=== PATIENT | male | born 1955 | race African-American/Black ===

== ENCOUNTER 2019-09-06 15:19 | Inpatient (IN) | payer OTHER ==
[2019-09-06] VITALS (9 sets, daily range): BP systolic 102–137; BP diastolic 62–91
[~2019-09-06] VITALS: Ht 172.7 cm; Wt 49.0 kg
--- OUTSIDE RECORDS SUMMARY | 2019-09-06 15:21 | XMS REPORT | Clinical Summary ---
Author Author [facility] Address Unknown Phone Unavailable Care Team Providers Care Access Director Name Role Phone PCP Unavailable Allergies Not on File Medications Not on file Active Problems Not on file Encounters Care Team Description Date Type Specialty 08/25/2019 Hospital Encounter after 09/05/2018 Social History Date Tobacco Use Types Packs/Day Years Used Never Assessed Sex Assigned at Date Recorded Not on file Industry Job Start Date Occupation Not on file Not on file Not on file Travel End Travel History Travel Start No recent travel history available. Last Filed Vital Signs Not on file Plan of Treatment Not on file Results Not on fileafter 09/05/2018 Insurance Payer Benefit Subscriber ID Type Phone Address Plan / Group [place]
[2019-09-06] MEDS ORDERED: SODIUM CHLORIDE 0.9% 1000ML 1,000 ML IV STA (15:22)
--- OUTSIDE RECORDS SUMMARY | 2019-09-06 15:23 | XMS REPORT ---
Author Author [facility] t Organization [facility] Address [address] [place] [address] Phone Unavailable Care Team Providers Care Clay Transporter Name Role Phone Unavailable Unavailable Payers Payer Name Policy Type Policy Number Effective Date Expiration Date S ource Problems This patient has no known problems. Allergies, Adverse Reactions, Alerts Allergy Name Allergy Type Status Severity Reaction(s) Onset Date Inacti ve Date Treating Clinician Comments Source No Known Allergies DA Active U 2018-06-14 00:00:00 [facility] Medications This patient has no known medications. Procedures This patient has no known procedures. Results Test Description Test Time Test Comments Results Result Comments Source CBC W/AUTO DIFF 2019-08-31 06:19:00 Test Item WHITE BLOOD CELL (test code = WBC) 5.2 K/mm3 3.5-11.0 N RED BLOOD CELL (test code = RBC) 3.13 M/mm3 4.70-6.10 L HEMOGLOBIN (test code = HGB) 8.1 G/DL 12.3-15.9 L HEMATOCRIT (test code = HCT) 28.4 % 35.8-46.7 L MEAN CELL VOLUME (test code = MCV) 90.7 Fl 86.3-98.9 N MEAN CELL HGB (test code = MCH) 25.9 pg 28.9-34.4 L MEAN CELL HGB CONCETRATION (test code = MCHC) 28.5 G/DL 32.1-34. 5 L RED CELL DISTRIBUTION WIDTH (test code = RDW) 17.4 SD 11.5-14. 5 H PLATELET COUNT (test code = PLT) 282.0 K/mm3 150-450 N MEAN PLATELET VOLUME (test code = MPV) 9.90 fL 7.0-9.6 H NEUTROPHIL % (test code = NT%) 53.2 % 40-76 LYMPHOCYTE % (test code = LY%) 34.3 % 20.5-51.1 N MONOCYTE % (test code = MO%) 6.9 % 1.7-9.3 N EOSINOPHIL % (test code = EO%) 5.2 % 0.0-6.0 N BASOPHIL % (test code = BA%) 0.4 % 0.0-2.0 N NEUTROPHIL # (test code = NT#) 2.76 K/mm3 1.8-7.6 N LYMPHOCYTE # (test code = LY#) 1.8 K/mm3 0.6-3.0 N MONOCYTE # (test code = MO#) 0.4 K/mm3 0.2-1.5 N EOSINOPHIL # (test code = EO#) 0.3 K/mm3 0.0-0.4 N BASOPHIL # (test code = BA#) 0.0 K/mm3 0.0-0.2 N MANUAL DIFF REQUIRED (test code = MDIFF) NO DIFF/SCN CRITERIA SLIDE REVIEW CONSISTANT WITH AUTO DIFFERENTIAL. CBC W/AUTO [id number] 06:19:00* Test Item Value Reference Range Interpretation Comments WHITE BLOOD CELL (test code = WBC) 5.2 K/mm3 3.5-11.0 N RED BLOOD CELL (test code = RBC) 3.13 M/mm3 4.70-6.10 L HEMOGLOBIN (test code = HGB) 8.1 G/DL 12.3-15.9 L HEMATOCRIT (test code = HCT) 28.4 % 35.8-46.7 L MEAN CELL VOLUME (test code = MCV) 90.7 Fl 86.3-98.9 N MEAN CELL HGB (test code = MCH) 25.9 pg 28.9-34.4 L MEAN CELL HGB CONCETRATION (test code = MCHC) 28.5 G/DL 32.1-34. 5 L RED CELL DISTRIBUTION WIDTH (test code = RDW) 17.4 SD 11.5-14. 5 H PLATELET COUNT (test code = PLT) 282.0 K/mm3 150-450 N MEAN PLATELET VOLUME (test code = MPV) 9.90 fL 7.0-9.6 H NEUTROPHIL % (test code = NT%) 53.2 % 40-76 LYMPHOCYTE % (test code = LY%) 34.3 % 20.5-51.1 N MONOCYTE % (test code = MO%) 6.9 % 1.7-9.3 N EOSINOPHIL % (test code = EO%) 5.2 % 0.0-6.0 N BASOPHIL % (test code = BA%) 0.4 % 0.0-2.0 N NEUTROPHIL # (test code = NT#) 2.76 K/mm3 1.8-7.6 N LYMPHOCYTE # (test code = LY#) 1.8 K/mm3 0.6-3.0 N MONOCYTE # (test code = MO#) 0.4 K/mm3 0.2-1.5 N EOSINOPHIL # (test code = EO#) 0.3 K/mm3 0.0-0.4 N BASOPHIL # (test code = BA#) 0.0 K/mm3 0.0-0.2 N MANUAL DIFF REQUIRED (test code = MDIFF) NO DIFF/SCN CRITERIA SLIDE REVIEW CONSISTANT WITH AUTO DIFFERENTIAL. RBC [id number] 06:19:00* Test Item Value Reference Range Interpretation Comments HYPOCHROMIA (test code = HYPO) 2+ ON SCAN NONE A PLATELET ESTIMATE (test code = PLTEST) ADEQUATE THOUSAND ADEQUATE PLATELET MORPHOLOGY (test code = PLTMORPH) NORMAL CBC W/AUTO [id number] 06:19:00* Test Item Value Reference Range Interpretation Comments WHITE BLOOD CELL (test code = WBC) 5.2 K/mm3 3.5-11.0 N RED BLOOD CELL (test code = RBC) 3.13 M/mm3 4.70-6.10 L HEMOGLOBIN (test code = HGB) 8.1 G/DL 12.3-15.9 L HEMATOCRIT (test code = HCT) 28.4 % 35.8-46.7 L MEAN CELL VOLUME (test code = MCV) 90.7 Fl 86.3-98.9 N MEAN CELL HGB (test code = MCH) 25.9 pg 28.9-34.4 L MEAN CELL HGB CONCETRATION (test code = MCHC) 28.5 G/DL 32.1-34. 5 L RED CELL DISTRIBUTION WIDTH (test code = RDW) 17.4 SD 11.5-14. 5 H PLATELET COUNT (test code = PLT) 282.0 K/mm3 150-450 N MEAN PLATELET VOLUME (test code = MPV) 9.90 fL 7.0-9.6 H NEUTROPHIL % (test code = NT%) 53.2 % 40-76 LYMPHOCYTE % (test code = LY%) 34.3 % 20.5-51.1 N MONOCYTE % (test code = MO%) 6.9 % 1.7-9.3 N EOSINOPHIL % (test code = EO%) 5.2 % 0.0-6.0 N BASOPHIL % (test code = BA%) 0.4 % 0.0-2.0 N NEUTROPHIL # (test code = NT#) 2.76 K/mm3 1.8-7.6 N LYMPHOCYTE # (test code = LY#) 1.8 K/mm3 0.6-3.0 N MONOCYTE # (test code = MO#) 0.4 K/mm3 0.2-1.5 N EOSINOPHIL # (test code = EO#) 0.3 K/mm3 0.0-0.4 N BASOPHIL # (test code = BA#) 0.0 K/mm3 0.0-0.2 N MANUAL DIFF REQUIRED (test code = MDIFF) NO DIFF/SCN CRITERIA SLIDE REVIEW CONSISTANT WITH AUTO DIFFERENTIAL. [id number] 04:50:00* Test Item Value Reference Range Interpretation Comments MAGNESIUM (test code = MAG) 2.0 MG/DL 1.8-2.4 N CBC W/AUTO [id number] 04:48:00* Test Item Value Reference Range Interpretation Comments WHITE BLOOD CELL (test code = WBC) 5.2 K/mm3 3.5-11.0 N RED BLOOD CELL (test code = RBC) 3.13 M/mm3 4.70-6.10 L HEMOGLOBIN (test code = HGB) 8.1 G/DL 12.3-15.9 L HEMATOCRIT (test code = HCT) 28.4 % 35.8-46.7 L MEAN CELL VOLUME (test code = MCV) 90.7 Fl 86.3-98.9 N MEAN CELL HGB (test code = MCH) 25.9 pg 28.9-34.4 L MEAN CELL HGB CONCETRATION (test code = MCHC) 28.5 G/DL 32.1-34. 5 L RED CELL DISTRIBUTION WIDTH (test code = RDW) 17.4 SD 11.5-14. 5 H PLATELET COUNT (test code = PLT) 282.0 K/mm3 150-450 N MEAN PLATELET VOLUME (test code = MPV) 9.90 fL 7.0-9.6 H NEUTROPHIL % (test code = NT%) % 40-76 LYMPHOCYTE % (test code = LY%) % 20.5-51.1 N MONOCYTE % (test code = MO%) % 1.7-9.3 N EOSINOPHIL % (test code = EO%) % 0.0-6.0 N BASOPHIL % (test code = BA%) % 0.0-2.0 N NEUTROPHIL # (test code = NT#) K/mm3 1.8-7.6 N LYMPHOCYTE # (test code = LY#) K/mm3 0.6-3.0 N MONOCYTE # (test code = MO#) K/mm3 0.2-1.5 N EOSINOPHIL # (test code = EO#) K/mm3 0.0-0.4 N BASOPHIL # (test code = BA#) K/mm3 0.0-0.2 N MANUAL DIFF REQUIRED (test code = MDIFF) DIFF/SCN CRITERIA COMPREHENSIVE METABOLIC [id number] 04:48:00* Test Item Value Reference Range Interpretation Comments SODIUM (test code = NA) 143 mmol/L 134-147 N POTASSIUM (test code = K) 4.6 mmol/L 3.4-5.0 N CHLORIDE (test code = CL) 111 mmol/L 100-108 H CARBON DIOXIDE (test code = CO2) 30 mmol/L 21-32 N ANION GAP (test code = GAP) 2.0 GAP calc 4.0-15.0 L GLUCOSE (test code = GLU) 92 MG/DL 70-110 N BLOOD UREA NITROGEN (test code = BUN) 2 MG/DL 7-18 L GLOMERULAR FILTRATION RATE (test code = GFR) >=60 max estimate estG FR >60 CREATININE (test code = CREAT) 0.3 MG/DL 0.8-1.3 L TOTAL PROTEIN (test code = PROT) 5.7 G/DL 6.4-8.2 L ALBUMIN (test code = ALB) 1.7 G/DL 3.4-5.0 L GLOBULIN (test code = GLOB) 4.0 GM/dL ALBUMIN/GLOBULIN RATIO (test code = A/G) 0.4 RATIO 1.2-2.2 L CALCIUM (test code = CA) 8.4 MG/DL 8.5-10.1 L BILIRUBIN TOTAL (test code = BILT) 0.20 MG/DL 0.2-1.2 N SGOT/AST (test code = AST) 21 Unit/L 15-37 N SGPT/ALT (test code = ALT) 14 Unit/L 12-78 N ALKALINE PHOSPHATASE TOTAL (test code = ALKP) 90 Unit/L 50-136 N BASIC METABOLIC [id number] 14:46:00* Test Item Value Reference Range Interpretation Comments SODIUM (test code = NA) 144 mmol/L 134-147 N POTASSIUM (test code = K) 3.3 mmol/L 3.4-5.0 L CHLORIDE (test code = CL) 110 mmol/L 100-108 H CARBON DIOXIDE (test code = CO2) 30 mmol/L 21-32 N ANION GAP (test code = GAP) 4.0 GAP calc 4.0-15.0 N GLUCOSE (test code = GLU) 100 MG/DL 70-110 N BLOOD UREA NITROGEN (test code = BUN) 3 MG/DL 7-18 L GLOMERULAR FILTRATION RATE (test code = GFR) >=60 max estimate estG FR >60 CREATININE (test code = CREAT) 0.4 MG/DL 0.8-1.3 L CALCIUM (test code = CA) 8.2 MG/DL 8.5-10.1 L BASIC METABOLIC [id number] 14:44:00* Test Item Value Reference Range Interpretation Comments SODIUM (test code = NA) 144 mmol/L 134-147 N POTASSIUM (test code = K) 3.3 mmol/L 3.4-5.0 L CHLORIDE (test code = CL) 110 mmol/L 100-108 H CARBON DIOXIDE (test code = CO2) 30 mmol/L 21-32 N ANION GAP (test code = GAP) 4.0 GAP calc 4.0-15.0 N GLUCOSE (test code = GLU) 100 MG/DL 70-110 N BLOOD UREA NITROGEN (test code = BUN) 3 MG/DL 7-18 L GLOMERULAR FILTRATION RATE (test code = GFR) estGFR >60 CREATININE (test code = CREAT) MG/DL 0.8-1.3 CALCIUM (test code = CA) 8.2 MG/DL 8.5-10.1 L CBC W/AUTO [id number] 11:23:00* Test Item Value Reference Range Interpretation Comments WHITE BLOOD CELL (test code = WBC) 6.8 K/mm3 3.5-11.0 N RED BLOOD CELL (test code = RBC) 3.54 M/mm3 4.70-6.10 L HEMOGLOBIN (test code = HGB) 9.2 G/DL 12.3-15.9 L HEMATOCRIT (test code = HCT) 31.8 % 35.8-46.7 L MEAN CELL VOLUME (test code = MCV) 89.8 Fl 86.3-98.9 N MEAN CELL HGB (test code = MCH) 26.0 pg 28.9-34.4 L MEAN CELL HGB CONCETRATION (test code = MCHC) 28.9 G/DL 32.1-34. 5 L RED CELL DISTRIBUTION WIDTH (test code = RDW) 17.5 SD 11.5-14. 5 H PLATELET COUNT (test code = PLT) 393.0 K/mm3 150-450 N MEAN PLATELET VOLUME (test code = MPV) 9.10 fL 7.0-9.6 N NEUTROPHIL % (test code = NT%) 63.1 % 40-76 N LYMPHOCYTE % (test code = LY%) 27.0 % 20.5-51.1 N MONOCYTE % (test code = MO%) 7.6 % 1.7-9.3 N EOSINOPHIL % (test code = EO%) 2.2 % 0.0-6.0 N BASOPHIL % (test code = BA%) 0.1 % 0.0-2.0 N NEUTROPHIL # (test code = NT#) 4.31 K/mm3 1.8-7.6 N LYMPHOCYTE # (test code = LY#) 1.9 K/mm3 0.6-3.0 N MONOCYTE # (test code = MO#) 0.5 K/mm3 0.2-1.5 N EOSINOPHIL # (test code = EO#) 0.2 K/mm3 0.0-0.4 N BASOPHIL # (test code = BA#) 0.0 K/mm3 0.0-0.2 N MANUAL DIFF REQUIRED (test code = MDIFF) NO DIFF/SCN CRITERIA SLIDE REVIEW CONSISTANT WITH AUTO DIFFERENTIAL. RBC [id number] 11:23:00* Test Item Value Reference Range Interpretation Comments HYPOCHROMIA (test code = HYPO) 1+ ON SCAN NONE ANISOCYTOSIS (test code = ANISO) 1+ NONE OVALOCYTES (test code = OVAL) TRACE ON SCAN NONE CBC W/AUTO [id number] 11:22:00* Test Item Value Reference Range Interpretation Comments WHITE BLOOD CELL (test code = WBC) 6.8 K/mm3 3.5-11.0 N RED BLOOD CELL (test code = RBC) 3.54 M/mm3 4.70-6.10 L HEMOGLOBIN (test code = HGB) 9.2 G/DL 12.3-15.9 L HEMATOCRIT (test code = HCT) 31.8 % 35.8-46.7 L MEAN CELL VOLUME (test code = MCV) 89.8 Fl 86.3-98.9 N MEAN CELL HGB (test code = MCH) 26.0 pg 28.9-34.4 L MEAN CELL HGB CONCETRATION (test code = MCHC) 28.9 G/DL 32.1-34. 5 L RED CELL DISTRIBUTION WIDTH (test code = RDW) 17.5 SD 11.5-14. 5 H PLATELET COUNT (test code = PLT) 393.0 K/mm3 150-450 N MEAN PLATELET VOLUME (test code = MPV) 9.10 fL 7.0-9.6 N NEUTROPHIL % (test code = NT%) 63.1 % 40-76 N LYMPHOCYTE % (test code = LY%) 27.0 % 20.5-51.1 N MONOCYTE % (test code = MO%) 7.6 % 1.7-9.3 N EOSINOPHIL % (test code = EO%) 2.2 % 0.0-6.0 N BASOPHIL % (test code = BA%) 0.1 % 0.0-2.0 N NEUTROPHIL # (test code = NT#) 4.31 K/mm3 1.8-7.6 N LYMPHOCYTE # (test code = LY#) 1.9 K/mm3 0.6-3.0 N MONOCYTE # (test code = MO#) 0.5 K/mm3 0.2-1.5 N EOSINOPHIL # (test code = EO#) 0.2 K/mm3 0.0-0.4 N BASOPHIL # (test code = BA#) 0.0 K/mm3 0.0-0.2 N MANUAL DIFF REQUIRED (test code = MDIFF) NO DIFF/SCN CRITERIA SLIDE REVIEW CONSISTANT WITH AUTO DIFFERENTIAL. CBC W/AUTO [id number] 11:22:00* Test Item Value Reference Range Interpretation Comments WHITE BLOOD CELL (test code = WBC) 6.8 K/mm3 3.5-11.0 N RED BLOOD CELL (test code = RBC) 3.54 M/mm3 4.70-6.10 L HEMOGLOBIN (test code = HGB) 9.2 G/DL 12.3-15.9 L HEMATOCRIT (test code = HCT) 31.8 % 35.8-46.7 L MEAN CELL VOLUME (test code = MCV) 89.8 Fl 86.3-98.9 N MEAN CELL HGB (test code = MCH) 26.0 pg 28.9-34.4 L MEAN CELL HGB CONCETRATION (test code = MCHC) 28.9 G/DL 32.1-34. 5 L RED CELL DISTRIBUTION WIDTH (test code = RDW) 17.5 SD 11.5-14. 5 H PLATELET COUNT (test code = PLT) 393.0 K/mm3 150-450 N MEAN PLATELET VOLUME (test code = MPV) 9.10 fL 7.0-9.6 N NEUTROPHIL % (test code = NT%) 63.1 % 40-76 N LYMPHOCYTE % (test code = LY%) 27.0 % 20.5-51.1 N MONOCYTE % (test code = MO%) 7.6 % 1.7-9.3 N EOSINOPHIL % (test code = EO%) 2.2 % 0.0-6.0 N BASOPHIL % (test code = BA%) 0.1 % 0.0-2.0 N NEUTROPHIL # (test code = NT#) 4.31 K/mm3 1.8-7.6 N LYMPHOCYTE # (test code = LY#) 1.9 K/mm3 0.6-3.0 N MONOCYTE # (test code = MO#) 0.5 K/mm3 0.2-1.5 N EOSINOPHIL # (test code = EO#) 0.2 K/mm3 0.0-0.4 N BASOPHIL # (test code = BA#) 0.0 K/mm3 0.0-0.2 N MANUAL DIFF REQUIRED (test code = MDIFF) NO DIFF/SCN CRITERIA SLIDE REVIEW CONSISTANT WITH AUTO DIFFERENTIAL. COMPREHENSIVE METABOLIC [id number] 05:54:00* Test Item Value Reference Range Interpretation Comments SODIUM (test code = NA) 145 mmol/L 134-147 N POTASSIUM (test code = K) 2.9 mmol/L 3.4-5.0 LL CHLORIDE (test code = CL) 110 mmol/L 100-108 H CARBON DIOXIDE (test code = CO2) 30 mmol/L 21-32 N ANION GAP (test code = GAP) 5.0 GAP calc 4.0-15.0 N GLUCOSE (test code = GLU) 105 MG/DL 70-110 N BLOOD UREA NITROGEN (test code = BUN) 2 MG/DL 7-18 L GLOMERULAR FILTRATION RATE (test code = GFR) >=60 max estimate estG FR >60 CREATININE (test code = CREAT) 0.4 MG/DL 0.8-1.3 L TOTAL PROTEIN (test code = PROT) 5.6 G/DL 6.4-8.2 L ALBUMIN (test code = ALB) 1.8 G/DL 3.4-5.0 L GLOBULIN (test code = GLOB) 3.8 GM/dL ALBUMIN/GLOBULIN RATIO (test code = A/G) 0.5 RATIO 1.2-2.2 L CALCIUM (test code = CA) 8.2 MG/DL 8.5-10.1 L BILIRUBIN TOTAL (test code = BILT) 0.50 MG/DL 0.2-1.2 N SGOT/AST (test code = AST) 15 Unit/L 15-37 N SGPT/ALT (test code = ALT) 14 Unit/L 12-78 N ALKALINE PHOSPHATASE TOTAL (test code = ALKP) 92 Unit/L 50-136 N [id number] 05:18:00* Test Item Value Reference Range Interpretation Comments MAGNESIUM (test code = MAG) 2.0 MG/DL 1.8-2.4 N CBC W/AUTO [id number] 05:16:00* Test Item Value Reference Range Interpretation Comments WHITE BLOOD CELL (test code = WBC) 6.8 K/mm3 3.5-11.0 N RED BLOOD CELL (test code = RBC) 3.54 M/mm3 4.70-6.10 L HEMOGLOBIN (test code = HGB) 9.2 G/DL 12.3-15.9 L HEMATOCRIT (test code = HCT) 31.8 % 35.8-46.7 L MEAN CELL VOLUME (test code = MCV) 89.8 Fl 86.3-98.9 N MEAN CELL HGB (test code = MCH) 26.0 pg 28.9-34.4 L MEAN CELL HGB CONCETRATION (test code = MCHC) 28.9 G/DL 32.1-34. 5 L RED CELL DISTRIBUTION WIDTH (test code = RDW) 17.5 SD 11.5-14. 5 H PLATELET COUNT (test code = PLT) 393.0 K/mm3 150-450 N MEAN PLATELET VOLUME (test code = MPV) 9.10 fL 7.0-9.6 N NEUTROPHIL % (test code = NT%) % 40-76 N LYMPHOCYTE % (test code = LY%) % 20.5-51.1 N MONOCYTE % (test code = MO%) % 1.7-9.3 N EOSINOPHIL % (test code = EO%) % 0.0-6.0 N BASOPHIL % (test code = BA%) % 0.0-2.0 N NEUTROPHIL # (test code = NT#) K/mm3 1.8-7.6 N LYMPHOCYTE # (test code = LY#) K/mm3 0.6-3.0 N MONOCYTE # (test code = MO#) K/mm3 0.2-1.5 N EOSINOPHIL # (test code = EO#) K/mm3 0.0-0.4 N BASOPHIL # (test code = BA#) K/mm3 0.0-0.2 N MANUAL DIFF REQUIRED (test code = MDIFF) DIFF/SCN CRITERIA BASIC METABOLIC [id number] 18:20:00* Test Item Value Reference Range Interpretation Comments SODIUM (test code = NA) 144 mmol/L 134-147 N POTASSIUM (test code = K) 3.1 mmol/L 3.4-5.0 L CHLORIDE (test code = CL) 108 mmol/L 100-108 N CARBON DIOXIDE (test code = CO2) 31 mmol/L 21-32 N ANION GAP (test code = GAP) 5.0 GAP calc 4.0-15.0 N GLUCOSE (test code = GLU) 125 MG/DL 70-110 H BLOOD UREA NITROGEN (test code = BUN) 5 MG/DL 7-18 L GLOMERULAR FILTRATION RATE (test code = GFR) >=60 max estimate estG FR >60 CREATININE (test code = CREAT) 0.5 MG/DL 0.8-1.3 L CALCIUM (test code = CA) 7.9 MG/DL 8.5-10.1 L [id number] 18:20:00* Test Item Value Reference Range Interpretation Comments MAGNESIUM (test code = MAG) 2.1 MG/DL 1.8-2.4 CBC W/AUTO [id number] 10:07:00* Test Item Value Reference Range Interpretation Comments WHITE BLOOD CELL (test code = WBC) 6.8 K/mm3 3.5-11.0 N RED BLOOD CELL (test code = RBC) 3.90 M/mm3 4.70-6.10 L HEMOGLOBIN (test code = HGB) 10.3 G/DL 12.3-15.9 L HEMATOCRIT (test code = HCT) 35.0 % 35.8-46.7 L MEAN CELL VOLUME (test code = MCV) 89.7 Fl 86.3-98.9 N MEAN CELL HGB (test code = MCH) 26.4 pg 28.9-34.4 L MEAN CELL HGB CONCETRATION (test code = MCHC) 29.4 G/DL 32.1-34. 5 L RED CELL DISTRIBUTION WIDTH (test code = RDW) 16.9 SD 11.5-14. 5 H PLATELET COUNT (test code = PLT) 428.0 K/mm3 150-450 N MEAN PLATELET VOLUME (test code = MPV) 9.20 fL 7.0-9.6 N NEUTROPHIL % (test code = NT%) 65.0 % 40-76 N LYMPHOCYTE % (test code = LY%) 27.9 % 20.5-51.1 N MONOCYTE % (test code = MO%) 5.9 % 1.7-9.3 N EOSINOPHIL % (test code = EO%) 0.9 % 0.0-6.0 N BASOPHIL % (test code = BA%) 0.3 % 0.0-2.0 N NEUTROPHIL # (test code = NT#) 4.44 K/mm3 1.8-7.6 N LYMPHOCYTE # (test code = LY#) 1.9 K/mm3 0.6-3.0 N MONOCYTE # (test code = MO#) 0.4 K/mm3 0.2-1.5 N EOSINOPHIL # (test code = EO#) 0.1 K/mm3 0.0-0.4 N BASOPHIL # (test code = BA#) 0.0 K/mm3 0.0-0.2 N MANUAL DIFF REQUIRED (test code = MDIFF) NO DIFF/SCN CRITERIA SLIDE REVIEW CONSISTANT WITH AUTO DIFFERENTIAL. CBC W/AUTO [id number] 09:20:00* Test Item Value Reference Range Interpretation Comments WHITE BLOOD CELL (test code = WBC) 6.8 K/mm3 3.5-11.0 N RED BLOOD CELL (test code = RBC) 3.90 M/mm3 4.70-6.10 L HEMOGLOBIN (test code = HGB) 10.3 G/DL 12.3-15.9 L HEMATOCRIT (test code = HCT) 35.0 % 35.8-46.7 L MEAN CELL VOLUME (test code = MCV) 89.7 Fl 86.3-98.9 N MEAN CELL HGB (test code = MCH) 26.4 pg 28.9-34.4 L MEAN CELL HGB CONCETRATION (test code = MCHC) 29.4 G/DL 32.1-34. 5 L RED CELL DISTRIBUTION WIDTH (test code = RDW) 16.9 SD 11.5-14. 5 H PLATELET COUNT (test code = PLT) 428.0 K/mm3 150-450 N MEAN PLATELET VOLUME (test code = MPV) 9.20 fL 7.0-9.6 N NEUTROPHIL % (test code = NT%) % 40-76 N LYMPHOCYTE % (test code = LY%) % 20.5-51.1 N MONOCYTE % (test code = MO%) % 1.7-9.3 N EOSINOPHIL % (test code = EO%) % 0.0-6.0 N BASOPHIL % (test code = BA%) % 0.0-2.0 N NEUTROPHIL # (test code = NT#) K/mm3 1.8-7.6 N LYMPHOCYTE # (test code = LY#) K/mm3 0.6-3.0 N MONOCYTE # (test code = MO#) K/mm3 0.2-1.5 N EOSINOPHIL # (test code = EO#) K/mm3 0.0-0.4 N BASOPHIL # (test code = BA#) K/mm3 0.0-0.2 N MANUAL DIFF REQUIRED (test code = MDIFF) DIFF/SCN CRITERIA COMPREHENSIVE METABOLIC [id number] 09:17:00* Test Item Value Reference Range Interpretation Comments SODIUM (test code = NA) 146 mmol/L 134-147 N POTASSIUM (test code = K) 2.7 mmol/L 3.4-5.0 LL CHLORIDE (test code = CL) 111 mmol/L 100-108 H CARBON DIOXIDE (test code = CO2) 29 mmol/L 21-32 N ANION GAP (test code = GAP) 6.0 GAP calc 4.0-15.0 N GLUCOSE (test code = GLU) 127 MG/DL 70-110 H BLOOD UREA NITROGEN (test code = BUN) 2 MG/DL 7-18 L GLOMERULAR FILTRATION RATE (test code = GFR) >=60 max estimate estG FR >60 CREATININE (test code = CREAT) 0.4 MG/DL 0.8-1.3 L TOTAL PROTEIN (test code = PROT) 6.3 G/DL 6.4-8.2 L ALBUMIN (test code = ALB) 1.8 G/DL 3.4-5.0 L GLOBULIN (test code = GLOB) 4.5 GM/dL ALBUMIN/GLOBULIN RATIO (test code = A/G) 0.4 RATIO 1.2-2.2 L CALCIUM (test code = CA) 8.5 MG/DL 8.5-10.1 N BILIRUBIN TOTAL (test code = BILT) 0.40 MG/DL 0.2-1.2 N SGOT/AST (test code = AST) 21 Unit/L 15-37 N SGPT/ALT (test code = ALT) 15 Unit/L 12-78 N ALKALINE PHOSPHATASE TOTAL (test code = ALKP) 104 Unit/L 50-136 N [id number] 09:10:00* Test Item Value Reference Range Interpretation Comments PHOSPHOROUS (test code = PHOS) 2.2 MG/DL 2.5-4.9 L [id number] 09:10:00* Test Item Value Reference Range Interpretation Comments MAGNESIUM (test code = MAG) 1.5 MG/DL 1.8-2.4 L BASIC METABOLIC [id number] 06:30:00* Test Item Value Reference Range Interpretation Comments SODIUM (test code = NA) 147 mmol/L 134-147 N POTASSIUM (test code = K) 2.1 mmol/L 3.4-5.0 LL CHLORIDE (test code = CL) 117 mmol/L 100-108 H CARBON DIOXIDE (test code = CO2) 27 mmol/L 21-32 N ANION GAP (test code = GAP) 3.0 GAP calc 4.0-15.0 L GLUCOSE (test code = GLU) 77 MG/DL 70-110 N BLOOD UREA NITROGEN (test code = BUN) 2 MG/DL 7-18 L GLOMERULAR FILTRATION RATE (test code = GFR) >=60 max estimate estG FR >60 CREATININE (test code = CREAT) 0.2 MG/DL 0.8-1.3 L CALCIUM (test code = CA) 6.6 MG/DL 8.5-10.1 L VANCOMYCIN [id number] 21:22:00* Test Item Value Reference Range Interpretation Comments VANCOMYCIN TROUGH (test code = VANCT) 11.8 mcG/ML 10-20 N [id number] 08:10:00* Test Item Value Reference Range Interpretation Comments PREALBUMIN (test code = PREALB) 9.0 mg/dL 10-36 L Performed At: [facility] [address] [id number] Geovanni Saxena MD Ph:[phone] GLUCOSE BEDSIDE [id number] 19:50:00* Test Item Value Reference Range Interpretation Comments GLUCOSE BEDSIDE TESTING (test code = GLUBED) 86 mg/dL 70-110 N - CT ORBIT/SELLA/IAC [id number] 16:41:00 Name: MIRA WALKER [facility] : 1955 Age/S: 64 / M [address] [place] [address] [place] Unit #: [id number] Loc: [place] [address] Phys: Alan Guerrero MD Acct: [id number] Dis Date: Status: ADM IN PHONE #: [phone] Exam Date: 08/24/2019 7078 FAX #: Reason: MASTODITIS EXAMS: CPT: [id number] CT ORBIT/SELLA/[place] [id number] EXAM: CT temporal bones without contrast. HISTORY: Conductive hearing loss. COMPARISON: None available.Technique: Axial images of the temporal bones were obtained without contrast. Images were reformatted to create coronal and sagittal reconstructions. FINDINGS: Right temporal bone: External auditory canal is patent. Mastoid air cells and middle ear cavity are clear. There is normal appearance of the tympanic membrane as well as the scutum and tympanic annulus. Tegmen tympani is intact. Middle ear ossicles are preserved and within normal limits. Malleoincudal joint is grossly within normal limits. Oval window is grossly within normal limits.The tympanic course of the facial nerve is unremarkable. Visualized intraorbital structures including the cochlea and semicircular canals are within normal limits. There is no evidence for dehiscence. The vestibular aqueduct in caliber of the internal auditory canal are otherwis e within normal limits. Left temporal bone: External auditory canal is patent. There is complete opacification of the left middle ear cavity and left mastoid air cells. Bony destruction super iorly through the tegmen tympani is noted. Bony destruction through the m astoid portion of the temporal bone anteriorly and posteriorly abutting th e posterior cranial fossa and the middle cranial fossa are noted. Complet e obliteration of the ossicles is noted. 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 Dehiscence of the lateral aspe ct of the vestibule is noted. The facial nerve canal is not well delineat ed secondary to the degree of bony destruction in the middle ear cavity. Destruction of the tympanic membrane and scutum is noted. Extensive soft tissue swelling is noted extending from the external auditory canal. Low-attenuation infarcts are noted in the left cerebellum and left occipital lobe. A large right MCA territory infarct is noted. IMPRESSION: PAGE 1 Signed Report (CONTINUED) Name[facility] [place] [facility] 1955 Age/S: 64 / M [address] [place] [address] [place] Unit #: [id number] Loc: [place] [address] Phys: Alan Guerrero MD Acct: [id number] Dis Date: Status: ADM IN PHONE #: [phone] Exam Date: 08/24/2019 8481 FAX #: Reason: MASTODITIS EXAMS: CPT: [id number] ORBIT/SELLA/[place] [id number] < Continued> 1. 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 2. Extensive left temporal bone bony destructive changes are noted extending superiorly through the tegmen tympani and anteriorly and posteriorly through the mastoid portions of the temporal bone. Given the degree of bony destruction, intracranial extension is likely. Consider further evaluation with contrast-enhanced brain MRI with thin sections in the region of the left temporal bone. 3. Complete destruction of the middle ear structures. 4. Extension into the internal auditory canal is noted with dehiscence of the lateral/superior semicircular canals and vestibule. 5. The left facial nerve canal is not well evaluated given the degree of bony destruction. 6. Sclerosis and destruction of the left mastoid air cells is noted consistent with advanced mastoiditis. 7. Extensive left external auditory canal soft tissue swelling is noted. at 1641 Reported and signed by: Reji Fairchild M.D. CC: Alan Guerrero MD; Ruddy Sam MD Technologist:Yvon Dumont RT(R)(CT); Kri CTDI: DLP: Trnscb Date/Time: 08/24/2019 (1640) [email or web address] Orig Print D/T: S: 08/24/2019 (1095) PAGE 2 Signed Report - CT HEAD/BRAIN W/O [id number] 16:09:00 Name: MIRA WALKER [facility] : 1955 Age/S: 64 / M [address] [facility] Unit #: [id number] Loc: [place] [address] Phys: Alan Guerrero MD Acct: [id number] Dis Date: Status: ADM IN PHONE #: [phone] Exam Date: 08/24/2019 1530 FAX #: Reason: left ear drainage, h/o chronic mastoiditis EXAMS: CPT: [id number] CT HEAD/BRAIN W/O CONT [id number] INDICATION:left ear drainage, h/o chronic mastoiditis TECHNIQUE: Noncontrast CT of the head is obtained. Comparison: Comparison is made with prior study of 07/28/2019 Location: T18 CT DLP Dose: 805 mGy-cm. Iterative dose reduction technique utilized. FINDINGS: There is mild to moderate generalized cerebral atrophy with extensive periventricular and deep white matter low-density changes. Small regions of encephalomalacia encephalomalacia within the right frontal and right parietal as well as left parietal and occipital regions related to old infarcts. 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 There is no CT evidence of an acute cerebrovascular accident. There is no evidence of intracerebral hemorrhage. No mass effect is seen. No mass is seen. The brainstem structures are unremarkable. There is mild cerebellar atrophy. There is no evidence of an acute cerebrovascular accident involving the cerebellar hemispheres. The cisterns are patent. T he ventricular system is unremarkable. There is opacification of the left middle ear and mastoid air cells with mild sclerosis. The calvarium and sk ull base are otherwise normal. No calvarial or skull base fracture is seen . The extracranial soft tissues are unremarkable. Vascular calcifications are noted in the carotid siphons. IMPRESSION: 1. Mild generalized cerebral atrophy and extensive periventricular and deep white matter changes, consistent with advanced chronic microvascular disease. 2. 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 3. There is opacification of the left middle ear and ma stoid air cells. Findings are concerning for otomastoiditis. PAGE 1 Signed Report (CONTINUED) Name: MIRA CAPELLAN [facility] : 1955 Age/S: 64 / M [address] [facility] Unit #: [id number] L oc: [place] [address] Phys: Alan Guerrero MD Acct: [id number] Dis Date: Status: ADM IN PHONE #: [phone] Exam Date: 08/24/2019 1535 FAX #: Janice son: left ear drainage, h/o chronic mastoiditis EXAMS: CPT: [id number] CT HEAD/BRAIN W/O CONT 44593 <Continued> at 1609 Reported and signed by: Baron Carbajal M.D. CC: Alan Guerrero MD; Ruddy Sam MD Technologist:Yvon Dumont, RT(R)(CT); Kri CTDI: DLP: Trnscb Date/Time: 08/24/2019 (7413) [id number] Orig Print D/T: S: 08/24/2019 (0991) PAGE 2 Signed Report LACTIC [id number] 20:26:00* Test Item Value Reference Range Interpretation Comments LACTIC ACID (test code = LACT) 1.2 mmol/L 0.4-2.0 N CBC W/AUTO [id number] 15:25:00* Test Item Value Reference Range Interpretation Comments WHITE BLOOD CELL (test code = WBC) 4.7 K/mm3 3.5-11.0 N RED BLOOD CELL (test code = RBC) 3.92 M/mm3 4.70-6.10 L HEMOGLOBIN (test code = HGB) 10.5 G/DL 12.3-15.9 L HEMATOCRIT (test code = HCT) 36.2 % 35.8-46.7 N MEAN CELL VOLUME (test code = MCV) 92.3 Fl 86.3-98.9 N MEAN CELL HGB (test code = MCH) 26.8 pg 28.9-34.4 L MEAN CELL HGB CONCETRATION (test code = MCHC) 29.0 G/DL 32.1-34. 5 L RED CELL DISTRIBUTION WIDTH (test code = RDW) 16.1 SD 11.5-14. 5 H PLATELET COUNT (test code = PLT) 375.0 K/mm3 150-450 N MEAN PLATELET VOLUME (test code = MPV) 9.60 fL 7.0-9.6 N NEUTROPHIL % (test code = NT%) 91.2 % 40-76 H LYMPHOCYTE % (test code = LY%) 7.8 % 20.5-51.1 L MONOCYTE % (test code = MO%) 0.6 % 1.7-9.3 L EOSINOPHIL % (test code = EO%) 0.4 % 0.0-6.0 N BASOPHIL % (test code = BA%) 0.0 % 0.0-2.0 N NEUTROPHIL # (test code = NT#) 4.30 K/mm3 1.8-7.6 N LYMPHOCYTE # (test code = LY#) 0.4 K/mm3 0.6-3.0 L MONOCYTE # (test code = MO#) 0.0 K/mm3 0.2-1.5 L EOSINOPHIL # (test code = EO#) 0.0 K/mm3 0.0-0.4 N BASOPHIL # (test code = BA#) 0.0 K/mm3 0.0-0.2 N MANUAL DIFF REQUIRED (test code = MDIFF) NO DIFF/SCN CRITERIA SLIDE REVIEW CONSISTANT WITH AUTO DIFFERENTIAL. - XR CHEST 1 [id number] 15:19:00 Name: MIRA WALKER [facility] : 1955 Age/S: 64 / M [address] [address] [facility] Unit #: [id number] Loc: [place] [address] Phys: Alan Guerrero MD Acct: [id number] Dis Date: Status: ADM IN PHONE #: [phone] Exam Date: 08/23/2019 6259 FAX #: Reason: fever EXAMS: CPT: [id number] XR CHEST 1 V 99532 Fluoro Time: DAP (Gy m2): Air Kerma (mGy): Site ID: [id number] INDICATION: Fever, sacral wound COMPARISON: Chest x-ray of the prior day IMPRESSION: Right PICC line terminates appropriately at the SVC. Small left basilar effusion and mild hazy basilar atelectasis appear unchanged. at 1519 Reported and signed by: Angel Putnam M.D. CC: Alan Guerrero MD; Ruddy Sam MD PAGE 1 Signed Report Name: MIRA WALKER [facility] : 1955 Age/S: 64 / M [address] [address] [facility] Unit #: [id number] Loc: [place] [address] Phys: Alan Guerrero MD Acct: [id number] Dis Date: Status: ADM IN PHONE #: [phone] Exam Date: 08/23/2019 2660 FAX #: Reason: fever EXAMS: CPT: [id number] XR CHEST 1 V 66803 Fluoro Time: DAP (Gy m2): Air Kerma (mGy): <Continued> Technologist: Renee Jacobs, RT(R) Trnscb Date/Time: 08/23/2019 (9103) [id number] Orig Print D/T: S: 08/23/2019 (0436) PAGE 2 Signed Report LACTIC [id number] 15:00:00* Test Item Value Reference Range Interpretation Comments LACTIC ACID (test code = LACT) 2.2 mmol/L 0.4-2.0 H BASIC METABOLIC [id number] 14:39:00* Test Item Value Reference Range Interpretation Comments SODIUM (test code = NA) 144 mmol/L 134-147 N POTASSIUM (test code = K) 3.8 mmol/L 3.4-5.0 N CHLORIDE (test code = CL) 110 mmol/L 100-108 H CARBON DIOXIDE (test code = CO2) 27 mmol/L 21-32 N ANION GAP (test code = GAP) 7.0 GAP calc 4.0-15.0 N GLUCOSE (test code = GLU) 139 MG/DL 70-110 H BLOOD UREA NITROGEN (test code = BUN) 12 MG/DL 7-18 N GLOMERULAR FILTRATION RATE (test code = GFR) >=60 max estimate estG FR >60 CREATININE (test code = CREAT) 0.5 MG/DL 0.8-1.3 L CALCIUM (test code = CA) 8.7 MG/DL 8.5-10.1 N CBC W/AUTO [id number] 14:28:00* Test Item Value Reference Range Interpretation Comments WHITE BLOOD CELL (test code = WBC) 4.7 K/mm3 3.5-11.0 N RED BLOOD CELL (test code = RBC) 3.92 M/mm3 4.70-6.10 L HEMOGLOBIN (test code = HGB) 10.5 G/DL 12.3-15.9 L HEMATOCRIT (test code = HCT) 36.2 % 35.8-46.7 N MEAN CELL VOLUME (test code = MCV) 92.3 Fl 86.3-98.9 N MEAN CELL HGB (test code = MCH) 26.8 pg 28.9-34.4 L MEAN CELL HGB CONCETRATION (test code = MCHC) 29.0 G/DL 32.1-34. 5 L RED CELL DISTRIBUTION WIDTH (test code = RDW) 16.1 SD 11.5-14. 5 H PLATELET COUNT (test code = PLT) 375.0 K/mm3 150-450 N MEAN PLATELET VOLUME (test code = MPV) 9.60 fL 7.0-9.6 N NEUTROPHIL % (test code = NT%) % 40-76 H LYMPHOCYTE % (test code = LY%) % 20.5-51.1 L MONOCYTE % (test code = MO%) % 1.7-9.3 L EOSINOPHIL % (test code = EO%) % 0.0-6.0 N BASOPHIL % (test code = BA%) % 0.0-2.0 N NEUTROPHIL # (test code = NT#) K/mm3 1.8-7.6 N LYMPHOCYTE # (test code = LY#) K/mm3 0.6-3.0 L MONOCYTE # (test code = MO#) K/mm3 0.2-1.5 L EOSINOPHIL # (test code = EO#) K/mm3 0.0-0.4 N BASOPHIL # (test code = BA#) K/mm3 0.0-0.2 N MANUAL DIFF REQUIRED (test code = MDIFF) DIFF/SCN CRITERIA UA RFLX MICR CULT IF [id number] 17:42:00* Test Item Value Reference Range Interpretation Comments UA COLOR (test code = COLU) YELLOW discript YEL/STRAW UA APPEARANCE (test code = APPU) CLEAR discript CLEAR UA GLUCOSE DIPSTICK (test code = DGLUU) NEGATIVE mg/dL NEG UA BILIRUBIN DIPSTICK (test code = BILU) NEGATIVE mg/dL NEG UA KETONE DIPSTICK (test code = KETU) NEGATIVE mg/dL NEG UA SPECIFIC GRAVITY (test code = SGU) 1.025 SG 1.005-1.030 UA BLOOD DIPSTICK (test code = JOANNA) TRACE mg/DL NEG UA PH DIPSTICK (test code = BELKYS) 6.0 pH UNITS 5.0-7.0 UA PROTEIN DIPSTICK (test code = PROU) TRACE mg/dL NEG A UA UROBILINIOGEN DIPSTICK (test code = URO) 0.2 mg/dL <2.0 UA NITRITE DIPSTICK (test code = KVNG) NEGATIVE SCREEN NEG UA LEUKOCYTE ESTERASE DIPSTICK (test code = LEUU) NEGATIVE Leuk/mcL NEGATIVE UA WBC (test code = WBCU) 1-3 #WBC/HPF 0-3 UA RBC (test code = RBCU) 1-3 #RBC/HPF 0-3 UA BACTERIA (test code = BACU) TRACE /HPF NONE-TRACE UA SQUAMOUS CELLS (test code = SQU) TRACE /HPF NONE UA YEAST (test code = YEASTU) 1+ /HPF NONE SEEN A UA CULTURE NEEDED? (test code = UACULT) NO, WBC<10 Criteria Culture CHK SOURCE OF URINE: RENDON CATHETERIndication for culture: Temperature > 100.4 F LACTIC [id number] 17:36:00* Test Item Value Reference Range Interpretation Comments LACTIC ACID (test code = LACT) 0.8 mmol/L 0.4-2.0 N UA RFLX MICR CULT IF [id number] 17:29:00* Test Item Value Reference Range Interpretation Comments UA COLOR (test code = COLU) YELLOW discript YEL/STRAW UA APPEARANCE (test code = APPU) CLEAR discript CLEAR UA GLUCOSE DIPSTICK (test code = DGLUU) NEGATIVE mg/dL NEG UA BILIRUBIN DIPSTICK (test code = BILU) NEGATIVE mg/dL NEG UA KETONE DIPSTICK (test code = KETU) NEGATIVE mg/dL NEG UA SPECIFIC GRAVITY (test code = SGU) 1.025 SG 1.005-1.030 UA BLOOD DIPSTICK (test code = JOANNA) TRACE mg/DL NEG UA PH DIPSTICK (test code = BELKYS) 6.0 pH UNITS 5.0-7.0 UA PROTEIN DIPSTICK (test code = PROU) TRACE mg/dL NEG A UA UROBILINIOGEN DIPSTICK (test code = URO) 0.2 mg/dL <2.0 UA NITRITE DIPSTICK (test code = KVNG) NEGATIVE SCREEN NEG UA LEUKOCYTE ESTERASE DIPSTICK (test code = LEUU) NEGATIVE Leuk/mcL NEGATIVE UA CULTURE NEEDED? (test code = UACULT) Criteria Culture CHK SOURCE OF URINE: RENDON CATHETERIndication for culture: Temperature > 100.4 F - XR CHEST 1 [id number] 14:28:00 Name: MIRA WALKER [facility] : 1955 Age/S: 64 / M [address] [address] [facility] Unit #: [id number] Loc: [place] [address] Phys: Alan Guerrero MD Acct: [id number] Dis Date: Status: ADM IN PHONE #: [phone] Exam Date: 08/22/2019 1411 FAX #: Reason: HIGH TEMP EXAMS: CPT: [id number] XR CHEST 1 V 54198 Fluoro Time: DAP (Gy m2): Air Kerma (mGy): Site ID: [id number] HISTORY: Elevated temperature, sacral wound COMPARISON: August 14, 2019 FINDINGS: Trace bibasilar pleural effusions and retrocardiac atelectasis essentially unchanged. The heart and pulmonary vasculature is normal. Right PICC line remains appropriately positioned. Osseous structures are unremarkable. IMPRESSION: Trace bibasilar pleural effusions and retrocardiac atelectasis essentially unchanged at 1428 Reported and signed by: Angel Putnam M.D. CC: Alan Guerrero MD; Ruddy Sam MD PAGE 1 Signed Report Name: MIRA WALKER [facility] : 1955 Age/S: 64 / M [address] [address] [facility] Unit #: [id number] Loc: [place] [address] Phys: Alan Guerrero MD Acct: [id number] Dis Date: Status: ADM IN PHONE #: [phone] Exam Date: 08/22/2019 1411 FAX #: Reason: HIGH TEMP E XAMS: CPT: [id number] XR CHEST 1 V 36030 Fluoro Time: DAP (Gy m2): Air Kerma (mGy): <Continued> Technologist: RT Teodora(R) Trnscb Date/Time: 08/22/2019 (1428) [id number] Orig Print D/T: S: 08/22/2019 (5721) PAGE 2 Signed Report CBC W/AUTO [id number] 09:57:00* Test Item Value Reference Range Interpretation Comments WHITE BLOOD CELL (test code = WBC) 8.6 K/mm3 3.5-11.0 N RED BLOOD CELL (test code = RBC) 3.75 M/mm3 4.70-6.10 L HEMOGLOBIN (test code = HGB) 10.1 G/DL 12.3-15.9 L HEMATOCRIT (test code = HCT) 35.1 % 35.8-46.7 L MEAN CELL VOLUME (test code = MCV) 93.6 Fl 86.3-98.9 N MEAN CELL HGB (test code = MCH) 26.9 pg 28.9-34.4 L MEAN CELL HGB CONCETRATION (test code = MCHC) 28.8 G/DL 32.1-34. 5 L RED CELL DISTRIBUTION WIDTH (test code = RDW) 15.9 SD 11.5-14. 5 H PLATELET COUNT (test code = PLT) 404.0 K/mm3 150-450 N MEAN PLATELET VOLUME (test code = MPV) 9.70 fL 7.0-9.6 H NEUTROPHIL % (test code = NT%) 61.1 % 40-76 N LYMPHOCYTE % (test code = LY%) 27.2 % 20.5-51.1 N MONOCYTE % (test code = MO%) 10.8 % 1.7-9.3 H EOSINOPHIL % (test code = EO%) 0.7 % 0.0-6.0 N BASOPHIL % (test code = BA%) 0.2 % 0.0-2.0 N NEUTROPHIL # (test code = NT#) 5.25 K/mm3 1.8-7.6 N LYMPHOCYTE # (test code = LY#) 2.3 K/mm3 0.6-3.0 N MONOCYTE # (test code = MO#) 0.9 K/mm3 0.2-1.5 N EOSINOPHIL # (test code = EO#) 0.1 K/mm3 0.0-0.4 N BASOPHIL # (test code = BA#) 0.0 K/mm3 0.0-0.2 N MANUAL DIFF REQUIRED (test code = MDIFF) NO DIFF/SCN CRITERIA SLIDE REVIEW CONSISTANT WITH AUTO DIFFERENTIAL. RBC [id number] 09:57:00* Test Item Value Reference Range Interpretation Comments POLYCHROMASIA (test code = POLC) TRACE ON SCAN NONE HYPOCHROMIA (test code = HYPO) TRACE ON SCAN NONE ANISOCYTOSIS (test code = ANISO) NORMAL NONE TARGET CELLS (test code = TGT) TRACE ON SCAN NONE PLATELET ESTIMATE (test code = PLTEST) SLIGHTLY INCREASED THOUSAND ADEQUATE PLATELET MORPHOLOGY (test code = PLTMORPH) NORMAL CBC W/AUTO [id number] 09:56:00* Test Item Value Reference Range Interpretation Comments WHITE BLOOD CELL (test code = WBC) 8.6 K/mm3 3.5-11.0 N RED BLOOD CELL (test code = RBC) 3.75 M/mm3 4.70-6.10 L HEMOGLOBIN (test code = HGB) 10.1 G/DL 12.3-15.9 L HEMATOCRIT (test code = HCT) 35.1 % 35.8-46.7 L MEAN CELL VOLUME (test code = MCV) 93.6 Fl 86.3-98.9 N MEAN CELL HGB (test code = MCH) 26.9 pg 28.9-34.4 L MEAN CELL HGB CONCETRATION (test code = MCHC) 28.8 G/DL 32.1-34. 5 L RED CELL DISTRIBUTION WIDTH (test code = RDW) 15.9 SD 11.5-14. 5 H PLATELET COUNT (test code = PLT) 404.0 K/mm3 150-450 N MEAN PLATELET VOLUME (test code = MPV) 9.70 fL 7.0-9.6 H NEUTROPHIL % (test code = NT%) 61.1 % 40-76 N LYMPHOCYTE % (test code = LY%) 27.2 % 20.5-51.1 N MONOCYTE % (test code = MO%) 10.8 % 1.7-9.3 H EOSINOPHIL % (test code = EO%) 0.7 % 0.0-6.0 N BASOPHIL % (test code = BA%) 0.2 % 0.0-2.0 N NEUTROPHIL # (test code = NT#) 5.25 K/mm3 1.8-7.6 N LYMPHOCYTE # (test code = LY#) 2.3 K/mm3 0.6-3.0 N MONOCYTE # (test code = MO#) 0.9 K/mm3 0.2-1.5 N EOSINOPHIL # (test code = EO#) 0.1 K/mm3 0.0-0.4 N BASOPHIL # (test code = BA#) 0.0 K/mm3 0.0-0.2 N MANUAL DIFF REQUIRED (test code = MDIFF) NO DIFF/SCN CRITERIA SLIDE REVIEW CONSISTANT WITH AUTO DIFFERENTIAL. CBC W/AUTO [id number] 09:56:00* Test Item Value Reference Range Interpretation Comments WHITE BLOOD CELL (test code = WBC) 8.6 K/mm3 3.5-11.0 N RED BLOOD CELL (test code = RBC) 3.75 M/mm3 4.70-6.10 L HEMOGLOBIN (test code = HGB) 10.1 G/DL 12.3-15.9 L HEMATOCRIT (test code = HCT) 35.1 % 35.8-46.7 L MEAN CELL VOLUME (test code = MCV) 93.6 Fl 86.3-98.9 N MEAN CELL HGB (test code = MCH) 26.9 pg 28.9-34.4 L MEAN CELL HGB CONCETRATION (test code = MCHC) 28.8 G/DL 32.1-34. 5 L RED CELL DISTRIBUTION WIDTH (test code = RDW) 15.9 SD 11.5-14. 5 H PLATELET COUNT (test code = PLT) 404.0 K/mm3 150-450 N MEAN PLATELET VOLUME (test code = MPV) 9.70 fL 7.0-9.6 H NEUTROPHIL % (test code = NT%) 61.1 % 40-76 N LYMPHOCYTE % (test code = LY%) 27.2 % 20.5-51.1 N MONOCYTE % (test code = MO%) 10.8 % 1.7-9.3 H EOSINOPHIL % (test code = EO%) 0.7 % 0.0-6.0 N BASOPHIL % (test code = BA%) 0.2 % 0.0-2.0 N NEUTROPHIL # (test code = NT#) 5.25 K/mm3 1.8-7.6 N LYMPHOCYTE # (test code = LY#) 2.3 K/mm3 0.6-3.0 N MONOCYTE # (test code = MO#) 0.9 K/mm3 0.2-1.5 N EOSINOPHIL # (test code = EO#) 0.1 K/mm3 0.0-0.4 N BASOPHIL # (test code = BA#) 0.0 K/mm3 0.0-0.2 N MANUAL DIFF REQUIRED (test code = MDIFF) NO DIFF/SCN CRITERIA SLIDE REVIEW CONSISTANT WITH AUTO DIFFERENTIAL. BASIC METABOLIC [id number] 07:35:00* Test Item Value Reference Range Interpretation Comments SODIUM (test code = NA) 142 mmol/L 134-147 N POTASSIUM (test code = K) 3.8 mmol/L 3.4-5.0 N CHLORIDE (test code = CL) 110 mmol/L 100-108 H CARBON DIOXIDE (test code = CO2) 26 mmol/L 21-32 N ANION GAP (test code = GAP) 6.0 GAP calc 4.0-15.0 N GLUCOSE (test code = GLU) 90 MG/DL 70-110 N BLOOD UREA NITROGEN (test code = BUN) 8 MG/DL 7-18 N GLOMERULAR FILTRATION RATE (test code = GFR) >=60 max estimate estG FR >60 CREATININE (test code = CREAT) 0.4 MG/DL 0.8-1.3 L CALCIUM (test code = CA) 8.9 MG/DL 8.5-10.1 N CBC W/AUTO [id number] 07:24:00* Test Item Value Reference Range Interpretation Comments WHITE BLOOD CELL (test code = WBC) 8.6 K/mm3 3.5-11.0 N RED BLOOD CELL (test code = RBC) 3.75 M/mm3 4.70-6.10 L HEMOGLOBIN (test code = HGB) 10.1 G/DL 12.3-15.9 L HEMATOCRIT (test code = HCT) 35.1 % 35.8-46.7 L MEAN CELL VOLUME (test code = MCV) 93.6 Fl 86.3-98.9 N MEAN CELL HGB (test code = MCH) 26.9 pg 28.9-34.4 L MEAN CELL HGB CONCETRATION (test code = MCHC) 28.8 G/DL 32.1-34. 5 L RED CELL DISTRIBUTION WIDTH (test code = RDW) 15.9 SD 11.5-14. 5 H PLATELET COUNT (test code = PLT) 404.0 K/mm3 150-450 N MEAN PLATELET VOLUME (test code = MPV) 9.70 fL 7.0-9.6 H NEUTROPHIL % (test code = NT%) % 40-76 N LYMPHOCYTE % (test code = LY%) % 20.5-51.1 N MONOCYTE % (test code = MO%) % 1.7-9.3 H EOSINOPHIL % (test code = EO%) % 0.0-6.0 N BASOPHIL % (test code = BA%) % 0.0-2.0 N NEUTROPHIL # (test code = NT#) K/mm3 1.8-7.6 N LYMPHOCYTE # (test code = LY#) K/mm3 0.6-3.0 N MONOCYTE # (test code = MO#) K/mm3 0.2-1.5 N EOSINOPHIL # (test code = EO#) K/mm3 0.0-0.4 N BASOPHIL # (test code = BA#) K/mm3 0.0-0.2 N MANUAL DIFF REQUIRED (test code = MDIFF) DIFF/SCN CRITERIA GLUCOSE BEDSIDE [id number] 22:54:00* Test Item Value Reference Range Interpretation Comments GLUCOSE BEDSIDE TESTING (test code = GLUBED) 107 mg/dL 70-110 N GLUCOSE BEDSIDE [id number] 16:55:00* Test Item Value Reference Range Interpretation Comments GLUCOSE BEDSIDE TESTING (test code = GLUBED) 101 mg/dL 70-110 N GLUCOSE BEDSIDE [id number] 12:19:00* Test Item Value Reference Range Interpretation Comments GLUCOSE BEDSIDE TESTING (test code = GLUBED) 101 mg/dL 70-110 N GLUCOSE BEDSIDE [id number] 08:34:00* Test Item Value Reference Range Interpretation Comments GLUCOSE BEDSIDE TESTING (test code = GLUBED) 88 mg/dL 70-110 N PROTHROMBIN [id number] 13:06:00* Test Item Value Reference Range Interpretation Comments PT PATIENT (test code = PTP) 15.9 SECONDS 9.3-12.9 H INTERNATIONAL NORMAL RATIO (test code = INR) 1.40 INR Unit 0.8-1.2 H CBC W/AUTO [id number] 12:45:00* Test Item Value Reference Range Interpretation Comments WHITE BLOOD CELL (test code = WBC) 5.6 K/mm3 3.5-11.0 N RED BLOOD CELL (test code = RBC) 3.65 M/mm3 4.70-6.10 L HEMOGLOBIN (test code = HGB) 10.1 G/DL 12.3-15.9 L HEMATOCRIT (test code = HCT) 34.8 % 35.8-46.7 L MEAN CELL VOLUME (test code = MCV) 95.3 Fl 86.3-98.9 N MEAN CELL HGB (test code = MCH) 27.7 pg 28.9-34.4 L MEAN CELL HGB CONCETRATION (test code = MCHC) 29.0 G/DL 32.1-34. 5 L RED CELL DISTRIBUTION WIDTH (test code = RDW) 15.8 SD 11.5-14. 5 H PLATELET COUNT (test code = PLT) 382.0 K/mm3 150-450 N MEAN PLATELET VOLUME (test code = MPV) 9.80 fL 7.0-9.6 H NEUTROPHIL % (test code = NT%) 61.3 % 40-76 N LYMPHOCYTE % (test code = LY%) 26.4 % 20.5-51.1 N MONOCYTE % (test code = MO%) 8.3 % 1.7-9.3 N EOSINOPHIL % (test code = EO%) 3.6 % 0.0-6.0 N BASOPHIL % (test code = BA%) 0.4 % 0.0-2.0 N NEUTROPHIL # (test code = NT#) 3.41 K/mm3 1.8-7.6 N LYMPHOCYTE # (test code = LY#) 1.5 K/mm3 0.6-3.0 N MONOCYTE # (test code = MO#) 0.5 K/mm3 0.2-1.5 N EOSINOPHIL # (test code = EO#) 0.2 K/mm3 0.0-0.4 N BASOPHIL # (test code = BA#) 0.0 K/mm3 0.0-0.2 N MANUAL DIFF REQUIRED (test code = MDIFF) NO DIFF/SCN CRITERIA COMPREHENSIVE METABOLIC [id number] 12:45:00* Test Item Value Reference Range Interpretation Comments SODIUM (test code = NA) 145 mmol/L 134-147 N POTASSIUM (test code = K) 3.7 mmol/L 3.4-5.0 N CHLORIDE (test code = CL) 112 mmol/L 100-108 H CARBON DIOXIDE (test code = CO2) 29 mmol/L 21-32 N ANION GAP (test code = GAP) 4.0 GAP calc 4.0-15.0 N GLUCOSE (test code = GLU) 83 MG/DL 70-110 N BLOOD UREA NITROGEN (test code = BUN) 7 MG/DL 7-18 N GLOMERULAR FILTRATION RATE (test code = GFR) >=60 max estimate estG FR >60 CREATININE (test code = CREAT) 0.4 MG/DL 0.8-1.3 L TOTAL PROTEIN (test code = PROT) 6.2 G/DL 6.4-8.2 L ALBUMIN (test code = ALB) 1.9 G/DL 3.4-5.0 L GLOBULIN (test code = GLOB) 4.3 GM/dL ALBUMIN/GLOBULIN RATIO (test code = A/G) 0.4 RATIO 1.2-2.2 L CALCIUM (test code = CA) 8.7 MG/DL 8.5-10.1 N BILIRUBIN TOTAL (test code = BILT) 0.20 MG/DL 0.2-1.2 N SGOT/AST (test code = AST) 23 Unit/L 15-37 N SGPT/ALT (test code = ALT) 30 Unit/L 12-78 N ALKALINE PHOSPHATASE TOTAL (test code = ALKP) 133 Unit/L 50-136 N [id number] 12:45:00* Test Item Value Reference Range Interpretation Comments PHOSPHOROUS (test code = PHOS) 2.5 MG/DL 2.5-4.9 N [id number] 12:45:00* Test Item Value Reference Range Interpretation Comments MAGNESIUM (test code = MAG) 2.1 MG/DL 1.8-2.4 N - XR SWLW FUNC W/C [id number] 11:07:00 [facility] 1955 Age[facility]S: 64 / M [address] [place] Unit #: [id number] Loc: [place] [address] Phys: Ruddy Sam MD Acct: [id number] Dis Date: Status: ADM IN PHONE #: [phone] Exam Date: 08/17/2019 1000 FAX #: Reason: MBS EXAMS: CPT: [id number] XR SWLW FUNC W/C V [id number] Fluoro Time: 210 SEC DAP (Gy m2): Air Kerma (mGy): EXAMINATION: - XR SWLW FUNC W/C V. LOCATION: S17. HISTORY: MBS. Difficulty swallowing, dysphagia. COMPARISON: None. FINDINGS: Fluoroscopic assistance was provided to speech therapy. Images were obtained from oropharynx to thoracic inlet while patient ingested barium coated food and liquid. Please see separately dictated speech therapy note for report and recommendation. Fluoroscopic time: 210 seconds. 11.599 mGy. IMPRESSION: Please see separately dictated speech therapy note for report and recommendation. at 1107 Reported and signed by: Amparo Champion M.D. CC: Ruddy Sam MD PAGE 1 Signed Report Name: MIRA WALKER : 1955 Age/S: 64 / M [address] [place] Unit #: [id number] Loc: [place] [address] Phys: Ruddy Sam MD Acct: [id number] Dis Date: Status: ADM IN PHONE #: [phone] Exam Date: 08/17/2019 1000 FAX #: Reason: MBS EXAMS: CPT: [id number] XR SWLW FUNC W/C V [id number] Fluoro Time: 210 SEC DAP (Gy m2): Air Kerma (mGy): <Continued> Technologist: Koki Whitaker, RT(R) Trnscb Date/Time: 08/17/2019 (1107) [email or web address] Orig Print D/T: S: 08/17/2019 (1110) PAGE 2 Signed Report BASIC METABOLIC [id number] 06:32:00* Test Item Value Reference Range Interpretation Comments SODIUM (test code = NA) 145 mmol/L 134-147 N POTASSIUM (test code = K) 3.4 mmol/L 3.4-5.0 N CHLORIDE (test code = CL) 112 mmol/L 100-108 H CARBON DIOXIDE (test code = CO2) 29 mmol/L 21-32 N ANION GAP (test code = GAP) 4.0 GAP calc 4.0-15.0 N GLUCOSE (test code = GLU) 90 MG/DL 70-110 N BLOOD UREA NITROGEN (test code = BUN) 9 MG/DL 7-18 N GLOMERULAR FILTRATION RATE (test code = GFR) >=60 max estimate estG FR >60 CREATININE (test code = CREAT) 0.3 MG/DL 0.8-1.3 L CALCIUM (test code = CA) 8.2 MG/DL 8.5-10.1 L CBC W/AUTO [id number] 06:25:00* Test Item Value Reference Range Interpretation Comments WHITE BLOOD CELL (test code = WBC) 6.7 K/mm3 3.5-11.0 N RED BLOOD CELL (test code = RBC) 3.20 M/mm3 4.70-6.10 L HEMOGLOBIN (test code = HGB) 8.9 G/DL 12.3-15.9 L HEMATOCRIT (test code = HCT) 30.9 % 35.8-46.7 L MEAN CELL VOLUME (test code = MCV) 96.6 Fl 86.3-98.9 N MEAN CELL HGB (test code = MCH) 27.8 pg 28.9-34.4 L MEAN CELL HGB CONCETRATION (test code = MCHC) 28.8 G/DL 32.1-34. 5 L RED CELL DISTRIBUTION WIDTH (test code = RDW) 15.7 SD 11.5-14. 5 H PLATELET COUNT (test code = PLT) 322.0 K/mm3 150-450 N MEAN PLATELET VOLUME (test code = MPV) 9.90 fL 7.0-9.6 H NEUTROPHIL % (test code = NT%) 58.0 % 40-76 LYMPHOCYTE % (test code = LY%) 28.3 % 20.5-51.1 N MONOCYTE % (test code = MO%) 7.3 % 1.7-9.3 N EOSINOPHIL % (test code = EO%) 6.1 % 0.0-6.0 H BASOPHIL % (test code = BA%) 0.3 % 0.0-2.0 N NEUTROPHIL # (test code = NT#) 3.89 K/mm3 1.8-7.6 N LYMPHOCYTE # (test code = LY#) 1.9 K/mm3 0.6-3.0 N MONOCYTE # (test code = MO#) 0.5 K/mm3 0.2-1.5 N EOSINOPHIL # (test code = EO#) 0.4 K/mm3 0.0-0.4 N BASOPHIL # (test code = BA#) 0.0 K/mm3 0.0-0.2 N MANUAL DIFF REQUIRED (test code = MDIFF) NO DIFF/SCN CRITERIA - XR CHEST 1 [id number] 14:55:00 Name: MIRA WALKER [facility] : 1955 Age/S: 64 / M [address] [address] Unit #: [id number] Loc: [place] [address] Phys: Ruddy Sam MD Acct: [id number] Dis Date: Status: ADM IN PHONE #: [phone] Exam Date: 08/14/2019 1440 FAX #: Reason: SOB EXAMS: CPT: [id number] XR CHEST 1 V 49038 Fluoro Time: DAP (Gy m2): Air Kerma (mGy): EXAM: - XR CHEST 1 V Location code:B2 HISTORY: SOB COMPARISON: 08/12/2019 FINDINGS: Frontal view of the chest is submitted. No significant change in positioning of right upper extremity PICC and enteric tube, with distal sidehole present at the level of the EG junction. Stable cardiomediastinal silhouette There is stable pulmonary hyperinflation with suspected mild airspace disease present at the left lung base, although difficult to assess due to patient rotation. No appreciable pneumothorax. No acute osseous pathology. Stable moderate dextrocurvature of the lower thoracic spine. IMPRESSION Mild left basilar airspace disease, most likely atelectasis. Otherwise, no significant interval change. Enteric tube is unchanged in position with distal sidehole again noted at the EG junction. Consider advancement by appro ximately 5-10 cm for more optimal positioning. Electroni richard Signed by Veronica Sherwood on 2019 at 1455 Reported and signed by: Emi Sherwood M.D. CC: Ruddy Sam MD PAGE 1 Signed Report Name: MIRA WALKER [facility] : 1955 Age/S: 64 / M [address] [place] Unit #: [id number] Loc: [place] [address] Ph ys: Ruddy Sam MD Acct: [id number] Dis Date: Status: ADM IN PHONE #: [phone] Exam Date: 08/14/2019 1440 FAX #: Reason: SOB EXAMS: CPT: [id number] XR CHEST 1 V 26228 Fluoro Time: DAP (Gy m2): Air Kerma (mGy): <Continued> Technologist: RT Asha(R)(MR) Trnscb Date/Time: 08/14/2019 (1455) [id number] Orig Print D/T: S: 08/14/2019 (8571) PAGE 2 Signed Report CBC W/AUTO [id number] 07:16:00* Test Item Value Reference Range Interpretation Comments WHITE BLOOD CELL (test code = WBC) 6.8 K/mm3 3.5-11.0 N RED BLOOD CELL (test code = RBC) 3.42 M/mm3 4.70-6.10 L HEMOGLOBIN (test code = HGB) 9.6 G/DL 12.3-15.9 L HEMATOCRIT (test code = HCT) 32.8 % 35.8-46.7 L MEAN CELL VOLUME (test code = MCV) 95.9 Fl 86.3-98.9 N MEAN CELL HGB (test code = MCH) 28.1 pg 28.9-34.4 L MEAN CELL HGB CONCETRATION (test code = MCHC) 29.3 G/DL 32.1-34. 5 L RED CELL DISTRIBUTION WIDTH (test code = RDW) 15.6 SD 11.5-14. 5 H PLATELET COUNT (test code = PLT) 295.0 K/mm3 150-450 N MEAN PLATELET VOLUME (test code = MPV) 10.20 fL 7.0-9.6 H NEUTROPHIL % (test code = NT%) 66.0 % 40-76 LYMPHOCYTE % (test code = LY%) 22.7 % 20.5-51.1 N MONOCYTE % (test code = MO%) 9.5 % 1.7-9.3 H EOSINOPHIL % (test code = EO%) 1.5 % 0.0-6.0 N BASOPHIL % (test code = BA%) 0.3 % 0.0-2.0 N NEUTROPHIL # (test code = NT#) 4.51 K/mm3 1.8-7.6 N LYMPHOCYTE # (test code = LY#) 1.6 K/mm3 0.6-3.0 N MONOCYTE # (test code = MO#) 0.7 K/mm3 0.2-1.5 N EOSINOPHIL # (test code = EO#) 0.1 K/mm3 0.0-0.4 N BASOPHIL # (test code = BA#) 0.0 K/mm3 0.0-0.2 N MANUAL DIFF REQUIRED (test code = MDIFF) NO DIFF/SCN CRITERIA CBC W/AUTO [id number] 07:16:00* Test Item Value Reference Range Interpretation Comments WHITE BLOOD CELL (test code = WBC) 6.8 K/mm3 3.5-11.0 N RED BLOOD CELL (test code = RBC) 3.42 M/mm3 4.70-6.10 L HEMOGLOBIN (test code = HGB) 9.6 G/DL 12.3-15.9 L HEMATOCRIT (test code = HCT) 32.8 % 35.8-46.7 L MEAN CELL VOLUME (test code = MCV) 95.9 Fl 86.3-98.9 N MEAN CELL HGB (test code = MCH) 28.1 pg 28.9-34.4 L MEAN CELL HGB CONCETRATION (test code = MCHC) 29.3 G/DL 32.1-34. 5 L RED CELL DISTRIBUTION WIDTH (test code = RDW) 15.6 SD 11.5-14. 5 H PLATELET COUNT (test code = PLT) 295.0 K/mm3 150-450 N MEAN PLATELET VOLUME (test code = MPV) 10.20 fL 7.0-9.6 H NEUTROPHIL % (test code = NT%) 66.0 % 40-76 LYMPHOCYTE % (test code = LY%) 22.7 % 20.5-51.1 N MONOCYTE % (test code = MO%) 9.5 % 1.7-9.3 H EOSINOPHIL % (test code = EO%) 1.5 % 0.0-6.0 N BASOPHIL % (test code = BA%) 0.3 % 0.0-2.0 N NEUTROPHIL # (test code = NT#) 4.51 K/mm3 1.8-7.6 N LYMPHOCYTE # (test code = LY#) 1.6 K/mm3 0.6-3.0 N MONOCYTE # (test code = MO#) 0.7 K/mm3 0.2-1.5 N EOSINOPHIL # (test code = EO#) 0.1 K/mm3 0.0-0.4 N BASOPHIL # (test code = BA#) 0.0 K/mm3 0.0-0.2 N MANUAL DIFF REQUIRED (test code = MDIFF) NO DIFF/SCN CRITERIA RBC [id number] 07:16:00* Test Item Value Reference Range Interpretation Comments PLATELET ESTIMATE (test code = PLTEST) ADEQUATE THOUSAND ADEQUATE PLATELET MORPHOLOGY (test code = PLTMORPH) NORMAL CBC W/AUTO [id number] 07:16:00* Test Item Value Reference Range Interpretation Comments WHITE BLOOD CELL (test code = WBC) 6.8 K/mm3 3.5-11.0 N RED BLOOD CELL (test code = RBC) 3.42 M/mm3 4.70-6.10 L HEMOGLOBIN (test code = HGB) 9.6 G/DL 12.3-15.9 L HEMATOCRIT (test code = HCT) 32.8 % 35.8-46.7 L MEAN CELL VOLUME (test code = MCV) 95.9 Fl 86.3-98.9 N MEAN CELL HGB (test code = MCH) 28.1 pg 28.9-34.4 L MEAN CELL HGB CONCETRATION (test code = MCHC) 29.3 G/DL 32.1-34. 5 L RED CELL DISTRIBUTION WIDTH (test code = RDW) 15.6 SD 11.5-14. 5 H PLATELET COUNT (test code = PLT) 295.0 K/mm3 150-450 N MEAN PLATELET VOLUME (test code = MPV) 10.20 fL 7.0-9.6 H NEUTROPHIL % (test code = NT%) 66.0 % 40-76 LYMPHOCYTE % (test code = LY%) 22.7 % 20.5-51.1 N MONOCYTE % (test code = MO%) 9.5 % 1.7-9.3 H EOSINOPHIL % (test code = EO%) 1.5 % 0.0-6.0 N BASOPHIL % (test code = BA%) 0.3 % 0.0-2.0 N NEUTROPHIL # (test code = NT#) 4.51 K/mm3 1.8-7.6 N LYMPHOCYTE # (test code = LY#) 1.6 K/mm3 0.6-3.0 N MONOCYTE # (test code = MO#) 0.7 K/mm3 0.2-1.5 N EOSINOPHIL # (test code = EO#) 0.1 K/mm3 0.0-0.4 N BASOPHIL # (test code = BA#) 0.0 K/mm3 0.0-0.2 N MANUAL DIFF REQUIRED (test code = MDIFF) NO DIFF/SCN CRITERIA CBC W/AUTO [id number] 06:59:00* Test Item Value Reference Range Interpretation Comments WHITE BLOOD CELL (test code = WBC) 6.8 K/mm3 3.5-11.0 N RED BLOOD CELL (test code = RBC) 3.42 M/mm3 4.70-6.10 L HEMOGLOBIN (test code = HGB) 9.6 G/DL 12.3-15.9 L HEMATOCRIT (test code = HCT) 32.8 % 35.8-46.7 L MEAN CELL VOLUME (test code = MCV) 95.9 Fl 86.3-98.9 N MEAN CELL HGB (test code = MCH) 28.1 pg 28.9-34.4 L MEAN CELL HGB CONCETRATION (test code = MCHC) 29.3 G/DL 32.1-34. 5 L RED CELL DISTRIBUTION WIDTH (test code = RDW) 15.6 SD 11.5-14. 5 H PLATELET COUNT (test code = PLT) 295.0 K/mm3 150-450 N MEAN PLATELET VOLUME (test code = MPV) 10.20 fL 7.0-9.6 H NEUTROPHIL % (test code = NT%) % 40-76 LYMPHOCYTE % (test code = LY%) % 20.5-51.1 N MONOCYTE % (test code = MO%) % 1.7-9.3 H EOSINOPHIL % (test code = EO%) % 0.0-6.0 N BASOPHIL % (test code = BA%) % 0.0-2.0 N NEUTROPHIL # (test code = NT#) K/mm3 1.8-7.6 N LYMPHOCYTE # (test code = LY#) K/mm3 0.6-3.0 N MONOCYTE # (test code = MO#) K/mm3 0.2-1.5 N EOSINOPHIL # (test code = EO#) K/mm3 0.0-0.4 N BASOPHIL # (test code = BA#) K/mm3 0.0-0.2 N MANUAL DIFF REQUIRED (test code = MDIFF) DIFF/SCN CRITERIA BASIC METABOLIC [id number] 06:59:00* Test Item Value Reference Range Interpretation Comments SODIUM (test code = NA) 145 mmol/L 134-147 N POTASSIUM (test code = K) 3.5 mmol/L 3.4-5.0 N CHLORIDE (test code = CL) 113 mmol/L 100-108 H CARBON DIOXIDE (test code = CO2) 25 mmol/L 21-32 N ANION GAP (test code = GAP) 7.0 GAP calc 4.0-15.0 N GLUCOSE (test code = GLU) 91 MG/DL 70-110 N BLOOD UREA NITROGEN (test code = BUN) 12 MG/DL 7-18 N GLOMERULAR FILTRATION RATE (test code = GFR) >=60 max estimate estG FR >60 CREATININE (test code = CREAT) 0.3 MG/DL 0.8-1.3 L CALCIUM (test code = CA) 8.2 MG/DL 8.5-10.1 L GLUCOSE BEDSIDE [id number] 20:15:00* Test Item Value Reference Range Interpretation Comments GLUCOSE BEDSIDE TESTING (test code = GLUBED) 107 mg/dL 70-110 N CBC W/AUTO [id number] 07:58:00* Test Item Value Reference Range Interpretation Comments WHITE BLOOD CELL (test code = WBC) 6.4 K/mm3 3.5-11.0 N RED BLOOD CELL (test code = RBC) 3.60 M/mm3 4.70-6.10 L HEMOGLOBIN (test code = HGB) 10.1 G/DL 12.3-15.9 L HEMATOCRIT (test code = HCT) 34.9 % 35.8-46.7 L MEAN CELL VOLUME (test code = MCV) 96.9 Fl 86.3-98.9 N MEAN CELL HGB (test code = MCH) 28.1 pg 28.9-34.4 L MEAN CELL HGB CONCETRATION (test code = MCHC) 28.9 G/DL 32.1-34. 5 L RED CELL DISTRIBUTION WIDTH (test code = RDW) 15.5 SD 11.5-14. 5 H PLATELET COUNT (test code = PLT) 398.0 K/mm3 150-450 N MEAN PLATELET VOLUME (test code = MPV) 9.90 fL 7.0-9.6 H NEUTROPHIL % (test code = NT%) 57.8 % 40-76 N LYMPHOCYTE % (test code = LY%) 30.0 % 20.5-51.1 N MONOCYTE % (test code = MO%) 10.2 % 1.7-9.3 H EOSINOPHIL % (test code = EO%) 1.7 % 0.0-6.0 N BASOPHIL % (test code = BA%) 0.3 % 0.0-2.0 N NEUTROPHIL # (test code = NT#) 3.70 K/mm3 1.8-7.6 N LYMPHOCYTE # (test code = LY#) 1.9 K/mm3 0.6-3.0 N MONOCYTE # (test code = MO#) 0.7 K/mm3 0.2-1.5 N EOSINOPHIL # (test code = EO#) 0.1 K/mm3 0.0-0.4 N BASOPHIL # (test code = BA#) 0.0 K/mm3 0.0-0.2 N MANUAL DIFF REQUIRED (test code = MDIFF) NO DIFF/SCN CRITERIA SLIDE REVIEW CONSISTANT WITH AUTO DIFFERENTIAL. CBC W/AUTO [id number] 07:58:00* Test Item Value Reference Range Interpretation Comments WHITE BLOOD CELL (test code = WBC) 6.4 K/mm3 3.5-11.0 N RED BLOOD CELL (test code = RBC) 3.60 M/mm3 4.70-6.10 L HEMOGLOBIN (test code = HGB) 10.1 G/DL 12.3-15.9 L HEMATOCRIT (test code = HCT) 34.9 % 35.8-46.7 L MEAN CELL VOLUME (test code = MCV) 96.9 Fl 86.3-98.9 N MEAN CELL HGB (test code = MCH) 28.1 pg 28.9-34.4 L MEAN CELL HGB CONCETRATION (test code = MCHC) 28.9 G/DL 32.1-34. 5 L RED CELL DISTRIBUTION WIDTH (test code = RDW) 15.5 SD 11.5-14. 5 H PLATELET COUNT (test code = PLT) 398.0 K/mm3 150-450 N MEAN PLATELET VOLUME (test code = MPV) 9.90 fL 7.0-9.6 H NEUTROPHIL % (test code = NT%) 57.8 % 40-76 N LYMPHOCYTE % (test code = LY%) 30.0 % 20.5-51.1 N MONOCYTE % (test code = MO%) 10.2 % 1.7-9.3 H EOSINOPHIL % (test code = EO%) 1.7 % 0.0-6.0 N BASOPHIL % (test code = BA%) 0.3 % 0.0-2.0 N NEUTROPHIL # (test code = NT#) 3.70 K/mm3 1.8-7.6 N LYMPHOCYTE # (test code = LY#) 1.9 K/mm3 0.6-3.0 N MONOCYTE # (test code = MO#) 0.7 K/mm3 0.2-1.5 N EOSINOPHIL # (test code = EO#) 0.1 K/mm3 0.0-0.4 N BASOPHIL # (test code = BA#) 0.0 K/mm3 0.0-0.2 N MANUAL DIFF REQUIRED (test code = MDIFF) NO DIFF/SCN CRITERIA SLIDE REVIEW CONSISTANT WITH AUTO DIFFERENTIAL. RBC [id number] 07:58:00* Test Item Value Reference Range Interpretation Comments HYPOCHROMIA (test code = HYPO) TRACE ON SCAN NONE PLATELET ESTIMATE (test code = PLTEST) ADEQUATE THOUSAND ADEQUATE PLATELET MORPHOLOGY (test code = PLTMORPH) NORMAL CBC W/AUTO [id number] 07:58:00* Test Item Value Reference Range Interpretation Comments WHITE BLOOD CELL (test code = WBC) 6.4 K/mm3 3.5-11.0 N RED BLOOD CELL (test code = RBC) 3.60 M/mm3 4.70-6.10 L HEMOGLOBIN (test code = HGB) 10.1 G/DL 12.3-15.9 L HEMATOCRIT (test code = HCT) 34.9 % 35.8-46.7 L MEAN CELL VOLUME (test code = MCV) 96.9 Fl 86.3-98.9 N MEAN CELL HGB (test code = MCH) 28.1 pg 28.9-34.4 L MEAN CELL HGB CONCETRATION (test code = MCHC) 28.9 G/DL 32.1-34. 5 L RED CELL DISTRIBUTION WIDTH (test code = RDW) 15.5 SD 11.5-14. 5 H PLATELET COUNT (test code = PLT) 398.0 K/mm3 150-450 N MEAN PLATELET VOLUME (test code = MPV) 9.90 fL 7.0-9.6 H NEUTROPHIL % (test code = NT%) 57.8 % 40-76 N LYMPHOCYTE % (test code = LY%) 30.0 % 20.5-51.1 N MONOCYTE % (test code = MO%) 10.2 % 1.7-9.3 H EOSINOPHIL % (test code = EO%) 1.7 % 0.0-6.0 N BASOPHIL % (test code = BA%) 0.3 % 0.0-2.0 N NEUTROPHIL # (test code = NT#) 3.70 K/mm3 1.8-7.6 N LYMPHOCYTE # (test code = LY#) 1.9 K/mm3 0.6-3.0 N MONOCYTE # (test code = MO#) 0.7 K/mm3 0.2-1.5 N EOSINOPHIL # (test code = EO#) 0.1 K/mm3 0.0-0.4 N BASOPHIL # (test code = BA#) 0.0 K/mm3 0.0-0.2 N MANUAL DIFF REQUIRED (test code = MDIFF) NO DIFF/SCN CRITERIA SLIDE REVIEW CONSISTANT WITH AUTO DIFFERENTIAL. COMPREHENSIVE METABOLIC [id number] 07:15:00* Test Item Value Reference Range Interpretation Comments SODIUM (test code = NA) 142 mmol/L 134-147 N POTASSIUM (test code = K) 3.5 mmol/L 3.4-5.0 N CHLORIDE (test code = CL) 109 mmol/L 100-108 H CARBON DIOXIDE (test code = CO2) 24 mmol/L 21-32 N ANION GAP (test code = GAP) 9.0 GAP calc 4.0-15.0 N GLUCOSE (test code = GLU) 93 MG/DL 70-110 N BLOOD UREA NITROGEN (test code = BUN) 14 MG/DL 7-18 N GLOMERULAR FILTRATION RATE (test code = GFR) >=60 max estimate estG FR >60 CREATININE (test code = CREAT) 0.4 MG/DL 0.8-1.3 L TOTAL PROTEIN (test code = PROT) 6.1 G/DL 6.4-8.2 L ALBUMIN (test code = ALB) 1.8 G/DL 3.4-5.0 L GLOBULIN (test code = GLOB) 4.3 GM/dL ALBUMIN/GLOBULIN RATIO (test code = A/G) 0.4 RATIO 1.2-2.2 L CALCIUM (test code = CA) 8.5 MG/DL 8.5-10.1 N BILIRUBIN TOTAL (test code = BILT) 0.40 MG/DL 0.2-1.2 N SGOT/AST (test code = AST) 100 Unit/L 15-37 H SGPT/ALT (test code = ALT) 80 Unit/L 12-78 H ALKALINE PHOSPHATASE TOTAL (test code = ALKP) 173 Unit/L 50-136 H CBC W/AUTO [id number] 06:56:00* Test Item Value Reference Range Interpretation Comments WHITE BLOOD CELL (test code = WBC) 6.4 K/mm3 3.5-11.0 N RED BLOOD CELL (test code = RBC) 3.60 M/mm3 4.70-6.10 L HEMOGLOBIN (test code = HGB) 10.1 G/DL 12.3-15.9 L HEMATOCRIT (test code = HCT) 34.9 % 35.8-46.7 L MEAN CELL VOLUME (test code = MCV) 96.9 Fl 86.3-98.9 N MEAN CELL HGB (test code = MCH) 28.1 pg 28.9-34.4 L MEAN CELL HGB CONCETRATION (test code = MCHC) 28.9 G/DL 32.1-34. 5 L RED CELL DISTRIBUTION WIDTH (test code = RDW) 15.5 SD 11.5-14. 5 H PLATELET COUNT (test code = PLT) 398.0 K/mm3 150-450 N MEAN PLATELET VOLUME (test code = MPV) 9.90 fL 7.0-9.6 H NEUTROPHIL % (test code = NT%) % 40-76 N LYMPHOCYTE % (test code = LY%) % 20.5-51.1 N MONOCYTE % (test code = MO%) % 1.7-9.3 H EOSINOPHIL % (test code = EO%) % 0.0-6.0 N BASOPHIL % (test code = BA%) % 0.0-2.0 N NEUTROPHIL # (test code = NT#) K/mm3 1.8-7.6 N LYMPHOCYTE # (test code = LY#) K/mm3 0.6-3.0 N MONOCYTE # (test code = MO#) K/mm3 0.2-1.5 N EOSINOPHIL # (test code = EO#) K/mm3 0.0-0.4 N BASOPHIL # (test code = BA#) K/mm3 0.0-0.2 N MANUAL DIFF REQUIRED (test code = MDIFF) DIFF/SCN CRITERIA GLUCOSE BEDSIDE [id number] 00:35:00* Test Item Value Reference Range Interpretation Comments GLUCOSE BEDSIDE TESTING (test code = GLUBED) 123 mg/dL 70-110 H Novel Coronavirus 20:01:00* Test Item Value Reference Range Interpretation Comments Novel Coronavirus 2018 Inhouse (test code = [id number]) Negative Negative Positive results are indicative of the presence lbTBRZ-QsM-4 RNA, clinical correlation with patient historyand other diagnostic information is necessary to determinepatient infection status. Positive results do not rule outbacterial infection or co-infection with other viruses. Negative results do not preclude SARS-CoV-2 infection andshould not be used as the sole basis for patient managementdecisions. Negative results must be combined with otherclinical observations, patient history, and epidemiologicalinformation. Detection of SARS-CoV-2 RNA may be affected bysample collection methods, storage conditions, and/or stageof infection. Viral RNA mutations, vaccinations, antiviraltherapeutics, antibiotics, chemotherapeutic orimmunosuppressant drugs have not been evaluated for effectson detection. Results are for the identification of SARS-CoV-2 RNA usingthe [employer]code000 System under the FDA Emergency UseAuthorization. The testing is performed by personneltrained in the procedures for the [employer] M2000 moleculardiagnostic SARS-CoV-2 assay in vitro. Testing Criteria: FeverNovel Coronavirus 20:00:00* Test Item Value Reference Range Interpretation Comments Novel Coronavirus 2019 Inhouse (test code = [id number]) Negative Negative Positive results are indicative of the presence oiQIQA-UkT-0 RNA, clinical correlation with patient historyand other diagnostic information is necessary to determinepatient infection status. Positive results do not rule outbacterial infection or co-infection with other viruses. Negative results do not preclude SARS-CoV-2 infection andshould not be used as the sole basis for patient managementdecisions. Negative results must be combined with otherclinical observations, patient history, and epidemiologicalinformation. Detection of SARS-CoV-2 RNA may be affected bysample collection methods, storage conditions, and/or stageof infection. Viral RNA mutations, vaccinations, antiviraltherapeutics, antibiotics, chemotherapeutic orimmunosuppressant drugs have not been evaluated for effectson detection. Results are for the identification of SARS-CoV-2 RNA usingthe [employer] M2000 System under the FDA Emergency UseAuthorization. The testing is performed by personneltrained in the procedures for the [employer] M2000 moleculardiagnostic SARS-CoV-2 assay in vitro. Testing Criteria: FeverBASIC METABOLIC [id number] 11:29:00* Test Item Value Reference Range Interpretation Comments SODIUM (test code = NA) 141 mmol/L 134-147 N POTASSIUM (test code = K) 3.7 mmol/L 3.4-5.0 N CHLORIDE (test code = CL) 104 mmol/L 100-108 N CARBON DIOXIDE (test code = CO2) 27 mmol/L 21-32 N ANION GAP (test code = GAP) 10.0 GAP calc 4.0-15.0 N GLUCOSE (test code = GLU) 87 MG/DL 70-110 N BLOOD UREA NITROGEN (test code = BUN) 11 MG/DL 7-18 N GLOMERULAR FILTRATION RATE (test code = GFR) >=60 max estimate estG FR >60 CREATININE (test code = CREAT) 0.5 MG/DL 0.8-1.3 L CALCIUM (test code = CA) 8.5 MG/DL 8.5-10.1 N Completed by Nursing: NOHEPATIC FUNCTION [id number] 11:29:00* Test Item Value Reference Range Interpretation Comments TOTAL PROTEIN (test code = PROT) 6.6 G/DL 6.4-8.2 N ALBUMIN (test code = ALB) 2.0 G/DL 3.4-5.0 L BILIRUBIN TOTAL (test code = BILT) 0.30 MG/DL 0.2-1.2 N BILIRUBIN DIRECT (test code = BILD) 0.10 MG/DL 0.00-0.30 N BILIRUBIN INDIRECT (test code = BILIND) 0.20 MG/DL 0.2-1.2 N SGOT/AST (test code = AST) 77 Unit/L 15-37 H SGPT/ALT (test code = ALT) 51 Unit/L 12-78 N ALKALINE PHOSPHATASE TOTAL (test code = ALKP) 178 Unit/L 50-136 H Completed by Nursing: NOLACTIC DEHYDROGENASE(LDH)2019-08-12 11:29:00* Test Item Value Reference Range Interpretation Comments LACTIC DEHYDROGENASE(LDH) (test code = LDH) 232 Unit/L 87-241 N Completed by Nursing: [id number] 11:29:00* Test Item Value Reference Range Interpretation Comments LIPASE (test code = LIP) 48 Unit/L 114-286 L Completed by Nursing: [id number] 11:29:00* Test Item Value Reference Range Interpretation Comments TROPONIN-I (test code = TROPI) 0.016 NG/ML 0.000-0.045 N Negative: </= 0.045 Positive: >/= 0.046 Correlation with serial results, other cardiac markers, and clinical findings is necessary to determine the clinical significance of this result. Quantitative results using different methodologies should not be compared to one another as numerical results may varyby method. Completed by Nursing: NOPROCALCITONIN (PCT)2019-08-12 11:29:00* Test Item Value Reference Range Interpretation Comments PROCALCITONIN (PCT) (test code = PROCAL) < 0.05 ng/mL 0.00-0.05 PROCALCITONIN (PCT) NORMAL RANGE (ADULT): <0.05 NG/ML. * a concentration <0.5 ng/mL represents a low risk of severe sepsis and/or septic shock.* a concentration >2 ng/mL represents a high risk of severe sepsis and/or septic shock.Nevertheless, concentrations <0.5 ng/mL do not exclude aninfection, on account of localized infections (withoutsystemic signs) which can be associated with such lowconcentrations, or a systemic infection in its initialstages (< 6 hours). Furthermore, increased procalcitonincan occur without infection. PCT concentrations between 0.5and 2.0 ng/mL should be interpreted taking into account thepatient's history. It is recommended to retest PCT within6-24 hours if any concentrations <2 ng/mL are obtained. Completed by Nursing: NOPROCALCITONIN (PCT)2019-08-12 11:28:00* Test Item Value Reference Range Interpretation Comments PROCALCITONIN (PCT) (test code = PROCAL) < 0.05 ng/mL 0.00-0.05 N PROCALCITONIN (PCT) NORMAL RANGE (ADULT): <0.05 NG/ML. * a concentration <0.5 ng/mL represents a low risk of severe sepsis and/or septic shock.* a concentration >2 ng/mL represents a high risk of severe sepsis and/or septic shock.Nevertheless, concentrations <0.5 ng/mL do not exclude aninfection, on account of localized infections (withoutsystemic signs) which can be associated with such lowconcentrations, or a systemic infection in its initialstages (< 6 hours). Furthermore, increased procalcitonincan occur without infection. PCT concentrations between 0.5and 2.0 ng/mL should be interpreted taking into account thepatient's history. It is recommended to retest PCT within6-24 hours if any concentrations <2 ng/mL are obtained. Completed by Nursing: NOC REACTIVE [id number] 07:22:00* Test Item Value Reference Range Interpretation Comments C REACTIVE PROTEIN (test code = CRP) 13.400 MG/DL 0.000-0.3 H CBC W/AUTO [id number] 06:39:00* Test Item Value Reference Range Interpretation Comments WHITE BLOOD CELL (test code = WBC) 5.6 K/mm3 3.5-11.0 N RED BLOOD CELL (test code = RBC) 3.38 M/mm3 4.70-6.10 L HEMOGLOBIN (test code = HGB) 9.5 G/DL 12.3-15.9 L HEMATOCRIT (test code = HCT) 32.9 % 35.8-46.7 L MEAN CELL VOLUME (test code = MCV) 97.3 Fl 86.3-98.9 N MEAN CELL HGB (test code = MCH) 28.1 pg 28.9-34.4 L MEAN CELL HGB CONCETRATION (test code = MCHC) 28.9 G/DL 32.1-34. 5 L RED CELL DISTRIBUTION WIDTH (test code = RDW) 15.5 SD 11.5-14. 5 H PLATELET COUNT (test code = PLT) 281.0 K/mm3 150-450 N MEAN PLATELET VOLUME (test code = MPV) 10.00 fL 7.0-9.6 H NEUTROPHIL % (test code = NT%) 60.9 % 40-76 N LYMPHOCYTE % (test code = LY%) 25.2 % 20.5-51.1 N MONOCYTE % (test code = MO%) 12.2 % 1.7-9.3 H EOSINOPHIL % (test code = EO%) 1.3 % 0.0-6.0 N BASOPHIL % (test code = BA%) 0.4 % 0.0-2.0 N NEUTROPHIL # (test code = NT#) 3.41 K/mm3 1.8-7.6 N LYMPHOCYTE # (test code = LY#) 1.4 K/mm3 0.6-3.0 N MONOCYTE # (test code = MO#) 0.7 K/mm3 0.2-1.5 N EOSINOPHIL # (test code = EO#) 0.1 K/mm3 0.0-0.4 N BASOPHIL # (test code = BA#) 0.0 K/mm3 0.0-0.2 N MANUAL DIFF REQUIRED (test code = MDIFF) NO DIFF/SCN CRITERIA CBC W/AUTO [id number] 06:39:00* Test Item Value Reference Range Interpretation Comments WHITE BLOOD CELL (test code = WBC) 5.6 K/mm3 3.5-11.0 N RED BLOOD CELL (test code = RBC) 3.38 M/mm3 4.70-6.10 L HEMOGLOBIN (test code = HGB) 9.5 G/DL 12.3-15.9 L HEMATOCRIT (test code = HCT) 32.9 % 35.8-46.7 L MEAN CELL VOLUME (test code = MCV) 97.3 Fl 86.3-98.9 N MEAN CELL HGB (test code = MCH) 28.1 pg 28.9-34.4 L MEAN CELL HGB CONCETRATION (test code = MCHC) 28.9 G/DL 32.1-34. 5 L RED CELL DISTRIBUTION WIDTH (test code = RDW) 15.5 SD 11.5-14. 5 H PLATELET COUNT (test code = PLT) 281.0 K/mm3 150-450 N MEAN PLATELET VOLUME (test code = MPV) 10.00 fL 7.0-9.6 H NEUTROPHIL % (test code = NT%) 60.9 % 40-76 N LYMPHOCYTE % (test code = LY%) 25.2 % 20.5-51.1 N MONOCYTE % (test code = MO%) 12.2 % 1.7-9.3 H EOSINOPHIL % (test code = EO%) 1.3 % 0.0-6.0 N BASOPHIL % (test code = BA%) 0.4 % 0.0-2.0 N NEUTROPHIL # (test code = NT#) 3.41 K/mm3 1.8-7.6 N LYMPHOCYTE # (test code = LY#) 1.4 K/mm3 0.6-3.0 N MONOCYTE # (test code = MO#) 0.7 K/mm3 0.2-1.5 N EOSINOPHIL # (test code = EO#) 0.1 K/mm3 0.0-0.4 N BASOPHIL # (test code = BA#) 0.0 K/mm3 0.0-0.2 N MANUAL DIFF REQUIRED (test code = MDIFF) NO DIFF/SCN CRITERIA RBC [id number] 06:39:00* Test Item Value Reference Range Interpretation Comments HYPOCHROMIA (test code = HYPO) TRACE ON SCAN NONE PLATELET ESTIMATE (test code = PLTEST) ADEQUATE THOUSAND ADEQUATE PLATELET MORPHOLOGY (test code = PLTMORPH) NORMAL CBC W/AUTO [id number] 06:39:00* Test Item Value Reference Range Interpretation Comments WHITE BLOOD CELL (test code = WBC) 5.6 K/mm3 3.5-11.0 N RED BLOOD CELL (test code = RBC) 3.38 M/mm3 4.70-6.10 L HEMOGLOBIN (test code = HGB) 9.5 G/DL 12.3-15.9 L HEMATOCRIT (test code = HCT) 32.9 % 35.8-46.7 L MEAN CELL VOLUME (test code = MCV) 97.3 Fl 86.3-98.9 N MEAN CELL HGB (test code = MCH) 28.1 pg 28.9-34.4 L MEAN CELL HGB CONCETRATION (test code = MCHC) 28.9 G/DL 32.1-34. 5 L RED CELL DISTRIBUTION WIDTH (test code = RDW) 15.5 SD 11.5-14. 5 H PLATELET COUNT (test code = PLT) 281.0 K/mm3 150-450 N MEAN PLATELET VOLUME (test code = MPV) 10.00 fL 7.0-9.6 H NEUTROPHIL % (test code = NT%) 60.9 % 40-76 N LYMPHOCYTE % (test code = LY%) 25.2 % 20.5-51.1 N MONOCYTE % (test code = MO%) 12.2 % 1.7-9.3 H EOSINOPHIL % (test code = EO%) 1.3 % 0.0-6.0 N BASOPHIL % (test code = BA%) 0.4 % 0.0-2.0 N NEUTROPHIL # (test code = NT#) 3.41 K/mm3 1.8-7.6 N LYMPHOCYTE # (test code = LY#) 1.4 K/mm3 0.6-3.0 N MONOCYTE # (test code = MO#) 0.7 K/mm3 0.2-1.5 N EOSINOPHIL # (test code = EO#) 0.1 K/mm3 0.0-0.4 N BASOPHIL # (test code = BA#) 0.0 K/mm3 0.0-0.2 N MANUAL DIFF REQUIRED (test code = MDIFF) NO DIFF/SCN CRITERIA BASIC METABOLIC [id number] 06:10:00* Test Item Value Reference Range Interpretation Comments SODIUM (test code = NA) 141 mmol/L 134-147 N POTASSIUM (test code = K) 3.6 mmol/L 3.4-5.0 N CHLORIDE (test code = CL) 105 mmol/L 100-108 N CARBON DIOXIDE (test code = CO2) 29 mmol/L 21-32 N ANION GAP (test code = GAP) 7.0 GAP calc 4.0-15.0 N GLUCOSE (test code = GLU) 88 MG/DL 70-110 N BLOOD UREA NITROGEN (test code = BUN) 12 MG/DL 7-18 N GLOMERULAR FILTRATION RATE (test code = GFR) >=60 max estimate estG FR >60 CREATININE (test code = CREAT) 0.4 MG/DL 0.8-1.3 L CALCIUM (test code = CA) 8.7 MG/DL 8.5-10.1 N CBC W/AUTO [id number] 06:05:00* Test Item Value Reference Range Interpretation Comments WHITE BLOOD CELL (test code = WBC) 5.6 K/mm3 3.5-11.0 N RED BLOOD CELL (test code = RBC) 3.38 M/mm3 4.70-6.10 L HEMOGLOBIN (test code = HGB) 9.5 G/DL 12.3-15.9 L HEMATOCRIT (test code = HCT) 32.9 % 35.8-46.7 L MEAN CELL VOLUME (test code = MCV) 97.3 Fl 86.3-98.9 N MEAN CELL HGB (test code = MCH) 28.1 pg 28.9-34.4 L MEAN CELL HGB CONCETRATION (test code = MCHC) 28.9 G/DL 32.1-34. 5 L RED CELL DISTRIBUTION WIDTH (test code = RDW) 15.5 SD 11.5-14. 5 H PLATELET COUNT (test code = PLT) 281.0 K/mm3 150-450 N MEAN PLATELET VOLUME (test code = MPV) 10.00 fL 7.0-9.6 H NEUTROPHIL % (test code = NT%) % 40-76 N LYMPHOCYTE % (test code = LY%) % 20.5-51.1 N MONOCYTE % (test code = MO%) % 1.7-9.3 H EOSINOPHIL % (test code = EO%) % 0.0-6.0 N BASOPHIL % (test code = BA%) % 0.0-2.0 N NEUTROPHIL # (test code = NT#) K/mm3 1.8-7.6 N LYMPHOCYTE # (test code = LY#) K/mm3 0.6-3.0 N MONOCYTE # (test code = MO#) K/mm3 0.2-1.5 N EOSINOPHIL # (test code = EO#) K/mm3 0.0-0.4 N BASOPHIL # (test code = BA#) K/mm3 0.0-0.2 N MANUAL DIFF REQUIRED (test code = MDIFF) DIFF/SCN CRITERIA - XR CHEST 1 [id number] 02:14:00 Name: MIRA WALKER [facility] : 1955 Age/S: 64 / M [address] [place] Unit #: [id number] Loc: [place] [address] Phys: Sergio Alford MANAGER MANUFA[employer]URING Acct: [id number] Dis Date: Status: ADM IN PHONE #: [phone] Exam Date: 08/12/2019 0200 FAX #: Reason: NG TUBE PLACEMENT CONFIRMATION EXAMS: CPT: [id number] XR CHEST 1 V 43744 Fluoro Time: DAP (Gy m2): Air Kerma (mGy): HISTORY: Tube placement Location: C3 COMPARISON:08/11/2019 FINDINGS: Nasogastric tube as well as tip overlying the stomach with side-port in the region of the GE junction. Right approach PICC line is again identified. No other changes. IMPRESSION: 1. Interval placement of nasogastric tube with distal aspect overlying the proximal stomach and side-port near the region of the GE junction. at 0214 Reported and signed by: Cristian Carranza M.D. CC: Ruddy Sam MD; Sergio Alford MANAGER MANUFACTURING PAGE 1 Signed Report Name: MIRA WALKER : 1955 Age/S: 64 / M [address] [place] [address] [place] Unit #: [id number] Loc: [place] [address] Phys: Sergio Alford NP Acct: [id number] Dis Date: Status: ADM IN PHONE #: [phone] Exam Date: 08/12/2019 0200 FAX #: Reason: NG TUBE PLACEMENT CONFIRMATION EXAMS: CPT: [id number] XR CHEST 1 V 37254 Fluoro Time: DAP (Gy m2): Air Kerma (mGy): <Continued> Technologist: Lloyd Menchaca, RT(R)(CT) Trnscb Date/Time: 08/12/2019 (213) [email or web address] Orig Print D/T: S: 08/12/2019 (216) PAGE 2 Signed Report BASIC METABOLIC [id number] 19:46:00* Test Item Value Reference Range Interpretation Comments SODIUM (test code = NA) 141 mmol/L 134-147 N POTASSIUM (test code = K) 3.7 mmol/L 3.4-5.0 N CHLORIDE (test code = CL) 104 mmol/L 100-108 N CARBON DIOXIDE (test code = CO2) 27 mmol/L 21-32 N ANION GAP (test code = GAP) 10.0 GAP calc 4.0-15.0 N GLUCOSE (test code = GLU) 87 MG/DL 70-110 N BLOOD UREA NITROGEN (test code = BUN) 11 MG/DL 7-18 N GLOMERULAR FILTRATION RATE (test code = GFR) >=60 max estimate estG FR >60 CREATININE (test code = CREAT) 0.5 MG/DL 0.8-1.3 L CALCIUM (test code = CA) 8.5 MG/DL 8.5-10.1 N Completed by Nursing: NOHEPATIC FUNCTION [id number] 19:46:00* Test Item Value Reference Range Interpretation Comments TOTAL PROTEIN (test code = PROT) 6.6 G/DL 6.4-8.2 N ALBUMIN (test code = ALB) 2.0 G/DL 3.4-5.0 L BILIRUBIN TOTAL (test code = BILT) 0.30 MG/DL 0.2-1.2 N BILIRUBIN DIRECT (test code = BILD) 0.10 MG/DL 0.00-0.30 N BILIRUBIN INDIRECT (test code = BILIND) 0.20 MG/DL 0.2-1.2 N SGOT/AST (test code = AST) 77 Unit/L 15-37 H SGPT/ALT (test code = ALT) 51 Unit/L 12-78 N ALKALINE PHOSPHATASE TOTAL (test code = ALKP) 178 Unit/L 50-136 H Completed by Nursing: NOLACTIC DEHYDROGENASE(LDH)2019-08-11 19:46:00* Test Item Value Reference Range Interpretation Comments LACTIC DEHYDROGENASE(LDH) (test code = LDH) 232 Unit/L 87-241 N Completed by Nursing: [id number] 19:46:00* Test Item Value Reference Range Interpretation Comments LIPASE (test code = LIP) 48 Unit/L 114-286 L Completed by Nursing: [id number] 19:46:00* Test Item Value Reference Range Interpretation Comments TROPONIN-I (test code = TROPI) 0.016 NG/ML 0.000-0.045 N Negative: </= 0.045 Positive: >/= 0.046 Correlation with serial results, other cardiac markers, and clinical findings is necessary to determine the clinical significance of this result. Quantitative results using different methodologies should not be compared to one another as numerical results may varyby method. Completed by Nursing: NOPROCALCITONIN (PCT)2019-08-11 19:46:00* Test Item Value Reference Range Interpretation Comments PROCALCITONIN (PCT) (test code = PROCAL) ng/ml Completed by Nursing: NOUA RFLX MICR CULT IF [id number] 19:37:00* Test Item Value Reference Range Interpretation Comments UA COLOR (test code = COLU) YELLOW discript YEL/STRAW UA APPEARANCE (test code = APPU) SLIGHTLY CLOUDY discript CLEAR UA GLUCOSE DIPSTICK (test code = DGLUU) NEGATIVE mg/dL NEG UA BILIRUBIN DIPSTICK (test code = BILU) NEGATIVE mg/dL NEG UA KETONE DIPSTICK (test code = KETU) NEGATIVE mg/dL NEG UA SPECIFIC GRAVITY (test code = SGU) 1.020 SG 1.005-1.030 UA BLOOD DIPSTICK (test code = JOANNA) 1+ mg/DL NEG A UA PH DIPSTICK (test code = BELKYS) 6.5 pH UNITS 5.0-7.0 UA PROTEIN DIPSTICK (test code = PROU) 1+ mg/dL NEG A UA UROBILINIOGEN DIPSTICK (test code = URO) 1.0 mg/dL <2.0 UA NITRITE DIPSTICK (test code = KVNG) NEGATIVE SCREEN NEG UA LEUKOCYTE ESTERASE DIPSTICK (test code = LEUU) 1+ Leuk/mcL NEGA TIVE A UA WBC (test code = WBCU) 5-10 #WBC/HPF 0-3 A UA RBC (test code = RBCU) 0-1 #RBC/HPF 0-3 UA BACTERIA (test code = BACU) NONE SEEN /HPF NONE-TRACE UA SQUAMOUS CELLS (test code = SQU) TRACE /HPF NONE UA YEAST (test code = YEASTU) 2+ /HPF NONE SEEN A UA CULTURE NEEDED? (test code = UACULT) YES,WBC>10 & EPI<25 Criteria Culture CHK SOURCE OF URINE: STRAIGHT CATHETERIndication for culture: Dysuria/Frequency UA RFLX MICR CULT IF [id number] 19:29:00* Test Item Value Reference Range Interpretation Comments UA COLOR (test code = COLU) YELLOW discript YEL/STRAW UA APPEARANCE (test code = APPU) SLIGHTLY CLOUDY discript CLEAR UA GLUCOSE DIPSTICK (test code = DGLUU) NEGATIVE mg/dL NEG UA BILIRUBIN DIPSTICK (test code = BILU) NEGATIVE mg/dL NEG UA KETONE DIPSTICK (test code = KETU) NEGATIVE mg/dL NEG UA SPECIFIC GRAVITY (test code = SGU) 1.020 SG 1.005-1.030 UA BLOOD DIPSTICK (test code = JOANNA) 1+ mg/DL NEG A UA PH DIPSTICK (test code = BELKYS) 6.5 pH UNITS 5.0-7.0 UA PROTEIN DIPSTICK (test code = PROU) 1+ mg/dL NEG A UA UROBILINIOGEN DIPSTICK (test code = URO) 1.0 mg/dL <2.0 UA NITRITE DIPSTICK (test code = KVNG) NEGATIVE SCREEN NEG UA LEUKOCYTE ESTERASE DIPSTICK (test code = LEUU) 1+ Leuk/mcL NEGA TIVE A UA CULTURE NEEDED? (test code = UACULT) Criteria Culture CHK SOURCE OF URINE: STRAIGHT CATHETERIndication for culture: Dysuria/Frequency LACTIC [id number] 19:22:00* Test Item Value Reference Range Interpretation Comments LACTIC ACID (test code = LACT) 0.9 mmol/L 0.4-2.0 N CBC W/AUTO [id number] 19:15:00* Test Item Value Reference Range Interpretation Comments WHITE BLOOD CELL (test code = WBC) 6.1 K/mm3 3.5-11.0 N RED BLOOD CELL (test code = RBC) 3.49 M/mm3 4.70-6.10 L HEMOGLOBIN (test code = HGB) 10.1 G/DL 12.3-15.9 L HEMATOCRIT (test code = HCT) 33.9 % 35.8-46.7 L MEAN CELL VOLUME (test code = MCV) 97.1 Fl 86.3-98.9 N MEAN CELL HGB (test code = MCH) 28.9 pg 28.9-34.4 N MEAN CELL HGB CONCETRATION (test code = MCHC) 29.8 G/DL 32.1-34. 5 L RED CELL DISTRIBUTION WIDTH (test code = RDW) 15.5 SD 11.5-14. 5 H PLATELET COUNT (test code = PLT) 429.0 K/mm3 150-450 N MEAN PLATELET VOLUME (test code = MPV) 10.30 fL 7.0-9.6 H NEUTROPHIL % (test code = NT%) 65.1 % 40-76 N LYMPHOCYTE % (test code = LY%) 23.1 % 20.5-51.1 N MONOCYTE % (test code = MO%) 10.8 % 1.7-9.3 H EOSINOPHIL % (test code = EO%) 0.7 % 0.0-6.0 N BASOPHIL % (test code = BA%) 0.3 % 0.0-2.0 N NEUTROPHIL # (test code = NT#) 3.98 K/mm3 1.8-7.6 N LYMPHOCYTE # (test code = LY#) 1.4 K/mm3 0.6-3.0 N MONOCYTE # (test code = MO#) 0.7 K/mm3 0.2-1.5 N EOSINOPHIL # (test code = EO#) 0.0 K/mm3 0.0-0.4 N BASOPHIL # (test code = BA#) 0.0 K/mm3 0.0-0.2 N MANUAL DIFF REQUIRED (test code = MDIFF) NO DIFF/SCN CRITERIA - XR CHEST 1 [id number] 18:55:00 Name: MIRA WALKER [facility] : 1955 Age/S: 64 / M [address] [address] [place] Unit #: [id number] Loc: [place] [address] Phys: Joel Abbott MD Acct: [id number] Dis Date: Status: REG ER PHONE #: [phone] Exam Date: 08/11/2019 184 FAX #: Reason: COUGH EXAMS: CPT: [id number] XR CHEST 1 V 22649 Fluoro Time: DAP (Gy m2): Air Kerma (mGy): Clinical Information: Pulled PEG tube. Coughing. Dictation Location: COMPARISON: 08/08/2019. FINDINGS: Portable frontal view of the chest taken at 1831 hours shows the heart size and pulmonary vessels within normal limits. There is mild aortic tortuosity. The lungs are hyperexpanded with patchy perihilar and infrahilar opacities suggesting atelectasis or minimal infiltrate. There is no apparent effusion. Moderate lower thoracic dextroconvexity. NG tube on the earlier film has been removed. The PICC line remains. IMPRESSION: 1. No evidence of PEG tube. 2. NG tube removal since the prior study. 3. Otherwise essentially unchanged. at 1855 Reported and signed by: Jovanni Kowalski M.D. CC: Joel Abbott MD PAGE 1 Signed Report Name: [facility] [place] [facility] 1955 Age/S: 64 / M [address] [address] [place] Unit #: [id number] Loc: [place] [address] Phys: Joel Abbott MD Acct: [id number] Dis Date: Status: REG ER PHONE #: [phone] Exam Date: 08/11/20191844 FAX #: Reason: COUGH EXAMS: CPT: [id number] XR CHEST 1 V 19384 Fluoro Time: DAP (Gy m2): Air Kerma (mGy): <Continued> Technologist: Jacqueline Segal, RT(R)(CT) Trnscb Tristan e/Time: 08/11/2019 (1854) [email or web address] Orig Print D/T: S: (1857) PAGE 2 Signed Report VANCOMYCIN [id number] 13:16:00* Test Item Value Reference Range Interpretation Comments VANCOMYCIN TROUGH (test code = VANCT) 9.9 mcG/ML 10-20 L CBC W/AUTO [id number] 08:24:00* Test Item Value Reference Range Interpretation Comments WHITE BLOOD CELL (test code = WBC) 7.2 K/mm3 3.5-11.0 N RED BLOOD CELL (test code = RBC) 2.80 M/mm3 4.70-6.10 L HEMOGLOBIN (test code = HGB) 8.0 G/DL 12.3-15.9 L HEMATOCRIT (test code = HCT) 28.0 % 35.8-46.7 L MEAN CELL VOLUME (test code = MCV) 100.0 Fl 86.3-98.9 H MEAN CELL HGB (test code = MCH) 28.6 pg 28.9-34.4 L MEAN CELL HGB CONCETRATION (test code = MCHC) 28.6 G/DL 32.1-34. 5 L RED CELL DISTRIBUTION WIDTH (test code = RDW) 15.4 SD 11.5-14. 5 H PLATELET COUNT (test code = PLT) 361.0 K/mm3 150-450 N MEAN PLATELET VOLUME (test code = MPV) 9.90 fL 7.0-9.6 H NEUTROPHIL % (test code = NT%) 66.3 % 40-76 N LYMPHOCYTE % (test code = LY%) 21.5 % 20.5-51.1 N MONOCYTE % (test code = MO%) 11.3 % 1.7-9.3 H EOSINOPHIL % (test code = EO%) 0.6 % 0.0-6.0 N BASOPHIL % (test code = BA%) 0.3 % 0.0-2.0 N NEUTROPHIL # (test code = NT#) 4.75 K/mm3 1.8-7.6 N LYMPHOCYTE # (test code = LY#) 1.5 K/mm3 0.6-3.0 N MONOCYTE # (test code = MO#) 0.8 K/mm3 0.2-1.5 N EOSINOPHIL # (test code = EO#) 0.0 K/mm3 0.0-0.4 N BASOPHIL # (test code = BA#) 0.0 K/mm3 0.0-0.2 N MANUAL DIFF REQUIRED (test code = MDIFF) NO DIFF/SCN CRITERIA CBC W/AUTO [id number] 08:24:00* Test Item Value Reference Range Interpretation Comments WHITE BLOOD CELL (test code = WBC) 7.2 K/mm3 3.5-11.0 N RED BLOOD CELL (test code = RBC) 2.80 M/mm3 4.70-6.10 L HEMOGLOBIN (test code = HGB) 8.0 G/DL 12.3-15.9 L HEMATOCRIT (test code = HCT) 28.0 % 35.8-46.7 L MEAN CELL VOLUME (test code = MCV) 100.0 Fl 86.3-98.9 H MEAN CELL HGB (test code = MCH) 28.6 pg 28.9-34.4 L MEAN CELL HGB CONCETRATION (test code = MCHC) 28.6 G/DL 32.1-34. 5 L RED CELL DISTRIBUTION WIDTH (test code = RDW) 15.4 SD 11.5-14. 5 H PLATELET COUNT (test code = PLT) 361.0 K/mm3 150-450 N MEAN PLATELET VOLUME (test code = MPV) 9.90 fL 7.0-9.6 H NEUTROPHIL % (test code = NT%) 66.3 % 40-76 N LYMPHOCYTE % (test code = LY%) 21.5 % 20.5-51.1 N MONOCYTE % (test code = MO%) 11.3 % 1.7-9.3 H EOSINOPHIL % (test code = EO%) 0.6 % 0.0-6.0 N BASOPHIL % (test code = BA%) 0.3 % 0.0-2.0 N NEUTROPHIL # (test code = NT#) 4.75 K/mm3 1.8-7.6 N LYMPHOCYTE # (test code = LY#) 1.5 K/mm3 0.6-3.0 N MONOCYTE # (test code = MO#) 0.8 K/mm3 0.2-1.5 N EOSINOPHIL # (test code = EO#) 0.0 K/mm3 0.0-0.4 N BASOPHIL # (test code = BA#) 0.0 K/mm3 0.0-0.2 N MANUAL DIFF REQUIRED (test code = MDIFF) NO DIFF/SCN CRITERIA RBC [id number] 08:24:00* Test Item Value Reference Range Interpretation Comments HYPOCHROMIA (test code = HYPO) TRACE ON SCAN NONE PLATELET ESTIMATE (test code = PLTEST) ADEQUATE THOUSAND ADEQUATE PLATELET MORPHOLOGY (test code = PLTMORPH) NORMAL CBC W/AUTO [id number] 08:24:00* Test Item Value Reference Range Interpretation Comments WHITE BLOOD CELL (test code = WBC) 7.2 K/mm3 3.5-11.0 N RED BLOOD CELL (test code = RBC) 2.80 M/mm3 4.70-6.10 L HEMOGLOBIN (test code = HGB) 8.0 G/DL 12.3-15.9 L HEMATOCRIT (test code = HCT) 28.0 % 35.8-46.7 L MEAN CELL VOLUME (test code = MCV) 100.0 Fl 86.3-98.9 H MEAN CELL HGB (test code = MCH) 28.6 pg 28.9-34.4 L MEAN CELL HGB CONCETRATION (test code = MCHC) 28.6 G/DL 32.1-34. 5 L RED CELL DISTRIBUTION WIDTH (test code = RDW) 15.4 SD 11.5-14. 5 H PLATELET COUNT (test code = PLT) 361.0 K/mm3 150-450 N MEAN PLATELET VOLUME (test code = MPV) 9.90 fL 7.0-9.6 H NEUTROPHIL % (test code = NT%) 66.3 % 40-76 N LYMPHOCYTE % (test code = LY%) 21.5 % 20.5-51.1 N MONOCYTE % (test code = MO%) 11.3 % 1.7-9.3 H EOSINOPHIL % (test code = EO%) 0.6 % 0.0-6.0 N BASOPHIL % (test code = BA%) 0.3 % 0.0-2.0 N NEUTROPHIL # (test code = NT#) 4.75 K/mm3 1.8-7.6 N LYMPHOCYTE # (test code = LY#) 1.5 K/mm3 0.6-3.0 N MONOCYTE # (test code = MO#) 0.8 K/mm3 0.2-1.5 N EOSINOPHIL # (test code = EO#) 0.0 K/mm3 0.0-0.4 N BASOPHIL # (test code = BA#) 0.0 K/mm3 0.0-0.2 N MANUAL DIFF REQUIRED (test code = MDIFF) NO DIFF/SCN CRITERIA BASIC METABOLIC [id number] 07:19:00* Test Item Value Reference Range Interpretation Comments SODIUM (test code = NA) 145 mmol/L 134-147 N POTASSIUM (test code = K) 3.0 mmol/L 3.4-5.0 L CHLORIDE (test code = CL) 113 mmol/L 100-108 H CARBON DIOXIDE (test code = CO2) 23 mmol/L 21-32 N ANION GAP (test code = GAP) 9.0 GAP calc 4.0-15.0 N GLUCOSE (test code = GLU) 88 MG/DL 70-110 N BLOOD UREA NITROGEN (test code = BUN) 9 MG/DL 7-18 N GLOMERULAR FILTRATION RATE (test code = GFR) >=60 max estimate estG FR >60 CREATININE (test code = CREAT) 0.3 MG/DL 0.8-1.3 L CALCIUM (test code = CA) 7.0 MG/DL 8.5-10.1 L GLUCOSE BEDSIDE [id number] 07:11:00* Test Item Value Reference Range Interpretation Comments GLUCOSE BEDSIDE TESTING (test code = GLUBED) 88 mg/dL 70-110 N CBC W/AUTO [id number] 07:11:00* Test Item Value Reference Range Interpretation Comments WHITE BLOOD CELL (test code = WBC) 7.2 K/mm3 3.5-11.0 N RED BLOOD CELL (test code = RBC) 2.80 M/mm3 4.70-6.10 L HEMOGLOBIN (test code = HGB) 8.0 G/DL 12.3-15.9 L HEMATOCRIT (test code = HCT) 28.0 % 35.8-46.7 L MEAN CELL VOLUME (test code = MCV) 100.0 Fl 86.3-98.9 H MEAN CELL HGB (test code = MCH) 28.6 pg 28.9-34.4 L MEAN CELL HGB CONCETRATION (test code = MCHC) 28.6 G/DL 32.1-34. 5 L RED CELL DISTRIBUTION WIDTH (test code = RDW) 15.4 SD 11.5-14. 5 H PLATELET COUNT (test code = PLT) 361.0 K/mm3 150-450 N MEAN PLATELET VOLUME (test code = MPV) 9.90 fL 7.0-9.6 H NEUTROPHIL % (test code = NT%) % 40-76 N LYMPHOCYTE % (test code = LY%) % 20.5-51.1 N MONOCYTE % (test code = MO%) % 1.7-9.3 H EOSINOPHIL % (test code = EO%) % 0.0-6.0 N BASOPHIL % (test code = BA%) % 0.0-2.0 N NEUTROPHIL # (test code = NT#) K/mm3 1.8-7.6 N LYMPHOCYTE # (test code = LY#) K/mm3 0.6-3.0 N MONOCYTE # (test code = MO#) K/mm3 0.2-1.5 N EOSINOPHIL # (test code = EO#) K/mm3 0.0-0.4 N BASOPHIL # (test code = BA#) K/mm3 0.0-0.2 N MANUAL DIFF REQUIRED (test code = MDIFF) DIFF/SCN CRITERIA GLUCOSE BEDSIDE [id number] 19:48:00* Test Item Value Reference Range Interpretation Comments GLUCOSE BEDSIDE TESTING (test code = GLUBED) 104 mg/dL 70-110 N GLUCOSE BEDSIDE [id number] 18:10:00* Test Item Value Reference Range Interpretation Comments GLUCOSE BEDSIDE TESTING (test code = GLUBED) 110 mg/dL 70-110 N GLUCOSE BEDSIDE [id number] 11:37:00* Test Item Value Reference Range Interpretation Comments GLUCOSE BEDSIDE TESTING (test code = GLUBED) 124 mg/dL 70-110 H GLUCOSE BEDSIDE [id number] 07:13:00* Test Item Value Reference Range Interpretation Comments GLUCOSE BEDSIDE TESTING (test code = GLUBED) 118 mg/dL 70-110 H CBC W/AUTO [id number] 06:17:00* Test Item Value Reference Range Interpretation Comments WHITE BLOOD CELL (test code = WBC) 8.8 K/mm3 3.5-11.0 N RED BLOOD CELL (test code = RBC) 3.52 M/mm3 4.70-6.10 L HEMOGLOBIN (test code = HGB) 10.0 G/DL 12.3-15.9 L HEMATOCRIT (test code = HCT) 35.0 % 35.8-46.7 L MEAN CELL VOLUME (test code = MCV) 99.4 Fl 86.3-98.9 H MEAN CELL HGB (test code = MCH) 28.4 pg 28.9-34.4 L MEAN CELL HGB CONCETRATION (test code = MCHC) 28.6 G/DL 32.1-34. 5 L RED CELL DISTRIBUTION WIDTH (test code = RDW) 16.2 SD 11.5-14. 5 H PLATELET COUNT (test code = PLT) 418.0 K/mm3 150-450 N MEAN PLATELET VOLUME (test code = MPV) 9.90 fL 7.0-9.6 H NEUTROPHIL % (test code = NT%) 70.0 % 40-76 LYMPHOCYTE % (test code = LY%) 16.2 % 20.5-51.1 L MONOCYTE % (test code = MO%) 13.5 % 1.7-9.3 H EOSINOPHIL % (test code = EO%) 0.2 % 0.0-6.0 N BASOPHIL % (test code = BA%) 0.1 % 0.0-2.0 N NEUTROPHIL # (test code = NT#) 6.16 K/mm3 1.8-7.6 N LYMPHOCYTE # (test code = LY#) 1.4 K/mm3 0.6-3.0 N MONOCYTE # (test code = MO#) 1.2 K/mm3 0.2-1.5 N EOSINOPHIL # (test code = EO#) 0.0 K/mm3 0.0-0.4 N BASOPHIL # (test code = BA#) 0.0 K/mm3 0.0-0.2 N MANUAL DIFF REQUIRED (test code = MDIFF) NO DIFF/SCN CRITERIA BASIC METABOLIC [id number] 06:10:00* Test Item Value Reference Range Interpretation Comments SODIUM (test code = NA) 143 mmol/L 134-147 N POTASSIUM (test code = K) 4.1 mmol/L 3.4-5.0 N CHLORIDE (test code = CL) 108 mmol/L 100-108 N CARBON DIOXIDE (test code = CO2) 28 mmol/L 21-32 N ANION GAP (test code = GAP) 7.0 GAP calc 4.0-15.0 N GLUCOSE (test code = GLU) 125 MG/DL 70-110 H BLOOD UREA NITROGEN (test code = BUN) 15 MG/DL 7-18 N GLOMERULAR FILTRATION RATE (test code = GFR) >=60 max estimate estG FR >60 CREATININE (test code = CREAT) 0.5 MG/DL 0.8-1.3 L CALCIUM (test code = CA) 8.4 MG/DL 8.5-10.1 L GLUCOSE BEDSIDE [id number] 00:53:00* Test Item Value Reference Range Interpretation Comments GLUCOSE BEDSIDE TESTING (test code = GLUBED) 124 mg/dL 70-110 H GLUCOSE BEDSIDE [id number] 18:04:00* Test Item Value Reference Range Interpretation Comments GLUCOSE BEDSIDE TESTING (test code = GLUBED) 131 mg/dL 70-110 H - CT CHEST W/O [id number] 17:28:00 Name: MIRA WALKER [facility] : 1955 Age/S: 64 / M [id number] [address] [facility] [place] [facility] [place] Unit #: [id number] Loc: [place] [address] Phys: Gwen Victoria MD Acct: [id number] Dis Date: Status: ADM IN PHONE #: [phone] Exam Date: 08/08/2019 6087 FAX #: Reason: asp pna EXAMS: CPT: [id number] CT CHEST W/O CONTRAST [id number] Exam: CT of the chest without contrast Location: A1 HISTORY: , asp pna, COMPARISON: None available TECHNIQUE: Axial images of the thorax were obtained without contrast. Images were reformatted to create coronal and sagittal reconstructions . One or more of the following dose reduction techniques were used: Automated exposure control, adjustment of the mA and/or kV according to patient size, and/or utilization of iterative reconstruction technique. DLP: 297 mGy-cm. FINDINGS: There is collapse of the left lower lobe. Fluid is noted within the bronchi. Findings may represent changes of aspiration pneumonia. Further patchy airspace densities are present in the left right lower lobe suggesting further infectious/inflammatory pneumonitis. Mild paraseptal emphysematous changes are noted at the lung apices. Heart is no rmal in size. Calcification is seen within the coronary arteries. There is no pericardial effusion. The unopacified thoracic aorta and pulmonary trunk are within normal limits. Right subclavian PICC line tip is followed to the distal SVC. Endogastric tube traverses the diaphragm with tip at the proximal stomach. There is no hilar or mediastinal adenopathy. Visualized intra-abdominal contents are within normal limits. There is dextroconvex scoliosis of the lower thoracic spine and levoconvex curvature of the upper lumbar spine. There is chronic compre ssion deformity of the L1 vertebral body. No discrete osteolytic or osteo sclerotic lesions are otherwise seen. IMPRESSION: 1. Co llapse of the left lower lobe with fluid within the bronchi suggesting s equelae of aspiration pneumonitis. 2. Further patchy airspace densities in the left lower lobe which may represent infectious/inflammatory pneu monitis. 3. Emphysema PAGE 1 Darshana d Report (CONTINUED) Name: MIRA WALKER [facility] : 1955 Age/S: 64 / M [address] [facility] [place] Unit #: [id number] Loc: [place] [address] Phys: Gwen Victoria MD Acct: [id number] Dis Date: Status: ADM IN PHONE #: [phone] Exam Date: 08/08/2019 1718 FAX #: Reason: asp pna EXAMS: CPT: [id number] CT CHEST W/O CONTRAST 84060 <Continued> at 1728 Reported and signed by: Ed An M.D. CC: Sami Gomez MD; Gwen Victoria MD Technologist:Jacqueline Segal, RT(R)(CT); Ten CTDI: DLP: Trnscb Date/Time: 08/08/2019 (1728) [email or web address] Orig Print D/T: S: 08/08/2019 (3245) PAGE 2 Signed Report LACTIC [id number] 16:14:00* Test Item Value Reference Range Interpretation Comments LACTIC ACID (test code = LACT) 1.0 mmol/L 0.4-2.0 N LACTIC [id number] 16:14:00* Test Item Value Reference Range Interpretation Comments LACTIC ACID (test code = LACT) 1.0 mmol/L 0.4-2.0 N UA RFLX MICR CULT IF [id number] 16:05:00* Test Item Value Reference Range Interpretation Comments UA COLOR (test code = COLU) YELLOW discript YEL/STRAW UA APPEARANCE (test code = APPU) CLOUDY discript CLEAR A UA GLUCOSE DIPSTICK (test code = DGLUU) NEGATIVE mg/dL NEG UA BILIRUBIN DIPSTICK (test code = BILU) NEGATIVE mg/dL NEG UA KETONE DIPSTICK (test code = KETU) NEGATIVE mg/dL NEG UA SPECIFIC GRAVITY (test code = SGU) 1.015 SG 1.005-1.030 UA BLOOD DIPSTICK (test code = JOANNA) NEGATIVE mg/DL NEG UA PH DIPSTICK (test code = BELKYS) 7.5 pH UNITS 5.0-7.0 A UA PROTEIN DIPSTICK (test code = PROU) 1+ mg/dL NEG A UA UROBILINIOGEN DIPSTICK (test code = URO) 0.2 mg/dL <2.0 UA NITRITE DIPSTICK (test code = KVNG) NEGATIVE SCREEN NEG UA LEUKOCYTE ESTERASE DIPSTICK (test code = LEUU) TRACE Leuk/mcL NE GATIVE A UA WBC (test code = WBCU) 5-10 #WBC/HPF 0-3 A UA RBC (test code = RBCU) 1-3 #RBC/HPF 0-3 UA BACTERIA (test code = BACU) 4+ /HPF NONE-TRACE A UA SQUAMOUS CELLS (test code = SQU) TRACE /HPF NONE UA CULTURE NEEDED? (test code = UACULT) NO, WBC<10 Criteria Culture CHK SOURCE OF URINE: RENDON CATHETERIndication for culture: Temperature > 100.4 F UA RFLX MICR CULT IF [id number] 15:56:00* Test Item Value Reference Range Interpretation Comments UA COLOR (test code = COLU) YELLOW discript YEL/STRAW UA APPEARANCE (test code = APPU) CLOUDY discript CLEAR A UA GLUCOSE DIPSTICK (test code = DGLUU) NEGATIVE mg/dL NEG UA BILIRUBIN DIPSTICK (test code = BILU) NEGATIVE mg/dL NEG UA KETONE DIPSTICK (test code = KETU) NEGATIVE mg/dL NEG UA SPECIFIC GRAVITY (test code = SGU) 1.015 SG 1.005-1.030 UA BLOOD DIPSTICK (test code = JOANNA) NEGATIVE mg/DL NEG UA PH DIPSTICK (test code = BELKYS) 7.5 pH UNITS 5.0-7.0 A UA PROTEIN DIPSTICK (test code = PROU) 1+ mg/dL NEG A UA UROBILINIOGEN DIPSTICK (test code = URO) 0.2 mg/dL <2.0 UA NITRITE DIPSTICK (test code = KVNG) NEGATIVE SCREEN NEG UA LEUKOCYTE ESTERASE DIPSTICK (test code = LEUU) TRACE Leuk/mcL NE GATIVE A UA CULTURE NEEDED? (test code = UACULT) Criteria Culture CHK SOURCE OF URINE: RENDON CATHETERIndication for culture: Temperature > 100.4 F - XR CHEST 1 [id number] 12:28:00 Name: MIRA WALKER [facility] : 1955 Age/S: 64 / M [address] [address] [place] [facility] [place] Unit #: [id number] Loc: [place] [address] Phys: Ruddy Sam MD Acct: [id number] Dis Date: Status: ADM IN PHONE #: [phone] Exam Date: 08/08/2019 1225 FAX #: Reason: SOB EXAMS: CPT: [id number] XR CHEST 1 V 85524 Fluoro Time: DAP (Gy m2): Air Kerma (mGy): EXAM: Chest one view. Location: B2 HISTORY: SOB, , COMPARISON: 08/07/2019 FINDINGS: Nasogastric tube traverse the diaphragm. There is a right subclavian PICC line with tip in the distal SVC. Confluent airspace opacities are present at the left lung base, unchanged. There is a small left pleural effusion. There is near resolution of airspace opacities in the right lung base. There is hyperinflation the lungs. There is no pneumothorax. Skeletal structures are within normal limits. IMPRESSION: 1. Stable atelectasis/consolidation in the left lung base with small left pleural effusion. 2. Near resolution of right basilar atelectasis/consolidation. at 1228 Reported and signed by: Ed An M.D. CC: Sami Gomez MD; Ruddy Sam MD PAGE 1 Signed Report Name: MIRA WALKER [facility] [place] : 1955 Age/S: 64 / M [address] [address] [place] [address] [place] Unit #: [id number] Loc: [place] [address] Phys: Ruddy Sam MD Acct: [id number] Dis Date: Status: ADM IN PHONE #: [phone] Exam Date: 08/08/2019 1223 FAX #: Reason: SOB EXAMS: CPT: [id number] XR CHEST 1 V 80406 Fluoro Time: DAP (Gy m2): Air Kerma (mGy): <Continued> Technologist: Renee Jacobs RT(R) Trnscb Date/Time: 08/08/2019 (1228) [email or web address] Orig Print D/T: S: 08/08/2019 (3461) PAGE 2 Signed Report GLUCOSE BEDSIDE [id number] 11:40:00* Test Item Value Reference Range Interpretation Comments GLUCOSE BEDSIDE TESTING (test code = GLUBED) 106 mg/dL 70-110 N COMPREHENSIVE METABOLIC [id number] 06:12:00* Test Item Value Reference Range Interpretation Comments SODIUM (test code = NA) 141 mmol/L 134-147 N POTASSIUM (test code = K) 4.4 mmol/L 3.4-5.0 N CHLORIDE (test code = CL) 106 mmol/L 100-108 N CARBON DIOXIDE (test code = CO2) 31 mmol/L 21-32 N ANION GAP (test code = GAP) 4.0 GAP calc 4.0-15.0 N GLUCOSE (test code = GLU) 116 MG/DL 70-110 H BLOOD UREA NITROGEN (test code = BUN) 16 MG/DL 7-18 N GLOMERULAR FILTRATION RATE (test code = GFR) >=60 max estimate estG FR >60 CREATININE (test code = CREAT) 0.5 MG/DL 0.8-1.3 L TOTAL PROTEIN (test code = PROT) 6.6 G/DL 6.4-8.2 N ALBUMIN (test code = ALB) 2.1 G/DL 3.4-5.0 L GLOBULIN (test code = GLOB) 4.5 GM/dL ALBUMIN/GLOBULIN RATIO (test code = A/G) 0.5 RATIO 1.2-2.2 L CALCIUM (test code = CA) 8.8 MG/DL 8.5-10.1 N BILIRUBIN TOTAL (test code = BILT) 0.20 MG/DL 0.2-1.2 N SGOT/AST (test code = AST) 33 Unit/L 15-37 N SGPT/ALT (test code = ALT) 23 Unit/L 12-78 N ALKALINE PHOSPHATASE TOTAL (test code = ALKP) 200 Unit/L 50-136 H CBC W/AUTO [id number] 06:03:00* Test Item Value Reference Range Interpretation Comments WHITE BLOOD CELL (test code = WBC) 8.0 K/mm3 3.5-11.0 N RED BLOOD CELL (test code = RBC) 3.77 M/mm3 4.70-6.10 L HEMOGLOBIN (test code = HGB) 10.8 G/DL 12.3-15.9 L HEMATOCRIT (test code = HCT) 37.2 % 35.8-46.7 N MEAN CELL VOLUME (test code = MCV) 98.7 Fl 86.3-98.9 N MEAN CELL HGB (test code = MCH) 28.6 pg 28.9-34.4 L MEAN CELL HGB CONCETRATION (test code = MCHC) 29.0 G/DL 32.1-34. 5 L RED CELL DISTRIBUTION WIDTH (test code = RDW) 16.3 SD 11.5-14. 5 H PLATELET COUNT (test code = PLT) 425.0 K/mm3 150-450 N MEAN PLATELET VOLUME (test code = MPV) 9.60 fL 7.0-9.6 N NEUTROPHIL % (test code = NT%) 62.2 % 40-76 N LYMPHOCYTE % (test code = LY%) 23.8 % 20.5-51.1 N MONOCYTE % (test code = MO%) 13.3 % 1.7-9.3 H EOSINOPHIL % (test code = EO%) 0.4 % 0.0-6.0 N BASOPHIL % (test code = BA%) 0.3 % 0.0-2.0 N NEUTROPHIL # (test code = NT#) 4.99 K/mm3 1.8-7.6 N LYMPHOCYTE # (test code = LY#) 1.9 K/mm3 0.6-3.0 N MONOCYTE # (test code = MO#) 1.1 K/mm3 0.2-1.5 N EOSINOPHIL # (test code = EO#) 0.0 K/mm3 0.0-0.4 N BASOPHIL # (test code = BA#) 0.0 K/mm3 0.0-0.2 N MANUAL DIFF REQUIRED (test code = MDIFF) NO DIFF/SCN CRITERIA GLUCOSE BEDSIDE [id number] 12:05:00* Test Item Value Reference Range Interpretation Comments GLUCOSE BEDSIDE TESTING (test code = GLUBED) 85 mg/dL 70-110 N - XR CHEST 1 [id number] 08:54:00 Name: MIRA WALKER [facility] : 1955 Age/S: 64 / M [address] [address] [place] Unit #: [id number] Loc: [place] [address] Phys: Salbador Gardiner MD Acct: [id number] Dis Date: Status: ADM IN PHONE #: [phone] Exam Date: 08/07/2019 0685 FAX #: Reason: pneumonia follow up EXAMS: CPT: [id number] XR CHEST 1 V 66559 Fluoro Time: DAP (Gy m2): Air Kerma (mGy): EXAMINATION: - XR CHEST 1 V. LOCATION: S17. HISTORY: Pneumonia follow up. COMPARISON: CXR 07/31/19. FINDINGS: Examination is limited due to portable supine technique. Cardiac silhouette/Mediastinal contour: Persistent enlargement of cardiac silhouette. Atherosclerotic calcification of aortic arch. Lungs: Improving right lower lobe airspace opacity. Small left pleural effusion with retrocardiac airspace opacity. Small right effusion. Biapical thickening/scarring. Osseous Structures: Degenerative changes of thoracic spine. Curvature of thoracic spine convex to right. Additional Findings: Right-sided PICC terminates over cavoatrial junction. Enteric tube tip is projected below the diaphragm. IMPRESSION: Improving right lower lobe airspace opacity. Small right effusion. Small left pleural effusion with retrocardiac airspace opacity. at 0854 Reported and signed by: Amparo Champion M.D. CC: Sami Gomez MD; Salbador Gardiner MD PAGE 1 Signed Report Name: MIRA WALKER [facility] : 1955 Age/S: 64 / M [address] [address] [place] [facility] [place] Unit #: [id number] Loc: [place] [address] Phys: Salbador Gardiner MD Acct: [id number] Dis Date: Status: ADM IN PHONE #: [phone] Exam Date: 08/07/2019 0654 FAX #: Reason: pneumonia follow up EXA MS: CPT: [id number] XR CH EST 1 V 55623 Fluoro Time: DAP (Gy m2): Air Kerma (mGy): <Continued> Technologist: Lloyd Menchaca, RT(R)(CT) Trnscb Date/Time: 08/07/2019 (0854) [email or web address] Orig Print D/T: S: 08/07/2019 (0857) PAGE 2 Signed Report COMPREHENSIVE METABOLIC [id number] 06:46:00* Test Item Value Reference Range Interpretation Comments SODIUM (test code = NA) 143 mmol/L 134-147 N POTASSIUM (test code = K) 4.1 mmol/L 3.4-5.0 N CHLORIDE (test code = CL) 108 mmol/L 100-108 N CARBON DIOXIDE (test code = CO2) 29 mmol/L 21-32 N ANION GAP (test code = GAP) 6.0 GAP calc 4.0-15.0 N GLUCOSE (test code = GLU) 109 MG/DL 70-110 N BLOOD UREA NITROGEN (test code = BUN) 10 MG/DL 7-18 N GLOMERULAR FILTRATION RATE (test code = GFR) >=60 max estimate estG FR >60 CREATININE (test code = CREAT) 0.5 MG/DL 0.8-1.3 L TOTAL PROTEIN (test code = PROT) 6.3 G/DL 6.4-8.2 L ALBUMIN (test code = ALB) 2.0 G/DL 3.4-5.0 L GLOBULIN (test code = GLOB) 4.3 GM/dL ALBUMIN/GLOBULIN RATIO (test code = A/G) 0.5 RATIO 1.2-2.2 L CALCIUM (test code = CA) 9.0 MG/DL 8.5-10.1 N BILIRUBIN TOTAL (test code = BILT) 0.20 MG/DL 0.2-1.2 N SGOT/AST (test code = AST) 27 Unit/L 15-37 N SGPT/ALT (test code = ALT) 13 Unit/L 12-78 N ALKALINE PHOSPHATASE TOTAL (test code = ALKP) 190 Unit/L 50-136 H CBC W/AUTO [id number] 06:26:00* Test Item Value Reference Range Interpretation Comments WHITE BLOOD CELL (test code = WBC) 6.2 K/mm3 3.5-11.0 N RED BLOOD CELL (test code = RBC) 3.51 M/mm3 4.70-6.10 L HEMOGLOBIN (test code = HGB) 10.2 G/DL 12.3-15.9 L HEMATOCRIT (test code = HCT) 34.7 % 35.8-46.7 L MEAN CELL VOLUME (test code = MCV) 98.9 Fl 86.3-98.9 N MEAN CELL HGB (test code = MCH) 29.1 pg 28.9-34.4 N MEAN CELL HGB CONCETRATION (test code = MCHC) 29.4 G/DL 32.1-34. 5 L RED CELL DISTRIBUTION WIDTH (test code = RDW) 16.0 SD 11.5-14. 5 H PLATELET COUNT (test code = PLT) 495.0 K/mm3 150-450 H MEAN PLATELET VOLUME (test code = MPV) 9.20 fL 7.0-9.6 N NEUTROPHIL % (test code = NT%) 59.7 % 40-76 N LYMPHOCYTE % (test code = LY%) 25.2 % 20.5-51.1 N MONOCYTE % (test code = MO%) 13.6 % 1.7-9.3 H EOSINOPHIL % (test code = EO%) 1.3 % 0.0-6.0 N BASOPHIL % (test code = BA%) 0.2 % 0.0-2.0 N NEUTROPHIL # (test code = NT#) 3.70 K/mm3 1.8-7.6 N LYMPHOCYTE # (test code = LY#) 1.6 K/mm3 0.6-3.0 N MONOCYTE # (test code = MO#) 0.8 K/mm3 0.2-1.5 N EOSINOPHIL # (test code = EO#) 0.1 K/mm3 0.0-0.4 N BASOPHIL # (test code = BA#) 0.0 K/mm3 0.0-0.2 N MANUAL DIFF REQUIRED (test code = MDIFF) NO DIFF/SCN CRITERIA BASIC METABOLIC [id number] 05:47:00* Test Item Value Reference Range Interpretation Comments SODIUM (test code = NA) 143 mmol/L 134-147 N POTASSIUM (test code = K) 4.2 mmol/L 3.4-5.0 N CHLORIDE (test code = CL) 108 mmol/L 100-108 N CARBON DIOXIDE (test code = CO2) 30 mmol/L 21-32 N ANION GAP (test code = GAP) 5.0 GAP calc 4.0-15.0 N GLUCOSE (test code = GLU) 113 MG/DL 70-110 H BLOOD UREA NITROGEN (test code = BUN) 11 MG/DL 7-18 N GLOMERULAR FILTRATION RATE (test code = GFR) >=60 max estimate estG FR >60 CREATININE (test code = CREAT) 0.5 MG/DL 0.8-1.3 L CALCIUM (test code = CA) 8.8 MG/DL 8.5-10.1 N CBC W/AUTO [id number] 05:39:00* Test Item Value Reference Range Interpretation Comments WHITE BLOOD CELL (test code = WBC) 6.2 K/mm3 3.5-11.0 N RED BLOOD CELL (test code = RBC) 3.41 M/mm3 4.70-6.10 L HEMOGLOBIN (test code = HGB) 9.8 G/DL 12.3-15.9 L HEMATOCRIT (test code = HCT) 33.6 % 35.8-46.7 L MEAN CELL VOLUME (test code = MCV) 98.5 Fl 86.3-98.9 N MEAN CELL HGB (test code = MCH) 28.7 pg 28.9-34.4 L MEAN CELL HGB CONCETRATION (test code = MCHC) 29.2 G/DL 32.1-34. 5 L RED CELL DISTRIBUTION WIDTH (test code = RDW) 16.0 SD 11.5-14. 5 H PLATELET COUNT (test code = PLT) 377.0 K/mm3 150-450 N MEAN PLATELET VOLUME (test code = MPV) 9.30 fL 7.0-9.6 N NEUTROPHIL % (test code = NT%) 55.6 % 40-76 N LYMPHOCYTE % (test code = LY%) 30.0 % 20.5-51.1 N MONOCYTE % (test code = MO%) 13.1 % 1.7-9.3 H EOSINOPHIL % (test code = EO%) 1.0 % 0.0-6.0 N BASOPHIL % (test code = BA%) 0.3 % 0.0-2.0 N NEUTROPHIL # (test code = NT#) 3.42 K/mm3 1.8-7.6 N LYMPHOCYTE # (test code = LY#) 1.9 K/mm3 0.6-3.0 N MONOCYTE # (test code = MO#) 0.8 K/mm3 0.2-1.5 N EOSINOPHIL # (test code = EO#) 0.1 K/mm3 0.0-0.4 N BASOPHIL # (test code = BA#) 0.0 K/mm3 0.0-0.2 N MANUAL DIFF REQUIRED (test code = MDIFF) NO DIFF/SCN CRITERIA BASIC METABOLIC [id number] 06:46:00* Test Item Value Reference Range Interpretation Comments SODIUM (test code = NA) 141 mmol/L 134-147 N POTASSIUM (test code = K) 4.2 mmol/L 3.4-5.0 N CHLORIDE (test code = CL) 109 mmol/L 100-108 H CARBON DIOXIDE (test code = CO2) 28 mmol/L 21-32 N ANION GAP (test code = GAP) 4.0 GAP calc 4.0-15.0 N GLUCOSE (test code = GLU) 116 MG/DL 70-110 H BLOOD UREA NITROGEN (test code = BUN) 13 MG/DL 7-18 N GLOMERULAR FILTRATION RATE (test code = GFR) >=60 max estimate estG FR >60 CREATININE (test code = CREAT) 0.5 MG/DL 0.8-1.3 L CALCIUM (test code = CA) 8.8 MG/DL 8.5-10.1 N CBC W/AUTO [id number] 06:44:00* Test Item Value Reference Range Interpretation Comments WHITE BLOOD CELL (test code = WBC) 6.0 K/mm3 3.5-11.0 N RED BLOOD CELL (test code = RBC) 3.61 M/mm3 4.70-6.10 L HEMOGLOBIN (test code = HGB) 10.2 G/DL 12.3-15.9 L HEMATOCRIT (test code = HCT) 35.3 % 35.8-46.7 L MEAN CELL VOLUME (test code = MCV) 97.8 Fl 86.3-98.9 N MEAN CELL HGB (test code = MCH) 28.3 pg 28.9-34.4 L MEAN CELL HGB CONCETRATION (test code = MCHC) 28.9 G/DL 32.1-34. 5 L RED CELL DISTRIBUTION WIDTH (test code = RDW) 15.7 SD 11.5-14. 5 H PLATELET COUNT (test code = PLT) 273.0 K/mm3 150-450 N MEAN PLATELET VOLUME (test code = MPV) 9.60 fL 7.0-9.6 N NEUTROPHIL % (test code = NT%) 53.0 % 40-76 LYMPHOCYTE % (test code = LY%) 35.0 % 20.5-51.1 N MONOCYTE % (test code = MO%) 10.6 % 1.7-9.3 H EOSINOPHIL % (test code = EO%) 1.2 % 0.0-6.0 N BASOPHIL % (test code = BA%) 0.2 % 0.0-2.0 N NEUTROPHIL # (test code = NT#) 3.16 K/mm3 1.8-7.6 N LYMPHOCYTE # (test code = LY#) 2.1 K/mm3 0.6-3.0 N MONOCYTE # (test code = MO#) 0.6 K/mm3 0.2-1.5 N EOSINOPHIL # (test code = EO#) 0.1 K/mm3 0.0-0.4 N BASOPHIL # (test code = BA#) 0.0 K/mm3 0.0-0.2 N MANUAL DIFF REQUIRED (test code = MDIFF) NO DIFF/SCN CRITERIA SLIDE REVIEW CONSISTANT WITH AUTO DIFFERENTIAL. CBC W/AUTO [id number] 06:29:00* Test Item Value Reference Range Interpretation Comments WHITE BLOOD CELL (test code = WBC) 6.0 K/mm3 3.5-11.0 N RED BLOOD CELL (test code = RBC) 3.61 M/mm3 4.70-6.10 L HEMOGLOBIN (test code = HGB) 10.2 G/DL 12.3-15.9 L HEMATOCRIT (test code = HCT) 35.3 % 35.8-46.7 L MEAN CELL VOLUME (test code = MCV) 97.8 Fl 86.3-98.9 N MEAN CELL HGB (test code = MCH) 28.3 pg 28.9-34.4 L MEAN CELL HGB CONCETRATION (test code = MCHC) 28.9 G/DL 32.1-34. 5 L RED CELL DISTRIBUTION WIDTH (test code = RDW) 15.7 SD 11.5-14. 5 H PLATELET COUNT (test code = PLT) 273.0 K/mm3 150-450 N MEAN PLATELET VOLUME (test code = MPV) 9.60 fL 7.0-9.6 N NEUTROPHIL % (test code = NT%) % 40-76 LYMPHOCYTE % (test code = LY%) % 20.5-51.1 N MONOCYTE % (test code = MO%) % 1.7-9.3 H EOSINOPHIL % (test code = EO%) % 0.0-6.0 N BASOPHIL % (test code = BA%) % 0.0-2.0 N NEUTROPHIL # (test code = NT#) K/mm3 1.8-7.6 N LYMPHOCYTE # (test code = LY#) K/mm3 0.6-3.0 N MONOCYTE # (test code = MO#) K/mm3 0.2-1.5 N EOSINOPHIL # (test code = EO#) K/mm3 0.0-0.4 N BASOPHIL # (test code = BA#) K/mm3 0.0-0.2 N MANUAL DIFF REQUIRED (test code = MDIFF) DIFF/SCN CRITERIA GLUCOSE BEDSIDE [id number] 01:14:00* Test Item Value Reference Range Interpretation Comments GLUCOSE BEDSIDE TESTING (test code = GLUBED) 87 mg/dL 70-110 N BASIC METABOLIC [id number] 05:33:00* Test Item Value Reference Range Interpretation Comments SODIUM (test code = NA) 138 mmol/L 134-147 N POTASSIUM (test code = K) 4.5 mmol/L 3.4-5.0 N CHLORIDE (test code = CL) 105 mmol/L 100-108 N CARBON DIOXIDE (test code = CO2) 28 mmol/L 21-32 N ANION GAP (test code = GAP) 5.0 GAP calc 4.0-15.0 N GLUCOSE (test code = GLU) 117 MG/DL 70-110 H BLOOD UREA NITROGEN (test code = BUN) 14 MG/DL 7-18 N GLOMERULAR FILTRATION RATE (test code = GFR) >=60 max estimate estG FR >60 CREATININE (test code = CREAT) 0.6 MG/DL 0.8-1.3 L CALCIUM (test code = CA) 8.7 MG/DL 8.5-10.1 N CBC W/AUTO [id number] 05:26:00* Test Item Value Reference Range Interpretation Comments WHITE BLOOD CELL (test code = WBC) 6.7 K/mm3 3.5-11.0 N RED BLOOD CELL (test code = RBC) 3.57 M/mm3 4.70-6.10 L HEMOGLOBIN (test code = HGB) 10.3 G/DL 12.3-15.9 L HEMATOCRIT (test code = HCT) 34.5 % 35.8-46.7 L MEAN CELL VOLUME (test code = MCV) 96.6 Fl 86.3-98.9 N MEAN CELL HGB (test code = MCH) 28.9 pg 28.9-34.4 N MEAN CELL HGB CONCETRATION (test code = MCHC) 29.9 G/DL 32.1-34. 5 L RED CELL DISTRIBUTION WIDTH (test code = RDW) 15.5 SD 11.5-14. 5 H PLATELET COUNT (test code = PLT) 502.0 K/mm3 150-450 H MEAN PLATELET VOLUME (test code = MPV) 9.30 fL 7.0-9.6 N NEUTROPHIL % (test code = NT%) 62.4 % 40-76 LYMPHOCYTE % (test code = LY%) 26.2 % 20.5-51.1 N MONOCYTE % (test code = MO%) 10.4 % 1.7-9.3 H EOSINOPHIL % (test code = EO%) 0.9 % 0.0-6.0 N BASOPHIL % (test code = BA%) 0.1 % 0.0-2.0 N NEUTROPHIL # (test code = NT#) 4.19 K/mm3 1.8-7.6 N LYMPHOCYTE # (test code = LY#) 1.8 K/mm3 0.6-3.0 N MONOCYTE # (test code = MO#) 0.7 K/mm3 0.2-1.5 N EOSINOPHIL # (test code = EO#) 0.1 K/mm3 0.0-0.4 N BASOPHIL # (test code = BA#) 0.0 K/mm3 0.0-0.2 N MANUAL DIFF REQUIRED (test code = MDIFF) NO DIFF/SCN CRITERIA - XR ABDOMEN 1 [id number] 14:56:00 Name: MIRA WALKER [place] : 1955 Age/S: 64 / M [id number] [address] [place] [facility] [place] [facility] [place] Unit #: [id number] Loc: [place] [address] Phys: Ruddy Sam MD Acct: [id number] Dis Date: Status: ADM IN PHONE #: [phone] Exam Date: 08/02/2019 1450 FAX #: Reason: NG Tube placement EXAMS: CPT: [id number] XR ABDOMEN 1 V 30146 Fluoro Time: DAP (Gy m2): Air Kerma (mGy): R16 - XR ABDOMEN 1 V HISTORY: NG Tube placement COMPARISON: None FINDINGS: Nasogastric tube projects below the diaphragm. No air-filled dilated loops of bowel are present. There is no organomegaly. No abnormal abdominal masses or calcifications. No acute osseous abnormalities. IMPRESSION: Nasogastric tube in place. No acute abdominal abnormalities. at 1456 Reported and signed by: Waqar Ballard M.D. CC: Sami Gomez MD; Ruddy Sam MD PAGE 1 Signed Report Name: MIRA WALKER [place] : 1955 Age/S: 64 / M [address] [address] [facility] [place] [facility] [place] Unit #: [id number] Loc: [place] [address] Phys: Ruddy Sam MD Acct: [id number] Dis Date: Status: ADM IN PHONE #: [phone] Exam Date: 08/02/2019 1450 FAX #: Reason: NG Tube placement EXAMS: CPT: [id number] XR ABDOMEN 1 V 20563 Fluoro Time: DAP (Gy m2): Air Kerma (mGy): <Continued> Technologist: Renee Jacobs RT(R) Trnscb Date/Time: 08/02/2019 (2685) [id number] Orig Print D/T: S: 08/02/2019 (3204) PAGE 2 Signed Report COMPREHENSIVE METABOLIC [id number] 06:07:00* Test Item Value Reference Range Interpretation Comments SODIUM (test code = NA) 141 mmol/L 134-147 N POTASSIUM (test code = K) 3.9 mmol/L 3.4-5.0 N CHLORIDE (test code = CL) 108 mmol/L 100-108 N CARBON DIOXIDE (test code = CO2) 25 mmol/L 21-32 N ANION GAP (test code = GAP) 8.0 GAP calc 4.0-15.0 N GLUCOSE (test code = GLU) 91 MG/DL 70-110 N BLOOD UREA NITROGEN (test code = BUN) 16 MG/DL 7-18 N GLOMERULAR FILTRATION RATE (test code = GFR) >=60 max estimate estG FR >60 CREATININE (test code = CREAT) 0.5 MG/DL 0.8-1.3 L TOTAL PROTEIN (test code = PROT) 5.6 G/DL 6.4-8.2 L ALBUMIN (test code = ALB) 1.9 G/DL 3.4-5.0 L GLOBULIN (test code = GLOB) 3.7 GM/dL ALBUMIN/GLOBULIN RATIO (test code = A/G) 0.5 RATIO 1.2-2.2 L CALCIUM (test code = CA) 8.5 MG/DL 8.5-10.1 N BILIRUBIN TOTAL (test code = BILT) 0.40 MG/DL 0.2-1.2 N SGOT/AST (test code = AST) 22 Unit/L 15-37 N SGPT/ALT (test code = ALT) 13 Unit/L 12-78 N ALKALINE PHOSPHATASE TOTAL (test code = ALKP) 160 Unit/L 50-136 H COMPREHENSIVE METABOLIC [id number] 06:05:00* Test Item Value Reference Range Interpretation Comments SODIUM (test code = NA) 141 mmol/L 134-147 N POTASSIUM (test code = K) 3.9 mmol/L 3.4-5.0 N CHLORIDE (test code = CL) 108 mmol/L 100-108 N CARBON DIOXIDE (test code = CO2) 25 mmol/L 21-32 N ANION GAP (test code = GAP) 8.0 GAP calc 4.0-15.0 N GLUCOSE (test code = GLU) 91 MG/DL 70-110 N BLOOD UREA NITROGEN (test code = BUN) 16 MG/DL 7-18 N GLOMERULAR FILTRATION RATE (test code = GFR) estGFR >60 CREATININE (test code = CREAT) MG/DL 0.8-1.3 TOTAL PROTEIN (test code = PROT) G/DL 6.4-8.2 ALBUMIN (test code = ALB) G/DL 3.4-5.0 GLOBULIN (test code = GLOB) GM/dL ALBUMIN/GLOBULIN RATIO (test code = A/G) RATIO 1.2-2.2 CALCIUM (test code = CA) 8.5 MG/DL 8.5-10.1 N BILIRUBIN TOTAL (test code = BILT) MG/DL 0.2-1.2 SGOT/AST (test code = AST) Unit/L 15-37 SGPT/ALT (test code = ALT) Unit/L 12-78 ALKALINE PHOSPHATASE TOTAL (test code = ALKP) Unit/L 50-136 CBC W/AUTO [id number] 05:41:00* Test Item Value Reference Range Interpretation Comments WHITE BLOOD CELL (test code = WBC) 4.9 K/mm3 3.5-11.0 N RED BLOOD CELL (test code = RBC) 3.16 M/mm3 4.70-6.10 L HEMOGLOBIN (test code = HGB) 9.1 G/DL 12.3-15.9 L HEMATOCRIT (test code = HCT) 31.0 % 35.8-46.7 L MEAN CELL VOLUME (test code = MCV) 98.1 Fl 86.3-98.9 N MEAN CELL HGB (test code = MCH) 28.8 pg 28.9-34.4 L MEAN CELL HGB CONCETRATION (test code = MCHC) 29.4 G/DL 32.1-34. 5 L RED CELL DISTRIBUTION WIDTH (test code = RDW) 15.4 SD 11.5-14. 5 H PLATELET COUNT (test code = PLT) 428.0 K/mm3 150-450 N MEAN PLATELET VOLUME (test code = MPV) 9.50 fL 7.0-9.6 N NEUTROPHIL % (test code = NT%) 54.8 % 40-76 LYMPHOCYTE % (test code = LY%) 30.8 % 20.5-51.1 N MONOCYTE % (test code = MO%) 12.2 % 1.7-9.3 H EOSINOPHIL % (test code = EO%) 2.0 % 0.0-6.0 N BASOPHIL % (test code = BA%) 0.2 % 0.0-2.0 N NEUTROPHIL # (test code = NT#) 2.69 K/mm3 1.8-7.6 N LYMPHOCYTE # (test code = LY#) 1.5 K/mm3 0.6-3.0 N MONOCYTE # (test code = MO#) 0.6 K/mm3 0.2-1.5 N EOSINOPHIL # (test code = EO#) 0.1 K/mm3 0.0-0.4 N BASOPHIL # (test code = BA#) 0.0 K/mm3 0.0-0.2 N MANUAL DIFF REQUIRED (test code = MDIFF) NO DIFF/SCN CRITERIA VANCOMYCIN [id number] 18:14:00* Test Item Value Reference Range Interpretation Comments VANCOMYCIN TROUGH (test code = VANCT) 13.9 mcG/ML 10-20 N DILANTIN (PHENYTOIN)2019-08-01 13:08:00* Test Item Value Reference Range Interpretation Comments DILANTIN (PHENYTOIN) (test code = DIL) 8.6 mcG/ML 10.0-20.0 L VALPROIC ACID (DEPAKENE)2019-08-01 13:08:00* Test Item Value Reference Range Interpretation Comments VALPROIC ACID (DEPAKENE) (test code = VALP) 30.6 mcG/ML 50.0-100.0 L [id number] 13:08:00* Test Item Value Reference Range Interpretation Comments LEVETIRACETAM (test code = LEVTAM) 12.6 ug/mL 10.0-40.0 This test was developed and its performance characteristicsdetermined by [employer]. It has not been cleared orapproved by the Food and Drug Administration.Performed At: [address] [id number] Infante MD Ph:[phone] GLUCOSE BEDSIDE [id number] 12:30:00* Test Item Value Reference Range Interpretation Comments GLUCOSE BEDSIDE TESTING (test code = GLUBED) 104 mg/dL 70-110 N HSV 1 2 BY [id number] 10:08:00* Test Item Value Reference Range Interpretation Comments HSV 1 BY PCR (test code = [id number]) Negative Negative HSV 2 BY PCR (test code = [id number]) Negative Negative This test was developed and its performance characteristicsdetermined by [facility]. It has not been clearedor approved by the [place]. Food and Drug Administration. TheFDA has determined that such clearance or approval is notnecessary. This test is used for clinical purposes. Itshould not be regarded as investigational or research.Performed At: [address] [id number] Infante MD Ph:[phone] Comment: HSV in CSF CBC W/AUTO [id number] 06:00:00* Test Item Value Reference Range Interpretation Comments WHITE BLOOD CELL (test code = WBC) 5.7 K/mm3 3.5-11.0 N RED BLOOD CELL (test code = RBC) 3.19 M/mm3 4.70-6.10 L HEMOGLOBIN (test code = HGB) 9.0 G/DL 12.3-15.9 L HEMATOCRIT (test code = HCT) 31.2 % 35.8-46.7 L MEAN CELL VOLUME (test code = MCV) 97.8 Fl 86.3-98.9 N MEAN CELL HGB (test code = MCH) 28.2 pg 28.9-34.4 L MEAN CELL HGB CONCETRATION (test code = MCHC) 28.8 G/DL 32.1-34. 5 L RED CELL DISTRIBUTION WIDTH (test code = RDW) 15.4 SD 11.5-14. 5 H PLATELET COUNT (test code = PLT) 409.0 K/mm3 150-450 N MEAN PLATELET VOLUME (test code = MPV) 9.40 fL 7.0-9.6 N NEUTROPHIL % (test code = NT%) 62.8 % 40-76 N LYMPHOCYTE % (test code = LY%) 26.2 % 20.5-51.1 N MONOCYTE % (test code = MO%) 8.7 % 1.7-9.3 N EOSINOPHIL % (test code = EO%) 2.1 % 0.0-6.0 N BASOPHIL % (test code = BA%) 0.2 % 0.0-2.0 N NEUTROPHIL # (test code = NT#) 3.60 K/mm3 1.8-7.6 N LYMPHOCYTE # (test code = LY#) 1.5 K/mm3 0.6-3.0 N MONOCYTE # (test code = MO#) 0.5 K/mm3 0.2-1.5 N EOSINOPHIL # (test code = EO#) 0.1 K/mm3 0.0-0.4 N BASOPHIL # (test code = BA#) 0.0 K/mm3 0.0-0.2 N MANUAL DIFF REQUIRED (test code = MDIFF) NO DIFF/SCN CRITERIA SLIDE REVIEW CONSISTANT WITH AUTO DIFFERENTIAL. CBC W/AUTO [id number] 06:00:00* Test Item Value Reference Range Interpretation Comments WHITE BLOOD CELL (test code = WBC) 5.7 K/mm3 3.5-11.0 N RED BLOOD CELL (test code = RBC) 3.19 M/mm3 4.70-6.10 L HEMOGLOBIN (test code = HGB) 9.0 G/DL 12.3-15.9 L HEMATOCRIT (test code = HCT) 31.2 % 35.8-46.7 L MEAN CELL VOLUME (test code = MCV) 97.8 Fl 86.3-98.9 N MEAN CELL HGB (test code = MCH) 28.2 pg 28.9-34.4 L MEAN CELL HGB CONCETRATION (test code = MCHC) 28.8 G/DL 32.1-34. 5 L RED CELL DISTRIBUTION WIDTH (test code = RDW) 15.4 SD 11.5-14. 5 H PLATELET COUNT (test code = PLT) 409.0 K/mm3 150-450 N MEAN PLATELET VOLUME (test code = MPV) 9.40 fL 7.0-9.6 N NEUTROPHIL % (test code = NT%) 62.8 % 40-76 N LYMPHOCYTE % (test code = LY%) 26.2 % 20.5-51.1 N MONOCYTE % (test code = MO%) 8.7 % 1.7-9.3 N EOSINOPHIL % (test code = EO%) 2.1 % 0.0-6.0 N BASOPHIL % (test code = BA%) 0.2 % 0.0-2.0 N NEUTROPHIL # (test code = NT#) 3.60 K/mm3 1.8-7.6 N LYMPHOCYTE # (test code = LY#) 1.5 K/mm3 0.6-3.0 N MONOCYTE # (test code = MO#) 0.5 K/mm3 0.2-1.5 N EOSINOPHIL # (test code = EO#) 0.1 K/mm3 0.0-0.4 N BASOPHIL # (test code = BA#) 0.0 K/mm3 0.0-0.2 N MANUAL DIFF REQUIRED (test code = MDIFF) NO DIFF/SCN CRITERIA SLIDE REVIEW CONSISTANT WITH AUTO DIFFERENTIAL. RBC [id number] 06:00:00* Test Item Value Reference Range Interpretation Comments ANISOCYTOSIS (test code = ANISO) NORMAL NONE PLATELET ESTIMATE (test code = PLTEST) ADEQUATE THOUSAND ADEQUATE PLATELET MORPHOLOGY (test code = PLTMORPH) NORMAL CBC W/AUTO [id number] 06:00:00* Test Item Value Reference Range Interpretation Comments WHITE BLOOD CELL (test code = WBC) 5.7 K/mm3 3.5-11.0 N RED BLOOD CELL (test code = RBC) 3.19 M/mm3 4.70-6.10 L HEMOGLOBIN (test code = HGB) 9.0 G/DL 12.3-15.9 L HEMATOCRIT (test code = HCT) 31.2 % 35.8-46.7 L MEAN CELL VOLUME (test code = MCV) 97.8 Fl 86.3-98.9 N MEAN CELL HGB (test code = MCH) 28.2 pg 28.9-34.4 L MEAN CELL HGB CONCETRATION (test code = MCHC) 28.8 G/DL 32.1-34. 5 L RED CELL DISTRIBUTION WIDTH (test code = RDW) 15.4 SD 11.5-14. 5 H PLATELET COUNT (test code = PLT) 409.0 K/mm3 150-450 N MEAN PLATELET VOLUME (test code = MPV) 9.40 fL 7.0-9.6 N NEUTROPHIL % (test code = NT%) 62.8 % 40-76 N LYMPHOCYTE % (test code = LY%) 26.2 % 20.5-51.1 N MONOCYTE % (test code = MO%) 8.7 % 1.7-9.3 N EOSINOPHIL % (test code = EO%) 2.1 % 0.0-6.0 N BASOPHIL % (test code = BA%) 0.2 % 0.0-2.0 N NEUTROPHIL # (test code = NT#) 3.60 K/mm3 1.8-7.6 N LYMPHOCYTE # (test code = LY#) 1.5 K/mm3 0.6-3.0 N MONOCYTE # (test code = MO#) 0.5 K/mm3 0.2-1.5 N EOSINOPHIL # (test code = EO#) 0.1 K/mm3 0.0-0.4 N BASOPHIL # (test code = BA#) 0.0 K/mm3 0.0-0.2 N MANUAL DIFF REQUIRED (test code = MDIFF) NO DIFF/SCN CRITERIA SLIDE REVIEW CONSISTANT WITH AUTO DIFFERENTIAL. BASIC METABOLIC [id number] 05:33:00* Test Item Value Reference Range Interpretation Comments SODIUM (test code = NA) 143 mmol/L 134-147 N POTASSIUM (test code = K) 3.8 mmol/L 3.4-5.0 N CHLORIDE (test code = CL) 110 mmol/L 100-108 H CARBON DIOXIDE (test code = CO2) 27 mmol/L 21-32 N ANION GAP (test code = GAP) 6.0 GAP calc 4.0-15.0 N GLUCOSE (test code = GLU) 111 MG/DL 70-110 H BLOOD UREA NITROGEN (test code = BUN) 8 MG/DL 7-18 N GLOMERULAR FILTRATION RATE (test code = GFR) >=60 max estimate estG FR >60 CREATININE (test code = CREAT) 0.5 MG/DL 0.8-1.3 L CALCIUM (test code = CA) 8.3 MG/DL 8.5-10.1 L CBC W/AUTO [id number] 05:26:00* Test Item Value Reference Range Interpretation Comments WHITE BLOOD CELL (test code = WBC) 5.7 K/mm3 3.5-11.0 N RED BLOOD CELL (test code = RBC) 3.19 M/mm3 4.70-6.10 L HEMOGLOBIN (test code = HGB) 9.0 G/DL 12.3-15.9 L HEMATOCRIT (test code = HCT) 31.2 % 35.8-46.7 L MEAN CELL VOLUME (test code = MCV) 97.8 Fl 86.3-98.9 N MEAN CELL HGB (test code = MCH) 28.2 pg 28.9-34.4 L MEAN CELL HGB CONCETRATION (test code = MCHC) 28.8 G/DL 32.1-34. 5 L RED CELL DISTRIBUTION WIDTH (test code = RDW) 15.4 SD 11.5-14. 5 H PLATELET COUNT (test code = PLT) 409.0 K/mm3 150-450 N MEAN PLATELET VOLUME (test code = MPV) 9.40 fL 7.0-9.6 N NEUTROPHIL % (test code = NT%) % 40-76 N LYMPHOCYTE % (test code = LY%) % 20.5-51.1 N MONOCYTE % (test code = MO%) % 1.7-9.3 N EOSINOPHIL % (test code = EO%) % 0.0-6.0 N BASOPHIL % (test code = BA%) % 0.0-2.0 N NEUTROPHIL # (test code = NT#) K/mm3 1.8-7.6 N LYMPHOCYTE # (test code = LY#) K/mm3 0.6-3.0 N MONOCYTE # (test code = MO#) K/mm3 0.2-1.5 N EOSINOPHIL # (test code = EO#) K/mm3 0.0-0.4 N BASOPHIL # (test code = BA#) K/mm3 0.0-0.2 N MANUAL DIFF REQUIRED (test code = MDIFF) DIFF/SCN CRITERIA - CT CHEST W/O [id number] 18:49:00 Name: MIRA WALKER [facility] : 1955 Age/S: 64 / M [address] [address] [place] Unit #: [id number] Loc: [place] [address] Phys: Jess Merchant MD Acct: [id number] Dis Date: Status: ADM IN PHONE #: [phone] Exam Date: 07/31/20191654 FAX #: Reason: PNA Report Has Been Amended EXAMS: CPT: [id number] CT CHEST W/O CONTRAST 86235 Addendum - 07/31/2019 SIGNED 07/31/2019 ADDENDUM: [id number] CT/CTCHESTWO Sagittal and coronal MIPS were obtained. at 1849 Reported and signed by: Edward Carias M.D. Transcribed: 07/31/2019 (1848) [id number] Report Location code: H5 CT Chest Without Contrast Indication: PNA Comparison: Chest x-ray 07/31/2019. Technique: Axial images were obtained through the chest without contrast. Coronal and sagittal reconstruction.. This exam was performed according to our departmental dose-optimization program, which includes automated exposure control, adjustment of the mA and/or kV according to patient size and/or use of iterative reconstruction technique. Findings: Right brachial PICC line and nasogastric tube are in good position. Heart and mediastinum are unremarkable. No mediastinal or hilar ad enopathy. No pericardial effusion. The thoracic aorta is nondistended an d tapers in a normal fashion, with minimal atherosclerotic involvement. Small bilateral pleural effusions. Bilateral lower lobe consolidati ng infiltrates with peripheral predominance and air bronchogram form ation. Right middle lobe, lingula, and upper lobes are clear of infiltrat e. Mild biapical scarring. The lungs are mildly emphysematous, with righ t apical bullae and few bilateral apical PAGE 1 Darshana d Report (CONTINUED) Name: MIRA WALKER [facility] : 1955 Age/S: 64 / M [address] [address] [place] Unit #: [id number] Loc: [place] [address] Phys: Jess Merchant MD Acct: [id number] Dis Date: Status: ADM IN PHONE #: [phone] Exam Date: 07/31/20191654 FAX #: Reason: PNA Report Has Been Amended EXAMS: CPT: [id number] CT CHEST W/O CONTRAST 02106 <Continued> blebs. Double scoliosis of the thoracolumbar spine with lower convexity towards the right and upper convexity towards left. Mild disc space narrowing and spondylosis. Chest wall unremarkable. Visualized and abdominal organs unremarkable. IMPRESSION: 1. The lungs are mildly emphysematous. 2. Small bilateral pleural effusions. 3. Bilateral lower lobe infiltrates with air bronchogram formation may represent atelectasis, pneumonia, or both. at 1711 Reported and signed by: Edward Carias M.D. CC: Lis Merchant MD; Sami Gomez MD Technologist:Dayna Norman RT(R )(CT) CTDI: DLP: Trnscb Date/Time: 07/31/2019 (171) t.SDR. DRB1 Orig Print D/T: S: 07/31/2019 (171) PAGE 2 Signed Report - CT CHEST W/O [id number] 17:11:00 Name: MIRA WALKER [facility] : 1955 Age/S: 64 / M [address] [address] [place] Unit #: [id number] Loc: [place] [address] Phys: Jess Merchant MD Acct: [id number] Dis Date: Status: ADM IN PHONE #: [phone] Exam Date: 07/31/2019 1656 FAX #: Reason: PNA EXAMS: CPT: [id number] CT CHEST W/O CONTRAST 20418 Location code: CT Chest Without Contrast Indication: PNA Comparison: Chest x-ray 07/31/2019. Technique: Axial images were obtained through the chest without contrast. Coronal and sagittal reconstruction.. This exam was performed according to our departmental dose-optimization program, which includes automated exposure control, adjustment of the mA and/or kV according to patient size and/or use of iterative reconstruction technique. Findings: Right brachial PICC line and nasogastric tube are in good position. Heart and mediastinum are unremarkable. No mediastinal or hilar adenopathy. No pericardial effusion. The thoracic aorta is nondistended and tapers in a normal fashion, with minimal atherosclerotic involvement. Small bilateral pleural effusions. Bilateral lower lobe consolidating infiltrates with peripheral predominance and air bronchogram formation. Right middle lobe, lingula, and upper lobes are clear of infiltrate. Mild biapical scarring. The lungs are mildly emphysematous, with right apical bullae and few bilateral apical blebs. Double scoliosis of the thoracolumbar spine with lower convexity towards the right and upper convexity towards left. Mild disc space narrowing and spondylosis. Chest wall unremarkable. Visualized and abdominal organs unremarkable. IMPRESSION: 1. The lungs are mildly emphysematous. 2. Small bilateral pleural effusions. 3. Bilateral lower lobe infiltrates with air bronchogram formation may represent atelectasis, pneumonia, or both. PAGE 1 Signed Report (CONTINUED) [facility] [place] [facility] 1955 Age/S: 64 / M [address] [address] [place] Unit #: [id number] Loc: [place] [address] Phys: Jess Merchant MD Acct: [id number] Dis Date: Status: ADM IN PHONE #: [phone] Exam Date: 07/31/2019 1655 FAX #: Reason: PNA EXAMS: CPT: [id number] CT CHEST W/O CONTRAST 18970 <Continued> at 1711 Reported and signed by: Edward Carias M.D. CC: Jess Merchant MD; Sami Gomez MD Technologist:Dayna jain, RT(R)(CT) CTDI: DLP: Trnscb Date/Time: 07/31/2019 (17 11) [email or web address] Orig Print D/T: S: 07/31/2019 (1715) TEDDY ROSADO 2 Signed Report - XR CHEST 1 [id number] 13:50:00 Name: MIRA WALKER [facility] : 1955 Age/S: 64 / M [address] [address] [place] Unit #: [id number] Loc: [place] [address] Phys: Jess Merchant MD Acct: [id number] Dis Date: Status: ADM IN PHONE #: [phone] Exam Date: 07/31/2019 1322 FAX #: Reason: last CXR reported questionable pneumothorax EXAMS: CPT: [id number] XR CHEST 1 V 88959 Fluoro Time: DAP (Gy m2): Air Kerma (mGy): EXAM: - XR CHEST 1 V LOCATION: C3 HISTORY: last CXR reported questionable pneumothorax COMPARISON: 07/30/2019 FINDINGS: Single view of the chest. PICC line tip overlies the cavoatrial junction. The nasogastric tube courses in the appropriate direction, but the distal aspect is outside the field of view. Increased lucency in the left costophrenic sulcal region. Progressing bibasilar infiltrates. The mediastinal contours are unremarkable/unchanged. No acute osseous findings are present. IMPRESSION: Progressing [id number] bibasilar pulmonary infiltrates. Increased lucency in the left costophrenic sulcal region is nonspecific and can sometimes be seen with pneumothorax. Please correlate for any recent intervention or traumatic episode. at 1350 Reported and signed by: JUANCHO SONG M.D. CC: Jess Merchant MD; Sami Gomez MD PAGE 1 Signed Report Name: MIRA WALKER [facility] : 1955 Age/S: 64 / M [address] [address] [place] Unit #: [id number] Loc: [place] [address] Phys: Jess Merchant MD Acct: [id number] Dis Date: Status: ADM IN PHONE #: [phone] Exam Date: 07/31/2019 1322 FAX #: Reason: last CXR reported questionable pneumothorax EXAMS: CPT: [id number] XR CHEST 1 V 26951 Fluoro Time: DAP (Gy m2): Air Kerma (mGy): <Continued> Technologist: Koki Whitaker, RT(R) Trnscb Tristan e/Time: 07/31/2019 (1490) [email or web address] Orig Print D/T: S: (8510) PAGE 2 Signed Report CBC W/AUTO [id number] 05:22:00* Test Item Value Reference Range Interpretation Comments WHITE BLOOD CELL (test code = WBC) 5.0 K/mm3 3.5-11.0 N RED BLOOD CELL (test code = RBC) 3.09 M/mm3 4.70-6.10 L HEMOGLOBIN (test code = HGB) 8.7 G/DL 12.3-15.9 L HEMATOCRIT (test code = HCT) 30.1 % 35.8-46.7 L MEAN CELL VOLUME (test code = MCV) 97.4 Fl 86.3-98.9 N MEAN CELL HGB (test code = MCH) 28.2 pg 28.9-34.4 L MEAN CELL HGB CONCETRATION (test code = MCHC) 28.9 G/DL 32.1-34. 5 L RED CELL DISTRIBUTION WIDTH (test code = RDW) 15.2 SD 11.5-14. 5 H PLATELET COUNT (test code = PLT) 344.0 K/mm3 150-450 N MEAN PLATELET VOLUME (test code = MPV) 9.30 fL 7.0-9.6 N NEUTROPHIL % (test code = NT%) 62.1 % 40-76 N LYMPHOCYTE % (test code = LY%) 24.7 % 20.5-51.1 N MONOCYTE % (test code = MO%) 9.8 % 1.7-9.3 H EOSINOPHIL % (test code = EO%) 3.2 % 0.0-6.0 N BASOPHIL % (test code = BA%) 0.2 % 0.0-2.0 N NEUTROPHIL # (test code = NT#) 3.12 K/mm3 1.8-7.6 N LYMPHOCYTE # (test code = LY#) 1.2 K/mm3 0.6-3.0 N MONOCYTE # (test code = MO#) 0.5 K/mm3 0.2-1.5 N EOSINOPHIL # (test code = EO#) 0.2 K/mm3 0.0-0.4 N BASOPHIL # (test code = BA#) 0.0 K/mm3 0.0-0.2 N MANUAL DIFF REQUIRED (test code = MDIFF) NO DIFF/SCN CRITERIA SLIDE REVIEW CONSISTANT WITH AUTO DIFFERENTIAL. CBC W/AUTO [id number] 05:22:00* Test Item Value Reference Range Interpretation Comments WHITE BLOOD CELL (test code = WBC) 5.0 K/mm3 3.5-11.0 N RED BLOOD CELL (test code = RBC) 3.09 M/mm3 4.70-6.10 L HEMOGLOBIN (test code = HGB) 8.7 G/DL 12.3-15.9 L HEMATOCRIT (test code = HCT) 30.1 % 35.8-46.7 L MEAN CELL VOLUME (test code = MCV) 97.4 Fl 86.3-98.9 N MEAN CELL HGB (test code = MCH) 28.2 pg 28.9-34.4 L MEAN CELL HGB CONCETRATION (test code = MCHC) 28.9 G/DL 32.1-34. 5 L RED CELL DISTRIBUTION WIDTH (test code = RDW) 15.2 SD 11.5-14. 5 H PLATELET COUNT (test code = PLT) 344.0 K/mm3 150-450 N MEAN PLATELET VOLUME (test code = MPV) 9.30 fL 7.0-9.6 N NEUTROPHIL % (test code = NT%) 62.1 % 40-76 N LYMPHOCYTE % (test code = LY%) 24.7 % 20.5-51.1 N MONOCYTE % (test code = MO%) 9.8 % 1.7-9.3 H EOSINOPHIL % (test code = EO%) 3.2 % 0.0-6.0 N BASOPHIL % (test code = BA%) 0.2 % 0.0-2.0 N NEUTROPHIL # (test code = NT#) 3.12 K/mm3 1.8-7.6 N LYMPHOCYTE # (test code = LY#) 1.2 K/mm3 0.6-3.0 N MONOCYTE # (test code = MO#) 0.5 K/mm3 0.2-1.5 N EOSINOPHIL # (test code = EO#) 0.2 K/mm3 0.0-0.4 N BASOPHIL # (test code = BA#) 0.0 K/mm3 0.0-0.2 N MANUAL DIFF REQUIRED (test code = MDIFF) NO DIFF/SCN CRITERIA SLIDE REVIEW CONSISTANT WITH AUTO DIFFERENTIAL. RBC [id number] 05:22:00* Test Item Value Reference Range Interpretation Comments HYPOCHROMIA (test code = HYPO) 2+ ON SCAN NONE A PLATELET ESTIMATE (test code = PLTEST) ADEQUATE THOUSAND ADEQUATE PLATELET MORPHOLOGY (test code = PLTMORPH) NORMAL CBC W/AUTO [id number] 05:22:00* Test Item Value Reference Range Interpretation Comments WHITE BLOOD CELL (test code = WBC) 5.0 K/mm3 3.5-11.0 N RED BLOOD CELL (test code = RBC) 3.09 M/mm3 4.70-6.10 L HEMOGLOBIN (test code = HGB) 8.7 G/DL 12.3-15.9 L HEMATOCRIT (test code = HCT) 30.1 % 35.8-46.7 L MEAN CELL VOLUME (test code = MCV) 97.4 Fl 86.3-98.9 N MEAN CELL HGB (test code = MCH) 28.2 pg 28.9-34.4 L MEAN CELL HGB CONCETRATION (test code = MCHC) 28.9 G/DL 32.1-34. 5 L RED CELL DISTRIBUTION WIDTH (test code = RDW) 15.2 SD 11.5-14. 5 H PLATELET COUNT (test code = PLT) 344.0 K/mm3 150-450 N MEAN PLATELET VOLUME (test code = MPV) 9.30 fL 7.0-9.6 N NEUTROPHIL % (test code = NT%) 62.1 % 40-76 N LYMPHOCYTE % (test code = LY%) 24.7 % 20.5-51.1 N MONOCYTE % (test code = MO%) 9.8 % 1.7-9.3 H EOSINOPHIL % (test code = EO%) 3.2 % 0.0-6.0 N BASOPHIL % (test code = BA%) 0.2 % 0.0-2.0 N NEUTROPHIL # (test code = NT#) 3.12 K/mm3 1.8-7.6 N LYMPHOCYTE # (test code = LY#) 1.2 K/mm3 0.6-3.0 N MONOCYTE # (test code = MO#) 0.5 K/mm3 0.2-1.5 N EOSINOPHIL # (test code = EO#) 0.2 K/mm3 0.0-0.4 N BASOPHIL # (test code = BA#) 0.0 K/mm3 0.0-0.2 N MANUAL DIFF REQUIRED (test code = MDIFF) NO DIFF/SCN CRITERIA SLIDE REVIEW CONSISTANT WITH AUTO DIFFERENTIAL. BASIC METABOLIC [id number] 04:57:00* Test Item Value Reference Range Interpretation Comments SODIUM (test code = NA) 144 mmol/L 134-147 N POTASSIUM (test code = K) 3.8 mmol/L 3.4-5.0 N CHLORIDE (test code = CL) 110 mmol/L 100-108 H CARBON DIOXIDE (test code = CO2) 30 mmol/L 21-32 N ANION GAP (test code = GAP) 4.0 GAP calc 4.0-15.0 N GLUCOSE (test code = GLU) 114 MG/DL 70-110 H BLOOD UREA NITROGEN (test code = BUN) 7 MG/DL 7-18 N GLOMERULAR FILTRATION RATE (test code = GFR) >=60 max estimate estG FR >60 CREATININE (test code = CREAT) 0.5 MG/DL 0.8-1.3 L CALCIUM (test code = CA) 7.9 MG/DL 8.5-10.1 L CBC W/AUTO [id number] 04:44:00* Test Item Value Reference Range Interpretation Comments WHITE BLOOD CELL (test code = WBC) 5.0 K/mm3 3.5-11.0 N RED BLOOD CELL (test code = RBC) 3.09 M/mm3 4.70-6.10 L HEMOGLOBIN (test code = HGB) 8.7 G/DL 12.3-15.9 L HEMATOCRIT (test code = HCT) 30.1 % 35.8-46.7 L MEAN CELL VOLUME (test code = MCV) 97.4 Fl 86.3-98.9 N MEAN CELL HGB (test code = MCH) 28.2 pg 28.9-34.4 L MEAN CELL HGB CONCETRATION (test code = MCHC) 28.9 G/DL 32.1-34. 5 L RED CELL DISTRIBUTION WIDTH (test code = RDW) 15.2 SD 11.5-14. 5 H PLATELET COUNT (test code = PLT) 344.0 K/mm3 150-450 N MEAN PLATELET VOLUME (test code = MPV) 9.30 fL 7.0-9.6 N NEUTROPHIL % (test code = NT%) % 40-76 N LYMPHOCYTE % (test code = LY%) % 20.5-51.1 N MONOCYTE % (test code = MO%) % 1.7-9.3 H EOSINOPHIL % (test code = EO%) % 0.0-6.0 N BASOPHIL % (test code = BA%) % 0.0-2.0 N NEUTROPHIL # (test code = NT#) K/mm3 1.8-7.6 N LYMPHOCYTE # (test code = LY#) K/mm3 0.6-3.0 N MONOCYTE # (test code = MO#) K/mm3 0.2-1.5 N EOSINOPHIL # (test code = EO#) K/mm3 0.0-0.4 N BASOPHIL # (test code = BA#) K/mm3 0.0-0.2 N MANUAL DIFF REQUIRED (test code = MDIFF) DIFF/SCN CRITERIA GLUCOSE BEDSIDE [id number] 18:49:00* Test Item Value Reference Range Interpretation Comments GLUCOSE BEDSIDE TESTING (test code = GLUBED) 102 mg/dL 70-110 N CBC W/AUTO [id number] 18:37:00* Test Item Value Reference Range Interpretation Comments WHITE BLOOD CELL (test code = WBC) 6.0 K/mm3 3.5-11.0 N RED BLOOD CELL (test code = RBC) 3.33 M/mm3 4.70-6.10 L HEMOGLOBIN (test code = HGB) 9.5 G/DL 12.3-15.9 L HEMATOCRIT (test code = HCT) 32.3 % 35.8-46.7 L MEAN CELL VOLUME (test code = MCV) 97.0 Fl 86.3-98.9 N MEAN CELL HGB (test code = MCH) 28.5 pg 28.9-34.4 L MEAN CELL HGB CONCETRATION (test code = MCHC) 29.4 G/DL 32.1-34. 5 L RED CELL DISTRIBUTION WIDTH (test code = RDW) 15.1 SD 11.5-14. 5 H PLATELET COUNT (test code = PLT) 376.0 K/mm3 150-450 N MEAN PLATELET VOLUME (test code = MPV) 9.50 fL 7.0-9.6 N NEUTROPHIL % (test code = NT%) 59.5 % 40-76 LYMPHOCYTE % (test code = LY%) 28.3 % 20.5-51.1 N MONOCYTE % (test code = MO%) 9.8 % 1.7-9.3 H EOSINOPHIL % (test code = EO%) 2.2 % 0.0-6.0 N BASOPHIL % (test code = BA%) 0.2 % 0.0-2.0 N NEUTROPHIL # (test code = NT#) 3.58 K/mm3 1.8-7.6 N LYMPHOCYTE # (test code = LY#) 1.7 K/mm3 0.6-3.0 N MONOCYTE # (test code = MO#) 0.6 K/mm3 0.2-1.5 N EOSINOPHIL # (test code = EO#) 0.1 K/mm3 0.0-0.4 N BASOPHIL # (test code = BA#) 0.0 K/mm3 0.0-0.2 N MANUAL DIFF REQUIRED (test code = MDIFF) NO DIFF/SCN CRITERIA SLIDE REVIEW CONSISTANT WITH AUTO DIFFERENTIAL. VANCOMYCIN [id number] 17:03:00* Test Item Value Reference Range Interpretation Comments VANCOMYCIN TROUGH (test code = VANCT) 4.1 mcG/ML 10-20 L - FLUORO GUID CTRL ACC [id number] 17:00:00 Name: MIRA WALKER [facility] : 1955 Age/S: 64 / M [address] [address] [place] [address] [place] Unit #: [id number] Loc: [place] [address] Phys: Sami Gomez MD Acct: [id number] Dis Date: Status: ADM IN PHONE #: [phone] Exam Date: 07/30/2019 1550 FAX #: Reason: PICC LINE EXAMS: CPT: [id number] FLUORO GUID CTRL ACC DEV [id number] Fluoro Time: DAP (Gy m2): Air Kerma (mGy): EXAMINATION: NONTUNNELED CENTRAL VENOUS CATHETER PLACEMENT USING ULTRASOUND AND FLUOROSCOPIC GUIDANCE. LOCATION: S17. HISTORY: Need for long-term IV antibiotics, request is made for PICC, recent fall and hip fracture status post surgery, history of seizure, dementia. COMPARISON: None. SEDATION: The patient did not require conscious sedation for the procedure. RADIATION DOSE: 1.06 mGy. TECHNIQUE: The risks, benefits and alternatives were discussed and informed consent was obtained. Prior to beginning the procedure, [place] Protocol was used to confirm the patient's identity and planned procedure. Maximum sterile barriers in cluding cap, mask, hand hygiene, sterile gloves, sterile gown, large steri le drape and cutaneous antisepsis were used. SITE: The skin over the right basilic vein was sterilely prepped, draped and infiltrated with 1% lidocaine. Prior to the procedure, the target vessel was evaluated by ultrasound. An image of the patent vessel was recorded and saved in PACS. After sterile prep, this vessel was accessed using realtime ultrasound guidance. A guidewire and catheter were then pas sed centrally using fluoroscopic guidance. The intravascular length from t he access site to the right atrium was assessed. After dila ting the tract, a 44 cm dual lumen PICC was inserted over the guidewire. The catheter was flushed with saline and secured in place. A steri le dressing was applied. ESTIMATED BLOOD LOSS: less than 30 milliliters. DISCHARGED TO: Recovery and then to inpatient unit. CONDITION: Stable. PAGE 1 Signed Report (CONTINUED) Name: MIRA WALKER [place] : 1955 Age/S: 64 / M [address] Unit #: [id number] Loc: [place], [place] [address] Phys: Sami Gomez MD Acct: [id number] Dis Date: Status: ADM IN PHONE #: [phone] Exam Date: 07/30/2019 1550 FAX #: Reason: PICC LINE EXAMS: CPT: [id number] FLUORO GUID CTRL ACC DEV 00175 Fluoro Time: DAP (Gy m2): Air Kerma (mGy): <Continued> FINDINGS: The final fluoroscopic image demonstrates the catheter with its tip at the cavoatrial junction. No complications are seen. IMPRESSION: Successful nontunneled PICC placement via the right basilic vein. PLAN: The catheter is ready for imm ediate use. When treatment is completed, this catheter can be removed at the bedside according to standard hospital protocol. at 1700 Reported and signed by: Amparo Champion M.D. CC: Sami Gomez MD PAGE 2 Signed Report Name: MIRA WALKER [place] : 1955 Age/S: 64 / M [id number] Unit #: [id number] Loc: [place], [place] [address] Phys: Sami Gomez MD Acct: [id number] Dis Date: Status: ADM IN PHONE #: [phone] Exam Date: 07/30/2019 1550 FAX #: Reason: PICC LINE EXAMS: CPT: [id number] FLUORO GUID CTRL ACC DEV 76649 Fluoro Time: DAP (Gy m2): Air Kerma (mGy): < Continued> Technologist: Hayden Cantu, RT(R)(CT) Trnscb Date/Time: 07/30/2019 (170) [email or web address] Orig Print D/T: S: 07/30/2019 (6396) PAGE 3 Signed Report - US GUIDANCE VASC [id number] 17:00:00 Name: MIRA WALKER : 1955 Age/S: 64 / M [id number] [address] [facility] Unit #: [id number] Loc: [place] [address] Phys: Sami Gomez MD Acct: [id number] Dis Date: Status: ADM IN PHONE #: [phone] Exam Date: 07/30/2019 154 FAX #: Reason: IV ACCESS EXAMS: CPT: [id number] US GUIDANCE VASC ACCESS [id number] EXAMINATION: NONTUNNELED CENTRAL VENOUS CATHETER PLACEMENT USING ULTRASOUND AND FLUOROSCOPIC GUIDANCE. LOCATION: S17. HISTORY: Need for long-term IV antibiotics, request is made for PICC, recent fall and hip fracture status post surgery, history of seizure, dementia. COMPARISON: None. SEDATION: The patient did not require conscious sedation for the procedure. RADIATION DOSE: 1.06 mGy. TECHNIQUE: The risks, benefits and alternatives were discussed and informed consent was obtained. Prior to beginning the procedure, [place] Protocol was used to confirm the patient's identity and planned procedure. Maximum sterile barriers including cap, mask, hand hygiene, sterile gloves, sterile gown, large sterile drape and cutaneous antisepsis were used. SITE: The skin over the right basilic vein was sterilely prepped, draped and infiltrated with 1% lidocaine. Prior to the procedure, the target vessel was evaluated by ultrasound. An image of the patent vessel was recorded and saved in PACS. After sterile prep, this vessel was accessed u sing realtime ultrasound guidance. A guidewire and catheter were then passed centrally using fluoroscopic guidance. The intravascular length from the access site to the right atrium was assessed. After dilating the tract, a 44 cm dual lumen PICC was inserted over the guidewire. The catheter was flushed with saline and secured in p lace. A sterile dressing was applied. ESTIMATED BLOOD LOSS: less than 30 milliliters. DISCHARGED TO: Recovery and then to in patient unit. PAGE 1 Signed Report (CONTINUED) Name: MIRA WALKER : 1955 Age/S: 64 / M [address] [facility] Unit #: [id number] Loc: [place] [address] Phys: Sami Gomez MD Acct: [id number] Dis Date: Status: ADM IN PHONE #: [phone] Exam Date: 07/30/2019 1542 FAX #: Reason: IV ACCESS EXAMS: CPT: [id number] US GUIDANCE VASC ACCESS 47862 < Continued> CONDITION: Stable. FINDINGS: The final fluoroscopic image demonstrates the catheter with its tip at the cavoatrial junction. No complications are seen. IMPRESSION: Successful nontunneled PICC placement via the right basilic vein. PLAN: The catheter is ready for immediate use. When treatment is completed, this catheter can be removed at the bedside according to standard hospital protocol. at 1700 Reported and signed by: Amparo Champion M.D. CC: Sami Gomez MD Technologist: Isabel Larose Trnscb Date/Time: 07/30/2019 (1700) [email or web address] PAGE 2 Signed Report Name: MIRA WALKER : 1955 Age/S: 64 / M [address] [facility] Unit #: [id number] Loc: [place] [address] Phys: Sami Gomez MD Acct: [id number] Dis Date: Status: ADM IN PHONE #: [phone] Exam Date: 07/30/2019 4523 FAX #: Reason: IV ACCESS EXAMS: CPT: [id number] US GUIDANCE VASC ACCESS 12319 < Continued> Orig Print D/T: S: 07/30/2019 (1703) Probe: PAGE 3 Signed Report BASIC METABOLIC [id number] 16:39:00* Test Item Value Reference Range Interpretation Comments SODIUM (test code = NA) 142 mmol/L 134-147 N POTASSIUM (test code = K) 3.9 mmol/L 3.4-5.0 N CHLORIDE (test code = CL) 108 mmol/L 100-108 N CARBON DIOXIDE (test code = CO2) 28 mmol/L 21-32 N ANION GAP (test code = GAP) 6.0 GAP calc 4.0-15.0 N GLUCOSE (test code = GLU) 81 MG/DL 70-110 N BLOOD UREA NITROGEN (test code = BUN) 5 MG/DL 7-18 L GLOMERULAR FILTRATION RATE (test code = GFR) >=60 max estimate estG FR >60 CREATININE (test code = CREAT) 0.5 MG/DL 0.8-1.3 L CALCIUM (test code = CA) 8.4 MG/DL 8.5-10.1 L [id number] 16:39:00* Test Item Value Reference Range Interpretation Comments MAGNESIUM (test code = MAG) 1.9 MG/DL 1.8-2.4 N CBC W/AUTO [id number] 16:30:00* Test Item Value Reference Range Interpretation Comments WHITE BLOOD CELL (test code = WBC) 6.0 K/mm3 3.5-11.0 N RED BLOOD CELL (test code = RBC) 3.33 M/mm3 4.70-6.10 L HEMOGLOBIN (test code = HGB) 9.5 G/DL 12.3-15.9 L HEMATOCRIT (test code = HCT) 32.3 % 35.8-46.7 L MEAN CELL VOLUME (test code = MCV) 97.0 Fl 86.3-98.9 N MEAN CELL HGB (test code = MCH) 28.5 pg 28.9-34.4 L MEAN CELL HGB CONCETRATION (test code = MCHC) 29.4 G/DL 32.1-34. 5 L RED CELL DISTRIBUTION WIDTH (test code = RDW) 15.1 SD 11.5-14. 5 H PLATELET COUNT (test code = PLT) 376.0 K/mm3 150-450 N MEAN PLATELET VOLUME (test code = MPV) 9.50 fL 7.0-9.6 N NEUTROPHIL % (test code = NT%) % 40-76 LYMPHOCYTE % (test code = LY%) % 20.5-51.1 N MONOCYTE % (test code = MO%) % 1.7-9.3 H EOSINOPHIL % (test code = EO%) % 0.0-6.0 N BASOPHIL % (test code = BA%) % 0.0-2.0 N NEUTROPHIL # (test code = NT#) K/mm3 1.8-7.6 N LYMPHOCYTE # (test code = LY#) K/mm3 0.6-3.0 N MONOCYTE # (test code = MO#) K/mm3 0.2-1.5 N EOSINOPHIL # (test code = EO#) K/mm3 0.0-0.4 N BASOPHIL # (test code = BA#) K/mm3 0.0-0.2 N MANUAL DIFF REQUIRED (test code = MDIFF) DIFF/SCN CRITERIA - XR CHEST 1 [id number] 15:02:00 Name: MIRA WALKER [facility] : 1955 Age/S: 64 / M [address] [facility] Unit #: [id number] Loc: [place] [address] Phys: Ruddy Sam MD Acct: [id number] Dis Date: Status: ADM IN PHONE #: [phone] Exam Date: 07/30/2019 1425 FAX #: Reason: SOB EXAMS: CPT: [id number] XR CHEST 1 V 90188 Fluoro Time: DAP (Gy m2): Air Kerma (mGy): R16 EXAM: - XR CHEST 1 V HISTORY: SOB COMPARISON: 07/27/2019 FINDINGS: Nasogastric tube in unchanged position. Bibasilar groundglass opacities again noted. Evidence of left basilar pneumothorax. No pleural effusion. The cardiac silhouette is within normal limits. No acute osseous abnormalities. IMPRESSION: Possible left basilar pneumothorax. Bibasilar pulmonary edema and/or pneumonia. Findings reported to nurse Ramiro Mccrary on 07/30/2019 2:[address] Waqar Ballard. FOR INTERNAL CODING PURPOSES ONLY RESULT CODE: CVR at 1502 Reported and signed by: Waqar Ballard M.D. CC: Sami Gomez MD; Ruddy Sam MD PAGE 1 Signed Report Name: MIRA WALKER [facility] : 1955 Age/S: 64 / M [address] [address] [facility] Unit #: [id number] Loc: [place] [address] Phys: Ruddy Sam MD Acct: [id number] Dis Date: Status: ADM IN PHONE #: [phone] Exam Date: 07/30/2019 1425 FAX #: Reason: SOB EXAMS: CPT: [id number] XR CHEST 1 V 52648 Fluoro Time: DAP (Gy m2): Air Kerma (mGy): <Continued> Technologist: Abraham Cristobal RT(R)(CT)(MRI) Trnscb Date/Time: 07/30/2019 (0288) [email or web address] Orig Print D/T: S: 07/30/2019 (2976) PAGE 2 Signed Report GLUCOSE BEDSIDE [id number] 13:02:00* Test Item Value Reference Range Interpretation Comments GLUCOSE BEDSIDE TESTING (test code = GLUBED) 102 mg/dL 70-110 N PROCALCITONIN (PCT)2019-07-30 02:53:00* Test Item Value Reference Range Interpretation Comments PROCALCITONIN (PCT) (test code = PROCAL) 0.50 ng/mL 0.00-0.05 H PROCALCITONIN (PCT) NORMAL RANGE (ADULT): <0.05 NG/ML. * a concentration <0.5 ng/mL represents a low risk of severe sepsis and/or septic shock.* a concentration >2 ng/mL represents a high risk of severe sepsis and/or septic shock.Nevertheless, concentrations <0.5 ng/mL do not exclude aninfection, on account of localized infections (withoutsystemic signs) which can be associated with such lowconcentrations, or a systemic infection in its initialstages (< 6 hours). Furthermore, increased procalcitonincan occur without infection. PCT concentrations between 0.5and 2.0 ng/mL should be interpreted taking into account thepatient's history. It is recommended to retest PCT within6-24 hours if any concentrations <2 ng/mL are obtained. PROCALCITONIN (PCT)2019-07-30 02:53:00* Test Item Value Reference Range Interpretation Comments PROCALCITONIN (PCT) (test code = PROCAL) 0.50 ng/mL 0.00-0.05 A PROCALCITONIN (PCT) NORMAL RANGE (ADULT): <0.05 NG/ML. * a concentration <0.5 ng/mL represents a low risk of severe sepsis and/or septic shock.* a concentration >2 ng/mL represents a high risk of severe sepsis and/or septic shock.Nevertheless, concentrations <0.5 ng/mL do not exclude aninfection, on account of localized infections (withoutsystemic signs) which can be associated with such lowconcentrations, or a systemic infection in its initialstages (< 6 hours). Furthermore, increased procalcitonincan occur without infection. PCT concentrations between 0.5and 2.0 ng/mL should be interpreted taking into account thepatient's history. It is recommended to retest PCT within6-24 hours if any concentrations <2 ng/mL are obtained. GLUCOSE BEDSIDE [id number] 00:28:00* Test Item Value Reference Range Interpretation Comments GLUCOSE BEDSIDE TESTING (test code = GLUBED) 101 mg/dL 70-110 N DILANTIN (PHENYTOIN)2019-07-29 17:54:00* Test Item Value Reference Range Interpretation Comments DILANTIN (PHENYTOIN) (test code = DIL) 8.6 mcG/ML 10.0-20.0 L VALPROIC ACID (DEPAKENE)2019-07-29 17:54:00* Test Item Value Reference Range Interpretation Comments VALPROIC ACID (DEPAKENE) (test code = VALP) 30.6 mcG/ML 50.0-100.0 L [id number] 17:54:00* Test Item Value Reference Range Interpretation Comments LEVETIRACETAM (test code = LEVTAM) GLUCOSE BEDSIDE [id number] 17:13:00* Test Item Value Reference Range Interpretation Comments GLUCOSE BEDSIDE TESTING (test code = GLUBED) 117 mg/dL 70-[id number] 15:41:00* Test Item Value Reference Range Interpretation Comments CSF COLOR (test code = COLCSF) COLORLESS DESCRIP. COLORLESS CSF APPEARANCE (test code = APPCSF) CLEAR DESCRIP. CLEAR CSF TUBE # (test code = TUBECSF) #1 Tube# Tube Used CSF WBC (test code = WBCCSF) 9 #/mm3 0-5 H CSF RBC (test code = RBCCSF) 355 #/mm3 0-0 H CSF POLY (test code = POLYCSF) 46 % 0-3 H CSF LYMPHOCYTE (test code = LYMPHCSF) 49 % 40-80 N CSF MONOCYTE (test code = MONOCSF) 5 % 16-56 L CSF COMMENT (test code = COMCSF) 5-10% CREN. CSF [id number] 15:41:00* Test Item Value Reference Range Interpretation Comments CSF GLUCOSE (test code = GLUCSF) 59 MG/DL 40-75 N CSF TOTAL PROTEIN (test code = PROTCSF) 33.6 MG/DL 15.0-45.[id number] 14:52:00* Test Item Value Reference Range Interpretation Comments CSF COLOR (test code = COLCSF) DESCRIP. COLORLESS CSF APPEARANCE (test code = APPCSF) DESCRIP. CLEAR CSF TUBE # (test code = TUBECSF) Tube# Tube Used CSF WBC (test code = WBCCSF) #/mm3 0-5 CSF RBC (test code = RBCCSF) #/mm3 0-0 CSF [id number] 14:52:00* Test Item Value Reference Range Interpretation Comments CSF GLUCOSE (test code = GLUCSF) 59 MG/DL 40-75 N CSF TOTAL PROTEIN (test code = PROTCSF) 33.6 MG/DL 15.0-45.0 N - XR LUMBAR [id number] 14:10:00 Name: MIRA WALKER [facility] : 1955 Age/S: 64 / M [address] [address] [facility] Unit #: [id number] Loc: [place] [address] Phys: Sami Gomez MD Acct: [id number] Dis Date: Status: ADM IN PHONE #: [phone] Exam Date: 07/29/2019 0950 FAX #: Reason: R INTERTROCHANTERIC FX, S/P IMN EXAMS: CPT: [id number] XR LUMBAR PUNCTURE 04517 Fluoro Time: DAP (Gy m2): Air Kerma (mGy): PROCEDURE: IMAGE-GUIDED LUMBAR PUNCTURE. LOCATION: S17. HISTORY: AMS, recent right hip surgery, request is made for LP, encephalopathy. COMPARISON: CT head 07/26/2019. SEDATION: The patient did not require conscious sedation for the procedure. RADIATION DOSE: 23.421 mGy. TECHNIQUE: Risks, benefits, and alternatives were explained to the patient and informed consent was obtained. The patient was prepped in the usual sterile fashion. Sterile barriers including cap, mask, sterile gloves, and cutaneous antisepsis were utilized. Patient was placed in the prone position. Fluoroscopy was used to determine an appropriate access into the thecal sac. Using fluoroscopic guidance, a needle was advanced into the thecal sac at the level of L2-3. Approximately 3 mL of clear CSF was removed after several attempts at repositioning needle. Samples were sent for lab analysis. The patient tolerated the procedure well. ESTIMATED BLOOD LOSS: Less than 5 mL. COMPLICATIONS: None. DISCHARGED TO: Inpatient unit. FINDINGS: Fluoroscopy demonstrates appropriate needle placement into the thecal sac. IMPRESSION: Successful image-guided lumbar puncture, only approximately 3 cc of clear CSF was obtained after several attempts at needle repositioning. PAGE 1 Signed Report (CONTINUED) Name: MIRA DE LA PAZ [facility] : [birth year] Age/S: 64 / M [address] [facility] Unit #: [id number] Loc: [place] [address] Phys: Sami Gomez MD Acct: [id number] Dis Date: Status: ADM IN PHONE #: [phone] Exam Date: 07/29/2019 0950 FAX #: R nohemi: R INTERTROCHANTERIC FX, S/P IMN EXAMS: CPT: [id number] XR LUMBAR PUNCTURE 62872 Fluoro Time: DAP (Gy m2): Air Kerma (mGy): <Continued> at 1410 Reported and signed by: Amparo Champion M.D. CC: Sami Gomez MD PAGE 2 Signed Report Name: MIRA WALKER [facility] : 1955 Age/S: 64 / M [address] [facility] Unit #: [id number] Loc: [place] [address] Phys: Sami Gomez MD Acct: [id number] Dis Date: Status: ADM IN PHONE #: [phone] Exam Date: 07/29/2019 0950 FAX #: Reason: R INTERTROCHANTERIC FX, S/P IMN EXAMS: CPT: [id number] XR LUMBAR PUNCTURE 79409 Fluoro Time: DAP (Gy m2): Air Kerma (mGy): <Continued> Technologist: Elise Noble, RT(R) Trnscb Date/Time: 07/29/2019 (2390) [email or web address] Orig Print D/T: S: 07/29/2019 (5396) PAGE 3 Signed Report CBC W/AUTO [id number] 12:42:00* Test Item Value Reference Range Interpretation Comments WHITE BLOOD CELL (test code = WBC) 6.5 K/mm3 3.5-11.0 N RED BLOOD CELL (test code = RBC) 3.27 M/mm3 4.70-6.10 L HEMOGLOBIN (test code = HGB) 9.4 G/DL 12.3-15.9 L HEMATOCRIT (test code = HCT) 31.9 % 35.8-46.7 L MEAN CELL VOLUME (test code = MCV) 97.6 Fl 86.3-98.9 N MEAN CELL HGB (test code = MCH) 28.7 pg 28.9-34.4 L MEAN CELL HGB CONCETRATION (test code = MCHC) 29.5 G/DL 32.1-34. 5 L RED CELL DISTRIBUTION WIDTH (test code = RDW) 14.5 SD 11.5-14. 5 N PLATELET COUNT (test code = PLT) 369.0 K/mm3 150-450 N MEAN PLATELET VOLUME (test code = MPV) 9.00 fL 7.0-9.6 N NEUTROPHIL % (test code = NT%) 66.2 % 40-76 LYMPHOCYTE % (test code = LY%) 24.2 % 20.5-51.1 N MONOCYTE % (test code = MO%) 7.1 % 1.7-9.3 N EOSINOPHIL % (test code = EO%) 2.3 % 0.0-6.0 N BASOPHIL % (test code = BA%) 0.2 % 0.0-2.0 N NEUTROPHIL # (test code = NT#) 4.30 K/mm3 1.8-7.6 N LYMPHOCYTE # (test code = LY#) 1.6 K/mm3 0.6-3.0 N MONOCYTE # (test code = MO#) 0.5 K/mm3 0.2-1.5 N EOSINOPHIL # (test code = EO#) 0.2 K/mm3 0.0-0.4 N BASOPHIL # (test code = BA#) 0.0 K/mm3 0.0-0.2 N MANUAL DIFF REQUIRED (test code = MDIFF) NO DIFF/SCN CRITERIA SLIDE REVIEW CONSISTANT WITH AUTO DIFFERENTIAL. LACTIC [id number] 12:19:00* Test Item Value Reference Range Interpretation Comments LACTIC ACID (test code = LACT) 1.4 mmol/L 0.4-2.0 N COMPREHENSIVE METABOLIC [id number] 12:18:00* Test Item Value Reference Range Interpretation Comments SODIUM (test code = NA) 145 mmol/L 134-147 N POTASSIUM (test code = K) 3.2 mmol/L 3.4-5.0 L CHLORIDE (test code = CL) 111 mmol/L 100-108 H CARBON DIOXIDE (test code = CO2) 27 mmol/L 21-32 N ANION GAP (test code = GAP) 7.0 GAP calc 4.0-15.0 N GLUCOSE (test code = GLU) 109 MG/DL 70-110 N BLOOD UREA NITROGEN (test code = BUN) 5 MG/DL 7-18 L GLOMERULAR FILTRATION RATE (test code = GFR) >=60 max estimate estG FR >60 CREATININE (test code = CREAT) 0.5 MG/DL 0.8-1.3 L TOTAL PROTEIN (test code = PROT) 5.6 G/DL 6.4-8.2 L ALBUMIN (test code = ALB) 2.0 G/DL 3.4-5.0 L GLOBULIN (test code = GLOB) 3.6 GM/dL ALBUMIN/GLOBULIN RATIO (test code = A/G) 0.6 RATIO 1.2-2.2 L CALCIUM (test code = CA) 8.1 MG/DL 8.5-10.1 L BILIRUBIN TOTAL (test code = BILT) 0.30 MG/DL 0.2-1.2 N SGOT/AST (test code = AST) 16 Unit/L 15-37 N SGPT/ALT (test code = ALT) 15 Unit/L 12-78 N ALKALINE PHOSPHATASE TOTAL (test code = ALKP) 182 Unit/L 50-136 H - CT HD/BR W W/O [id number] 15:23:00 Name: MIRA WALKRE : 1955 Age/S: 64 / M [address] [address] [facility] Unit #: [id number] Loc: [place] [address] Phys: Lilli Hall MD Acct: [id number] Dis Date: Status: ADM IN PHONE #: [phone] Exam Date: 07/28/2019 143 FAX #: Reason: HSV encephalitis EXAMS: CPT: [id number] CT HD/BR W W/O CONT 19034 Location code: H5 CT Brain With and Without Contrast Indication: HSV encephalitis. Comparison: 07/26/2019 Technical factors: Axial images were obtained from the base of the skull to the vertex pre-and postcontrast. Sagittal and coronal reconstruction. This exam was performed according to our departmental dose-optimization program, which includes automated exposure control, adjustment of the mA and/or kV according to patient size and/or use of iterative reconstruction technique. Contrast: Study. Findings: Ventricles and sulci are prominent, unchanged. Extensive diffuse bilateral deep white matter demyelination changes. 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 . No hemorrhage, mass-effect, or abnormal extra-axial fluid collection. No evidence of acute infarct. No abnormal enhancing lesion is seen. The calvarium is unremarkable. No confluent otomastoid disease. The orbits are normal in appearance. Visualized paranasal sinuses are clear. Impression: 1. Stable cerebral atrophy. 2. 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 3. No evidence of acute infarct or lesion. at 1523 Reported and signed by: Edward Carias M.D. CC: Sami Gomez MD; Lilli Hall MD Technologist:Renee Jacobs RT(R) CTDI: DLP: Trnscb Date/Time: 07/28/2019 (1523) [email or web address] Orig Print D/T: S: 07/28/2019 (1526) PAGE 2 Signed Report COMPREHENSIVE METABOLIC PANEL 2019-07-28 05:42:00* Test Item Value Reference Range Interpretation Comments SODIUM (test code = NA) 140 mmol/L 134-147 N POTASSIUM (test code = K) 3.2 mmol/L 3.4-5.0 L CHLORIDE (test code = CL) 107 mmol/L 100-108 N CARBON DIOXIDE (test code = CO2) 26 mmol/L 21-32 N ANION GAP (test code = GAP) 7.0 GAP calc 4.0-15.0 N GLUCOSE (test code = GLU) 125 MG/DL 70-110 H BLOOD UREA NITROGEN (test code = BUN) 9 MG/DL 7-18 N GLOMERULAR FILTRATION RATE (test code = GFR) >=60 max estimate estG FR >60 CREATININE (test code = CREAT) 0.6 MG/DL 0.8-1.3 L TOTAL PROTEIN (test code = PROT) 5.9 G/DL 6.4-8.2 L ALBUMIN (test code = ALB) 2.2 G/DL 3.4-5.0 L GLOBULIN (test code = GLOB) 3.7 GM/dL ALBUMIN/GLOBULIN RATIO (test code = A/G) 0.6 RATIO 1.2-2.2 L CALCIUM (test code = CA) 7.9 MG/DL 8.5-10.1 L BILIRUBIN TOTAL (test code = BILT) 0.30 MG/DL 0.2-1.2 N SGOT/AST (test code = AST) 19 Unit/L 15-37 N SGPT/ALT (test code = ALT) 14 Unit/L 12-78 N ALKALINE PHOSPHATASE TOTAL (test code = ALKP) 200 Unit/L 50-136 H [id number] 05:42:00* Test Item Value Reference Range Interpretation Comments PHOSPHOROUS (test code = PHOS) 2.4 MG/DL 2.5-4.9 L [id number] 05:42:00* Test Item Value Reference Range Interpretation Comments MAGNESIUM (test code = MAG) 1.2 MG/DL 1.8-2.4 L PROTHROMBIN [id number] 05:28:00* Test Item Value Reference Range Interpretation Comments PT PATIENT (test code = PTP) 14.4 SECONDS 9.3-12.9 H INTERNATIONAL NORMAL RATIO (test code = INR) 1.27 INR Unit 0.8-1.2 H CBC W/AUTO [id number] 05:26:00* Test Item Value Reference Range Interpretation Comments WHITE BLOOD CELL (test code = WBC) 6.3 K/mm3 3.5-11.0 N RED BLOOD CELL (test code = RBC) 3.46 M/mm3 4.70-6.10 L HEMOGLOBIN (test code = HGB) 9.8 G/DL 12.3-15.9 L HEMATOCRIT (test code = HCT) 33.6 % 35.8-46.7 L MEAN CELL VOLUME (test code = MCV) 97.1 Fl 86.3-98.9 N MEAN CELL HGB (test code = MCH) 28.3 pg 28.9-34.4 L MEAN CELL HGB CONCETRATION (test code = MCHC) 29.2 G/DL 32.1-34. 5 L RED CELL DISTRIBUTION WIDTH (test code = RDW) 14.4 SD 11.5-14. 5 N PLATELET COUNT (test code = PLT) 336.0 K/mm3 150-450 N MEAN PLATELET VOLUME (test code = MPV) 9.40 fL 7.0-9.6 N NEUTROPHIL % (test code = NT%) 75.1 % 40-76 LYMPHOCYTE % (test code = LY%) 15.6 % 20.5-51.1 L MONOCYTE % (test code = MO%) 7.7 % 1.7-9.3 N EOSINOPHIL % (test code = EO%) 1.4 % 0.0-6.0 N BASOPHIL % (test code = BA%) 0.2 % 0.0-2.0 N NEUTROPHIL # (test code = NT#) 4.75 K/mm3 1.8-7.6 N LYMPHOCYTE # (test code = LY#) 1.0 K/mm3 0.6-3.0 N MONOCYTE # (test code = MO#) 0.5 K/mm3 0.2-1.5 N EOSINOPHIL # (test code = EO#) 0.1 K/mm3 0.0-0.4 N BASOPHIL # (test code = BA#) 0.0 K/mm3 0.0-0.2 N MANUAL DIFF REQUIRED (test code = MDIFF) NO DIFF/SCN CRITERIA - XR CHEST 1 [id number] 12:34:00 Name: [facility] [place] [facility] 1955 Age/S: 64 / M [address] [address] [facility] [place] Unit #: [id number] Loc: [place] [address] Phys: Josh Arriola MD Acct: [id number] Dis Date: Status: ADM IN PHONE #: [phone] Exam Date: 07/27/2019 1225 FAX #: Reason: Pneumonia EXAMS: CPT: [id number] XR CHEST 1 V 72181 Fluoro Time: DAP (Gy m2): Air Kerma (mGy): EXAM: Portable chest one view. Location code:J9 HISTORY: Dyspnea COMPARISON: 07/26/2019 COMMENT: An NG tube overlies the left upper quadrant.. Patchy bilateral airspace disease. Mild left pleural effusion.. The aorta, pulmonary vasculature and mediastinum are within normal limits. Cardiac silhouette is normal in size and contour. Visualized skeletal structures are unremarkable. IMPRESSION: Findings suggestive of CHF. at 1234 Reported and signed by: Reji Fairchild M.D. CC: Josh Arriola MD; Sami Gomez MD PAGE 1 Signed Report Name: [facility] [place] [facility] 1955 Age/S: 64 / M [address] [address] [facility] [place] Unit #: [id number] Loc: [place] [address] Phys: Josh Arriola MD Acct: [id number] Dis Date: Status: ADM IN PHONE #: [phone] Exam Date: 07/27/2019 1225 FAX #: Reason: Pneumonia EXAMS: CPT: [id number] XR CHEST 1 V 39509 Fluoro Time: DAP (Gy m2): Air Kerma (mGy): <Continued> Technologist: Renee Jacobs, RT(R) Trnscb Date/Time: 07/27/2019 (6922) [email or web address].[id number] Orig Print D/T: S: 07/27/2019 (2291) PAGE 2 Signed Report CBC W/AUTO [id number] 07:01:00* Test Item Value Reference Range Interpretation Comments WHITE BLOOD CELL (test code = WBC) 5.1 K/mm3 3.5-11.0 N RED BLOOD CELL (test code = RBC) 3.38 M/mm3 4.70-6.10 L HEMOGLOBIN (test code = HGB) 9.6 G/DL 12.3-15.9 L HEMATOCRIT (test code = HCT) 33.6 % 35.8-46.7 L MEAN CELL VOLUME (test code = MCV) 99.4 Fl 86.3-98.9 H MEAN CELL HGB (test code = MCH) 28.4 pg 28.9-34.4 L MEAN CELL HGB CONCETRATION (test code = MCHC) 28.6 G/DL 32.1-34. 5 L RED CELL DISTRIBUTION WIDTH (test code = RDW) 14.5 SD 11.5-14. 5 N PLATELET COUNT (test code = PLT) 285.0 K/mm3 150-450 N MEAN PLATELET VOLUME (test code = MPV) 9.40 fL 7.0-9.6 N NEUTROPHIL % (test code = NT%) 62.1 % 40-76 LYMPHOCYTE % (test code = LY%) 27.4 % 20.5-51.1 N MONOCYTE % (test code = MO%) 8.3 % 1.7-9.3 N EOSINOPHIL % (test code = EO%) 1.8 % 0.0-6.0 N BASOPHIL % (test code = BA%) 0.4 % 0.0-2.0 N NEUTROPHIL # (test code = NT#) 3.16 K/mm3 1.8-7.6 N LYMPHOCYTE # (test code = LY#) 1.4 K/mm3 0.6-3.0 N MONOCYTE # (test code = MO#) 0.4 K/mm3 0.2-1.5 N EOSINOPHIL # (test code = EO#) 0.1 K/mm3 0.0-0.4 N BASOPHIL # (test code = BA#) 0.0 K/mm3 0.0-0.2 N MANUAL DIFF REQUIRED (test code = MDIFF) NO DIFF/SCN CRITERIA SLIDE REVIEW CONSISTANT WITH AUTO DIFFERENTIAL. RBC [id number] 07:01:00* Test Item Value Reference Range Interpretation Comments POLYCHROMASIA (test code = POLC) TRACE ON SCAN NONE HYPOCHROMIA (test code = HYPO) 2+ ON SCAN NONE A PLATELET ESTIMATE (test code = PLTEST) ADEQUATE THOUSAND ADEQUATE PLATELET MORPHOLOGY (test code = PLTMORPH) NORMAL CBC W/AUTO [id number] 07:00:00* Test Item Value Reference Range Interpretation Comments WHITE BLOOD CELL (test code = WBC) 5.1 K/mm3 3.5-11.0 N RED BLOOD CELL (test code = RBC) 3.38 M/mm3 4.70-6.10 L HEMOGLOBIN (test code = HGB) 9.6 G/DL 12.3-15.9 L HEMATOCRIT (test code = HCT) 33.6 % 35.8-46.7 L MEAN CELL VOLUME (test code = MCV) 99.4 Fl 86.3-98.9 H MEAN CELL HGB (test code = MCH) 28.4 pg 28.9-34.4 L MEAN CELL HGB CONCETRATION (test code = MCHC) 28.6 G/DL 32.1-34. 5 L RED CELL DISTRIBUTION WIDTH (test code = RDW) 14.5 SD 11.5-14. 5 N PLATELET COUNT (test code = PLT) 285.0 K/mm3 150-450 N MEAN PLATELET VOLUME (test code = MPV) 9.40 fL 7.0-9.6 N NEUTROPHIL % (test code = NT%) 62.1 % 40-76 LYMPHOCYTE % (test code = LY%) 27.4 % 20.5-51.1 N MONOCYTE % (test code = MO%) 8.3 % 1.7-9.3 N EOSINOPHIL % (test code = EO%) 1.8 % 0.0-6.0 N BASOPHIL % (test code = BA%) 0.4 % 0.0-2.0 N NEUTROPHIL # (test code = NT#) 3.16 K/mm3 1.8-7.6 N LYMPHOCYTE # (test code = LY#) 1.4 K/mm3 0.6-3.0 N MONOCYTE # (test code = MO#) 0.4 K/mm3 0.2-1.5 N EOSINOPHIL # (test code = EO#) 0.1 K/mm3 0.0-0.4 N BASOPHIL # (test code = BA#) 0.0 K/mm3 0.0-0.2 N MANUAL DIFF REQUIRED (test code = MDIFF) NO DIFF/SCN CRITERIA SLIDE REVIEW CONSISTANT WITH AUTO DIFFERENTIAL. CBC W/AUTO [id number] 07:00:00* Test Item Value Reference Range Interpretation Comments WHITE BLOOD CELL (test code = WBC) 5.1 K/mm3 3.5-11.0 N RED BLOOD CELL (test code = RBC) 3.38 M/mm3 4.70-6.10 L HEMOGLOBIN (test code = HGB) 9.6 G/DL 12.3-15.9 L HEMATOCRIT (test code = HCT) 33.6 % 35.8-46.7 L MEAN CELL VOLUME (test code = MCV) 99.4 Fl 86.3-98.9 H MEAN CELL HGB (test code = MCH) 28.4 pg 28.9-34.4 L MEAN CELL HGB CONCETRATION (test code = MCHC) 28.6 G/DL 32.1-34. 5 L RED CELL DISTRIBUTION WIDTH (test code = RDW) 14.5 SD 11.5-14. 5 N PLATELET COUNT (test code = PLT) 285.0 K/mm3 150-450 N MEAN PLATELET VOLUME (test code = MPV) 9.40 fL 7.0-9.6 N NEUTROPHIL % (test code = NT%) 62.1 % 40-76 LYMPHOCYTE % (test code = LY%) 27.4 % 20.5-51.1 N MONOCYTE % (test code = MO%) 8.3 % 1.7-9.3 N EOSINOPHIL % (test code = EO%) 1.8 % 0.0-6.0 N BASOPHIL % (test code = BA%) 0.4 % 0.0-2.0 N NEUTROPHIL # (test code = NT#) 3.16 K/mm3 1.8-7.6 N LYMPHOCYTE # (test code = LY#) 1.4 K/mm3 0.6-3.0 N MONOCYTE # (test code = MO#) 0.4 K/mm3 0.2-1.5 N EOSINOPHIL # (test code = EO#) 0.1 K/mm3 0.0-0.4 N BASOPHIL # (test code = BA#) 0.0 K/mm3 0.0-0.2 N MANUAL DIFF REQUIRED (test code = MDIFF) NO DIFF/SCN CRITERIA SLIDE REVIEW CONSISTANT WITH AUTO DIFFERENTIAL. COMPREHENSIVE METABOLIC [id number] 06:28:00* Test Item Value Reference Range Interpretation Comments SODIUM (test code = NA) 140 mmol/L 134-147 N POTASSIUM (test code = K) 3.7 mmol/L 3.4-5.0 N CHLORIDE (test code = CL) 107 mmol/L 100-108 N CARBON DIOXIDE (test code = CO2) 27 mmol/L 21-32 N ANION GAP (test code = GAP) 6.0 GAP calc 4.0-15.0 N GLUCOSE (test code = GLU) 110 MG/DL 70-110 N BLOOD UREA NITROGEN (test code = BUN) 8 MG/DL 7-18 N GLOMERULAR FILTRATION RATE (test code = GFR) >=60 max estimate estG FR >60 CREATININE (test code = CREAT) 0.7 MG/DL 0.8-1.3 L TOTAL PROTEIN (test code = PROT) 5.7 G/DL 6.4-8.2 L ALBUMIN (test code = ALB) 2.3 G/DL 3.4-5.0 L GLOBULIN (test code = GLOB) 3.4 GM/dL ALBUMIN/GLOBULIN RATIO (test code = A/G) 0.7 RATIO 1.2-2.2 L CALCIUM (test code = CA) 8.5 MG/DL 8.5-10.1 N BILIRUBIN TOTAL (test code = BILT) 0.50 MG/DL 0.2-1.2 N SGOT/AST (test code = AST) 17 Unit/L 15-37 N SGPT/ALT (test code = ALT) 13 Unit/L 12-78 N ALKALINE PHOSPHATASE TOTAL (test code = ALKP) 180 Unit/L 50-136 H CBC W/AUTO [id number] 06:24:00* Test Item Value Reference Range Interpretation Comments WHITE BLOOD CELL (test code = WBC) 5.1 K/mm3 3.5-11.0 N RED BLOOD CELL (test code = RBC) 3.38 M/mm3 4.70-6.10 L HEMOGLOBIN (test code = HGB) 9.6 G/DL 12.3-15.9 L HEMATOCRIT (test code = HCT) 33.6 % 35.8-46.7 L MEAN CELL VOLUME (test code = MCV) 99.4 Fl 86.3-98.9 H MEAN CELL HGB (test code = MCH) 28.4 pg 28.9-34.4 L MEAN CELL HGB CONCETRATION (test code = MCHC) 28.6 G/DL 32.1-34. 5 L RED CELL DISTRIBUTION WIDTH (test code = RDW) 14.5 SD 11.5-14. 5 N PLATELET COUNT (test code = PLT) 285.0 K/mm3 150-450 N MEAN PLATELET VOLUME (test code = MPV) 9.40 fL 7.0-9.6 N NEUTROPHIL % (test code = NT%) % 40-76 LYMPHOCYTE % (test code = LY%) % 20.5-51.1 N MONOCYTE % (test code = MO%) % 1.7-9.3 N EOSINOPHIL % (test code = EO%) % 0.0-6.0 N BASOPHIL % (test code = BA%) % 0.0-2.0 N NEUTROPHIL # (test code = NT#) K/mm3 1.8-7.6 N LYMPHOCYTE # (test code = LY#) K/mm3 0.6-3.0 N MONOCYTE # (test code = MO#) K/mm3 0.2-1.5 N EOSINOPHIL # (test code = EO#) K/mm3 0.0-0.4 N BASOPHIL # (test code = BA#) K/mm3 0.0-0.2 N MANUAL DIFF REQUIRED (test code = MDIFF) DIFF/SCN CRITERIA GLUCOSE BEDSIDE [id number] 02:13:00* Test Item Value Reference Range Interpretation Comments GLUCOSE BEDSIDE TESTING (test code = GLUBED) 97 mg/dL 70-110 N GLUCOSE BEDSIDE [id number] 17:33:00* Test Item Value Reference Range Interpretation Comments GLUCOSE BEDSIDE TESTING (test code = GLUBED) 98 mg/dL 70-110 N - XR CHEST 1 [id number] 16:58:00 Name: MIRA WALKER [place] : 1955 Age/S: 64 / M [address] [address] [facility] [place] [facility] [place] Unit #: [id number] Loc: [place] [address] Phys: Ruddy Sam MD Acct: [id number] Dis Date: Status: ADM IN PHONE #: [phone] Exam Date: 07/26/2019 165 FAX #: Reason: RESPIRATORY DISTRESS EXAMS: CPT: [id number] XR CHEST 1 V 91033 Fluoro Time: DAP (Gy m2): Air Kerma (mGy): Location Code: H 31 CHEST AP HISTORY: Respiratory distress COMPARISON: Chest radiograph from 07/24/2019. CT chest from 07/17/2019 FINDINGS: There is residual subtle infiltrates at the lung bases. Blunting at the costophrenic angle suggests small bilateral pleural effusions. Cardiomediastinal silhouette is stable, heart size is normal. The bony thorax is stable as well, with mild scoliosis at the thoracolumbar junction. IMPRESSION: Residual bibasilar infiltrates with suspected small developing pleural effusions. at 1658 Reported and signed by: Crissy Almaraz MD CC: Sami Gomez MD; Ruddy Sam MD PAGE 1 Signed Report Name: MIRA WALKER [place] : 1955 Age/S: 64 / M [address] [address] [facility] [place] [facility] [place] Unit #: [id number] Loc: [place] [address] Phys: Ruddy Sam MD Acct: [id number] Dis Date: Status: ADM IN PHONE #: [phone] Exam Date: 07/26/2019 165 FAX #: Reason: RESPIRATORY DISTRESS EXAMS: CPT: [id number] XR CHEST 1 V 26866 Fluoro Time: DAP (Gy m2): Air Kerma (mGy): <Continued> Technologist: Arpita Castaneda RT(R)(CT)(MRI) Trnscb Date/Time: 07/26/2019 (7075) [email or web address] Orig Print D/T: S: 07/26/2019 (3988) PAGE 2 Signed Report ARTERIAL BLOOD [id number] 16:08:00* Test Item Value Reference Range Interpretation Comments ARTERIAL BLOOD GAS PH (test code = PHA) 7.43 pH units 7.35-7.45 N ARTERIAL BLOOD GAS PCO2 (test code = PCO2A) 47 mmHg 35-45 H ARTERIAL BLOOD GAS PO2 (test code = PO2A) 119 mmHg 80-100 H BICARBONATE TOTAL HCO3 (test code = HCO3) 30.8 mmol/L 22.0-26.0 H BASE EXCESS (test code = YOVANA) 5.6 mmol/L -3.0-3.0 H ABG O2 SATURATION (test code = SATA) 98 % 90-100 N FIO2 (test code = FIO2A) 36 % e 21-100 N ABG VENT MODE (test code = MODEA) Nasal Cannula Descript Vent Mode ABG SITE (test code = SITEA) Right Radial ARTKIT DESCRIPTION MODIFIED REJI'S (test code = MODALL) Yes Circ.CHK POSITIVE - CT HEAD/BRAIN W/O [id number] 14:49:00 Name: MIRA WALKER [facility] : 1955 Age/S: 64 / M [address] [address] [facility] [place] [facility] [place] Unit #: [id number] Loc: [place] [address] Phys: Lilli Hall MD Acct: [id number] Dis Date: Status: ADM IN PHONE #: [phone] Exam Date: 07/26/2019 1425 FAX #: Reason: encephalopathy EXAMS: CPT: [id number] CT HEAD/BRAIN W/O CONT 17441 Dictation location: H37. CT HEAD WITHOUT CONTRAST. HISTORY: encephalopathy COMPARISON: CT head 07/25/19. TECHNIQUE: Axial CT images of the head were obtained with coronal and/or sagittal reformatted views. Automated exposure control, iterative reconstruction technique, and/or adjustment of mA and/or kV according to patient's size was utilized for radiation dose reduction. IV CONTRAST: None. FINDINGS: Encephalomalacia related to chronic infarcts noted within the right frontal, both parietal, left occipital lobes, left cerebellum and within the left justin, not significantly changed. Moderate to severe amount of periventricular and deep white matter hypodensities are seen, these are most commonly associated with chronic, microvascular ischemic changes. Moderate generalized atrophy is noted. Atherosclerotic calcifications a ffect the carotid siphons. No other intracranial abnormalities suc h as hemorrhage, mass, mass effect, hydrocephalus, midline shift, extra-ax ial fluid collection or secondary signs of an acute infarct are noted. The calvarium and skull base are intact. The paranasal sinus and mastoid air cells are clear. IMPRESSION: No evidence of acute intracranial abnormality. Multiple chronic i nfarcts. Moderate to severe chronic microvascular ischemic changes and atrophy. at 1449 Reported and signed by: Mary Ennis M.D. PAGE 1 Signed Report (CONTINUED) Name: MIRA WALKER [facility] : 1955 Age/S: 64 / M [address] [address] [facility] [place] [facility] [place] Unit #: [id number] Loc: [place] [address] Phys: Lilli Hall MD Acct: [id number] Dis Date: Status: ADM IN PHONE #: [phone] Exam Date: 07/26/2019 1425 FAX #: Reason: encepha lopathy EXAMS: CPT: [id number] CT HEAD/BRAIN W/O CONT 70402 <Continued> CC: Sami Gomez MD; Lilli Hall MD Technologist:Pb Torres RT(R)(CT); Demarco CTDI: DLP: Trnscb Date/Time: 07/26/2019 (144) [email or web address] Orig Print D/T: S: 07/26/2019 (8358) PAGE 2 Signed Report GLUCOSE BEDSIDE [id number] 11:59:00* Test Item Value Reference Range Interpretation Comments GLUCOSE BEDSIDE TESTING (test code = GLUBED) 116 mg/dL 70-110 H CBC W/AUTO [id number] 07:15:00* Test Item Value Reference Range Interpretation Comments WHITE BLOOD CELL (test code = WBC) 5.3 K/mm3 3.5-11.0 N RED BLOOD CELL (test code = RBC) 3.08 M/mm3 4.70-6.10 L HEMOGLOBIN (test code = HGB) 8.8 G/DL 12.3-15.9 L HEMATOCRIT (test code = HCT) 31.8 % 35.8-46.7 L MEAN CELL VOLUME (test code = MCV) 103.2 Fl 86.3-98.9 H MEAN CELL HGB (test code = MCH) 28.6 pg 28.9-34.4 L MEAN CELL HGB CONCETRATION (test code = MCHC) 27.7 G/DL 32.1-34. 5 L RED CELL DISTRIBUTION WIDTH (test code = RDW) 14.9 SD 11.5-14. 5 H PLATELET COUNT (test code = PLT) 300.0 K/mm3 150-450 N MEAN PLATELET VOLUME (test code = MPV) 9.30 fL 7.0-9.6 N NEUTROPHIL % (test code = NT%) 51.9 % 40-76 N LYMPHOCYTE % (test code = LY%) 32.5 % 20.5-51.1 N MONOCYTE % (test code = MO%) 14.1 % 1.7-9.3 H EOSINOPHIL % (test code = EO%) 1.1 % 0.0-6.0 N BASOPHIL % (test code = BA%) 0.4 % 0.0-2.0 N NEUTROPHIL # (test code = NT#) 2.73 K/mm3 1.8-7.6 N LYMPHOCYTE # (test code = LY#) 1.7 K/mm3 0.6-3.0 N MONOCYTE # (test code = MO#) 0.7 K/mm3 0.2-1.5 N EOSINOPHIL # (test code = EO#) 0.1 K/mm3 0.0-0.4 N BASOPHIL # (test code = BA#) 0.0 K/mm3 0.0-0.2 N MANUAL DIFF REQUIRED (test code = MDIFF) NO DIFF/SCN CRITERIA COMPREHENSIVE METABOLIC [id number] 06:28:00* Test Item Value Reference Range Interpretation Comments SODIUM (test code = NA) 142 mmol/L 134-147 N POTASSIUM (test code = K) 3.9 mmol/L 3.4-5.0 N CHLORIDE (test code = CL) 108 mmol/L 100-108 N CARBON DIOXIDE (test code = CO2) 31 mmol/L 21-32 N ANION GAP (test code = GAP) 3.0 GAP calc 4.0-15.0 L GLUCOSE (test code = GLU) 139 MG/DL 70-110 H BLOOD UREA NITROGEN (test code = BUN) 11 MG/DL 7-18 GLOMERULAR FILTRATION RATE (test code = GFR) >=60 max estimate estG FR >60 CREATININE (test code = CREAT) 0.7 MG/DL 0.8-1.3 L TOTAL PROTEIN (test code = PROT) 5.4 G/DL 6.4-8.2 L ALBUMIN (test code = ALB) 2.2 G/DL 3.4-5.0 L GLOBULIN (test code = GLOB) 3.2 GM/dL ALBUMIN/GLOBULIN RATIO (test code = A/G) 0.7 RATIO 1.2-2.2 L CALCIUM (test code = CA) 8.4 MG/DL 8.5-10.1 L BILIRUBIN TOTAL (test code = BILT) 0.50 MG/DL 0.2-1.2 N SGOT/AST (test code = AST) 17 Unit/L 15-37 N SGPT/ALT (test code = ALT) 13 Unit/L 12-78 N ALKALINE PHOSPHATASE TOTAL (test code = ALKP) 173 Unit/L 50-136 H CBC W/AUTO [id number] 06:19:00* Test Item Value Reference Range Interpretation Comments WHITE BLOOD CELL (test code = WBC) 5.3 K/mm3 3.5-11.0 N RED BLOOD CELL (test code = RBC) 3.08 M/mm3 4.70-6.10 L HEMOGLOBIN (test code = HGB) 8.8 G/DL 12.3-15.9 L HEMATOCRIT (test code = HCT) 31.8 % 35.8-46.7 L MEAN CELL VOLUME (test code = MCV) 103.2 Fl 86.3-98.9 H MEAN CELL HGB (test code = MCH) 28.6 pg 28.9-34.4 L MEAN CELL HGB CONCETRATION (test code = MCHC) 27.7 G/DL 32.1-34. 5 L RED CELL DISTRIBUTION WIDTH (test code = RDW) 14.9 SD 11.5-14. 5 H PLATELET COUNT (test code = PLT) 300.0 K/mm3 150-450 N MEAN PLATELET VOLUME (test code = MPV) 9.30 fL 7.0-9.6 N NEUTROPHIL % (test code = NT%) % 40-76 N LYMPHOCYTE % (test code = LY%) % 20.5-51.1 N MONOCYTE % (test code = MO%) % 1.7-9.3 H EOSINOPHIL % (test code = EO%) % 0.0-6.0 N BASOPHIL % (test code = BA%) % 0.0-2.0 N NEUTROPHIL # (test code = NT#) K/mm3 1.8-7.6 N LYMPHOCYTE # (test code = LY#) K/mm3 0.6-3.0 N MONOCYTE # (test code = MO#) K/mm3 0.2-1.5 N EOSINOPHIL # (test code = EO#) K/mm3 0.0-0.4 N BASOPHIL # (test code = BA#) K/mm3 0.0-0.2 N MANUAL DIFF REQUIRED (test code = MDIFF) DIFF/SCN CRITERIA PROCALCITONIN (PCT)[id number] 17:37:00* Test Item Value Reference Range Interpretation Comments PROCALCITONIN (PCT) (test code = PROCAL) 4.14 ng/mL 0.00-0.05 H PROCALCITONIN (PCT) NORMAL RANGE (ADULT): <0.05 NG/ML. * a concentration <0.5 ng/mL represents a low risk of severe sepsis and/or septic shock.* a concentration >2 ng/mL represents a high risk of severe sepsis and/or septic shock.Nevertheless, concentrations <0.5 ng/mL do not exclude aninfection, on account of localized infections (withoutsystemic signs) which can be associated with such lowconcentrations, or a systemic infection in its initialstages (< 6 hours). Furthermore, increased procalcitonincan occur without infection. PCT concentrations between 0.5and 2.0 ng/mL should be interpreted taking into account thepatient's history. It is recommended to retest PCT within6-24 hours if any concentrations <2 ng/mL are obtained. PROCALCITONIN (PCT)[id number] 17:37:00* Test Item Value Reference Range Interpretation Comments PROCALCITONIN (PCT) (test code = PROCAL) 4.14 ng/mL 0.00-0.05 A PROCALCITONIN (PCT) NORMAL RANGE (ADULT): <0.05 NG/ML. * a concentration <0.5 ng/mL represents a low risk of severe sepsis and/or septic shock.* a concentration >2 ng/mL represents a high risk of severe sepsis and/or septic shock.Nevertheless, concentrations <0.5 ng/mL do not exclude aninfection, on account of localized infections (withoutsystemic signs) which can be associated with such lowconcentrations, or a systemic infection in its initialstages (< 6 hours). Furthermore, increased procalcitonincan occur without infection. PCT concentrations between 0.5and 2.0 ng/mL should be interpreted taking into account thepatient's history. It is recommended to retest PCT within6-24 hours if any concentrations <2 ng/mL are obtained. GLUCOSE BEDSIDE [id number] 16:42:00* Test Item Value Reference Range Interpretation Comments GLUCOSE BEDSIDE TESTING (test code = GLUBED) 92 mg/dL 70-110 N GLUCOSE BEDSIDE [id number] 11:37:00* Test Item Value Reference Range Interpretation Comments GLUCOSE BEDSIDE TESTING (test code = GLUBED) 96 mg/dL 70-110 N LACTIC [id number] 09:51:00* Test Item Value Reference Range Interpretation Comments LACTIC ACID (test code = LACT) 1.0 mmol/L 0.4-2.0 N CBC W/AUTO [id number] 07:28:00* Test Item Value Reference Range Interpretation Comments WHITE BLOOD CELL (test code = WBC) 6.2 K/mm3 3.5-11.0 N RED BLOOD CELL (test code = RBC) 3.27 M/mm3 4.70-6.10 L HEMOGLOBIN (test code = HGB) 9.3 G/DL 12.3-15.9 L HEMATOCRIT (test code = HCT) 33.7 % 35.8-46.7 L MEAN CELL VOLUME (test code = MCV) 103.1 Fl 86.3-98.9 H MEAN CELL HGB (test code = MCH) 28.4 pg 28.9-34.4 L MEAN CELL HGB CONCETRATION (test code = MCHC) 27.6 G/DL 32.1-34. 5 L RED CELL DISTRIBUTION WIDTH (test code = RDW) 15.4 SD 11.5-14. 5 H PLATELET COUNT (test code = PLT) 333.0 K/mm3 150-450 N MEAN PLATELET VOLUME (test code = MPV) 9.40 fL 7.0-9.6 N NEUTROPHIL % (test code = NT%) 57.6 % 40-76 N LYMPHOCYTE % (test code = LY%) 25.4 % 20.5-51.1 N MONOCYTE % (test code = MO%) 16.6 % 1.7-9.3 H EOSINOPHIL % (test code = EO%) 0.2 % 0.0-6.0 N BASOPHIL % (test code = BA%) 0.2 % 0.0-2.0 N NEUTROPHIL # (test code = NT#) 3.57 K/mm3 1.8-7.6 N LYMPHOCYTE # (test code = LY#) 1.6 K/mm3 0.6-3.0 N MONOCYTE # (test code = MO#) 1.0 K/mm3 0.2-1.5 N EOSINOPHIL # (test code = EO#) 0.0 K/mm3 0.0-0.4 N BASOPHIL # (test code = BA#) 0.0 K/mm3 0.0-0.2 N MANUAL DIFF REQUIRED (test code = MDIFF) NO DIFF/SCN CRITERIA BASIC METABOLIC [id number] 06:34:00* Test Item Value Reference Range Interpretation Comments SODIUM (test code = NA) 146 mmol/L 134-147 N POTASSIUM (test code = K) 4.3 mmol/L 3.4-5.0 N CHLORIDE (test code = CL) 112 mmol/L 100-108 H CARBON DIOXIDE (test code = CO2) 29 mmol/L 21-32 ANION GAP (test code = GAP) 5.0 GAP calc 4.0-15.0 N GLUCOSE (test code = GLU) 110 MG/DL 70-110 N BLOOD UREA NITROGEN (test code = BUN) 24 MG/DL 7-18 H GLOMERULAR FILTRATION RATE (test code = GFR) >=60 max estimate estG FR >60 CREATININE (test code = CREAT) 0.9 MG/DL 0.8-1.3 N CALCIUM (test code = CA) 8.1 MG/DL 8.5-10.1 L [id number] 06:34:00* Test Item Value Reference Range Interpretation Comments PHOSPHOROUS (test code = PHOS) 3.4 MG/DL 2.5-4.9 N [id number] 06:34:00* Test Item Value Reference Range Interpretation Comments MAGNESIUM (test code = MAG) 2.1 MG/DL 1.8-2.4 N CBC W/AUTO [id number] 06:25:00* Test Item Value Reference Range Interpretation Comments WHITE BLOOD CELL (test code = WBC) 6.2 K/mm3 3.5-11.0 N RED BLOOD CELL (test code = RBC) 3.27 M/mm3 4.70-6.10 L HEMOGLOBIN (test code = HGB) 9.3 G/DL 12.3-15.9 L HEMATOCRIT (test code = HCT) 33.7 % 35.8-46.7 L MEAN CELL VOLUME (test code = MCV) 103.1 Fl 86.3-98.9 H MEAN CELL HGB (test code = MCH) 28.4 pg 28.9-34.4 L MEAN CELL HGB CONCETRATION (test code = MCHC) 27.6 G/DL 32.1-34. 5 L RED CELL DISTRIBUTION WIDTH (test code = RDW) 15.4 SD 11.5-14. 5 H PLATELET COUNT (test code = PLT) 333.0 K/mm3 150-450 N MEAN PLATELET VOLUME (test code = MPV) 9.40 fL 7.0-9.6 N NEUTROPHIL % (test code = NT%) % 40-76 N LYMPHOCYTE % (test code = LY%) % 20.5-51.1 N MONOCYTE % (test code = MO%) % 1.7-9.3 H EOSINOPHIL % (test code = EO%) % 0.0-6.0 N BASOPHIL % (test code = BA%) % 0.0-2.0 N NEUTROPHIL # (test code = NT#) K/mm3 1.8-7.6 N LYMPHOCYTE # (test code = LY#) K/mm3 0.6-3.0 N MONOCYTE # (test code = MO#) K/mm3 0.2-1.5 N EOSINOPHIL # (test code = EO#) K/mm3 0.0-0.4 N BASOPHIL # (test code = BA#) K/mm3 0.0-0.2 N MANUAL DIFF REQUIRED (test code = MDIFF) DIFF/SCN CRITERIA - CT HEAD/BRAIN W/O [id number] 05:53:00 Name: MIRA WALKER : 1955 Age/S: 64 / M [address] [address] [place] Unit #: [id number] Loc: [place] [address] Phys: Lilli Hall MD Acct: [id number] Dis Date: Status: ADM IN PHONE #: [phone] Exam Date: 07/25/2019 0542 FAX #: Reason: SEISURE EXAMS: CPT: [id number] CT HEAD/BRAIN W/O CONT 78457 AFTER HOURS SERVICE ON: 07/25/2019 5:[address] Scan of the Brain Without Contrast Location Code M12 History: Seizure Technique: Scans were performed on a helical scanner pre IV contrast only. The study is limited secondary to lack of intravenous contrast, particularly for evaluation of masses. One or more of the following dose reduction techniques were used: Automated exposure control, adjustment of the mA and/or kV according to patient size, and/or utilization of iterative reconstruction technique. Findings: There is no hydrocephalus. Basal cisterns are patent. There is no intracranial hyperdense hemorrhage. There is no midline shift or mass effect. No effacement of the martinez-white matter junction to indicate acute infarction. Multifocal bilateral infarcts are seen in the left cerebellar hemisphere, left occipital and bilateral watershed regions. No significant change from 07/06/2019. There are chronic ischemic white matter changes. There is no skull fracture. Impression: No acute intracranial CT findings. Senescent changes and old bilateral multifocal infarcts. at 0553 Reported and signed by: Mary Yang M.D. CC: Sami Gomez MD; Lilli Hall MD Technologist:RT Rosaura(R) CTDI: DLP: Trnscb Date/Time: 07/25/2019 (8553) [id number] Orig Print D/T: S: 07/25/2019 (3058) PAGE 1 Signed Report UA RFLX MICR CULT IF [id number] 00:05:00* Test Item Value Reference Range Interpretation Comments UA COLOR (test code = COLU) YELLOW discript YEL/STRAW UA APPEARANCE (test code = APPU) CLEAR discript CLEAR UA GLUCOSE DIPSTICK (test code = DGLUU) TRACE mg/dL NEG UA BILIRUBIN DIPSTICK (test code = BILU) NEGATIVE mg/dL NEG UA KETONE DIPSTICK (test code = KETU) NEGATIVE mg/dL NEG UA SPECIFIC GRAVITY (test code = SGU) 1.010 SG 1.005-1.030 UA BLOOD DIPSTICK (test code = JOANNA) 3+ mg/DL NEG A UA PH DIPSTICK (test code = BELKYS) 6.0 pH UNITS 5.0-7.0 UA PROTEIN DIPSTICK (test code = PROU) TRACE mg/dL NEG A UA UROBILINIOGEN DIPSTICK (test code = URO) 0.2 mg/dL <2.0 UA NITRITE DIPSTICK (test code = KVNG) NEGATIVE SCREEN NEG UA LEUKOCYTE ESTERASE DIPSTICK (test code = LEUU) NEGATIVE Leuk/mcL NEGATIVE UA WBC (test code = WBCU) 1-3 #WBC/HPF 0-3 UA RBC (test code = RBCU) 10-20 #RBC/HPF 0-3 A UA BACTERIA (test code = BACU) NONE SEEN /HPF NONE-TRACE UA CULTURE NEEDED? (test code = UACULT) NO, WBC<10 Criteria Culture CHK SOURCE OF URINE: RENDON CATHETERIndication for culture: Temperature > 100.4 F UA RFLX MICR CULT IF [id number] 23:57:00* Test Item Value Reference Range Interpretation Comments UA COLOR (test code = COLU) YELLOW discript YEL/STRAW UA APPEARANCE (test code = APPU) CLEAR discript CLEAR UA GLUCOSE DIPSTICK (test code = DGLUU) TRACE mg/dL NEG UA BILIRUBIN DIPSTICK (test code = BILU) NEGATIVE mg/dL NEG UA KETONE DIPSTICK (test code = KETU) NEGATIVE mg/dL NEG UA SPECIFIC GRAVITY (test code = SGU) 1.010 SG 1.005-1.030 UA BLOOD DIPSTICK (test code = JOANNA) 3+ mg/DL NEG A UA PH DIPSTICK (test code = BELKYS) 6.0 pH UNITS 5.0-7.0 UA PROTEIN DIPSTICK (test code = PROU) TRACE mg/dL NEG A UA UROBILINIOGEN DIPSTICK (test code = URO) 0.2 mg/dL <2.0 UA NITRITE DIPSTICK (test code = KVNG) NEGATIVE SCREEN NEG UA LEUKOCYTE ESTERASE DIPSTICK (test code = LEUU) NEGATIVE Leuk/mcL NEGATIVE UA CULTURE NEEDED? (test code = UACULT) Criteria Culture CHK SOURCE OF URINE: RENDON CATHETERIndication for culture: Temperature > 100.4 F CBC W/AUTO [id number] 23:37:00* Test Item Value Reference Range Interpretation Comments WHITE BLOOD CELL (test code = WBC) 8.8 K/mm3 3.5-11.0 N RED BLOOD CELL (test code = RBC) 3.65 M/mm3 4.70-6.10 L HEMOGLOBIN (test code = HGB) 10.6 G/DL 12.3-15.9 L HEMATOCRIT (test code = HCT) 37.6 % 35.8-46.7 N MEAN CELL VOLUME (test code = MCV) 103.0 Fl 86.3-98.9 H MEAN CELL HGB (test code = MCH) 29.0 pg 28.9-34.4 N MEAN CELL HGB CONCETRATION (test code = MCHC) 28.2 G/DL 32.1-34. 5 L RED CELL DISTRIBUTION WIDTH (test code = RDW) 15.6 SD 11.5-14. 5 H PLATELET COUNT (test code = PLT) 465.0 K/mm3 150-450 H MEAN PLATELET VOLUME (test code = MPV) 9.60 fL 7.0-9.6 N MANUAL DIFF REQUIRED (test code = MDIFF) YES DIFF/SCN CRITERIA WBC [id number] 23:37:00* Test Item Value Reference Range Interpretation Comments SEGMENTED NEUTROPHILS (test code = SEG) 54 % 40-75 N LYMPHOCYTE (test code = LYMPH) 30 % 12.6-43.5 N MONOCYTE (test code = MON) 14 % 4.2-12.7 H EOSINOPHIL (test code = EOS) 2 % 0.0-5.2 N POIKILOCYTOSIS (test code = POIK) 1+ ON SCAN NONE TARGET CELLS (test code = TGT) 1+ ON SCAN NONE CRENATED CELLS (test code = CREN) TRACE ON SCAN NONE OVALOCYTES (test code = OVAL) 1+ ON SCAN NONE PLATELET ESTIMATE (test code = PLTEST) ADEQUATE THOUSAND ADEQUATE PLATELET MORPHOLOGY (test code = PLTMORPH) NORMAL CBC W/AUTO [id number] 23:36:00* Test Item Value Reference Range Interpretation Comments WHITE BLOOD CELL (test code = WBC) 8.8 K/mm3 3.5-11.0 N RED BLOOD CELL (test code = RBC) 3.65 M/mm3 4.70-6.10 L HEMOGLOBIN (test code = HGB) 10.6 G/DL 12.3-15.9 L HEMATOCRIT (test code = HCT) 37.6 % 35.8-46.7 N MEAN CELL VOLUME (test code = MCV) 103.0 Fl 86.3-98.9 H MEAN CELL HGB (test code = MCH) 29.0 pg 28.9-34.4 N MEAN CELL HGB CONCETRATION (test code = MCHC) 28.2 G/DL 32.1-34. 5 L RED CELL DISTRIBUTION WIDTH (test code = RDW) 15.6 SD 11.5-14. 5 H PLATELET COUNT (test code = PLT) 465.0 K/mm3 150-450 H MEAN PLATELET VOLUME (test code = MPV) 9.60 fL 7.0-9.6 N MANUAL DIFF REQUIRED (test code = MDIFF) YES DIFF/SCN CRITERIA WBC [id number] 23:36:00* Test Item Value Reference Range Interpretation Comments SEGMENTED NEUTROPHILS (test code = SEG) % 40-75 LYMPHOCYTE (test code = LYMPH) % 12.6-43.5 CBC W/AUTO [id number] 23:36:00* Test Item Value Reference Range Interpretation Comments WHITE BLOOD CELL (test code = WBC) 8.8 K/mm3 3.5-11.0 N RED BLOOD CELL (test code = RBC) 3.65 M/mm3 4.70-6.10 L HEMOGLOBIN (test code = HGB) 10.6 G/DL 12.3-15.9 L HEMATOCRIT (test code = HCT) 37.6 % 35.8-46.7 N MEAN CELL VOLUME (test code = MCV) 103.0 Fl 86.3-98.9 H MEAN CELL HGB (test code = MCH) 29.0 pg 28.9-34.4 N MEAN CELL HGB CONCETRATION (test code = MCHC) 28.2 G/DL 32.1-34. 5 L RED CELL DISTRIBUTION WIDTH (test code = RDW) 15.6 SD 11.5-14. 5 H PLATELET COUNT (test code = PLT) 465.0 K/mm3 150-450 H MEAN PLATELET VOLUME (test code = MPV) 9.60 fL 7.0-9.6 N MANUAL DIFF REQUIRED (test code = MDIFF) YES DIFF/SCN CRITERIA WBC [id number] 23:36:00* Test Item Value Reference Range Interpretation Comments SEGMENTED NEUTROPHILS (test code = SEG) % 40-75 LYMPHOCYTE (test code = LYMPH) % 12.6-43.5 CBC W/AUTO [id number] 23:24:00* Test Item Value Reference Range Interpretation Comments WHITE BLOOD CELL (test code = WBC) 8.8 K/mm3 3.5-11.0 N RED BLOOD CELL (test code = RBC) 3.65 M/mm3 4.70-6.10 L HEMOGLOBIN (test code = HGB) 10.6 G/DL 12.3-15.9 L HEMATOCRIT (test code = HCT) 37.6 % 35.8-46.7 N MEAN CELL VOLUME (test code = MCV) 103.0 Fl 86.3-98.9 H MEAN CELL HGB (test code = MCH) 29.0 pg 28.9-34.4 N MEAN CELL HGB CONCETRATION (test code = MCHC) 28.2 G/DL 32.1-34. 5 L RED CELL DISTRIBUTION WIDTH (test code = RDW) 15.6 SD 11.5-14. 5 H PLATELET COUNT (test code = PLT) 465.0 K/mm3 150-450 H MEAN PLATELET VOLUME (test code = MPV) 9.60 fL 7.0-9.6 N NEUTROPHIL % (test code = NT%) % 40-76 N LYMPHOCYTE % (test code = LY%) % 20.5-51.1 N MONOCYTE % (test code = MO%) % 1.7-9.3 H EOSINOPHIL % (test code = EO%) % 0.0-6.0 N BASOPHIL % (test code = BA%) % 0.0-2.0 N NEUTROPHIL # (test code = NT#) K/mm3 1.8-7.6 N LYMPHOCYTE # (test code = LY#) K/mm3 0.6-3.0 N MONOCYTE # (test code = MO#) K/mm3 0.2-1.5 N EOSINOPHIL # (test code = EO#) K/mm3 0.0-0.4 N BASOPHIL # (test code = BA#) K/mm3 0.0-0.2 N MANUAL DIFF REQUIRED (test code = MDIFF) DIFF/SCN CRITERIA CBC W/AUTO [id number] 23:24:00* Test Item Value Reference Range Interpretation Comments WHITE BLOOD CELL (test code = WBC) 8.8 K/mm3 3.5-11.0 N RED BLOOD CELL (test code = RBC) 3.65 M/mm3 4.70-6.10 L HEMOGLOBIN (test code = HGB) 10.6 G/DL 12.3-15.9 L HEMATOCRIT (test code = HCT) 37.6 % 35.8-46.7 N MEAN CELL VOLUME (test code = MCV) 103.0 Fl 86.3-98.9 H MEAN CELL HGB (test code = MCH) 29.0 pg 28.9-34.4 N MEAN CELL HGB CONCETRATION (test code = MCHC) 28.2 G/DL 32.1-34. 5 L RED CELL DISTRIBUTION WIDTH (test code = RDW) 15.6 SD 11.5-14. 5 H PLATELET COUNT (test code = PLT) 465.0 K/mm3 150-450 H MEAN PLATELET VOLUME (test code = MPV) 9.60 fL 7.0-9.6 N NEUTROPHIL % (test code = NT%) % 40-76 N LYMPHOCYTE % (test code = LY%) % 20.5-51.1 N MONOCYTE % (test code = MO%) % 1.7-9.3 H EOSINOPHIL % (test code = EO%) % 0.0-6.0 N BASOPHIL % (test code = BA%) % 0.0-2.0 N NEUTROPHIL # (test code = NT#) K/mm3 1.8-7.6 N LYMPHOCYTE # (test code = LY#) K/mm3 0.6-3.0 N MONOCYTE # (test code = MO#) K/mm3 0.2-1.5 N EOSINOPHIL # (test code = EO#) K/mm3 0.0-0.4 N BASOPHIL # (test code = BA#) K/mm3 0.0-0.2 N MANUAL DIFF REQUIRED (test code = MDIFF) DIFF/SCN CRITERIA BASIC METABOLIC [id number] 23:10:00* Test Item Value Reference Range Interpretation Comments SODIUM (test code = NA) 144 mmol/L 134-147 N POTASSIUM (test code = K) 3.9 mmol/L 3.4-5.0 N CHLORIDE (test code = CL) 110 mmol/L 100-108 H CARBON DIOXIDE (test code = CO2) 24 mmol/L 21-32 N ANION GAP (test code = GAP) 10.0 GAP calc 4.0-15.0 N GLUCOSE (test code = GLU) 152 MG/DL 70-110 H BLOOD UREA NITROGEN (test code = BUN) 32 MG/DL 7-18 H GLOMERULAR FILTRATION RATE (test code = GFR) 56 estGFR >60 L CREATININE (test code = CREAT) 1.6 MG/DL 0.8-1.3 H CALCIUM (test code = CA) 8.6 MG/DL 8.5-10.1 N [id number] 23:10:00* Test Item Value Reference Range Interpretation Comments PHOSPHOROUS (test code = PHOS) 4.4 MG/DL 2.5-4.9 N [id number] 23:10:00* Test Item Value Reference Range Interpretation Comments MAGNESIUM (test code = MAG) 2.3 MG/DL 1.8-2.4 N BASIC METABOLIC [id number] 23:07:00* Test Item Value Reference Range Interpretation Comments SODIUM (test code = NA) 144 mmol/L 134-147 N POTASSIUM (test code = K) 3.9 mmol/L 3.4-5.0 N CHLORIDE (test code = CL) 110 mmol/L 100-108 H CARBON DIOXIDE (test code = CO2) 24 mmol/L 21-32 N ANION GAP (test code = GAP) 10.0 GAP calc 4.0-15.0 N GLUCOSE (test code = GLU) 152 MG/DL 70-110 H BLOOD UREA NITROGEN (test code = BUN) 32 MG/DL 7-18 H GLOMERULAR FILTRATION RATE (test code = GFR) estGFR >60 CREATININE (test code = CREAT) MG/DL 0.8-1.3 CALCIUM (test code = CA) 8.6 MG/DL 8.5-10.1 N [id number] 23:07:00* Test Item Value Reference Range Interpretation Comments PHOSPHOROUS (test code = PHOS) MG/DL 2.5-4.9 [id number] 23:07:00* Test Item Value Reference Range Interpretation Comments MAGNESIUM (test code = MAG) 2.3 MG/DL 1.8-2.4 N - XR CHEST 1 [id number] 22:09:00 [facility] [place] [facility] 1955 Age/S: 64 / M [address] [address] [place] Unit #: [id number] Loc: [place] [address] Phys: Sergio Alford MANAGER MANUFACTURING Acct: [id number] Dis Date: Status: ADM IN PHONE #: [phone] Exam Date: 07/24/20192155 FAX #: Reason: POSS ASPIRATION EXAMS: CPT: [id number] XR CHEST 1 V 37966 Fluoro Time: DAP (Gy m2): Air Kerma (mGy): Examination: One view chest x-ray Location code: H60 Comparison: 07/12/2019 Discussion: Clinical history is remarkable for aspiration. Heart is normal in size. No consolidating infiltrates are identified. However ill-defined opacities/infiltrate is identified in the left lower lobe possibly an evolving pneumonia. No effusions are noted. Impression: 1. Findings suspicious for early/evolving left lower lobe infiltrate/pneumonia. at 2209 Reported and signed by: Marquis Owusu M.D. CC: Sami Gomez MD; Sergio Alford MANAGER MANUFACTURING PAGE 1 Signed Report Name: [facility] [place] [facility] 1955 Age/S: 64 / M [address] [address] [place] [address] [place] Unit #: [id number] Loc: [place] [address] Phys: Sergio Alford MANAGER MANUFACTURING Acct: [id number] Dis Date: Status: ADM IN PHONE #: [phone] Exam Date: 07/24/20192155 FAX #: Reason: POSS ASPIRATION EXAMS: CPT: [id number] XR CHEST 1 V 43056 Fluoro Time: DAP (Gy m2): Air Kerma (mGy): <Continued> Technologist: Dayna Norman RT(R)(CT) Trnscb Date/Time: 07/24/2019 (2208) [id number] Orig Print D/T: S: 07/24/2019 (2211) PAGE 2 Signed Report CBC W/AUTO [id number] 07:07:00* Test Item Value Reference Range Interpretation Comments WHITE BLOOD CELL (test code = WBC) 5.5 K/mm3 3.5-11.0 N RED BLOOD CELL (test code = RBC) 3.17 M/mm3 4.70-6.10 L HEMOGLOBIN (test code = HGB) 9.1 G/DL 12.3-15.9 L HEMATOCRIT (test code = HCT) 32.0 % 35.8-46.7 L MEAN CELL VOLUME (test code = MCV) 100.9 Fl 86.3-98.9 H MEAN CELL HGB (test code = MCH) 28.7 pg 28.9-34.4 L MEAN CELL HGB CONCETRATION (test code = MCHC) 28.4 G/DL 32.1-34. 5 L RED CELL DISTRIBUTION WIDTH (test code = RDW) 15.3 SD 11.5-14. 5 H PLATELET COUNT (test code = PLT) 315.0 K/mm3 150-450 N MEAN PLATELET VOLUME (test code = MPV) 8.80 fL 7.0-9.6 N NEUTROPHIL % (test code = NT%) 55.0 % 40-76 N LYMPHOCYTE % (test code = LY%) 28.6 % 20.5-51.1 N MONOCYTE % (test code = MO%) 13.1 % 1.7-9.3 H EOSINOPHIL % (test code = EO%) 3.1 % 0.0-6.0 N BASOPHIL % (test code = BA%) 0.2 % 0.0-2.0 N NEUTROPHIL # (test code = NT#) 3.01 K/mm3 1.8-7.6 N LYMPHOCYTE # (test code = LY#) 1.6 K/mm3 0.6-3.0 N MONOCYTE # (test code = MO#) 0.7 K/mm3 0.2-1.5 N EOSINOPHIL # (test code = EO#) 0.2 K/mm3 0.0-0.4 N BASOPHIL # (test code = BA#) 0.0 K/mm3 0.0-0.2 N MANUAL DIFF REQUIRED (test code = MDIFF) NO DIFF/SCN CRITERIA SLIDE REVIEW CONSISTANT WITH AUTO DIFFERENTIAL. RBC [id number] 07:07:00* Test Item Value Reference Range Interpretation Comments ANISOCYTOSIS (test code = ANISO) TRACE NONE PLATELET ESTIMATE (test code = PLTEST) ADEQUATE THOUSAND ADEQUATE PLATELET MORPHOLOGY (test code = PLTMORPH) NORMAL CBC W/AUTO [id number] 07:06:00* Test Item Value Reference Range Interpretation Comments WHITE BLOOD CELL (test code = WBC) 5.5 K/mm3 3.5-11.0 N RED BLOOD CELL (test code = RBC) 3.17 M/mm3 4.70-6.10 L HEMOGLOBIN (test code = HGB) 9.1 G/DL 12.3-15.9 L HEMATOCRIT (test code = HCT) 32.0 % 35.8-46.7 L MEAN CELL VOLUME (test code = MCV) 100.9 Fl 86.3-98.9 H MEAN CELL HGB (test code = MCH) 28.7 pg 28.9-34.4 L MEAN CELL HGB CONCETRATION (test code = MCHC) 28.4 G/DL 32.1-34. 5 L RED CELL DISTRIBUTION WIDTH (test code = RDW) 15.3 SD 11.5-14. 5 H PLATELET COUNT (test code = PLT) 315.0 K/mm3 150-450 N MEAN PLATELET VOLUME (test code = MPV) 8.80 fL 7.0-9.6 N NEUTROPHIL % (test code = NT%) 55.0 % 40-76 N LYMPHOCYTE % (test code = LY%) 28.6 % 20.5-51.1 N MONOCYTE % (test code = MO%) 13.1 % 1.7-9.3 H EOSINOPHIL % (test code = EO%) 3.1 % 0.0-6.0 N BASOPHIL % (test code = BA%) 0.2 % 0.0-2.0 N NEUTROPHIL # (test code = NT#) 3.01 K/mm3 1.8-7.6 N LYMPHOCYTE # (test code = LY#) 1.6 K/mm3 0.6-3.0 N MONOCYTE # (test code = MO#) 0.7 K/mm3 0.2-1.5 N EOSINOPHIL # (test code = EO#) 0.2 K/mm3 0.0-0.4 N BASOPHIL # (test code = BA#) 0.0 K/mm3 0.0-0.2 N MANUAL DIFF REQUIRED (test code = MDIFF) NO DIFF/SCN CRITERIA SLIDE REVIEW CONSISTANT WITH AUTO DIFFERENTIAL. CBC W/AUTO [id number] 07:06:00* Test Item Value Reference Range Interpretation Comments WHITE BLOOD CELL (test code = WBC) 5.5 K/mm3 3.5-11.0 N RED BLOOD CELL (test code = RBC) 3.17 M/mm3 4.70-6.10 L HEMOGLOBIN (test code = HGB) 9.1 G/DL 12.3-15.9 L HEMATOCRIT (test code = HCT) 32.0 % 35.8-46.7 L MEAN CELL VOLUME (test code = MCV) 100.9 Fl 86.3-98.9 H MEAN CELL HGB (test code = MCH) 28.7 pg 28.9-34.4 L MEAN CELL HGB CONCETRATION (test code = MCHC) 28.4 G/DL 32.1-34. 5 L RED CELL DISTRIBUTION WIDTH (test code = RDW) 15.3 SD 11.5-14. 5 H PLATELET COUNT (test code = PLT) 315.0 K/mm3 150-450 N MEAN PLATELET VOLUME (test code = MPV) 8.80 fL 7.0-9.6 N NEUTROPHIL % (test code = NT%) 55.0 % 40-76 N LYMPHOCYTE % (test code = LY%) 28.6 % 20.5-51.1 N MONOCYTE % (test code = MO%) 13.1 % 1.7-9.3 H EOSINOPHIL % (test code = EO%) 3.1 % 0.0-6.0 N BASOPHIL % (test code = BA%) 0.2 % 0.0-2.0 N NEUTROPHIL # (test code = NT#) 3.01 K/mm3 1.8-7.6 N LYMPHOCYTE # (test code = LY#) 1.6 K/mm3 0.6-3.0 N MONOCYTE # (test code = MO#) 0.7 K/mm3 0.2-1.5 N EOSINOPHIL # (test code = EO#) 0.2 K/mm3 0.0-0.4 N BASOPHIL # (test code = BA#) 0.0 K/mm3 0.0-0.2 N MANUAL DIFF REQUIRED (test code = MDIFF) NO DIFF/SCN CRITERIA SLIDE REVIEW CONSISTANT WITH AUTO DIFFERENTIAL. BASIC METABOLIC [id number] 06:49:00* Test Item Value Reference Range Interpretation Comments SODIUM (test code = NA) 142 mmol/L 134-147 N POTASSIUM (test code = K) 3.9 mmol/L 3.4-5.0 N CHLORIDE (test code = CL) 108 mmol/L 100-108 N CARBON DIOXIDE (test code = CO2) 27 mmol/L 21-32 N ANION GAP (test code = GAP) 7.0 GAP calc 4.0-15.0 N GLUCOSE (test code = GLU) 110 MG/DL 70-110 N BLOOD UREA NITROGEN (test code = BUN) 35 MG/DL 7-18 H GLOMERULAR FILTRATION RATE (test code = GFR) 44 estGFR >60 L CREATININE (test code = CREAT) 2.0 MG/DL 0.8-1.3 H CALCIUM (test code = CA) 8.5 MG/DL 8.5-10.1 N CBC W/AUTO [id number] 06:26:00* Test Item Value Reference Range Interpretation Comments WHITE BLOOD CELL (test code = WBC) 5.5 K/mm3 3.5-11.0 N RED BLOOD CELL (test code = RBC) 3.17 M/mm3 4.70-6.10 L HEMOGLOBIN (test code = HGB) 9.1 G/DL 12.3-15.9 L HEMATOCRIT (test code = HCT) 32.0 % 35.8-46.7 L MEAN CELL VOLUME (test code = MCV) 100.9 Fl 86.3-98.9 H MEAN CELL HGB (test code = MCH) 28.7 pg 28.9-34.4 L MEAN CELL HGB CONCETRATION (test code = MCHC) 28.4 G/DL 32.1-34. 5 L RED CELL DISTRIBUTION WIDTH (test code = RDW) 15.3 SD 11.5-14. 5 H PLATELET COUNT (test code = PLT) 315.0 K/mm3 150-450 N MEAN PLATELET VOLUME (test code = MPV) 8.80 fL 7.0-9.6 N NEUTROPHIL % (test code = NT%) % 40-76 N LYMPHOCYTE % (test code = LY%) % 20.5-51.1 N MONOCYTE % (test code = MO%) % 1.7-9.3 H EOSINOPHIL % (test code = EO%) % 0.0-6.0 N BASOPHIL % (test code = BA%) % 0.0-2.0 N NEUTROPHIL # (test code = NT#) K/mm3 1.8-7.6 N LYMPHOCYTE # (test code = LY#) K/mm3 0.6-3.0 N MONOCYTE # (test code = MO#) K/mm3 0.2-1.5 N EOSINOPHIL # (test code = EO#) K/mm3 0.0-0.4 N BASOPHIL # (test code = BA#) K/mm3 0.0-0.2 N MANUAL DIFF REQUIRED (test code = MDIFF) DIFF/SCN CRITERIA CBC W/AUTO [id number] 07:12:00* Test Item Value Reference Range Interpretation Comments WHITE BLOOD CELL (test code = WBC) 5.2 K/mm3 3.5-11.0 N RED BLOOD CELL (test code = RBC) 3.29 M/mm3 4.70-6.10 L HEMOGLOBIN (test code = HGB) 9.6 G/DL 12.3-15.9 L HEMATOCRIT (test code = HCT) 33.7 % 35.8-46.7 L MEAN CELL VOLUME (test code = MCV) 102.4 Fl 86.3-98.9 H MEAN CELL HGB (test code = MCH) 29.2 pg 28.9-34.4 N MEAN CELL HGB CONCETRATION (test code = MCHC) 28.5 G/DL 32.1-34. 5 L RED CELL DISTRIBUTION WIDTH (test code = RDW) 15.7 SD 11.5-14. 5 H PLATELET COUNT (test code = PLT) 351.0 K/mm3 150-450 N MEAN PLATELET VOLUME (test code = MPV) 8.70 fL 7.0-9.6 N NEUTROPHIL % (test code = NT%) 57.7 % 40-76 N LYMPHOCYTE % (test code = LY%) 28.2 % 20.5-51.1 N MONOCYTE % (test code = MO%) 11.6 % 1.7-9.3 H EOSINOPHIL % (test code = EO%) 2.3 % 0.0-6.0 N BASOPHIL % (test code = BA%) 0.2 % 0.0-2.0 N NEUTROPHIL # (test code = NT#) 3.02 K/mm3 1.8-7.6 N LYMPHOCYTE # (test code = LY#) 1.5 K/mm3 0.6-3.0 N MONOCYTE # (test code = MO#) 0.6 K/mm3 0.2-1.5 N EOSINOPHIL # (test code = EO#) 0.1 K/mm3 0.0-0.4 N BASOPHIL # (test code = BA#) 0.0 K/mm3 0.0-0.2 N MANUAL DIFF REQUIRED (test code = MDIFF) NO DIFF/SCN CRITERIA SLIDE REVIEW CONSISTANT WITH AUTO DIFFERENTIAL. RBC [id number] 07:12:00* Test Item Value Reference Range Interpretation Comments HYPOCHROMIA (test code = HYPO) 2+ ON SCAN NONE A MICROCYTOSIS (test code = MICR) 1+ ON SCAN NONE PLATELET ESTIMATE (test code = PLTEST) ADEQUATE THOUSAND ADEQUATE PLATELET MORPHOLOGY (test code = PLTMORPH) NORMAL CBC W/AUTO [id number] 07:11:00* Test Item Value Reference Range Interpretation Comments WHITE BLOOD CELL (test code = WBC) 5.2 K/mm3 3.5-11.0 N RED BLOOD CELL (test code = RBC) 3.29 M/mm3 4.70-6.10 L HEMOGLOBIN (test code = HGB) 9.6 G/DL 12.3-15.9 L HEMATOCRIT (test code = HCT) 33.7 % 35.8-46.7 L MEAN CELL VOLUME (test code = MCV) 102.4 Fl 86.3-98.9 H MEAN CELL HGB (test code = MCH) 29.2 pg 28.9-34.4 N MEAN CELL HGB CONCETRATION (test code = MCHC) 28.5 G/DL 32.1-34. 5 L RED CELL DISTRIBUTION WIDTH (test code = RDW) 15.7 SD 11.5-14. 5 H PLATELET COUNT (test code = PLT) 351.0 K/mm3 150-450 N MEAN PLATELET VOLUME (test code = MPV) 8.70 fL 7.0-9.6 N NEUTROPHIL % (test code = NT%) 57.7 % 40-76 N LYMPHOCYTE % (test code = LY%) 28.2 % 20.5-51.1 N MONOCYTE % (test code = MO%) 11.6 % 1.7-9.3 H EOSINOPHIL % (test code = EO%) 2.3 % 0.0-6.0 N BASOPHIL % (test code = BA%) 0.2 % 0.0-2.0 N NEUTROPHIL # (test code = NT#) 3.02 K/mm3 1.8-7.6 N LYMPHOCYTE # (test code = LY#) 1.5 K/mm3 0.6-3.0 N MONOCYTE # (test code = MO#) 0.6 K/mm3 0.2-1.5 N EOSINOPHIL # (test code = EO#) 0.1 K/mm3 0.0-0.4 N BASOPHIL # (test code = BA#) 0.0 K/mm3 0.0-0.2 N MANUAL DIFF REQUIRED (test code = MDIFF) NO DIFF/SCN CRITERIA SLIDE REVIEW CONSISTANT WITH AUTO DIFFERENTIAL. CBC W/AUTO [id number] 07:11:00* Test Item Value Reference Range Interpretation Comments WHITE BLOOD CELL (test code = WBC) 5.2 K/mm3 3.5-11.0 N RED BLOOD CELL (test code = RBC) 3.29 M/mm3 4.70-6.10 L HEMOGLOBIN (test code = HGB) 9.6 G/DL 12.3-15.9 L HEMATOCRIT (test code = HCT) 33.7 % 35.8-46.7 L MEAN CELL VOLUME (test code = MCV) 102.4 Fl 86.3-98.9 H MEAN CELL HGB (test code = MCH) 29.2 pg 28.9-34.4 N MEAN CELL HGB CONCETRATION (test code = MCHC) 28.5 G/DL 32.1-34. 5 L RED CELL DISTRIBUTION WIDTH (test code = RDW) 15.7 SD 11.5-14. 5 H PLATELET COUNT (test code = PLT) 351.0 K/mm3 150-450 N MEAN PLATELET VOLUME (test code = MPV) 8.70 fL 7.0-9.6 N NEUTROPHIL % (test code = NT%) 57.7 % 40-76 N LYMPHOCYTE % (test code = LY%) 28.2 % 20.5-51.1 N MONOCYTE % (test code = MO%) 11.6 % 1.7-9.3 H EOSINOPHIL % (test code = EO%) 2.3 % 0.0-6.0 N BASOPHIL % (test code = BA%) 0.2 % 0.0-2.0 N NEUTROPHIL # (test code = NT#) 3.02 K/mm3 1.8-7.6 N LYMPHOCYTE # (test code = LY#) 1.5 K/mm3 0.6-3.0 N MONOCYTE # (test code = MO#) 0.6 K/mm3 0.2-1.5 N EOSINOPHIL # (test code = EO#) 0.1 K/mm3 0.0-0.4 N BASOPHIL # (test code = BA#) 0.0 K/mm3 0.0-0.2 N MANUAL DIFF REQUIRED (test code = MDIFF) NO DIFF/SCN CRITERIA SLIDE REVIEW CONSISTANT WITH AUTO DIFFERENTIAL. BASIC METABOLIC [id number] 06:12:00* Test Item Value Reference Range Interpretation Comments SODIUM (test code = NA) 145 mmol/L 134-147 N POTASSIUM (test code = K) 3.6 mmol/L 3.4-5.0 N CHLORIDE (test code = CL) 113 mmol/L 100-108 H CARBON DIOXIDE (test code = CO2) 27 mmol/L 21-32 N ANION GAP (test code = GAP) 5.0 GAP calc 4.0-15.0 N GLUCOSE (test code = GLU) 124 MG/DL 70-110 H BLOOD UREA NITROGEN (test code = BUN) 33 MG/DL 7-18 H GLOMERULAR FILTRATION RATE (test code = GFR) 56 estGFR >60 L CREATININE (test code = CREAT) 1.6 MG/DL 0.8-1.3 H CALCIUM (test code = CA) 8.5 MG/DL 8.5-10.1 N CBC W/AUTO [id number] 05:59:00* Test Item Value Reference Range Interpretation Comments WHITE BLOOD CELL (test code = WBC) 5.2 K/mm3 3.5-11.0 N RED BLOOD CELL (test code = RBC) 3.29 M/mm3 4.70-6.10 L HEMOGLOBIN (test code = HGB) 9.6 G/DL 12.3-15.9 L HEMATOCRIT (test code = HCT) 33.7 % 35.8-46.7 L MEAN CELL VOLUME (test code = MCV) 102.4 Fl 86.3-98.9 H MEAN CELL HGB (test code = MCH) 29.2 pg 28.9-34.4 N MEAN CELL HGB CONCETRATION (test code = MCHC) 28.5 G/DL 32.1-34. 5 L RED CELL DISTRIBUTION WIDTH (test code = RDW) 15.7 SD 11.5-14. 5 H PLATELET COUNT (test code = PLT) 351.0 K/mm3 150-450 N MEAN PLATELET VOLUME (test code = MPV) 8.70 fL 7.0-9.6 N NEUTROPHIL % (test code = NT%) % 40-76 N LYMPHOCYTE % (test code = LY%) % 20.5-51.1 N MONOCYTE % (test code = MO%) % 1.7-9.3 H EOSINOPHIL % (test code = EO%) % 0.0-6.0 N BASOPHIL % (test code = BA%) % 0.0-2.0 N NEUTROPHIL # (test code = NT#) K/mm3 1.8-7.6 N LYMPHOCYTE # (test code = LY#) K/mm3 0.6-3.0 N MONOCYTE # (test code = MO#) K/mm3 0.2-1.5 N EOSINOPHIL # (test code = EO#) K/mm3 0.0-0.4 N BASOPHIL # (test code = BA#) K/mm3 0.0-0.2 N MANUAL DIFF REQUIRED (test code = MDIFF) DIFF/SCN CRITERIA - DUP VEIN [facility] [id number] 15:44:00 Name: MIRA WALKER [facility] [place] : 1955 Age/S: 64 / M [address] [address] [place] Unit #: [id number] Loc: [place] [address] Phys: Ruddy Sam MD Acct: [id number] Dis Date: Status: ADM IN PHONE #: [phone] Exam Date: 07/22/2019 152 FAX #: Reason: to r/o DVT EXAMS: CPT: [id number] [address] EXAMINATION: - DUP VEIN UNI RT. LOCATION: B2. HISTORY: to r/o DVT. COMPARISON: None. TECHNIQUE: Ultrasound imaging of the deep veins of the right lower extremity was performed, including color and spectral Doppler examination. FINDINGS: There is patent flow and normal compressibility of the right common femoral, femoral, popliteal, and posterior tibial veins. IMPRESSION: No sonographic evidence of acute right lower extremity DVT. at 1545 Reported and signed by: Jaquan Ivan M.D. CC: Sami Gomez MD; Ruddy Sam MD Technologist: Isabel Larose Trnscb Date/Time: 07/22/2019 (2410) [email or web address] PAGE 1 Signed Report Name: MIRA WALKER : 1955 Age/S: 64 / M [address] [place] [address] [place] Unit #: [id number] Loc: [place] [address] Phys: Ruddy Sam MD Acct: [id number] Dis Date: Status: ADM IN PHONE #: [phone] Exam Date: 07/22/20191520 FAX #: Reason: to r/o DVT EXAMS: CPT: [id number] [address] <Continued> Orig Print D/T: S: 07/22/2019 (8647) Probe: PAGE 2 Signed Report CBC W/AUTO DIFF 2019-07-22 06:08:00* Test Item Value Reference Range Interpretation Comments WHITE BLOOD CELL (test code = WBC) 5.0 K/mm3 3.5-11.0 N RED BLOOD CELL (test code = RBC) 3.15 M/mm3 4.70-6.10 L HEMOGLOBIN (test code = HGB) 9.1 G/DL 12.3-15.9 L HEMATOCRIT (test code = HCT) 33.0 % 35.8-46.7 L MEAN CELL VOLUME (test code = MCV) 104.8 Fl 86.3-98.9 H MEAN CELL HGB (test code = MCH) 28.9 pg 28.9-34.4 N MEAN CELL HGB CONCETRATION (test code = MCHC) 27.6 G/DL 32.1-34. 5 L RED CELL DISTRIBUTION WIDTH (test code = RDW) 16.1 SD 11.5-14. 5 H PLATELET COUNT (test code = PLT) 409.0 K/mm3 150-450 N MEAN PLATELET VOLUME (test code = MPV) 8.50 fL 7.0-9.6 N NEUTROPHIL % (test code = NT%) 60.9 % 40-76 N LYMPHOCYTE % (test code = LY%) 28.4 % 20.5-51.1 N MONOCYTE % (test code = MO%) 9.5 % 1.7-9.3 H EOSINOPHIL % (test code = EO%) 1.0 % 0.0-6.0 N BASOPHIL % (test code = BA%) 0.2 % 0.0-2.0 N NEUTROPHIL # (test code = NT#) 3.02 K/mm3 1.8-7.6 N LYMPHOCYTE # (test code = LY#) 1.4 K/mm3 0.6-3.0 N MONOCYTE # (test code = MO#) 0.5 K/mm3 0.2-1.5 N EOSINOPHIL # (test code = EO#) 0.1 K/mm3 0.0-0.4 N BASOPHIL # (test code = BA#) 0.0 K/mm3 0.0-0.2 N MANUAL DIFF REQUIRED (test code = MDIFF) NO DIFF/SCN CRITERIA SLIDE REVIEW CONSISTANT WITH AUTO DIFFERENTIAL. RBC [id number] 06:08:00* Test Item Value Reference Range Interpretation Comments HYPOCHROMIA (test code = HYPO) 3+ ON SCAN NONE A MACROCYTOSIS (test code = MACR) 1+ ON SCAN NONE TEAR DROP CELLS (test code = TEAR) TRACE ON SCAN NONE SCHISTOCYTES (test code = YESENIA) TRACE ON SCAN NONE PLATELET ESTIMATE (test code = PLTEST) SLIGHTLY INCREASED THOUSAND ADEQUATE PLATELET MORPHOLOGY (test code = PLTMORPH) NORMAL CBC W/AUTO [id number] 06:06:00* Test Item Value Reference Range Interpretation Comments WHITE BLOOD CELL (test code = WBC) 5.0 K/mm3 3.5-11.0 N RED BLOOD CELL (test code = RBC) 3.15 M/mm3 4.70-6.10 L HEMOGLOBIN (test code = HGB) 9.1 G/DL 12.3-15.9 L HEMATOCRIT (test code = HCT) 33.0 % 35.8-46.7 L MEAN CELL VOLUME (test code = MCV) 104.8 Fl 86.3-98.9 H MEAN CELL HGB (test code = MCH) 28.9 pg 28.9-34.4 N MEAN CELL HGB CONCETRATION (test code = MCHC) 27.6 G/DL 32.1-34. 5 L RED CELL DISTRIBUTION WIDTH (test code = RDW) 16.1 SD 11.5-14. 5 H PLATELET COUNT (test code = PLT) 409.0 K/mm3 150-450 N MEAN PLATELET VOLUME (test code = MPV) 8.50 fL 7.0-9.6 N NEUTROPHIL % (test code = NT%) 60.9 % 40-76 N LYMPHOCYTE % (test code = LY%) 28.4 % 20.5-51.1 N MONOCYTE % (test code = MO%) 9.5 % 1.7-9.3 H EOSINOPHIL % (test code = EO%) 1.0 % 0.0-6.0 N BASOPHIL % (test code = BA%) 0.2 % 0.0-2.0 N NEUTROPHIL # (test code = NT#) 3.02 K/mm3 1.8-7.6 N LYMPHOCYTE # (test code = LY#) 1.4 K/mm3 0.6-3.0 N MONOCYTE # (test code = MO#) 0.5 K/mm3 0.2-1.5 N EOSINOPHIL # (test code = EO#) 0.1 K/mm3 0.0-0.4 N BASOPHIL # (test code = BA#) 0.0 K/mm3 0.0-0.2 N MANUAL DIFF REQUIRED (test code = MDIFF) NO DIFF/SCN CRITERIA SLIDE REVIEW CONSISTANT WITH AUTO DIFFERENTIAL. CBC W/AUTO [id number] 06:06:00* Test Item Value Reference Range Interpretation Comments WHITE BLOOD CELL (test code = WBC) 5.0 K/mm3 3.5-11.0 N RED BLOOD CELL (test code = RBC) 3.15 M/mm3 4.70-6.10 L HEMOGLOBIN (test code = HGB) 9.1 G/DL 12.3-15.9 L HEMATOCRIT (test code = HCT) 33.0 % 35.8-46.7 L MEAN CELL VOLUME (test code = MCV) 104.8 Fl 86.3-98.9 H MEAN CELL HGB (test code = MCH) 28.9 pg 28.9-34.4 N MEAN CELL HGB CONCETRATION (test code = MCHC) 27.6 G/DL 32.1-34. 5 L RED CELL DISTRIBUTION WIDTH (test code = RDW) 16.1 SD 11.5-14. 5 H PLATELET COUNT (test code = PLT) 409.0 K/mm3 150-450 N MEAN PLATELET VOLUME (test code = MPV) 8.50 fL 7.0-9.6 N NEUTROPHIL % (test code = NT%) 60.9 % 40-76 N LYMPHOCYTE % (test code = LY%) 28.4 % 20.5-51.1 N MONOCYTE % (test code = MO%) 9.5 % 1.7-9.3 H EOSINOPHIL % (test code = EO%) 1.0 % 0.0-6.0 N BASOPHIL % (test code = BA%) 0.2 % 0.0-2.0 N NEUTROPHIL # (test code = NT#) 3.02 K/mm3 1.8-7.6 N LYMPHOCYTE # (test code = LY#) 1.4 K/mm3 0.6-3.0 N MONOCYTE # (test code = MO#) 0.5 K/mm3 0.2-1.5 N EOSINOPHIL # (test code = EO#) 0.1 K/mm3 0.0-0.4 N BASOPHIL # (test code = BA#) 0.0 K/mm3 0.0-0.2 N MANUAL DIFF REQUIRED (test code = MDIFF) NO DIFF/SCN CRITERIA SLIDE REVIEW CONSISTANT WITH AUTO DIFFERENTIAL. BASIC METABOLIC [id number] 04:06:00* Test Item Value Reference Range Interpretation Comments SODIUM (test code = NA) 149 mmol/L 134-147 H POTASSIUM (test code = K) 3.5 mmol/L 3.4-5.0 N CHLORIDE (test code = CL) 116 mmol/L 100-108 H CARBON DIOXIDE (test code = CO2) 25 mmol/L 21-32 N ANION GAP (test code = GAP) 8.0 GAP calc 4.0-15.0 N GLUCOSE (test code = GLU) 110 MG/DL 70-110 N BLOOD UREA NITROGEN (test code = BUN) 30 MG/DL 7-18 H GLOMERULAR FILTRATION RATE (test code = GFR) >=60 max estimate estG FR >60 CREATININE (test code = CREAT) 1.5 MG/DL 0.8-1.3 H CALCIUM (test code = CA) 8.2 MG/DL 8.5-10.1 L CBC W/AUTO [id number] 04:04:00* Test Item Value Reference Range Interpretation Comments WHITE BLOOD CELL (test code = WBC) 5.0 K/mm3 3.5-11.0 N RED BLOOD CELL (test code = RBC) 3.15 M/mm3 4.70-6.10 L HEMOGLOBIN (test code = HGB) 9.1 G/DL 12.3-15.9 L HEMATOCRIT (test code = HCT) 33.0 % 35.8-46.7 L MEAN CELL VOLUME (test code = MCV) 104.8 Fl 86.3-98.9 H MEAN CELL HGB (test code = MCH) 28.9 pg 28.9-34.4 N MEAN CELL HGB CONCETRATION (test code = MCHC) 27.6 G/DL 32.1-34. 5 L RED CELL DISTRIBUTION WIDTH (test code = RDW) 16.1 SD 11.5-14. 5 H PLATELET COUNT (test code = PLT) 409.0 K/mm3 150-450 N MEAN PLATELET VOLUME (test code = MPV) 8.50 fL 7.0-9.6 N NEUTROPHIL % (test code = NT%) % 40-76 N LYMPHOCYTE % (test code = LY%) % 20.5-51.1 N MONOCYTE % (test code = MO%) % 1.7-9.3 H EOSINOPHIL % (test code = EO%) % 0.0-6.0 N BASOPHIL % (test code = BA%) % 0.0-2.0 N NEUTROPHIL # (test code = NT#) K/mm3 1.8-7.6 N LYMPHOCYTE # (test code = LY#) K/mm3 0.6-3.0 N MONOCYTE # (test code = MO#) K/mm3 0.2-1.5 N EOSINOPHIL # (test code = EO#) K/mm3 0.0-0.4 N BASOPHIL # (test code = BA#) K/mm3 0.0-0.2 N MANUAL DIFF REQUIRED (test code = MDIFF) DIFF/SCN CRITERIA - XR ABDOMEN 1 [id number] 03:34:00 Name: MIRA WALKER [place] : 1955 Age/S: 64 / M [id number] [address] [facility] Unit #: [id number] Loc: [place] [address] Phys: Ruddy Sam MD Acct: [id number] Dis Date: Status: ADM IN PHONE #: [phone] Exam Date: 07/22/2019 0230 FAX #: Reason: ABDOMINAL DISTENSION EXAMS: CPT: [id number] XR ABDOMEN 1 V 80440 Fluoro Time: DAP (Gy m2): Air Kerma (mGy): AFTER HOURS SERVICE ON: 07/22/2019 3:32 AM Abdomen, 1 Supine View Location Code M12 History: ABDOMINAL DISTENSION Findings: There is a distended stomach containing mottled contents. Large amount of stool seen distally in the colon. There is paucity of gas in the small bowel limiting its evaluation. Impression: Distended stomach containing mottled gastric contents. Large amount of retained colonic stool. at 0334 Reported and signed by: Mary Yang M.D. CC: Sami Gomez MD; Ruddy Sam MD; Itzel ESPINAL PAGE 1 Signed Report Name: [facility] [place] [facility] 1955 Age/S: 64 / M [address] [address] [facility] [place] [facility] [place] Unit #: [id number] Loc: [place] [address] Phys: Ruddy Sam MD Acct: [id number] Dis Date: Status: ADM IN PHONE #: [phone] Exam Date: 07/22/2019 0230 FAX #: Reason: ABDOMINAL DISTENSION EXAMS: CPT: [id number] XR ABDOMEN 1 V 57032 Fluoro Time: DAP (Gy m2): Air Kerma (mGy): <Continued> Technologist: RT Rosaura(R) Trnscb Tristan e/Time: 07/22/2019 (0334) [id number] Orig Print D/T: S: (0336) PAGE 2 Signed Report CBC W/AUTO [id number] 07:18:00* Test Item Value Reference Range Interpretation Comments WHITE BLOOD CELL (test code = WBC) 5.1 K/mm3 3.5-11.0 N RED BLOOD CELL (test code = RBC) 3.28 M/mm3 4.70-6.10 L HEMOGLOBIN (test code = HGB) 9.6 G/DL 12.3-15.9 L HEMATOCRIT (test code = HCT) 33.5 % 35.8-46.7 L MEAN CELL VOLUME (test code = MCV) 102.1 Fl 86.3-98.9 H MEAN CELL HGB (test code = MCH) 29.3 pg 28.9-34.4 N MEAN CELL HGB CONCETRATION (test code = MCHC) 28.7 G/DL 32.1-34. 5 L RED CELL DISTRIBUTION WIDTH (test code = RDW) 16.5 SD 11.5-14. 5 H PLATELET COUNT (test code = PLT) 466.0 K/mm3 150-450 H MEAN PLATELET VOLUME (test code = MPV) 8.90 fL 7.0-9.6 N NEUTROPHIL % (test code = NT%) 63.3 % 40-76 LYMPHOCYTE % (test code = LY%) 27.6 % 20.5-51.1 N MONOCYTE % (test code = MO%) 8.3 % 1.7-9.3 N EOSINOPHIL % (test code = EO%) 0.6 % 0.0-6.0 N BASOPHIL % (test code = BA%) 0.2 % 0.0-2.0 N NEUTROPHIL # (test code = NT#) 3.22 K/mm3 1.8-7.6 N LYMPHOCYTE # (test code = LY#) 1.4 K/mm3 0.6-3.0 N MONOCYTE # (test code = MO#) 0.4 K/mm3 0.2-1.5 N EOSINOPHIL # (test code = EO#) 0.0 K/mm3 0.0-0.4 N BASOPHIL # (test code = BA#) 0.0 K/mm3 0.0-0.2 N MANUAL DIFF REQUIRED (test code = MDIFF) NO DIFF/SCN CRITERIA SLIDE REVIEW CONSISTANT WITH AUTO DIFFERENTIAL. RBC [id number] 07:18:00* Test Item Value Reference Range Interpretation Comments HYPOCHROMIA (test code = HYPO) 2+ ON SCAN NONE A MACROCYTOSIS (test code = MACR) 1+ ON SCAN NONE PLATELET ESTIMATE (test code = PLTEST) SLIGHTLY INCREASED THOUSAND ADEQUATE PLATELET MORPHOLOGY (test code = PLTMORPH) NORMAL CBC W/AUTO [id number] 07:17:00* Test Item Value Reference Range Interpretation Comments WHITE BLOOD CELL (test code = WBC) 5.1 K/mm3 3.5-11.0 N RED BLOOD CELL (test code = RBC) 3.28 M/mm3 4.70-6.10 L HEMOGLOBIN (test code = HGB) 9.6 G/DL 12.3-15.9 L HEMATOCRIT (test code = HCT) 33.5 % 35.8-46.7 L MEAN CELL VOLUME (test code = MCV) 102.1 Fl 86.3-98.9 H MEAN CELL HGB (test code = MCH) 29.3 pg 28.9-34.4 N MEAN CELL HGB CONCETRATION (test code = MCHC) 28.7 G/DL 32.1-34. 5 L RED CELL DISTRIBUTION WIDTH (test code = RDW) 16.5 SD 11.5-14. 5 H PLATELET COUNT (test code = PLT) 466.0 K/mm3 150-450 H MEAN PLATELET VOLUME (test code = MPV) 8.90 fL 7.0-9.6 N NEUTROPHIL % (test code = NT%) 63.3 % 40-76 LYMPHOCYTE % (test code = LY%) 27.6 % 20.5-51.1 N MONOCYTE % (test code = MO%) 8.3 % 1.7-9.3 N EOSINOPHIL % (test code = EO%) 0.6 % 0.0-6.0 N BASOPHIL % (test code = BA%) 0.2 % 0.0-2.0 N NEUTROPHIL # (test code = NT#) 3.22 K/mm3 1.8-7.6 N LYMPHOCYTE # (test code = LY#) 1.4 K/mm3 0.6-3.0 N MONOCYTE # (test code = MO#) 0.4 K/mm3 0.2-1.5 N EOSINOPHIL # (test code = EO#) 0.0 K/mm3 0.0-0.4 N BASOPHIL # (test code = BA#) 0.0 K/mm3 0.0-0.2 N MANUAL DIFF REQUIRED (test code = MDIFF) NO DIFF/SCN CRITERIA SLIDE REVIEW CONSISTANT WITH AUTO DIFFERENTIAL. CBC W/AUTO [id number] 07:17:00* Test Item Value Reference Range Interpretation Comments WHITE BLOOD CELL (test code = WBC) 5.1 K/mm3 3.5-11.0 N RED BLOOD CELL (test code = RBC) 3.28 M/mm3 4.70-6.10 L HEMOGLOBIN (test code = HGB) 9.6 G/DL 12.3-15.9 L HEMATOCRIT (test code = HCT) 33.5 % 35.8-46.7 L MEAN CELL VOLUME (test code = MCV) 102.1 Fl 86.3-98.9 H MEAN CELL HGB (test code = MCH) 29.3 pg 28.9-34.4 N MEAN CELL HGB CONCETRATION (test code = MCHC) 28.7 G/DL 32.1-34. 5 L RED CELL DISTRIBUTION WIDTH (test code = RDW) 16.5 SD 11.5-14. 5 H PLATELET COUNT (test code = PLT) 466.0 K/mm3 150-450 H MEAN PLATELET VOLUME (test code = MPV) 8.90 fL 7.0-9.6 N NEUTROPHIL % (test code = NT%) 63.3 % 40-76 LYMPHOCYTE % (test code = LY%) 27.6 % 20.5-51.1 N MONOCYTE % (test code = MO%) 8.3 % 1.7-9.3 N EOSINOPHIL % (test code = EO%) 0.6 % 0.0-6.0 N BASOPHIL % (test code = BA%) 0.2 % 0.0-2.0 N NEUTROPHIL # (test code = NT#) 3.22 K/mm3 1.8-7.6 N LYMPHOCYTE # (test code = LY#) 1.4 K/mm3 0.6-3.0 N MONOCYTE # (test code = MO#) 0.4 K/mm3 0.2-1.5 N EOSINOPHIL # (test code = EO#) 0.0 K/mm3 0.0-0.4 N BASOPHIL # (test code = BA#) 0.0 K/mm3 0.0-0.2 N MANUAL DIFF REQUIRED (test code = MDIFF) NO DIFF/SCN CRITERIA SLIDE REVIEW CONSISTANT WITH AUTO DIFFERENTIAL. BASIC METABOLIC [id number] 06:23:00* Test Item Value Reference Range Interpretation Comments SODIUM (test code = NA) 150 mmol/L 134-147 H POTASSIUM (test code = K) 3.4 mmol/L 3.4-5.0 N CHLORIDE (test code = CL) 118 mmol/L 100-108 H CARBON DIOXIDE (test code = CO2) 24 mmol/L 21-32 N ANION GAP (test code = GAP) 8.0 GAP calc 4.0-15.0 N GLUCOSE (test code = GLU) 111 MG/DL 70-110 H BLOOD UREA NITROGEN (test code = BUN) 26 MG/DL 7-18 H GLOMERULAR FILTRATION RATE (test code = GFR) >=60 max estimate estG FR >60 CREATININE (test code = CREAT) 0.9 MG/DL 0.8-1.3 N CALCIUM (test code = CA) 8.5 MG/DL 8.5-10.1 N CBC W/AUTO [id number] 06:04:00* Test Item Value Reference Range Interpretation Comments WHITE BLOOD CELL (test code = WBC) 5.1 K/mm3 3.5-11.0 N RED BLOOD CELL (test code = RBC) 3.28 M/mm3 4.70-6.10 L HEMOGLOBIN (test code = HGB) 9.6 G/DL 12.3-15.9 L HEMATOCRIT (test code = HCT) 33.5 % 35.8-46.7 L MEAN CELL VOLUME (test code = MCV) 102.1 Fl 86.3-98.9 H MEAN CELL HGB (test code = MCH) 29.3 pg 28.9-34.4 N MEAN CELL HGB CONCETRATION (test code = MCHC) 28.7 G/DL 32.1-34. 5 L RED CELL DISTRIBUTION WIDTH (test code = RDW) 16.5 SD 11.5-14. 5 H PLATELET COUNT (test code = PLT) 466.0 K/mm3 150-450 H MEAN PLATELET VOLUME (test code = MPV) 8.90 fL 7.0-9.6 N NEUTROPHIL % (test code = NT%) % 40-76 LYMPHOCYTE % (test code = LY%) % 20.5-51.1 N MONOCYTE % (test code = MO%) % 1.7-9.3 N EOSINOPHIL % (test code = EO%) % 0.0-6.0 N BASOPHIL % (test code = BA%) % 0.0-2.0 N NEUTROPHIL # (test code = NT#) K/mm3 1.8-7.6 N LYMPHOCYTE # (test code = LY#) K/mm3 0.6-3.0 N MONOCYTE # (test code = MO#) K/mm3 0.2-1.5 N EOSINOPHIL # (test code = EO#) K/mm3 0.0-0.4 N BASOPHIL # (test code = BA#) K/mm3 0.0-0.2 N MANUAL DIFF REQUIRED (test code = MDIFF) DIFF/SCN CRITERIA CBC W/AUTO [id number] 13:32:00* Test Item Value Reference Range Interpretation Comments WHITE BLOOD CELL (test code = WBC) 5.7 K/mm3 3.5-11.0 N RED BLOOD CELL (test code = RBC) 3.14 M/mm3 4.70-6.10 L HEMOGLOBIN (test code = HGB) 9.3 G/DL 12.3-15.9 L HEMATOCRIT (test code = HCT) 32.1 % 35.8-46.7 L MEAN CELL VOLUME (test code = MCV) 102.2 Fl 86.3-98.9 H MEAN CELL HGB (test code = MCH) 29.6 pg 28.9-34.4 N MEAN CELL HGB CONCETRATION (test code = MCHC) 29.0 G/DL 32.1-34. 5 L RED CELL DISTRIBUTION WIDTH (test code = RDW) 16.7 SD 11.5-14. 5 H PLATELET COUNT (test code = PLT) 480.0 K/mm3 150-450 H MEAN PLATELET VOLUME (test code = MPV) 9.30 fL 7.0-9.6 N NEUTROPHIL % (test code = NT%) 71.6 % 40-76 LYMPHOCYTE % (test code = LY%) 19.4 % 20.5-51.1 L MONOCYTE % (test code = MO%) 7.9 % 1.7-9.3 N EOSINOPHIL % (test code = EO%) 0.9 % 0.0-6.0 N BASOPHIL % (test code = BA%) 0.2 % 0.0-2.0 N NEUTROPHIL # (test code = NT#) 4.10 K/mm3 1.8-7.6 N LYMPHOCYTE # (test code = LY#) 1.1 K/mm3 0.6-3.0 N MONOCYTE # (test code = MO#) 0.5 K/mm3 0.2-1.5 N EOSINOPHIL # (test code = EO#) 0.1 K/mm3 0.0-0.4 N BASOPHIL # (test code = BA#) 0.0 K/mm3 0.0-0.2 N MANUAL DIFF REQUIRED (test code = MDIFF) NO DIFF/SCN CRITERIA BASIC METABOLIC [id number] 06:06:00* Test Item Value Reference Range Interpretation Comments SODIUM (test code = NA) 146 mmol/L 134-147 N POTASSIUM (test code = K) 3.7 mmol/L 3.4-5.0 N CHLORIDE (test code = CL) 114 mmol/L 100-108 H CARBON DIOXIDE (test code = CO2) 23 mmol/L 21-32 N ANION GAP (test code = GAP) 9.0 GAP calc 4.0-15.0 N GLUCOSE (test code = GLU) 105 MG/DL 70-110 N BLOOD UREA NITROGEN (test code = BUN) 15 MG/DL 7-18 N GLOMERULAR FILTRATION RATE (test code = GFR) >=60 max estimate estG FR >60 CREATININE (test code = CREAT) 1.0 MG/DL 0.8-1.3 N CALCIUM (test code = CA) 8.4 MG/DL 8.5-10.1 L CBC W/AUTO [id number] 05:44:00* Test Item Value Reference Range Interpretation Comments WHITE BLOOD CELL (test code = WBC) 5.7 K/mm3 3.5-11.0 N RED BLOOD CELL (test code = RBC) 3.14 M/mm3 4.70-6.10 L HEMOGLOBIN (test code = HGB) 9.3 G/DL 12.3-15.9 L HEMATOCRIT (test code = HCT) 32.1 % 35.8-46.7 L MEAN CELL VOLUME (test code = MCV) 102.2 Fl 86.3-98.9 H MEAN CELL HGB (test code = MCH) 29.6 pg 28.9-34.4 N MEAN CELL HGB CONCETRATION (test code = MCHC) 29.0 G/DL 32.1-34. 5 L RED CELL DISTRIBUTION WIDTH (test code = RDW) 16.7 SD 11.5-14. 5 H PLATELET COUNT (test code = PLT) 480.0 K/mm3 150-450 H MEAN PLATELET VOLUME (test code = MPV) 9.30 fL 7.0-9.6 N NEUTROPHIL % (test code = NT%) % 40-76 LYMPHOCYTE % (test code = LY%) % 20.5-51.1 L MONOCYTE % (test code = MO%) % 1.7-9.3 N EOSINOPHIL % (test code = EO%) % 0.0-6.0 N BASOPHIL % (test code = BA%) % 0.0-2.0 N NEUTROPHIL # (test code = NT#) K/mm3 1.8-7.6 N LYMPHOCYTE # (test code = LY#) K/mm3 0.6-3.0 N MONOCYTE # (test code = MO#) K/mm3 0.2-1.5 N EOSINOPHIL # (test code = EO#) K/mm3 0.0-0.4 N BASOPHIL # (test code = BA#) K/mm3 0.0-0.2 N MANUAL DIFF REQUIRED (test code = MDIFF) DIFF/SCN CRITERIA CBC W/AUTO [id number] 06:06:00* Test Item Value Reference Range Interpretation Comments WHITE BLOOD CELL (test code = WBC) 7.3 K/mm3 3.5-11.0 N RED BLOOD CELL (test code = RBC) 3.14 M/mm3 4.70-6.10 L HEMOGLOBIN (test code = HGB) 9.6 G/DL 12.3-15.9 L HEMATOCRIT (test code = HCT) 32.1 % 35.8-46.7 L MEAN CELL VOLUME (test code = MCV) 102.2 Fl 86.3-98.9 H MEAN CELL HGB (test code = MCH) 30.6 pg 28.9-34.4 N MEAN CELL HGB CONCETRATION (test code = MCHC) 29.9 G/DL 32.1-34. 5 L RED CELL DISTRIBUTION WIDTH (test code = RDW) 17.0 SD 11.5-14. 5 H PLATELET COUNT (test code = PLT) 503.0 K/mm3 150-450 H MEAN PLATELET VOLUME (test code = MPV) 9.50 fL 7.0-9.6 N NEUTROPHIL % (test code = NT%) 82.5 % 40-76 H LYMPHOCYTE % (test code = LY%) 11.9 % 20.5-51.1 L MONOCYTE % (test code = MO%) 5.4 % 1.7-9.3 N EOSINOPHIL % (test code = EO%) 0.1 % 0.0-6.0 N BASOPHIL % (test code = BA%) 0.1 % 0.0-2.0 N NEUTROPHIL # (test code = NT#) 6.05 K/mm3 1.8-7.6 N LYMPHOCYTE # (test code = LY#) 0.9 K/mm3 0.6-3.0 N MONOCYTE # (test code = MO#) 0.4 K/mm3 0.2-1.5 N EOSINOPHIL # (test code = EO#) 0.0 K/mm3 0.0-0.4 N BASOPHIL # (test code = BA#) 0.0 K/mm3 0.0-0.2 N MANUAL DIFF REQUIRED (test code = MDIFF) NO DIFF/SCN CRITERIA BASIC METABOLIC [id number] 05:57:00* Test Item Value Reference Range Interpretation Comments SODIUM (test code = NA) 141 mmol/L 134-147 N POTASSIUM (test code = K) 4.0 mmol/L 3.4-5.0 N CHLORIDE (test code = CL) 111 mmol/L 100-108 H CARBON DIOXIDE (test code = CO2) 19 mmol/L 21-32 L ANION GAP (test code = GAP) 11.0 GAP calc 4.0-15.0 N GLUCOSE (test code = GLU) 109 MG/DL 70-110 N BLOOD UREA NITROGEN (test code = BUN) 16 MG/DL 7-18 N GLOMERULAR FILTRATION RATE (test code = GFR) >=60 max estimate estG FR >60 CREATININE (test code = CREAT) 0.8 MG/DL 0.8-1.3 N CALCIUM (test code = CA) 8.6 MG/DL 8.5-10.1 N T4 (THYROXINE)[id number] 15:05:00* Test Item Value Reference Range Interpretation Comments T4 (THYROXINE) (test code = T4) 9.50 mcG/DL 4.50-10.90 N THYROID STIMULATING [id number] 15:05:00* Test Item Value Reference Range Interpretation Comments THYROID STIMULATING HORMONE (test code = TSH) 2.490 mcIU/ML 0.340-4 .820 N BASIC METABOLIC [id number] 07:02:00* Test Item Value Reference Range Interpretation Comments SODIUM (test code = NA) 142 mmol/L 134-147 N POTASSIUM (test code = K) 4.1 mmol/L 3.4-5.0 N CHLORIDE (test code = CL) 112 mmol/L 100-108 H CARBON DIOXIDE (test code = CO2) 23 mmol/L 21-32 N ANION GAP (test code = GAP) 7.0 GAP calc 4.0-15.0 N GLUCOSE (test code = GLU) 84 MG/DL 70-110 N BLOOD UREA NITROGEN (test code = BUN) 16 MG/DL 7-18 N GLOMERULAR FILTRATION RATE (test code = GFR) >=60 max estimate estG FR >60 CREATININE (test code = CREAT) 0.7 MG/DL 0.8-1.3 L CALCIUM (test code = CA) 8.5 MG/DL 8.5-10.1 N BASIC METABOLIC [id number] 06:59:00* Test Item Value Reference Range Interpretation Comments SODIUM (test code = NA) 142 mmol/L 134-147 N POTASSIUM (test code = K) 4.1 mmol/L 3.4-5.0 N CHLORIDE (test code = CL) 112 mmol/L 100-108 H CARBON DIOXIDE (test code = CO2) 23 mmol/L 21-32 N ANION GAP (test code = GAP) 7.0 GAP calc 4.0-15.0 N GLUCOSE (test code = GLU) 84 MG/DL 70-110 N BLOOD UREA NITROGEN (test code = BUN) 16 MG/DL 7-18 N GLOMERULAR FILTRATION RATE (test code = GFR) estGFR >60 CREATININE (test code = CREAT) MG/DL 0.8-1.3 CALCIUM (test code = CA) 8.5 MG/DL 8.5-10.1 N - CTA CHEST FOR [id number] 05:03:00 Name: MIRA WALKER : 1955 Age/S: 64 / M [address] [address] [facility] [place] [facility] [place] Unit #: [id number] Loc: [place] [address] Phys: Sami Gomez MD Acct: [id number] Dis Date: Status: ADM IN PHONE #: [phone] Exam Date: 07/17/2019 1123 FAX #: Reason: RULE OUT PE EXAMS: CPT: [id number] [place] [address] EXAMINATION: - CTA CHEST FOR PE LOCATION: H61 CLINICAL HISTORY/INDICATION: Right intratrochanteric fracture. Evaluate for PE. COMPARISON: Chest x-ray 07/12/2019 TECHNIQUE: Axial CT images were obtained from the thoracic inlet to the adrenal glands before and after intravenous contrast administration, per PE protocol. Coronal and sagittal reformatted images were obtained from the axial data set. Maximum intensity projection reconstruction images were also performed on a separate workstation and submitted for interpretation. This examination was performed according to our departmental dose optimization program, which includes automated exposure control, adjustment of the mA and/or kV according to patient size, and/or use of iterative reconstruction technique. FINDINGS: LIMITATIONS:None. PULMONARY ARTERIES: There are no filling defects demonstrated in the pulmonary arteries. The pulmonary artery trunk is normal in size. LINES/TUBES/DEVICE: None. LUNGS AND AIRWAYS: Consolidation in the bilateral posterior lower lobe. Findings are compatible with pneumonia. Superimposed tree-in-bud nodules are also present within the bilateral inferior lower lobes. Fluid/debris in the left lower lobe bronchi. This raises the suspicion fo r aspiration pneumonia. Calcified granuloma in the right lower lobe. Mild paraseptal emphysema in the bilateral lung apices with bullae in the right lung apex. PLEURA: No pneumothorax or pleural effusion. THYROID GLAND: Normal. HEART AND MEDIASTINUM: Heart is normal in size without pericardial effusion. Conventional branching pattern of the aorta without aneurysm or dissection. Origins of great vessels are p atent.. Trachea and esophagus appear normal. PAGE 1 Signed Report (CONTINUED) Name: MIRA WALKER : 1955 Age/S: 64 / M [address] [address] [facility] [place] [facility] [place] Unit #: [id number] Loc: [place] [address] Phys: Sami Gomez MD Acct: [id number] Dis Date: Status: ADM IN PHONE #: [phone] Exam Date: 0436 FAX #: Reason: RULE OUT PE EXAMS: CPT: [id number] [place] [address] <Continued> ADENOPATHY: None. EXTERNAL SOFT TISSUE: No abnormalities. UPPER ABDOMEN: Limited views of the upper abdomen show no abnormality within the visualized liver, spleen, pancreas, or kidneys. The adrenal glands are normal. BONES: S-shaped curvature of the thoracic spine. Anterior wedge compression fracture of the L1 vertebral body with approximately 30% anterior vertebral height loss appears stable when compared to 07/12/2019 CT. IMPRESSION: 1. No evidence of pulmonary embolism. 2. Bilateral lower lobe consolidations compatible with pneumonia. Fluid/debris in the left lower lobe bronchi which raises the possibility of aspiration pneumonia. at 0503 Reported and signed by: Jose Carlos Lo M.D. CC: Sami Gomez MD Technologist:Dony Segal RT(R); Lloyd Menchaca, CTDI: DLP: Trnscb Date/Time: 07/17/2019 (0503) [id number].[email or web address] Orig Print D/T: S: 07/17/2019 (2576) PAGE 2 Signed Report [id number] 03:50:00* Test Item Value Reference Range Interpretation Comments D-DIMER (test code = DDIMER) 6169 ng/mLFEU 215-500 HH CBC W/AUTO [id number] 03:48:00* Test Item Value Reference Range Interpretation Comments WHITE BLOOD CELL (test code = WBC) 7.2 K/mm3 3.5-11.0 N RED BLOOD CELL (test code = RBC) 3.24 M/mm3 4.70-6.10 L HEMOGLOBIN (test code = HGB) 9.6 G/DL 12.3-15.9 L HEMATOCRIT (test code = HCT) 33.5 % 35.8-46.7 L MEAN CELL VOLUME (test code = MCV) 103.4 Fl 86.3-98.9 H MEAN CELL HGB (test code = MCH) 29.6 pg 28.9-34.4 N MEAN CELL HGB CONCETRATION (test code = MCHC) 28.7 G/DL 32.1-34. 5 L RED CELL DISTRIBUTION WIDTH (test code = RDW) 17.6 SD 11.5-14. 5 H PLATELET COUNT (test code = PLT) 368.0 K/mm3 150-450 N MEAN PLATELET VOLUME (test code = MPV) 10.00 fL 7.0-9.6 H NEUTROPHIL % (test code = NT%) 82.8 % 40-76 H LYMPHOCYTE % (test code = LY%) 10.1 % 20.5-51.1 L MONOCYTE % (test code = MO%) 6.4 % 1.7-9.3 N EOSINOPHIL % (test code = EO%) 0.6 % 0.0-6.0 N BASOPHIL % (test code = BA%) 0.1 % 0.0-2.0 N NEUTROPHIL # (test code = NT#) 5.97 K/mm3 1.8-7.6 N LYMPHOCYTE # (test code = LY#) 0.7 K/mm3 0.6-3.0 N MONOCYTE # (test code = MO#) 0.5 K/mm3 0.2-1.5 N EOSINOPHIL # (test code = EO#) 0.0 K/mm3 0.0-0.4 N BASOPHIL # (test code = BA#) 0.0 K/mm3 0.0-0.2 N MANUAL DIFF REQUIRED (test code = MDIFF) NO DIFF/SCN CRITERIA PLATELET COUNT REVIEWED AND VERIFIED. [id number] 03:08:00* Test Item Value Reference Range Interpretation Comments PHOSPHOROUS (test code = PHOS) 2.5 MG/DL 2.5-4.9 N [id number] 03:08:00* Test Item Value Reference Range Interpretation Comments MAGNESIUM (test code = MAG) 2.3 MG/DL 1.8-2.4 N BASIC METABOLIC [id number] 03:04:00* Test Item Value Reference Range Interpretation Comments SODIUM (test code = NA) 143 mmol/L 134-147 N POTASSIUM (test code = K) 4.2 mmol/L 3.4-5.0 N CHLORIDE (test code = CL) 113 mmol/L 100-108 H CARBON DIOXIDE (test code = CO2) 21 mmol/L 21-32 ANION GAP (test code = GAP) 9.0 GAP calc 4.0-15.0 N GLUCOSE (test code = GLU) 126 MG/DL 70-110 H BLOOD UREA NITROGEN (test code = BUN) 18 MG/DL 7-18 N GLOMERULAR FILTRATION RATE (test code = GFR) >=60 max estimate estG FR >60 CREATININE (test code = CREAT) 0.7 MG/DL 0.8-1.3 L CALCIUM (test code = CA) 8.5 MG/DL 8.5-10.1 N BASIC METABOLIC [id number] 06:34:00* Test Item Value Reference Range Interpretation Comments SODIUM (test code = NA) 140 mmol/L 134-147 N POTASSIUM (test code = K) 4.2 mmol/L 3.4-5.0 N CHLORIDE (test code = CL) 110 mmol/L 100-108 H CARBON DIOXIDE (test code = CO2) 26 mmol/L 21-32 N ANION GAP (test code = GAP) 4.0 GAP calc 4.0-15.0 N GLUCOSE (test code = GLU) 80 MG/DL 70-110 N BLOOD UREA NITROGEN (test code = BUN) 14 MG/DL 7-18 N GLOMERULAR FILTRATION RATE (test code = GFR) >=60 max estimate estG FR >60 CREATININE (test code = CREAT) 0.6 MG/DL 0.8-1.3 L CALCIUM (test code = CA) 8.2 MG/DL 8.5-10.1 L CBC W/AUTO [id number] 06:27:00* Test Item Value Reference Range Interpretation Comments WHITE BLOOD CELL (test code = WBC) 5.2 K/mm3 3.5-11.0 N RED BLOOD CELL (test code = RBC) 2.88 M/mm3 4.70-6.10 L HEMOGLOBIN (test code = HGB) 8.6 G/DL 12.3-15.9 L HEMATOCRIT (test code = HCT) 29.7 % 35.8-46.7 L MEAN CELL VOLUME (test code = MCV) 103.1 Fl 86.3-98.9 H MEAN CELL HGB (test code = MCH) 29.9 pg 28.9-34.4 N MEAN CELL HGB CONCETRATION (test code = MCHC) 29.0 G/DL 32.1-34. 5 L RED CELL DISTRIBUTION WIDTH (test code = RDW) 17.6 SD 11.5-14. 5 H PLATELET COUNT (test code = PLT) 354.0 K/mm3 150-450 N MEAN PLATELET VOLUME (test code = MPV) 9.10 fL 7.0-9.6 N NEUTROPHIL % (test code = NT%) 55.6 % 40-76 N LYMPHOCYTE % (test code = LY%) 31.1 % 20.5-51.1 N MONOCYTE % (test code = MO%) 10.4 % 1.7-9.3 H EOSINOPHIL % (test code = EO%) 2.7 % 0.0-6.0 N BASOPHIL % (test code = BA%) 0.2 % 0.0-2.0 N NEUTROPHIL # (test code = NT#) 2.87 K/mm3 1.8-7.6 N LYMPHOCYTE # (test code = LY#) 1.6 K/mm3 0.6-3.0 N MONOCYTE # (test code = MO#) 0.5 K/mm3 0.2-1.5 N EOSINOPHIL # (test code = EO#) 0.1 K/mm3 0.0-0.4 N BASOPHIL # (test code = BA#) 0.0 K/mm3 0.0-0.2 N MANUAL DIFF REQUIRED (test code = MDIFF) NO DIFF/SCN CRITERIA BASIC METABOLIC [id number] 05:15:00* Test Item Value Reference Range Interpretation Comments SODIUM (test code = NA) 142 mmol/L 134-147 N POTASSIUM (test code = K) 4.1 mmol/L 3.4-5.0 N CHLORIDE (test code = CL) 111 mmol/L 100-108 H CARBON DIOXIDE (test code = CO2) 26 mmol/L 21-32 N ANION GAP (test code = GAP) 5.0 GAP calc 4.0-15.0 N GLUCOSE (test code = GLU) 89 MG/DL 70-110 N BLOOD UREA NITROGEN (test code = BUN) 12 MG/DL 7-18 N GLOMERULAR FILTRATION RATE (test code = GFR) >=60 max estimate estG FR >60 CREATININE (test code = CREAT) 0.6 MG/DL 0.8-1.3 L CALCIUM (test code = CA) 8.5 MG/DL 8.5-10.1 N CBC W/AUTO [id number] 04:44:00* Test Item Value Reference Range Interpretation Comments WHITE BLOOD CELL (test code = WBC) 8.3 K/mm3 3.5-11.0 N RED BLOOD CELL (test code = RBC) 2.87 M/mm3 4.70-6.10 L HEMOGLOBIN (test code = HGB) 8.6 G/DL 12.3-15.9 L HEMATOCRIT (test code = HCT) 29.5 % 35.8-46.7 L MEAN CELL VOLUME (test code = MCV) 102.8 Fl 86.3-98.9 H MEAN CELL HGB (test code = MCH) 30.0 pg 28.9-34.4 N MEAN CELL HGB CONCETRATION (test code = MCHC) 29.2 G/DL 32.1-34. 5 L RED CELL DISTRIBUTION WIDTH (test code = RDW) 18.2 SD 11.5-14. 5 H PLATELET COUNT (test code = PLT) 319.0 K/mm3 150-450 N MEAN PLATELET VOLUME (test code = MPV) 9.40 fL 7.0-9.6 N NEUTROPHIL % (test code = NT%) 55.7 % 40-76 LYMPHOCYTE % (test code = LY%) 32.4 % 20.5-51.1 N MONOCYTE % (test code = MO%) 9.7 % 1.7-9.3 H EOSINOPHIL % (test code = EO%) 2.1 % 0.0-6.0 N BASOPHIL % (test code = BA%) 0.1 % 0.0-2.0 N NEUTROPHIL # (test code = NT#) 4.62 K/mm3 1.8-7.6 N LYMPHOCYTE # (test code = LY#) 2.7 K/mm3 0.6-3.0 N MONOCYTE # (test code = MO#) 0.8 K/mm3 0.2-1.5 N EOSINOPHIL # (test code = EO#) 0.2 K/mm3 0.0-0.4 N BASOPHIL # (test code = BA#) 0.0 K/mm3 0.0-0.2 N MANUAL DIFF REQUIRED (test code = MDIFF) NO DIFF/SCN CRITERIA BASIC METABOLIC [id number] 12:51:00* Test Item Value Reference Range Interpretation Comments SODIUM (test code = NA) 143 mmol/L 134-147 N POTASSIUM (test code = K) 4.6 mmol/L 3.4-5.0 N CHLORIDE (test code = CL) 109 mmol/L 100-108 H CARBON DIOXIDE (test code = CO2) 28 mmol/L 21-32 N ANION GAP (test code = GAP) 6.0 GAP calc 4.0-15.0 N GLUCOSE (test code = GLU) 91 MG/DL 70-110 N BLOOD UREA NITROGEN (test code = BUN) 14 MG/DL 7-18 N GLOMERULAR FILTRATION RATE (test code = GFR) >=60 max estimate estG FR >60 CREATININE (test code = CREAT) 0.7 MG/DL 0.8-1.3 L CALCIUM (test code = CA) 8.4 MG/DL 8.5-10.1 L CBC W/AUTO [id number] 12:18:00* Test Item Value Reference Range Interpretation Comments WHITE BLOOD CELL (test code = WBC) 8.5 K/mm3 3.5-11.0 N RED BLOOD CELL (test code = RBC) 2.66 M/mm3 4.70-6.10 L HEMOGLOBIN (test code = HGB) 8.2 G/DL 12.3-15.9 L HEMATOCRIT (test code = HCT) 27.5 % 35.8-46.7 L MEAN CELL VOLUME (test code = MCV) 103.4 Fl 86.3-98.9 H MEAN CELL HGB (test code = MCH) 30.8 pg 28.9-34.4 N MEAN CELL HGB CONCETRATION (test code = MCHC) 29.8 G/DL 32.1-34. 5 L RED CELL DISTRIBUTION WIDTH (test code = RDW) 18.2 SD 11.5-14. 5 H PLATELET COUNT (test code = PLT) 357.0 K/mm3 150-450 N MEAN PLATELET VOLUME (test code = MPV) 9.20 fL 7.0-9.6 N NEUTROPHIL % (test code = NT%) 69.6 % 40-76 LYMPHOCYTE % (test code = LY%) 19.1 % 20.5-51.1 L MONOCYTE % (test code = MO%) 10.3 % 1.7-9.3 H EOSINOPHIL % (test code = EO%) 0.9 % 0.0-6.0 N BASOPHIL % (test code = BA%) 0.1 % 0.0-2.0 N NEUTROPHIL # (test code = NT#) 5.90 K/mm3 1.8-7.6 N LYMPHOCYTE # (test code = LY#) 1.6 K/mm3 0.6-3.0 N MONOCYTE # (test code = MO#) 0.9 K/mm3 0.2-1.5 N EOSINOPHIL # (test code = EO#) 0.1 K/mm3 0.0-0.4 N BASOPHIL # (test code = BA#) 0.0 K/mm3 0.0-0.2 N MANUAL DIFF REQUIRED (test code = MDIFF) NO DIFF/SCN CRITERIA BASIC METABOLIC [id number] 06:19:00* Test Item Value Reference Range Interpretation Comments SODIUM (test code = NA) 142 mmol/L 134-147 N POTASSIUM (test code = K) 3.9 mmol/L 3.4-5.0 N CHLORIDE (test code = CL) 110 mmol/L 100-108 H CARBON DIOXIDE (test code = CO2) 27 mmol/L 21-32 N ANION GAP (test code = GAP) 5.0 GAP calc 4.0-15.0 N GLUCOSE (test code = GLU) 90 MG/DL 70-110 N BLOOD UREA NITROGEN (test code = BUN) 14 MG/DL 7-18 N GLOMERULAR FILTRATION RATE (test code = GFR) >=60 max estimate estG FR >60 CREATININE (test code = CREAT) 0.6 MG/DL 0.8-1.3 L CALCIUM (test code = CA) 8.1 MG/DL 8.5-10.1 L CBC W/AUTO [id number] 06:08:00* Test Item Value Reference Range Interpretation Comments WHITE BLOOD CELL (test code = WBC) 6.4 K/mm3 3.5-11.0 N RED BLOOD CELL (test code = RBC) 2.43 M/mm3 4.70-6.10 L HEMOGLOBIN (test code = HGB) 7.5 G/DL 12.3-15.9 L HEMATOCRIT (test code = HCT) 24.4 % 35.8-46.7 L MEAN CELL VOLUME (test code = MCV) 100.4 Fl 86.3-98.9 H MEAN CELL HGB (test code = MCH) 30.9 pg 28.9-34.4 N MEAN CELL HGB CONCETRATION (test code = MCHC) 30.7 G/DL 32.1-34. 5 L RED CELL DISTRIBUTION WIDTH (test code = RDW) 17.1 SD 11.5-14. 5 H PLATELET COUNT (test code = PLT) 298.0 K/mm3 150-450 N MEAN PLATELET VOLUME (test code = MPV) 9.70 fL 7.0-9.6 H NEUTROPHIL % (test code = NT%) 49.6 % 40-76 LYMPHOCYTE % (test code = LY%) 35.4 % 20.5-51.1 N MONOCYTE % (test code = MO%) 12.9 % 1.7-9.3 H EOSINOPHIL % (test code = EO%) 1.9 % 0.0-6.0 N BASOPHIL % (test code = BA%) 0.2 % 0.0-2.0 N NEUTROPHIL # (test code = NT#) 3.19 K/mm3 1.8-7.6 N LYMPHOCYTE # (test code = LY#) 2.3 K/mm3 0.6-3.0 N MONOCYTE # (test code = MO#) 0.8 K/mm3 0.2-1.5 N EOSINOPHIL # (test code = EO#) 0.1 K/mm3 0.0-0.4 N BASOPHIL # (test code = BA#) 0.0 K/mm3 0.0-0.2 N MANUAL DIFF REQUIRED (test code = MDIFF) NO DIFF/SCN CRITERIA - XR CHEST 1 [id number] 20:57:00 Name: MIRA WALKER [facility] : 1955 Age/S: 64 / M [address] [address] [facility] [address] [facility] [place] Unit #: [id number] Loc: [place] [address] Phys: Sergio Alford MANAGER MANUFACTURING Acct: [id number] Dis Date: Status: ADM IN PHONE #: [phone] Exam Date: 07/12/20192026 FAX #: Reason: coughing EXAMS: CPT: [id number] XR CHEST 1 V 46586 Fluoro Time: DAP (Gy m2): Air Kerma (mGy): HISTORY: Cough Location: C3 COMPARISON:07/06/2019 FINDINGS: Lung volumes are increased. There is perihilar opacity demonstrated. Aortic calcifications are noted. No pneumothorax. Heart size and vascularity are within normal limits. Mild retrocardiac left basilar opacity is present. No other focal consolidation. IMPRESSION: 1. Retrocardiac left basilar opacity suggesting atelectasis and/or pneumonia. at 2056 Reported and signed by: Cristian Carranza M.D. CC: Sami Gomez MD; Sergio Alford MANAGER MANUFACTURING PAGE 1 Signed Report Name: [facility] [place] [facility] 1955 Age/S: 64 / M [address] [address] [facility] [address] [facility] [place] Unit #: [id number] Loc: [place] [address] Phys: Sergio Alford NP Acct: [id number] Dis Date: Status: ADM IN PHONE #: [phone] Exam Date: 07/12/20192026 FAX #: Reason: coughing EXAMS: CPT: [id number] XR CHEST 1 V 30869 Fluoro Time: DAP (Gy m2): Air Kerma (mGy): < Continued> Technologist: Renee Jacobs RT(R) Trnscb Date/Time: 07/12/2019 (2056) [email or web address].[email or web address] Orig Print D/T: S: 07/12/2019 (2099) PAGE 2 Signed Report - CT ABD PELVIS W/O [id number] 17:39:00 Name: MIRA WALKER [facility] : 1955 Age/S: 64 / M [address] [address] [facility] [address] [facility] [place] Unit #: [id number] Loc: [place] [address] Phys: Alireza Lanza MD Acct: [id number] Dis Date: Status: ADM IN PHONE #: [phone] Exam Date: 07/12/2019 1721 FAX #: Reason: evaluate for retroperitoneal/hip hemorrhage EXAMS: CPT: [id number] CT ABD PELVIS W/O CONT 35521 HISTORY: evaluate for retroperitoneal/hip hemorrhage TECHNIQUE: Axial images of the abdomen and pelvis are obtained on the Siemens Somatom multidetector CT. The study is performed without intravenous contrast. Oral contrast was administered. Sagittal and coronal reconstructions are submitted. CT DLP dose: 454mGy-cm. Iterative dose reduction technique utilized. LOCATION: H54 Comparison study:Hip films of 07/07/2019 reviewed FINDINGS: The study is significantly limited without oral or intravenous contrast as well as limited body fat. Bibasilar consolidations posteriorly and trace pleural effusions are present. The heart size is normal. No pericardial effusion. No pleural effusions. The liver is homogeneous, free of focal masses and dilated intrahepatic ducts. The gallbladder is is not confidently seen. There are no cholecystic clips.. The spleen is normal in size and contour. There are changes of prior gastric surgery. The duodenum is not distended. The pancreas is morphologically normal. No mass, pancreatic duct dilatation or peripancreatic edema is visible. The adrenal glands are normal in size and contour. The kidneys are normal in size and contour. No cystic or solid masses are noted. No renal calculi are depicted. No hydronephrosis, perinephric fluid or perinephric stranding. No pathologic ureteral dilatation. The urinary bl adder is unremarkable. No retroperitoneal lymphadenopathy is obser antoine. The abdominal aorta is normal in caliber. No evidence of abdominal ao rtic aneurysm. PAGE 1 Signed Report (CONTINUED) Name: MIRA WALKER [facility] : 1955 Age/S: 64 / M [address] [address] [facility] [address] [facility] [place] Unit #: [id number] Loc: [place] [address] Phys: Alireza Lanza MD Acct: [id number] Dis Date: Status: ADM IN PHONE #: [phone] Exam Date: 07/12/2019 8566 FAX #: Reason: evaluate for retroperitoneal/hip hemorrhage EXAMS: CPT: [id number] ABD PELVIS W/O CONT 61633 < Continued> The visualized small bowel is unremarkable. There is moderate fecal retention in the colon. No evidence of ascites. There is a large left inguinal hernia with a knuckle of sigmoid colon extending into the left hemiscrotum. There are postsurgical changes of right hip fracture surgery. An intramedullary ebony and dynamic screws are identified. There is soft tissue swelling around the right hip with small soft tissue air tracking along the gluteus muscles. IMPRESSION: 1. Changes of recent right hip fracture surgery are present. There is small soft tissue air and soft tissue swelling around the fracture site. 2. No retroperitoneal or significant right hip region hematoma seen. 3. There is a large left inguinal hernia with a knuckle of sigmoid colon within the hernia sac. 4. Dense bibasilar consolidation are present. Findings could be related to subsegmental atelectasis. Pneumonia not entirely excluded. 5. Constipation. at 1739 Reported and signed by: Baron Carbajal M.D. CC: Sami Gomez MD; Alireza Lanza MD Technologist:Pb Torres, RT(R)(CT); Tri CTDI: DLP: Trnscb Date/Time: 07/12/2019 (1739) [email or web address] Orig Print D/T: S: 07/12/2019 (7669) PAGE 2 Signed Report CBC W/AUTO [id number] 07:34:00* Test Item Value Reference Range Interpretation Comments WHITE BLOOD CELL (test code = WBC) 6.4 K/mm3 3.5-11.0 N RED BLOOD CELL (test code = RBC) 2.66 M/mm3 4.70-6.10 L HEMOGLOBIN (test code = HGB) 8.0 G/DL 12.3-15.9 L HEMATOCRIT (test code = HCT) 26.5 % 35.8-46.7 L MEAN CELL VOLUME (test code = MCV) 99.6 Fl 86.3-98.9 H MEAN CELL HGB (test code = MCH) 30.1 pg 28.9-34.4 N MEAN CELL HGB CONCETRATION (test code = MCHC) 30.2 G/DL 32.1-34. 5 L RED CELL DISTRIBUTION WIDTH (test code = RDW) 16.4 SD 11.5-14. 5 H PLATELET COUNT (test code = PLT) 266.0 K/mm3 150-450 N MEAN PLATELET VOLUME (test code = MPV) 9.50 fL 7.0-9.6 N NEUTROPHIL % (test code = NT%) 40.7 % 40-76 N LYMPHOCYTE % (test code = LY%) 42.8 % 20.5-51.1 N MONOCYTE % (test code = MO%) 14.9 % 1.7-9.3 H EOSINOPHIL % (test code = EO%) 1.4 % 0.0-6.0 N BASOPHIL % (test code = BA%) 0.2 % 0.0-2.0 N NEUTROPHIL # (test code = NT#) 2.60 K/mm3 1.8-7.6 N LYMPHOCYTE # (test code = LY#) 2.7 K/mm3 0.6-3.0 N MONOCYTE # (test code = MO#) 1.0 K/mm3 0.2-1.5 N EOSINOPHIL # (test code = EO#) 0.1 K/mm3 0.0-0.4 N BASOPHIL # (test code = BA#) 0.0 K/mm3 0.0-0.2 N MANUAL DIFF REQUIRED (test code = MDIFF) NO DIFF/SCN CRITERIA BASIC METABOLIC [id number] 07:33:00* Test Item Value Reference Range Interpretation Comments SODIUM (test code = NA) 145 mmol/L 134-147 N POTASSIUM (test code = K) 3.6 mmol/L 3.4-5.0 N CHLORIDE (test code = CL) 113 mmol/L 100-108 H CARBON DIOXIDE (test code = CO2) 28 mmol/L 21-32 N ANION GAP (test code = GAP) 4.0 GAP calc 4.0-15.0 N GLUCOSE (test code = GLU) 85 MG/DL 70-110 N BLOOD UREA NITROGEN (test code = BUN) 13 MG/DL 7-18 N GLOMERULAR FILTRATION RATE (test code = GFR) >=60 max estimate estG FR >60 CREATININE (test code = CREAT) 0.7 MG/DL 0.8-1.3 L CALCIUM (test code = CA) 8.1 MG/DL 8.5-10.1 L HGB [id number] 08:39:00* Test Item Value Reference Range Interpretation Comments HEMOGLOBIN (test code = HGB) 5.9 G/DL 12.3-15.9 LL HEMATOCRIT (test code = HCT) 19.6 % 35.8-46.7 L CBC W/AUTO [id number] 06:41:00* Test Item Value Reference Range Interpretation Comments WHITE BLOOD CELL (test code = WBC) 5.3 K/mm3 3.5-11.0 N RED BLOOD CELL (test code = RBC) 2.07 M/mm3 4.70-6.10 L HEMOGLOBIN (test code = HGB) 6.4 G/DL 12.3-15.9 LL HEMATOCRIT (test code = HCT) 21.0 % 35.8-46.7 L MEAN CELL VOLUME (test code = MCV) 101.4 Fl 86.3-98.9 H MEAN CELL HGB (test code = MCH) 30.9 pg 28.9-34.4 N MEAN CELL HGB CONCETRATION (test code = MCHC) 30.5 G/DL 32.1-34. 5 L RED CELL DISTRIBUTION WIDTH (test code = RDW) 16.0 SD 11.5-14. 5 H PLATELET COUNT (test code = PLT) 262.0 K/mm3 150-450 N MEAN PLATELET VOLUME (test code = MPV) 9.80 fL 7.0-9.6 H NEUTROPHIL % (test code = NT%) 37.1 % 40-76 L LYMPHOCYTE % (test code = LY%) 44.7 % 20.5-51.1 N MONOCYTE % (test code = MO%) 16.5 % 1.7-9.3 H EOSINOPHIL % (test code = EO%) 1.5 % 0.0-6.0 N BASOPHIL % (test code = BA%) 0.2 % 0.0-2.0 N NEUTROPHIL # (test code = NT#) 1.97 K/mm3 1.8-7.6 N LYMPHOCYTE # (test code = LY#) 2.4 K/mm3 0.6-3.0 N MONOCYTE # (test code = MO#) 0.9 K/mm3 0.2-1.5 N EOSINOPHIL # (test code = EO#) 0.1 K/mm3 0.0-0.4 N BASOPHIL # (test code = BA#) 0.0 K/mm3 0.0-0.2 N MANUAL DIFF REQUIRED (test code = MDIFF) NO DIFF/SCN CRITERIA BASIC METABOLIC [id number] 06:33:00* Test Item Value Reference Range Interpretation Comments SODIUM (test code = NA) 146 mmol/L 134-147 N POTASSIUM (test code = K) 3.7 mmol/L 3.4-5.0 N CHLORIDE (test code = CL) 113 mmol/L 100-108 H CARBON DIOXIDE (test code = CO2) 26 mmol/L 21-32 N ANION GAP (test code = GAP) 7.0 GAP calc 4.0-15.0 N GLUCOSE (test code = GLU) 76 MG/DL 70-110 N BLOOD UREA NITROGEN (test code = BUN) 14 MG/DL 7-18 N GLOMERULAR FILTRATION RATE (test code = GFR) >=60 max estimate estG FR >60 CREATININE (test code = CREAT) 0.7 MG/DL 0.8-1.3 L CALCIUM (test code = CA) 8.4 MG/DL 8.5-10.1 L UA RFLX MICR CULT IF [id number] 01:32:00* Test Item Value Reference Range Interpretation Comments UA COLOR (test code = COLU) YELLOW discript YEL/STRAW UA APPEARANCE (test code = APPU) CLEAR discript CLEAR UA GLUCOSE DIPSTICK (test code = DGLUU) NEGATIVE mg/dL NEG UA BILIRUBIN DIPSTICK (test code = BILU) NEGATIVE mg/dL NEG UA KETONE DIPSTICK (test code = KETU) NEGATIVE mg/dL NEG UA SPECIFIC GRAVITY (test code = SGU) 1.020 SG 1.005-1.030 UA BLOOD DIPSTICK (test code = JOANNA) NEGATIVE mg/DL NEG UA PH DIPSTICK (test code = BELKYS) 6.0 pH UNITS 5.0-7.0 UA PROTEIN DIPSTICK (test code = PROU) TRACE mg/dL NEG A UA UROBILINIOGEN DIPSTICK (test code = URO) 1.0 mg/dL <2.0 UA NITRITE DIPSTICK (test code = KVNG) NEGATIVE SCREEN NEG UA LEUKOCYTE ESTERASE DIPSTICK (test code = LEUU) NEGATIVE Leuk/mcL NEGATIVE UA WBC (test code = WBCU) 1-3 #WBC/HPF 0-3 UA SQUAMOUS CELLS (test code = SQU) TRACE /HPF NONE UA CULTURE NEEDED? (test code = UACULT) NO, WBC<10 Criteria Culture CHK SOURCE OF URINE: CLEAN CATCHIndication for culture: Delirium-if no other src UA RFLX MICR CULT IF [id number] 01:30:00* Test Item Value Reference Range Interpretation Comments UA COLOR (test code = COLU) YELLOW discript YEL/STRAW UA APPEARANCE (test code = APPU) CLEAR discript CLEAR UA GLUCOSE DIPSTICK (test code = DGLUU) NEGATIVE mg/dL NEG UA BILIRUBIN DIPSTICK (test code = BILU) NEGATIVE mg/dL NEG UA KETONE DIPSTICK (test code = KETU) NEGATIVE mg/dL NEG UA SPECIFIC GRAVITY (test code = SGU) 1.020 SG 1.005-1.030 UA BLOOD DIPSTICK (test code = JOANNA) NEGATIVE mg/DL NEG UA PH DIPSTICK (test code = BELKSY) 6.0 pH UNITS 5.0-7.0 UA PROTEIN DIPSTICK (test code = PROU) TRACE mg/dL NEG A UA UROBILINIOGEN DIPSTICK (test code = URO) 1.0 mg/dL <2.0 UA NITRITE DIPSTICK (test code = KVNG) NEGATIVE SCREEN NEG UA LEUKOCYTE ESTERASE DIPSTICK (test code = LEUU) NEGATIVE Leuk/mcL NEGATIVE UA CULTURE NEEDED? (test code = UACULT) Criteria Culture CHK SOURCE OF URINE: CLEAN CATCHIndication for culture: Delirium-if no other src - XR FLUOROSCOPY 0-60 [id number] 11:40:00 Name: MIRA WALKER [facility] : 1955 Age/S: 64 / M [address] [facility] Unit #: [id number] Loc: [place] [address] Phys: Sami Gomez MD Acct: [id number] Dis Date: Status: ADM IN PHONE #: [phone] Exam Date: 07/07/2019 1015 FAX #: Reason: RIGHT HIP NAILING EXAMS: CPT: [id number] XR FLUOROSCOPY 0-60 MIN 39698 Fluoro Time: 107 DAP (Gy m2): Air Kerma (mGy): 8.19 EXAM: - XR FLUOROSCOPY 0-60 MIN HISTORY: RIGHT HIP NAILING Location code:C3 COMPARISON: 07/06/2019 FINDINGS: Intraoperative fluoroscopy was provided for ORIF. Radiologist was not present for the procedure. 31 fluoroscopy images were obtained. Please see surgical report. IMPRESSION: 1. As above. Fluoroscopy time: 107.5 seconds Cumulative dose: 8.19 mGy at 1140 Reported and signed by: Niko Vasquez MD CC: Sami Gomez MD PAGE 1 Signed Report Name: MIRA WALKER [facility] : 1955 Age/S: 64 / M [address] [address] [facility] [place] [facility] [place] Unit #: [id number] Loc: [place] [address] Phys: Sami Gomez MD Acct: [id number] Dis Date: Status: ADM IN PHONE #: [phone] Exam Date: 07/07/2019 1015 FAX #: Reason: RIGHT HIP NAILING EXAMS: CPT: [id number] XR FLUOROSCOPY 0-60 MIN 06920 Fluoro Time: 107 DAP (Gy m2): Air Kerma (mGy): 8.19 <Continued> Technologist: Elise Noble, RT(R) Trnscb Date/Time: 07/07/2019 (1140) t.CB5 Orig Print D/T: S: 07/07/2019 (1143) PAGE 2 Signed Report - XR HIP W/PEL UNI 1V [id number] 11:38:00 Name: MIRA WALKER [facility] : 1955 Age/S: 64 / M [address] [address] [facility] [place] [facility] [place] Unit #: [id number] Loc: [place] [address] Phys: Ryland Moreno MD Acct: [id number] Dis Date: Status: ADM IN PHONE #: [phone] Exam Date: 07/07/2019 1054 FAX #: Reason: Post operative IM nailing EXAMS: CPT: [id number] XR HIP W/PEL UNI 1V RT [address]017 Fluoro Time: DAP (Gy m2): Air Kerma (mGy): EXAM: - XR HIP W/PEL UNI 1V RT HISTORY: Post operative IM nailing Location code:C3 COMPARISON: 07/06/2019 FINDINGS: 2 AP views of the right femur are provided. Intramedullary nail in the right femur with 2 proximal dynamic hip screws and distal interlocking screw transfix previously seen right intertrochanteric fracture in near anatomic alignment. An avulsion of the lesser trochanter is again seen. Skin desmond, soft tissue gas and joint effusion are expected postoperative findings. IMPRESSION: 1. Status post intramedullary nailing in the right femur as above. at 1138 Reported and signed by: Niko Vasquez MD CC: Ryland Moreno MD; Sami Gomez MD PAGE 1 Signed Report Name: MIRA WALKER : 1955 Age/S: 64 / M [address] [address] [facility] [address] [facility] [place] Unit #: [id number] Loc: [place] [address] Phys: Ryland Moreno MD Acct: [id number] Dis Date: Status: ADM IN PHONE #: [phone] Exam Date: 07/07/2019 1054 FAX #: Reason: Post operative IM nailing EXAMS: CPT: [id number] XR HIP W/PEL UNI 1V RT 39465 Fluoro Time: DAP (Gy m2): Air Kerma (mGy): <Continued> Technologist: Koki Whitaker, RT(R); Elise Noble, RT(R) Trnscb Tristan e/Time: 07/07/2019 (0701) [email or web address].[email or web address].[id number] Orig Print D/T: S: (5936) PAGE 2 Signed Report BASIC METABOLIC PANEL 2019-07-07 07:44:00* Test Item Value Reference Range Interpretation Comments SODIUM (test code = NA) 153 mmol/L 134-147 HH POTASSIUM (test code = K) 4.4 mmol/L 3.4-5.0 N CHLORIDE (test code = CL) 119 mmol/L 100-108 H CARBON DIOXIDE (test code = CO2) 31 mmol/L 21-32 ANION GAP (test code = GAP) 3.0 GAP calc 4.0-15.0 L GLUCOSE (test code = GLU) 98 MG/DL 70-110 N BLOOD UREA NITROGEN (test code = BUN) 39 MG/DL 7-18 H GLOMERULAR FILTRATION RATE (test code = GFR) >=60 max estimate estG FR >60 CREATININE (test code = CREAT) 1.2 MG/DL 0.8-1.3 N CALCIUM (test code = CA) 8.9 MG/DL 8.5-10.1 N CBC W/AUTO [id number] 07:23:00* Test Item Value Reference Range Interpretation Comments WHITE BLOOD CELL (test code = WBC) 7.1 K/mm3 3.5-11.0 N RED BLOOD CELL (test code = RBC) 2.66 M/mm3 4.70-6.10 L HEMOGLOBIN (test code = HGB) 7.8 G/DL 12.3-15.9 L HEMATOCRIT (test code = HCT) 26.3 % 35.8-46.7 L MEAN CELL VOLUME (test code = MCV) 98.9 Fl 86.3-98.9 N MEAN CELL HGB (test code = MCH) 29.3 pg 28.9-34.4 N MEAN CELL HGB CONCETRATION (test code = MCHC) 29.7 G/DL 32.1-34. 5 L RED CELL DISTRIBUTION WIDTH (test code = RDW) 15.1 SD 11.5-14. 5 H PLATELET COUNT (test code = PLT) 178.0 K/mm3 150-450 N MEAN PLATELET VOLUME (test code = MPV) 10.30 fL 7.0-9.6 H NEUTROPHIL % (test code = NT%) 64.0 % 40-76 N LYMPHOCYTE % (test code = LY%) 23.4 % 20.5-51.1 N MONOCYTE % (test code = MO%) 12.6 % 1.7-9.3 H EOSINOPHIL % (test code = EO%) 0.0 % 0.0-6.0 N BASOPHIL % (test code = BA%) 0.0 % 0.0-2.0 N NEUTROPHIL # (test code = NT#) 4.56 K/mm3 1.8-7.6 N LYMPHOCYTE # (test code = LY#) 1.7 K/mm3 0.6-3.0 N MONOCYTE # (test code = MO#) 0.9 K/mm3 0.2-1.5 N EOSINOPHIL # (test code = EO#) 0.0 K/mm3 0.0-0.4 N BASOPHIL # (test code = BA#) 0.0 K/mm3 0.0-0.2 N MANUAL DIFF REQUIRED (test code = MDIFF) NO DIFF/SCN CRITERIA PROTHROMBIN [id number] 05:42:00* Test Item Value Reference Range Interpretation Comments PT PATIENT (test code = PTP) 13.8 SECONDS 9.3-12.9 H INTERNATIONAL NORMAL RATIO (test code = INR) 1.22 INR Unit 0.8-1.2 H THROMBOPLASTIN TIME [id number] 05:42:00* Test Item Value Reference Range Interpretation Comments THROMBOPLASTIN TIME PARTIAL (test code = PTT) 19.6 SECONDS 26-35 L - CT HEAD/BRAIN W/O [id number] 15:19:00 Name: MIRA WALKER : 1955 Age/S: 64 / M [address] [address] [facility] [place] Unit #: [id number] Loc: [place] [address] Phys: Nelsy Dave MD Acct: [id number] Dis Date: Status: ADM IN PHONE #: [phone] Exam Date: 07/06/2019 3552 FAX #: Reason: s/p fall EXAMS: CPT: [id number] CT HEAD/BRAIN W/O CONT 29288 EXAM: - CT HEAD/BRAIN W/O CONT HISTORY: s/p fall Location code:C3 TECHNIQUE: Axial tomograms through the brain were obtained without intravenous contrast. Coronal and sagittal reformatted images are provided. One or more of the following dose reduction techniques were used: Automated exposure control, adjustment of the mA and/or kV according to patient size, and/or utilization of iterative reconstruction technique. COMPARISON: CT 04/09/2019 FINDINGS: There are stable, p rominent areas of encephalomalacia seen within the right frontal, right pa rietal, left occipital and left cerebellar regions secondary to prior infa rcts. There is no intracranial hemorrhage, mass, or mass effect. The ventr icular system and sulci are prominent, consistent with severe cerebral atr ophy. Marked confluent hypodensities seen in the deep subcortical and per iventricular white matter, most consistent with microangiopathic/chronic s mall vessel ischemic change. There is no evidence of acute infarction. No extra-axial fluid collection is seen. The osseous structures and orbits, show no significant abnormalities. The visualized sinuses are relatively clear. The soft tissues are unremarkable. IMPRESSION: No acute intracranial abnormality with no evidence of intracranial mass effect, hemorrhage or acute infarction. Stable severe cerebral atrophy and marked white matter disease, co nsistent with microangiopathic/chronic small vessel ischemic change; gre ater than expected for age. No significant change in multiple areas of e ncephalomalacia consistent with prior infarcts. PAGE 1 Signed Report (CONTINUED) Name: MIRA BALLESTEROS : Age/S: 64 / M [address] [facility] [place] Unit #: [id number] Loc: [place] [address] Phys: Nelsy Dave MD Acct: [id number] Dis Date: Status: ADM IN PHONE #: [phone] Exam Date: 07/06/2019 1502 FAX #: Re ason: s/p fall EXAMS: CPT: [id number] CT HEAD/BRAIN W/O CONT 54435 <Continued> at 1519 Reported and signed by: Radha Sherwood M.D. CC: Sami Gomez MD; Nelsy Dave MD Technologist:Elise Noble, RT(R) CTDI: DLP: Trnscb Date/Time: 07/06/2019 (151) [email or web address].[email or web address].[id number] Orig Print D/T: S: 07/06/2019 (213) PAGE 2 Signed Report CBC W/AUTO [id number] 13:39:00* Test Item Value Reference Range Interpretation Comments WHITE BLOOD CELL (test code = WBC) 8.1 K/mm3 3.5-11.0 N RED BLOOD CELL (test code = RBC) 2.86 M/mm3 4.70-6.10 L HEMOGLOBIN (test code = HGB) 8.5 G/DL 12.3-15.9 L HEMATOCRIT (test code = HCT) 27.6 % 35.8-46.7 L MEAN CELL VOLUME (test code = MCV) 96.5 Fl 86.3-98.9 N MEAN CELL HGB (test code = MCH) 29.7 pg 28.9-34.4 N MEAN CELL HGB CONCETRATION (test code = MCHC) 30.8 G/DL 32.1-34. 5 L RED CELL DISTRIBUTION WIDTH (test code = RDW) 15.0 SD 11.5-14. 5 H PLATELET COUNT (test code = PLT) 180.0 K/mm3 150-450 N MEAN PLATELET VOLUME (test code = MPV) 10.20 fL 7.0-9.6 H MANUAL DIFF REQUIRED (test code = MDIFF) YES DIFF/SCN CRITERIA WBC [id number] 13:39:00* Test Item Value Reference Range Interpretation Comments SEGMENTED NEUTROPHILS (test code = SEG) % 40-75 LYMPHOCYTE (test code = LYMPH) % 12.6-43.5 CBC W/AUTO [id number] 13:39:00* Test Item Value Reference Range Interpretation Comments WHITE BLOOD CELL (test code = WBC) 8.1 K/mm3 3.5-11.0 N RED BLOOD CELL (test code = RBC) 2.86 M/mm3 4.70-6.10 L HEMOGLOBIN (test code = HGB) 8.5 G/DL 12.3-15.9 L HEMATOCRIT (test code = HCT) 27.6 % 35.8-46.7 L MEAN CELL VOLUME (test code = MCV) 96.5 Fl 86.3-98.9 N MEAN CELL HGB (test code = MCH) 29.7 pg 28.9-34.4 N MEAN CELL HGB CONCETRATION (test code = MCHC) 30.8 G/DL 32.1-34. 5 L RED CELL DISTRIBUTION WIDTH (test code = RDW) 15.0 SD 11.5-14. 5 H PLATELET COUNT (test code = PLT) 180.0 K/mm3 150-450 N MEAN PLATELET VOLUME (test code = MPV) 10.20 fL 7.0-9.6 H MANUAL DIFF REQUIRED (test code = MDIFF) YES DIFF/SCN CRITERIA WBC [id number] 13:39:00* Test Item Value Reference Range Interpretation Comments SEGMENTED NEUTROPHILS (test code = SEG) 66 % 40-75 N BAND NEUTROPHIL (test code = BAND) 12 % 0-8 H LYMPHOCYTE (test code = LYMPH) 14 % 12.6-43.5 N MONOCYTE (test code = MON) 8 % 4.2-12.7 N ANISOCYTOSIS (test code = ANISO) TRACE NONE PLATELET ESTIMATE (test code = PLTEST) ADEQUATE THOUSAND ADEQUATE PLATELET MORPHOLOGY (test code = PLTMORPH) NORMAL CBC W/AUTO [id number] 13:39:00* Test Item Value Reference Range Interpretation Comments WHITE BLOOD CELL (test code = WBC) 8.1 K/mm3 3.5-11.0 N RED BLOOD CELL (test code = RBC) 2.86 M/mm3 4.70-6.10 L HEMOGLOBIN (test code = HGB) 8.5 G/DL 12.3-15.9 L HEMATOCRIT (test code = HCT) 27.6 % 35.8-46.7 L MEAN CELL VOLUME (test code = MCV) 96.5 Fl 86.3-98.9 N MEAN CELL HGB (test code = MCH) 29.7 pg 28.9-34.4 N MEAN CELL HGB CONCETRATION (test code = MCHC) 30.8 G/DL 32.1-34. 5 L RED CELL DISTRIBUTION WIDTH (test code = RDW) 15.0 SD 11.5-14. 5 H PLATELET COUNT (test code = PLT) 180.0 K/mm3 150-450 N MEAN PLATELET VOLUME (test code = MPV) 10.20 fL 7.0-9.6 H MANUAL DIFF REQUIRED (test code = MDIFF) YES DIFF/SCN CRITERIA WBC [id number] 13:39:00* Test Item Value Reference Range Interpretation Comments SEGMENTED NEUTROPHILS (test code = SEG) % 40-75 LYMPHOCYTE (test code = LYMPH) % 12.6-43.5 COMPREHENSIVE METABOLIC [id number] 12:47:00* Test Item Value Reference Range Interpretation Comments SODIUM (test code = NA) 152 mmol/L 134-147 HH POTASSIUM (test code = K) 4.1 mmol/L 3.4-5.0 N CHLORIDE (test code = CL) 119 mmol/L 100-108 H CARBON DIOXIDE (test code = CO2) 26 mmol/L 21-32 N ANION GAP (test code = GAP) 7.0 GAP calc 4.0-15.0 N GLUCOSE (test code = GLU) 132 MG/DL 70-110 H BLOOD UREA NITROGEN (test code = BUN) 49 MG/DL 7-18 H GLOMERULAR FILTRATION RATE (test code = GFR) >=60 max estimate estG FR >60 CREATININE (test code = CREAT) 1.5 MG/DL 0.8-1.3 H TOTAL PROTEIN (test code = PROT) 6.1 G/DL 6.4-8.2 L ALBUMIN (test code = ALB) 2.9 G/DL 3.4-5.0 L GLOBULIN (test code = GLOB) 3.2 GM/dL ALBUMIN/GLOBULIN RATIO (test code = A/G) 0.9 RATIO 1.2-2.2 L CALCIUM (test code = CA) 8.8 MG/DL 8.5-10.1 N BILIRUBIN TOTAL (test code = BILT) 0.90 MG/DL 0.2-1.2 N SGOT/AST (test code = AST) 87 Unit/L 15-37 H SGPT/ALT (test code = ALT) 35 Unit/L 12-78 N ALKALINE PHOSPHATASE TOTAL (test code = ALKP) 49 Unit/L 50-136 L LIPID PROFILE (CORONARY RISK)2019-07-06 12:47:00* Test Item Value Reference Range Interpretation Comments TRIGLYCERIDES (test code = TRIG) 80 MG/DL 0-150 N CHOLESTEROL (test code = CHOL) 103 MG/DL 133-200 L CHOLESTEROL/HDL RATIO (test code = CHOLHDL) 2.24 RATIO >0 HDL CHOLESTEROL (test code = HDL) 46 MG/DL 40-59 N NON-HDL CHOLESTEROL (test code = NHDL) 57 mg/dL <130 LIPOPROTEIN LDL (test code = LDL) 44 MG/DL 0-129 N LDL/HDL (test code = LDL/HDL) 0.95 Ratio 1.48-3.22 Avg L CBC W/AUTO [id number] 12:27:00* Test Item Value Reference Range Interpretation Comments WHITE BLOOD CELL (test code = WBC) 8.1 K/mm3 3.5-11.0 N RED BLOOD CELL (test code = RBC) 2.86 M/mm3 4.70-6.10 L HEMOGLOBIN (test code = HGB) 8.5 G/DL 12.3-15.9 L HEMATOCRIT (test code = HCT) 27.6 % 35.8-46.7 L MEAN CELL VOLUME (test code = MCV) 96.5 Fl 86.3-98.9 N MEAN CELL HGB (test code = MCH) 29.7 pg 28.9-34.4 N MEAN CELL HGB CONCETRATION (test code = MCHC) 30.8 G/DL 32.1-34. 5 L RED CELL DISTRIBUTION WIDTH (test code = RDW) 15.0 SD 11.5-14. 5 H PLATELET COUNT (test code = PLT) 180.0 K/mm3 150-450 N MEAN PLATELET VOLUME (test code = MPV) 10.20 fL 7.0-9.6 H NEUTROPHIL % (test code = NT%) % 40-76 N LYMPHOCYTE % (test code = LY%) % 20.5-51.1 L MONOCYTE % (test code = MO%) % 1.7-9.3 H EOSINOPHIL % (test code = EO%) % 0.0-6.0 N BASOPHIL % (test code = BA%) % 0.0-2.0 N NEUTROPHIL # (test code = NT#) K/mm3 1.8-7.6 N LYMPHOCYTE # (test code = LY#) K/mm3 0.6-3.0 N MONOCYTE # (test code = MO#) K/mm3 0.2-1.5 N EOSINOPHIL # (test code = EO#) K/mm3 0.0-0.4 N BASOPHIL # (test code = BA#) K/mm3 0.0-0.2 N MANUAL DIFF REQUIRED (test code = MDIFF) DIFF/SCN CRITERIA - XR CHEST 1 [id number] 11:59:00 Name: MIRA WALKER [facility] : 1955 Age/S: 64 / M [address] [address] [facility] [place] Unit #: [id number] Loc: [place] [address] Phys: Kaycee Braun MD Acct: [id number] Dis Date: Status: REG ER PHONE #: [phone] Exam Date: 07/06/2019 1152 FAX #: Reason: pre-op EXAMS: CPT: [id number] XR CHEST 1 V 18646 Fluoro Time: DAP (Gy m2): Air Kerma (mGy): EXAM: XR Chest 1 View INDICATION: pre-op LOCATION CODE: B2 COMPARISON: Chest radiograph dated 04/09/2019 TECHNIQUE: Frontal view of the chest was obtained. FINDINGS: The lungs are clear. There is no pleural effusion or pneumothorax. The cardiomediastinal silhouette is unchanged. No acute osseous abnormality is identified. IMPRESSION: No acute cardiopulmonary abnormality. at 1159 Reported and signed by: Kandy Mcallister MD CC: Kaycee Braun MD PAGE 1 Signed Report Name: [facility] [place] : 1955 Age/S: 64 / M [address] [address] [facility] [place] Unit #: [id number] Loc: [place] [address] Phys: Kaycee Braun MD Acct: [id number] Dis Date: Status: REG ER PHONE #: [phone] Exam Date: 07/06/2019 1152 FAX #: Reason: pre-op EXAMS: CPT: [id number] XR CHEST 1 V 42759 Fluoro Time: DAP (Gy m2): Air Kerma (mGy): <Continued> Technologist: Hayden Cantu, RT(R)(CT) Trnscb Date/Time: 07/06/2019 (1708) [email or web address] Orig Print D/T: S: 07/06/2019 (2785) PAGE 2 Signed Report - XR FEMUR MIN 2 VWS [id number] 11:46:00 Name: [place] : 1955 Age/S: 64 / M [address] [address] [facility] [place] Unit #: [id number] Loc: [place] [address] Phys: Kaycee Braun MD Acct: [id number] Dis Date: Status: REG ER PHONE #: [phone] Exam Date: 07/06/2019 1140 FAX #: Reason: R hip pain s/p fall EXAMS: CPT: [id number] XR FEMUR MIN [address] [place] [address] Fluoro Time: DAP (Gy m2): Air Kerma (mGy): EXAM: - XR HIP W/PEL UNI 2+V RT, - XR FEMUR MIN 2 VWS RT HISTORY: R hip pain s/p fall Location code:C3 COMPARISON: None available time of interpretation. FINDINGS: AP view of the pelvis with AP and frog-leg lateral view of the right hip 2 AP and 2 lateral views of the right femur is provided. Comminuted intertrochanteric fracture of the right femur is present with resulting varus configuration. The lesser trochanter is avulsed. The femoral head is located. IMPRESSION: 1. Comminuted intertrochanteric fracture of the right femur as above. at 1146 Reported and signed by: Niko Vasquez MD CC: Kaycee Braun MD PAGE 1 Signed Report Name: MIRA WALKER [place] : 1955 Age/S: 64 / M [address] [address] [facility] [place] Unit #: [id number] Loc: [place] [address] Phys: Kaycee Braun MD Acct: [id number] Dis Date: Status: REG ER PHONE #: [phone] Exam Date: 07/06/2019 1140 FAX #: Reason: R hip pain s/p fall EXAMS: CPT: [id number] XR FEMUR MIN [address] [place] [address] Fluoro Time: DAP (Gy m2): Air Kerma (mGy): <Continued> Technologist: Yvon Dumont, RT(R)(CT); Elise Noble RT(R) Trnscb Date/Time: 07/06/2019 (1146) [email or web address] Orig Print D/T: S: 07/06/2019 (0845) PAGE 2 Signed Report - XR HIP W/PEL UNI 2+V [id number] 11:46:00 Name: MIRA WALKER [facility] : 1955 Age/S: 64 / M [address] [address] [facility] [place] [facility] [place] Unit #: [id number] Loc: [place] [address] Phys: Kaycee Braun MD Acct: [id number] Dis Date: Status: REG ER PHONE #: [phone] Exam Date: 07/06/2019 1130 FAX #: Reason: R hip pain s/p fall EXAMS: CPT: [id number] XR HIP W/PEL UNI 2+[place] [address] Fluoro Time: DAP (Gy m2): Air Kerma (mGy): EXAM: - XR HIP W/PEL UNI 2+V RT, - XR FEMUR MIN 2 VWS RT HISTORY: R hip pain s/p fall Location code:C3 COMPARISON: None available time of interpretation. FINDINGS: AP view of the pelvis with AP and frog-leg lateral view of the right hip 2 AP and 2 lateral views of the right femur is provided. Comminuted intertrochanteric fracture of the right femur is present with resulting varus configuration. The lesser trochanter is avulsed. The femoral head is located. IMPRESSION: 1. Comminuted intertrochanteric fracture of the right femur as above. at 1146 Reported and signed by: Niko Vasquez MD CC: Kaycee Braun MD PAGE 1 Signed Report Name: MIRA WALKER : 1955 Age/S: 64 / M [address] [address] [facility] [place] Unit #: [id number] Loc: [place] [address] Phys: Kaycee Braun MD Acct: [id number] Dis Date: Status: REG ER PHONE #: [phone] Exam Date: 07/06/2019 1131 FAX #: Reason: R hip pain s/p fall EXAMS: CPT: [id number] XR HIP W/PEL UNI 2+[place] [address] Fluoro Time: DAP (Gy m2): Air Kerma (mGy): <Continued> Technologist: Yvon Dumont, RT(R)(CT); Elise Noble RT(R) Trnscb Date/Time: 07/06/2019 (1146) [email or web address] Orig Print D/T: S: 07/06/2019 (8237) PAGE 2 Signed Report [id number] 13:08:00* Test Item Value Reference Range Interpretation Comments LEVETIRACETAM (test code = LEVTAM) 43.5 ug/mL 10.0-40.0 A This test was developed and its performance characteristicsdetermined by [employer]. It has not been cleared orapproved by the Food and Drug Administration.Performed At: [address] [id number] Infante MD Ph:[phone] CBC W/O [id number] 14:57:00* Test Item Value Reference Range Interpretation Comments WHITE BLOOD CELL (test code = WBC) 5.6 K/mm3 3.5-11.0 N RED BLOOD CELL (test code = RBC) 4.89 M/mm3 4.70-6.10 N HEMOGLOBIN (test code = HGB) 13.3 G/DL 12.3-15.9 N HEMATOCRIT (test code = HCT) 41.9 % 35.8-46.7 N MEAN CELL VOLUME (test code = MCV) 85.7 Fl 86.3-98.9 L MEAN CELL HGB (test code = MCH) 27.2 pg 28.9-34.4 L MEAN CELL HGB CONCETRATION (test code = MCHC) 31.7 G/DL 32.1-34. 5 L RED CELL DISTRIBUTION WIDTH (test code = RDW) 17.5 SD 11.5-14. 5 H PLATELET COUNT (test code = PLT) 134.0 K/mm3 150-450 L MEAN PLATELET VOLUME (test code = MPV) 11.10 fL 7.0-9.6 H PROTHROMBIN [id number] 14:56:00* Test Item Value Reference Range Interpretation Comments PT PATIENT (test code = PTP) 13.4 SECONDS 9.3-12.9 H INTERNATIONAL NORMAL RATIO (test code = INR) 1.18 INR Unit 0.8-1.2 N THROMBOPLASTIN TIME [id number] 14:56:00* Test Item Value Reference Range Interpretation Comments THROMBOPLASTIN TIME PARTIAL (test code = PTT) 26.2 SECONDS 26-35 N TROPONIN I [id number] 14:22:00* Test Item Value Reference Range Interpretation Comments TROPONIN I RAPID (test code = TROPIRAP) 0.01 ng/mL 0.00-0.08 N - The use of serial sampling and testing protocol is a recommended practice- An elevated troponin level alone is often not sufficient for diagnosis of myocardial infarction. - XR CHEST 1 [id number] 13:47:00 Name: MIRA WALKER [facility] : 1955 Age/S: 63 / M [address] [facility] [place] Unit #: [id number] Loc: [place] [address] Phys: Kaycee Braun MD Acct: [id number] Dis Date: Status: REG ER PHONE #: [phone] Exam Date: 04/09/2019 1340 FAX #: Reason: Code Stroke EXAMS: CPT: [id number] XR CHEST 1 V 91840 Fluoro Time: DAP (Gy m2): Air Kerma (mGy): Chest Radiograph History: Code Stroke Comparison: June 17, 2018 Location: R16 A single frontal view of the chest is submitted. The heart appears unchanged in size. Pulmonary vasculature is unremarkable. The visualized lung del real appear to be free of disease. The bones appear unchanged. IMPRESSION: There is no radiographic evidence of acute cardiopulmonary disease. at 1347 Reported and signed by: Michael Luque M.D. CC: Kaycee Braun MD PAGE 1 Signed Report Name: [facility] [place] [facility] 1955 Age/S: 63 / M [address] [address] [facility] [place] [facility] [place] Unit #: [id number] Loc: [place] [address] Phys: Kaycee Braun MD Acct: [id number] Dis Date: Status: REG ER PHONE #: [phone] Exam Date: 04/09/2019 1340 FAX #: Reason: Code Stroke EXAMS: CPT: [id number] XR CHEST 1 V 65643 Fluoro Time: DAP (Gy m2): Air Kerma (mGy): <Continued> Technologist: Abraham Cristobal, RT(R)(CT)(MRI) Trnscb Date/Time: 04/09/2019 (7521) [email or web address] Orig Print D/T: S: 04/09/2019 (8930) PAGE 2 Signed Report - CT HEAD/BRAIN W/O [id number] 13:44:00 Name: [facility] [place] [facility] 1955 Age/S: 63 / M [address] [address] [facility] [place] [facility] [place] Unit #: [id number] Loc: [place] [address] Phys: Kaycee Braun MD Acct: [id number] Dis Date: Status: REG ER PHONE #: [phone] Exam Date: 04/09/2019 1338 FAX #: Reason: Code Stroke EXAMS: CPT: [id number] CT HEAD/BRAIN W/O CONT 30835 LOCATION: T18 EXAM: CT HEAD WITHOUT CONTRAST INDICATION: Code Stroke, COMPARISON: MRI of the brain April 16, 2019 TECHNIQUE: Multiple CT images of the head were obtained. No intravenous contrast was given. Up-to-date CT equipment and radiation dose reduction techniques were utilized. Automatic exposure control was utilized. FINDINGS: No intracranial hemorrhage or extra-axial collection is seen. No midline shift or mass effect is identified. Chronic areas of encephalomalacia involving the left cerebellum, left MANAGING CONSULTANT CLINICAL PROFESSOR territory, right posterior watershed, and right MCA territory. Confluent hypodensity throughout the white matter. Volume loss with proportional enlargement of ventricles and sulci. The calvarium is intact. Peripheral soft tissues are normal. Paranasal sinuses and mastoid air cells are clear. IMPRESSION: No intracranial hemorrhage. Multiple chronic areas of encephalomalacia and extensive chronic small vessel white matter ischemic change. Findings discussed with Dr. Braun in the emergency department at [facility] at 1:44 PM on 04/09/2019. FOR INTERNAL CODING PURPOSES ONLY RESULT CODE: CVRMD at 9214 Reported and signed by: Richar Romano M.D. CC: Kaycee Braun MD Technolo gist:RT Elizabeth(R)(CT); ... CTDI: DLP: Trnscb Date/Time: 04/09/2019 (6184) [email or web address] Orig Print D/T: S: 04/09/2019 (0555) PAGE 1 Signed Report GLUCOSE BEDSIDE [id number] 12:35:00* Test Item Value Reference Range Interpretation Comments GLUCOSE BEDSIDE TESTING (test code = GLUBED) 118 mg/dL 70-110 H CBC W/AUTO [id number] 08:46:00* Test Item Value Reference Range Interpretation Comments WHITE BLOOD CELL (test code = WBC) 11.3 K/mm3 3.5-11.0 H RED BLOOD CELL (test code = RBC) 5.21 M/mm3 4.70-6.10 N HEMOGLOBIN (test code = HGB) 14.8 G/DL 12.3-15.9 N HEMATOCRIT (test code = HCT) 44.6 % 35.8-46.7 N MEAN CELL VOLUME (test code = MCV) 85.6 Fl 86.3-98.9 L MEAN CELL HGB (test code = MCH) 28.4 pg 28.9-34.4 L MEAN CELL HGB CONCETRATION (test code = MCHC) 33.2 G/DL 32.1-34. 5 N RED CELL DISTRIBUTION WIDTH (test code = RDW) 14.2 SD 11.5-14. 5 N PLATELET COUNT (test code = PLT) 189.0 K/mm3 150-450 N MEAN PLATELET VOLUME (test code = MPV) 11.20 fL 7.0-9.6 H NEUTROPHIL % (test code = NT%) 80.0 % 40-76 H LYMPHOCYTE % (test code = LY%) 13.6 % 20.5-51.1 L MONOCYTE % (test code = MO%) 6.3 % 1.7-9.3 N EOSINOPHIL % (test code = EO%) 0.0 % 0.0-6.0 N BASOPHIL % (test code = BA%) 0.1 % 0.0-2.0 N NEUTROPHIL # (test code = NT#) 9.03 K/mm3 1.8-7.6 H LYMPHOCYTE # (test code = LY#) 1.5 K/mm3 0.6-3.0 N MONOCYTE # (test code = MO#) 0.7 K/mm3 0.2-1.5 N EOSINOPHIL # (test code = EO#) 0.0 K/mm3 0.0-0.4 N BASOPHIL # (test code = BA#) 0.0 K/mm3 0.0-0.2 N MANUAL DIFF REQUIRED (test code = MDIFF) NO DIFF/SCN CRITERIA SLIDE REVIEW CONSISTANT WITH AUTO DIFFERENTIAL. Comment: daily while in ICUCBC W/AUTO [id number] 06:55:00* Test Item Value Reference Range Interpretation Comments WHITE BLOOD CELL (test code = WBC) 11.3 K/mm3 3.5-11.0 H RED BLOOD CELL (test code = RBC) 5.21 M/mm3 4.70-6.10 N HEMOGLOBIN (test code = HGB) 14.8 G/DL 12.3-15.9 N HEMATOCRIT (test code = HCT) 44.6 % 35.8-46.7 N MEAN CELL VOLUME (test code = MCV) 85.6 Fl 86.3-98.9 L MEAN CELL HGB (test code = MCH) 28.4 pg 28.9-34.4 L MEAN CELL HGB CONCETRATION (test code = MCHC) 33.2 G/DL 32.1-34. 5 N RED CELL DISTRIBUTION WIDTH (test code = RDW) 14.2 SD 11.5-14. 5 N PLATELET COUNT (test code = PLT) 189.0 K/mm3 150-450 N MEAN PLATELET VOLUME (test code = MPV) 11.20 fL 7.0-9.6 H NEUTROPHIL % (test code = NT%) % 40-76 H LYMPHOCYTE % (test code = LY%) % 20.5-51.1 L MONOCYTE % (test code = MO%) % 1.7-9.3 N EOSINOPHIL % (test code = EO%) % 0.0-6.0 N BASOPHIL % (test code = BA%) % 0.0-2.0 N NEUTROPHIL # (test code = NT#) K/mm3 1.8-7.6 H LYMPHOCYTE # (test code = LY#) K/mm3 0.6-3.0 N MONOCYTE # (test code = MO#) K/mm3 0.2-1.5 N EOSINOPHIL # (test code = EO#) K/mm3 0.0-0.4 N BASOPHIL # (test code = BA#) K/mm3 0.0-0.2 N MANUAL DIFF REQUIRED (test code = MDIFF) DIFF/SCN CRITERIA Comment: daily while in ICUBASIC METABOLIC [id number] 05:26:00* Test Item Value Reference Range Interpretation Comments SODIUM (test code = NA) 143 mmol/L 134-147 N POTASSIUM (test code = K) 3.2 mmol/L 3.4-5.0 L CHLORIDE (test code = CL) 105 mmol/L 100-108 N CARBON DIOXIDE (test code = CO2) 31 mmol/L 21-32 ANION GAP (test code = GAP) 7.0 GAP calc 4.0-15.0 N GLUCOSE (test code = GLU) 115 MG/DL 70-110 H BLOOD UREA NITROGEN (test code = BUN) 13 MG/DL 7-18 N GLOMERULAR FILTRATION RATE (test code = GFR) >=60 max estimate estG FR >60 CREATININE (test code = CREAT) 0.8 MG/DL 0.8-1.3 N CALCIUM (test code = CA) 9.8 MG/DL 8.5-10.1 N Comment: daily while in ICUGLUCOSE BEDSIDE [id number] 03:11:00* Test Item Value Reference Range Interpretation Comments GLUCOSE BEDSIDE TESTING (test code = GLUBED) 148 mg/dL 70-110 H - MRI BRAIN W WO [id number] 18:58:00 FAX: Ruddy Sam MD [phone] Camps: PM St: ADM FAX: oCra Walker MD Name: MIRA WALKER [facility] : 1955 Age/S: 63/M [address] [address] [facility] [place] [facility] [place] Unit #: [id number] Loc: L.ICU0 [place] [address] Phys: Cora Walker MD Acct: [id number] Dis Date: Status: ADM IN PHONE #: [phone] Exam Date: 06/17/2018 1745 FAX #: Reason: temporal bone process- IAC W/WO Report Has Been Amended EXAMS: CPT: [id number] MRI BRAIN W WO CONT 15358 Addendum - 06/17/2018 SIGNED 06/17/2018 A DDENDUM: [id number] MRI/MRIBRAINWW ADDENDUM: Findings have b een reviewed with the charge nurse in the ICUMarce on 06/17/18 at 6:55 P M at 5188 Reported and signed by: Josefina Schmitt M.D. Tra nscribed: 06/17/2018 (1857) [email or web address] Report Location: T 18 MRI brain, 06/17/18 COMPARISON EXAM: CT examination of the temporal bones of 06/16/18 and MRV exam of 06/17/18. The exam is also paramjit ng correlated with head CT exam conducted on 06/14/18 TECHN IQUE: MRI examination of the brain with and without contrast performed on high field magnet with 10 ml of MultiHance was given for contrast. Multip lanar and multisequence technique acquired through brain in all 3 planes CLINICAL HISTORY: Temporal bone process. Seizure event. FINDINGS: There is presence of diffuse atrophy for stated age with multiple old areas of auction seen. 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 Similarly, there is an area of i nfarction in the right temporal occipital region without hemorrhagic produ cts. Old areas of infarction also seen inferiorly in the left cerebellum involving the left PICA territory. There is presence of a small old a janice of infarction in the left side of the justin. There is also an old PAGE 1 Signed Report (CONTINUED) FAX: Ruddy Sam MD [phone] Camps: PM St: ADM FAX: Isela Walker MD Name: MIRA WALKER [facility] Haily johnathan : 1955 Age/S: 63/M [address] [address] Unit #: [id number] Loc: L.ICU0 [place] [address] Phys: Cora Walker MD Acct: [id number] Dis Date: Status: ADM IN PHONE #: [phone] Exam Date: 06/17/2018 1745 FAX #: Reason: temporal bone process-IAC W/WO Report Has Been Amended EXAMS: CPT: [id number] MRI BRAIN W WO CONT 34770 <Continued> area of left MANAGING CONSULTANT CLINICAL PROFESSOR infarction of moderate size in the left parieto-occipital region. There is also fairly extensive chronic microvascular changes having a confluent appearance in the centrum semiovale. There is however an area of acute restriction seen in the right temporal lobe medially fairly small in size felt to be indicative a small acute vascular insult. This is difficult to discern on the head CT exam measuring less than a centimeter in size without appreciable enhancement or mass effect or hemorrhagic products. There is again normal enhancement of the deep venous system with normal flow void. No findings of high concern for deep venous sinus thrombus. Fairly extensive opacification of left mastoid air cells have coalescent appearance with associated restriction of fairly high concern for infected collection. Restriction associated with this finding consistent with cytotoxic edema would make an aggressive ne oplastic processes such as a squamous cell carcinoma, unlikely. Coalescent appearance as noted on the CT examination of the temporal bone with this measuring approximately 2.4 x 1.9 x 2.5 cm in size abutting the left tempo ral lobe without associated cerebral edema or dural invasion identified. N ormal flow void involving the basilar artery and carotid siphons is seen i n this patient. There is engorgement of the superior ophth almic veins identified. Cannot entirely exclude a carotid cavernous fistul a accounting for this. This is of concern, CT exam may be helpful. IMPRESSION: Small acute vascular insult seen medially in the right temporal lobe involving involving the region of the body of the right hippocampus adjacent to the right choroidal fissure fairly s mall in size without hemorrhagic products Atrophy for stated age with multiple old areas of nonhemorrhagic infarction and with significant chronic microvascular changes Significant opacifi cation of left mastoid air cells with associated PAGE 2 Signed Report (CONTINUED) FAX: Ruddy Sam MD [phone] Camps: PM St: ADM FAX: Cora Walker MD ------ Name: MIRA WALKER [facility] : 1955 Age/S: 63/M [address] [address] [facility] [place] [facility] [place] Unit #: [id number] Loc: L.ICU0 [place] [address] Phys: Cora Gilliam MD Acct: [id number] Dis Date: Status: ADM IN PHON E #: [phone] Exam Date: 06/17/2018 0161 FAX #: Reason: temporal bone process-IAC W/WO Report Has Been Amended EXAMS: CPT: [id number] MRI BRAIN W WO CONT 47881 <Continued> bony erosion noted on the CT exam having a coalescent appearance without dural venous involvement clearly seen. Associated restriction is seen making infection the likely cause of this opacification. Neoplastic processes such as a squamous cell carcinoma should not exhibit restriction Engorgement of both superior ophthalmic veins. Cannot entirely exclude a carotid cavernous fistula accounting for this. CTA exam of the head may be helpful for further assessment if indicated at 1854 Reported and signed by: Josefina Schmitt M.D. CC: Ruddy Sam MD; Cora Walker MD Technologist: RT Leda(R)(MR) Transcribed Date/Time/By: 06/17/2018 (1853) :[email or web address] Orig Print D/T: S: 06/17/2018 (1856) PAGE 3 Signed Report - MRI BRAIN W WO CONT 2018-06-17 18:54:00 FAX: Ruddy Sam MD [phone] Camps: PM St: ADM FAX: Cora Walker MD Name: MIRA WALKER [facility] : 1955 Age/S: 63/M [address] [facility] Unit #: [id number] Loc: L.ICU0 [place] [address] Phys: Cora Walker MD Acct: [id number] Dis Date: Status: ADM IN PHONE #: [phone] Exam Date: 06/17/2018 1749 FAX #: Reason: temporal bone process-IAC W/WO EXAMS: CPT: [id number] MRI BRAIN W WO CONT 53168 Location: T 18 MRI brain, 06/17/18 COMPARISON EXAM: CT examination of the temporal bones of 06/16/18 and MRV exam of 06/17/18. The exam is also being correlated with head CT exam conducted on 06/14/18 TECHNIQUE: MRI examination of the brain with and without contrast performed on high field magnet with 10 ml of MultiHance was given for contrast. Multiplanar and multisequence technique acquired through brain in all 3 planes CLINICAL HISTORY: Temporal bone process. Seizure event. FINDINGS: There is presence of diffuse atrophy for stated age with multiple old areas of auction seen. 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 Similarly, there is an area of infarction in the right temporal occipital region without hemorrhagic products. Old areas of infarction also seen inferiorly in the left cerebellum involving the left PICA territory. There is presence of a small old area of infarction in the left side of the justin. There is also an old area of left MANAGING CONSULTANT CLINICAL PROFESSOR infarction of moderate size in the left parieto-occipital region. There is also fairly extensive chronic microvascular changes having a confluent appearance in the centrum semiovale. There is however an area of acute restriction seen in the right temporal lobe medially fairly small in size felt to be indicati ve a small acute vascular insult. This is difficult to discern on the head CT exam measuring less than a centimeter in size without appreciable enhancement or mass effect or hemorrhagic products. There is again normal enhancement of the deep venous system with normal flow void. No findings of high concern for deep venous sinus thrombus. Fairly extensive opacification of left mastoid air cells have coalescent appearance with as sociated restriction of fairly high concern for infected collection. Restr iction associated with this finding consistent with cytotoxic edema would make an aggressive neoplastic processes such as a squamous cell carcinoma, unlikely. Coalescent appearance as noted on the CT examination of the tem poral PAGE 1 Signed Report (CONTIN UED) FAX: Ruddy Sam MD [phone] Camps: PM St: ADM FAX: Cora Walker MD Name: MIRA WALKER [facility] : 1955 Age/S: 63/M [address] [address] [facility] [place] Unit #: [id number] Loc: L.ICU0 [place] [place] [address] Phys: Cora Walker MD Acct: [id number] Dis Date: Status: ADM IN PHONE #: [phone] Exam Date: 2018 8142 FAX #: Reason: temporal bone p rocess-IAC W/WO EXAMS: CPT: [id number] MRI BRAIN W WO CONT 70 553 <Continued> bone with this measuring approximately 2.4 x 1.9 x 2.5 cm in size abutting the left temporal lobe without associated cerebral edema or dural invasion identified. Normal flow void involving the basilar artery and carotid siphons is seen in this patient. There is engorgement of the superior ophthalmic veins identified. Cannot entirely exclude a carotid cavernous fistula accounting for this. This is of concern, CT exam may be helpful. IMPRESSION: Small acute vascular insult seen medially in the right temporal lobe involving involving the region of the body of the right hippocampus adjacent to the right choroidal fissure fairly small in size without hemorrhagic products Atrophy for stated age with multiple old areas of nonhemorrhagic infarction and with significant chronic microvascular changes Significant opacification of left mastoid air cells with associated bony erosion noted on the CT exam having a coalescent appearance without dural venous involvement clearly seen. Associated restriction is seen making infection the likely cause of this opacification. Neoplastic processes such as a squamous cell carcinoma should not exhibit restriction Engorgement of both superior ophthalmic veins. Cannot entirely exclude a carotid cavernous fistula accounting for this. CTA exam of the head may be helpful for further assessment if indicated at 1854 Reported and signed by: Josefina Schmitt M.D. CC: Ruddy Sam MD; Cora Walker MD Technologist: Colette Pugh, RT(R)(MR) Transcribed Date/Time/By: 06/17/2018 (1853) :[email or web address] Orig Print D/T: S: 06/17/2018 (4528) PAGE 2 Signed Report - MRV HEAD WO [id number] 18:35:00 FAX: Ruddy Sam MD [phone] Camps: PM St: ADM FAX: Cora Walker MD Name: MIRA WALKER : 1955 Age/S: 63/M [address] [address] [facility] Unit #: [id number] Loc: L.ICU0 [place] [address] Phys: Cora Walker MD Acct: [id number] Dis Date: Status: ADM IN PHONE #: [phone] Exam Date: 06/17/2018 1705 FAX #: Reason: temporal bone process EXAMS: CPT: [id number] MRV HEAD WO CONT 13271 Location: T 18 MRV exam conducted on 06/17/18 Comparison Exams : CT examination of the temporal bones conducted on 06/16/18 and to the MRI imaging examination of the brain conducted on 06/17/18 TECHNIQUE: MRV examination of the intracranial vessels was performed on a 1.5 Melba magnet utilizing 3D psje-zt-kqxdvx technique without contrast. Scanning conducted from skull base through vertex in the axial plane using GRE technique, with acquisition of MIP images from point source images. 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 FINDINGS: The left sigmoid sinus appears unremarkable in this patient with aggressive appearing process involving the left temporal bone of concern from mastoiditis. No findings of concern for venous sinus thrombus in this area or elsewhere. IMPRESSION: No deep venous sinus thrombus. In particular, the left sigmoid sinus appears unremarkable at 1835 Reported and signed by: Josefina Schmitt M.D. PAGE 1 Signed Report (CONTINUED) FAX: Ruddy Sam MD [phone] Camps: PM St: ADM FAX: Cora Mendiola MD Name: MIRA WALKER [facility] : 1955 Age/S: 63/M [address] [address] [facility] [place] Unit #: [id number] Loc: L.ICU0 [place] [address] Phys: Cora Walker MD Acct: [id number] Dis Date: Status: ADM IN PHONE #: [phone] Exam Date: 06/17/2018 1705 FAX #: Reason: temporal bone process EXAMS: CPT: [id number] MRV HEAD WO CONT 35273 < Continued> CC: Ruddy Sam MD; Cora Walker MD Technologist: Colette Pugh, RT(R)(MR) Transcribed Date/Time/By: 06/17/2018 (1834) :[email or web address] Orig Print D/T: S: 06/17/2018 (1837) PAGE 2 Signed Report - XR ABDOMEN 1 [id number] 15:02:00 Name: [facility] [place] : 1955 Age/S: 63 / M [address] [address] [facility] [place] Unit #: [id number] Loc: [place] [address] Phys: Cora Walker MD Acct: [id number] Dis Date: Status: ADM IN PHONE #: [phone] Exam Date: 06/17/2018 1410 FAX #: Reason: TO EVALUATE FOR MRI CLEARANCE EXAMS: CPT: [id number] XR ABDOMEN 1 V 23862 Fluoro Time: DAP (Gy m2): Air Kerma (mGy): ABDOMEN ONE VIEW LOCATION: B2 CLINICAL HISTORY: To evaluate for MRI. COMPARISON: No previous exam available. FINDINGS: Normal bowel gas pattern is seen throughout the abdomen. No bowel dilatation or free air is found. An NG tube is in place. Degenerative disc disease is seen in the lumbar spine. No acute osseous abnormality is found. A bladder metallic wire/probe is noted. IMPRESSION: No acute findings in the abdomen or pelvis. NG tube and bladder metallic wire/probe in place. at 1502 Reported and signed by: Birgit Alvarenga M.D. CC: Ruddy Sam MD; Cora Walker MD PAGE 1 Signed Report Name: [place] : 1955 Age/S: 63 / M [address] [address] [facility] Unit #: [id number] Loc: [place] [address] Phys: Cora Walker MD Acct: [id number] Dis Date: Status: ADM IN PHONE #: [phone] Exam Date: 06/17/2018 1410 FAX #: Reason: TO EVALUATE FOR MRI CLEARANCE EXAMS: CPT: [id number] XR ABDOMEN 1 V 58512 Fluoro Time: DAP (Gy m2): Air Kerma (mGy): < Continued> Technologist: Yvon Dumont RT(R)(CT) Trnscb Date/Time: 06/17/2018 (6540) [email or web address] Orig Print D/T: S: 06/17/2018 (5359) PAGE 2 Signed Report GLUCOSE BEDSIDE [id number] 12:17:00* Test Item Value Reference Range Interpretation Comments GLUCOSE BEDSIDE TESTING (test code = GLUBED) 132 mg/dL 70-110 H CBC W/AUTO [id number] 09:59:00* Test Item Value Reference Range Interpretation Comments WHITE BLOOD CELL (test code = WBC) 8.2 K/mm3 3.5-11.0 N RED BLOOD CELL (test code = RBC) 4.41 M/mm3 4.70-6.10 L HEMOGLOBIN (test code = HGB) 12.6 G/DL 12.3-15.9 N HEMATOCRIT (test code = HCT) 39.1 % 35.8-46.7 N MEAN CELL VOLUME (test code = MCV) 88.7 Fl 86.3-98.9 N MEAN CELL HGB (test code = MCH) 28.6 pg 28.9-34.4 L MEAN CELL HGB CONCETRATION (test code = MCHC) 32.2 G/DL 32.1-34. 5 N RED CELL DISTRIBUTION WIDTH (test code = RDW) 14.5 SD 11.5-14. 5 N PLATELET COUNT (test code = PLT) 173.0 K/mm3 150-450 N MEAN PLATELET VOLUME (test code = MPV) 11.90 fL 7.0-9.6 H NEUTROPHIL % (test code = NT%) 80.0 % 40-76 H LYMPHOCYTE % (test code = LY%) 15.5 % 20.5-51.1 L MONOCYTE % (test code = MO%) 4.3 % 1.7-9.3 N EOSINOPHIL % (test code = EO%) 0.1 % 0.0-6.0 N BASOPHIL % (test code = BA%) 0.1 % 0.0-2.0 N NEUTROPHIL # (test code = NT#) 6.58 K/mm3 1.8-7.6 N LYMPHOCYTE # (test code = LY#) 1.3 K/mm3 0.6-3.0 N MONOCYTE # (test code = MO#) 0.4 K/mm3 0.2-1.5 N EOSINOPHIL # (test code = EO#) 0.0 K/mm3 0.0-0.4 N BASOPHIL # (test code = BA#) 0.0 K/mm3 0.0-0.2 N MANUAL DIFF REQUIRED (test code = MDIFF) NO DIFF/SCN CRITERIA SLIDE REVIEW CONSISTANT WITH AUTO DIFFERENTIAL. Comment: [facility] [id number] 08:22:00* Test Item Value Reference Range Interpretation Comments WHITE BLOOD CELL (test code = WBC) 8.2 K/mm3 3.5-11.0 N RED BLOOD CELL (test code = RBC) 4.41 M/mm3 4.70-6.10 L HEMOGLOBIN (test code = HGB) 12.6 G/DL 12.3-15.9 N HEMATOCRIT (test code = HCT) 39.1 % 35.8-46.7 N MEAN CELL VOLUME (test code = MCV) 88.7 Fl 86.3-98.9 N MEAN CELL HGB (test code = MCH) 28.6 pg 28.9-34.4 L MEAN CELL HGB CONCETRATION (test code = MCHC) 32.2 G/DL 32.1-34. 5 N RED CELL DISTRIBUTION WIDTH (test code = RDW) 14.5 SD 11.5-14. 5 N PLATELET COUNT (test code = PLT) 173.0 K/mm3 150-450 N MEAN PLATELET VOLUME (test code = MPV) 11.90 fL 7.0-9.6 H NEUTROPHIL % (test code = NT%) % 40-76 H LYMPHOCYTE % (test code = LY%) % 20.5-51.1 L MONOCYTE % (test code = MO%) % 1.7-9.3 N EOSINOPHIL % (test code = EO%) % 0.0-6.0 N BASOPHIL % (test code = BA%) % 0.0-2.0 N NEUTROPHIL # (test code = NT#) K/mm3 1.8-7.6 N LYMPHOCYTE # (test code = LY#) K/mm3 0.6-3.0 N MONOCYTE # (test code = MO#) K/mm3 0.2-1.5 N EOSINOPHIL # (test code = EO#) K/mm3 0.0-0.4 N BASOPHIL # (test code = BA#) K/mm3 0.0-0.2 N MANUAL DIFF REQUIRED (test code = MDIFF) DIFF/SCN CRITERIA Comment: daily while in ICU- XR CHEST 1 [id number] 07:59:00 Name: MIRA WALKER [place] : 1955 Age/S: 63 / M [address] [address] [facility] Unit #: [id number] Loc: [place] [address] Phys: Saad Gardiner MD Acct: [id number] Di s Date: Status: ADM IN PHONE #: Exam Date: 06/17/2018 0641 FAX #: Reason: Ventilatory Failure, tube position EXAMS: CPT: [id number] XR CHEST 1 V 39559 Fluoro Time: DAP (Gy m2): Air Kerma (mGy): EXAM: Portable chest x-ray Location: B2 COMPARISON: Chest x-ray on 06/16/2018 INDICATION: Ventilatory Failure, tube position DISCUSSION: The endotracheal tube and visualized portion of the upper enteric tube ove rlie the appropriate position. No consolidation, pleural effusion, or pne umothorax is seen. The cardiomediastinal silhouette is within normal limi ts. No acute bony abnormalities are identified. IMPRESSION: The endotracheal tube and visualized portion of the upper enteric tube over lie the appropriate position. No evidence of acute abnormality. at 0759 Reported and sig hilda by: Kieran Ramachandran M.D. CC: Ruddy Sam MD; Saad Gardiner MD PAGE 1 Signed Report Name: [facility] 1955 Age/S: 63 / M [address] Unit #: [id number] Loc: [place] [address] Phys: Salbador Gardiner MD Acct: [id number] Dis Date: Status: ADM IN PHONE #: [phone] Exam Date: 06/17/2018 0641 FAX #: Reason: Ventilatory Failure, tube position EXAMS: CPT: [id number] XR CHEST 1 V 41111 Fluoro Time: DAP (Gy m2): Air Kerma (mGy): <Continued> Technologist: Lloyd Menchaca, RT(R)(CT) Trnscb Tristan e/Time: 06/17/2018 (0759) [email or web address] Orig Print D/T: S: (0802) PAGE 2 Signed Report BASIC METABOLIC PANEL 2018-06-17 07:47:00* Test Item Value Reference Range Interpretation Comments SODIUM (test code = NA) 143 mmol/L 134-147 N POTASSIUM (test code = K) 3.8 mmol/L 3.4-5.0 N CHLORIDE (test code = CL) 106 mmol/L 100-108 N CARBON DIOXIDE (test code = CO2) 23 mmol/L 21-32 N ANION GAP (test code = GAP) 14.0 GAP calc 4.0-15.0 N GLUCOSE (test code = GLU) 108 MG/DL 70-110 N BLOOD UREA NITROGEN (test code = BUN) 5 MG/DL 7-18 L GLOMERULAR FILTRATION RATE (test code = GFR) >=60 max estimate estG FR >60 CREATININE (test code = CREAT) 0.7 MG/DL 0.8-1.3 L CALCIUM (test code = CA) 8.7 MG/DL 8.5-10.1 N Comment: daily while in [id number] 07:47:00* Test Item Value Reference Range Interpretation Comments MAGNESIUM (test code = MAG) 1.9 MG/DL 1.8-2.4 N Comment: daily while in ICUGLUCOSE BEDSIDE [id number] 06:32:00* Test Item Value Reference Range Interpretation Comments GLUCOSE BEDSIDE TESTING (test code = GLUBED) 98 mg/dL 70-110 N [id number] 05:29:00* Test Item Value Reference Range Interpretation Comments ARTERIAL BLOOD GAS PH (test code = PHA) 7.44 pH units 7.35-7.45 N ARTERIAL BLOOD GAS PCO2 (test code = PCO2A) 33 mmHg 35-45 L ARTERIAL BLOOD GAS PO2 (test code = PO2A) 116 mmHg 80-100 H BICARBONATE TOTAL HCO3 (test code = HCO3) 21.7 mmol/L 22.0-26.0 L BASE EXCESS (test code = YOVANA) -1.8 mmol/L -3.0-3.0 N ABG O2 SATURATION (test code = SATA) 98 % 90-100 N FIO2 (test code = FIO2A) 40 % e 21-100 N ABG VENT MODE (test code = MODEA) A/C Descript Vent Mode ABG TIDAL VOLUME (test code = TVA) 450 ML ABG PEEP (test code = PEEPA) 5.0 cm H20 0.0-99.9 ABG SITE (test code = SITEA) Right Radial ARTKIT DESCRIPTION MODIFIED REJI'S (test code = MODALL) Yes Circ.CHK POSITIVE TOTAL HGB (test code = THB) 13.7 GRAM/DL 12.0-18.0 N HGB O2 SAT (test code = HBOSAT) 96.8 % (melinda) 95.0-100.0 N CARBOXYHEMOGLOBIN (test code = HOHGBT) 0.8 % 0.5-1.5 N METHEMOGLOBIN (test code = METHGB) 0.7 % 0.0-0.0 H GLUCOSE BEDSIDE [id number] 00:19:00* Test Item Value Reference Range Interpretation Comments GLUCOSE BEDSIDE TESTING (test code = GLUBED) 108 mg/dL 70-110 N - CT ORBIT/SELLA/IAC [id number] 16:08:00 Name: [place] : 1955 Age/S: 63 / M [address] [address] [facility] [place] Unit #: [id number] Loc: [place] [address] Phys: Cora Walker MD Acct: [id number] Dis Date: Status: ADM IN PHONE #: [phone] Exam Date: 06/16/2018 3154 FAX #: Reason: evaluation of temporal bone w/ contrast EXAMS: CPT: [id number] CT ORBIT/SELLA/IAC W 82102 CT OF THE TEMPORAL BONES WITH CONTRAST HISTORY: Left ear discharge, seizure COMPARISON: None TECHNIQUE: Axial CT images through temporal bones was obtained with coronal reformatted views. Automated exposure control, iterative reconstruction technique, and/or adjustment of mA and/or kV according to patient's size was utilized for radiation dose reduction. IV CONTRAST: 100 mL Isovue-300. Location: U19. FINDINGS: Limited exam due to patient motion. Right temporal bone: The external auditory canal is clear. The tympanic membrane is faintly visualized. The tympanic cavity and mastoid air cells are clear. The ossicular chain and tegmen tympani are intact. The inner ear structures have a normal morphology. The bony coverings of the cochlea, vestibule, semicircular canals, and facial nerve canal are intact. The vestibular aqueduct is within normal limits in size. No abnormalities of the osseous internal auditory canal are demonstrated. Left te mporal bone: Beginning at the bony portion of the external auditory canal is completely opacified. There is a large erosion extending to the masto id air cells. The middle ear is opacified. The ossicles are likely erode d. There are erosions and likely defects along the tegmen, at least 2 chris suring up to 3 mm. There is some motion artifact but there may be some er osions extending to one of the semicircular canal, likely the lateral. The bony coverings of the cochlea, vestibule, and facial nerve canal are intact. The vestibular aqueduct is within normal limits in size. No abnormalities of the osseous internal auditory canal are demonstrated. No definite abnormal enhancement. IMPR ESSION: PAGE 1 Signed Report (CONT INUED) Name: MIRA WALKER : 1955 Age/S: 63 / M [address] [facility] [place] Unit #: [id number] Loc: [place] [address] Phys: Cora Gilliam MD Acct: [id number] Dis Date: Status: ADM IN MICHAEL NE #: [phone] Exam Date: 06/16/2018 6006 FAX #: Reason: evaluation of temporal bone w/ contrast EXAM S: CPT: [id number] CT ORB IT/SELLA/IAC W 54843 <Continued> Limited exam due to patient motion. Opacification of the bony portion of the external auditory canal, middle ear and mastoid air cells with a large erosions likely involving the ossicles, lateral semicircular canal and with erosions through the tegmen. No obvious collection is seen extending into the brain. Findings likely relate to a mastoiditis. at 1608 Reported and signed by: Mary Ennis M.D. CC: Ruddy Sam MD; Cora Walker MD Technologist:Hayden Cantu, RT(R)(CT); .. CTDI: DLP: Trnscb Date/Time: 06/16/2018 (1608) [email or web address] Orig Print D/T: S: 06/16/2018 (1612) CTDI: DLP: PAGE 2 Signed Report CBC W/AUTO [id number] 09:01:00* Test Item Value Reference Range Interpretation Comments WHITE BLOOD CELL (test code = WBC) 8.2 K/mm3 3.5-11.0 N RED BLOOD CELL (test code = RBC) 4.65 M/mm3 4.70-6.10 L HEMOGLOBIN (test code = HGB) 13.1 G/DL 12.3-15.9 N HEMATOCRIT (test code = HCT) 41.3 % 35.8-46.7 N MEAN CELL VOLUME (test code = MCV) 88.8 Fl 86.3-98.9 N MEAN CELL HGB (test code = MCH) 28.2 pg 28.9-34.4 L MEAN CELL HGB CONCETRATION (test code = MCHC) 31.7 G/DL 32.1-34. 5 L RED CELL DISTRIBUTION WIDTH (test code = RDW) 14.8 SD 11.5-14. 5 H PLATELET COUNT (test code = PLT) 153.0 K/mm3 150-450 N MEAN PLATELET VOLUME (test code = MPV) 11.40 fL 7.0-9.6 H NEUTROPHIL % (test code = NT%) 60.5 % 40-76 LYMPHOCYTE % (test code = LY%) 24.8 % 20.5-51.1 N MONOCYTE % (test code = MO%) 13.1 % 1.7-9.3 H EOSINOPHIL % (test code = EO%) 1.5 % 0.0-6.0 N BASOPHIL % (test code = BA%) 0.1 % 0.0-2.0 N NEUTROPHIL # (test code = NT#) 4.95 K/mm3 1.8-7.6 N LYMPHOCYTE # (test code = LY#) 2.0 K/mm3 0.6-3.0 N MONOCYTE # (test code = MO#) 1.1 K/mm3 0.2-1.5 N EOSINOPHIL # (test code = EO#) 0.1 K/mm3 0.0-0.4 N BASOPHIL # (test code = BA#) 0.0 K/mm3 0.0-0.2 N MANUAL DIFF REQUIRED (test code = MDIFF) NO DIFF/SCN CRITERIA SLIDE REVIEW CONSISTANT WITH AUTO DIFFERENTIAL. Comment: daily while in ICU- XR CHEST 1 [id number] 07:14:00 Name: MIRA WALKER [facility] : 1955 Age/S: 63 / M [address] [address] [facility] [place] Unit #: [id number] Loc: [place] [address] Phys: Saad Gardiner MD Acct: [id number] Di s Date: Status: ADM IN PHONE #: [phone] Exam Date: 06/16/2018 0635 FAX #: Reason: Daily while patient on ventilator EXAMS: CPT: [id number] XR CHEST 1 V 06289 Fluoro Time: DAP (Gy m2): Air Kerma (mGy): EXAM: - XR CHEST 1 V HI STORY: Ventilator follow-up Location code:C3 COMPARI SON: 06/15/2018 FINDINGS: Single AP view of the chest is provided. Endotracheal tube and enteric tube are unchanged. Hea rt size and vascularity are within normal limits. The lungs are clear of focal consolidation. No effusion, pneumothorax, or acute osseous abnormal ity. IMPRESSION: 1. No significant interval hellen nge. at 0714 Reported and signed by: Niko Vasquez MD CC: Sa nancy Sam MD; Salbador Gardiner MD PAGE 1 Signed Report Name: MIRA WALKER : 1955 Age/S: 63 / M [address] [address] [facility] [place] Unit #: [id number] Loc: [place] [address] Phys: Salbador Gardiner MD Acct: [id number] Dis Date: Status: ADM IN PHONE #: [phone] Exam Date: 0635 FAX #: Reason: Daily while pa tient on ventilator EXAMS: CPT: [id number] XR CHEST 1 V 71 045 Fluoro Time: DAP (Gy m2): Air Kerma (mGy): <Continued> Technologist: Patricia Farooq RT(R)(CT) Trnscb Date/Time: 06/16/2018 (07) [email or web address] Orig Print D/T: S: 06/16/2018 (0717) PAGE 2 Signed Report COMPREHENSIVE METABOLIC [id number] 06:39:00* Test Item Value Reference Range Interpretation Comments SODIUM (test code = NA) 144 mmol/L 134-147 N POTASSIUM (test code = K) 3.7 mmol/L 3.4-5.0 N CHLORIDE (test code = CL) 109 mmol/L 100-108 H CARBON DIOXIDE (test code = CO2) 26 mmol/L 21-32 N ANION GAP (test code = GAP) 9.0 GAP calc 4.0-15.0 N GLUCOSE (test code = GLU) 96 MG/DL 70-110 N BLOOD UREA NITROGEN (test code = BUN) 5 MG/DL 7-18 L GLOMERULAR FILTRATION RATE (test code = GFR) >=60 max estimate estG FR >60 CREATININE (test code = CREAT) 0.8 MG/DL 0.8-1.3 N TOTAL PROTEIN (test code = PROT) 6.1 G/DL 6.4-8.2 L ALBUMIN (test code = ALB) 3.2 G/DL 3.4-5.0 L GLOBULIN (test code = GLOB) 2.9 GM/dL ALBUMIN/GLOBULIN RATIO (test code = A/G) 1.1 RATIO 1.2-2.2 L CALCIUM (test code = CA) 8.5 MG/DL 8.5-10.1 N BILIRUBIN TOTAL (test code = BILT) 0.90 MG/DL 0.2-1.2 N SGOT/AST (test code = AST) 39 Unit/L 15-37 H SGPT/ALT (test code = ALT) 21 Unit/L 12-78 N ALKALINE PHOSPHATASE TOTAL (test code = ALKP) 87 Unit/L 50-136 N [id number] 06:36:00* Test Item Value Reference Range Interpretation Comments MAGNESIUM (test code = MAG) 1.9 MG/DL 1.8-2.4 N Comment: daily while in ICUCBC W/AUTO [id number] 06:21:00* Test Item Value Reference Range Interpretation Comments WHITE BLOOD CELL (test code = WBC) 8.2 K/mm3 3.5-11.0 N RED BLOOD CELL (test code = RBC) 4.65 M/mm3 4.70-6.10 L HEMOGLOBIN (test code = HGB) 13.1 G/DL 12.3-15.9 N HEMATOCRIT (test code = HCT) 41.3 % 35.8-46.7 N MEAN CELL VOLUME (test code = MCV) 88.8 Fl 86.3-98.9 N MEAN CELL HGB (test code = MCH) 28.2 pg 28.9-34.4 L MEAN CELL HGB CONCETRATION (test code = MCHC) 31.7 G/DL 32.1-34. 5 L RED CELL DISTRIBUTION WIDTH (test code = RDW) 14.8 SD 11.5-14. 5 H PLATELET COUNT (test code = PLT) 153.0 K/mm3 150-450 N MEAN PLATELET VOLUME (test code = MPV) 11.40 fL 7.0-9.6 H NEUTROPHIL % (test code = NT%) % 40-76 LYMPHOCYTE % (test code = LY%) % 20.5-51.1 N MONOCYTE % (test code = MO%) % 1.7-9.3 H EOSINOPHIL % (test code = EO%) % 0.0-6.0 N BASOPHIL % (test code = BA%) % 0.0-2.0 N NEUTROPHIL # (test code = NT#) K/mm3 1.8-7.6 N LYMPHOCYTE # (test code = LY#) K/mm3 0.6-3.0 N MONOCYTE # (test code = MO#) K/mm3 0.2-1.5 N EOSINOPHIL # (test code = EO#) K/mm3 0.0-0.4 N BASOPHIL # (test code = BA#) K/mm3 0.0-0.2 N MANUAL DIFF REQUIRED (test code = MDIFF) DIFF/SCN CRITERIA Comment: daily while in [id number] 06:11:00* Test Item Value Reference Range Interpretation Comments ARTERIAL BLOOD GAS PH (test code = PHA) 7.42 pH units 7.35-7.45 N ARTERIAL BLOOD GAS PCO2 (test code = PCO2A) 34 mmHg 35-45 L ARTERIAL BLOOD GAS PO2 (test code = PO2A) 202 mmHg 80-100 H BICARBONATE TOTAL HCO3 (test code = HCO3) 21.6 mmol/L 22.0-26.0 L BASE EXCESS (test code = YOVANA) -2.3 mmol/L -3.0-3.0 N ABG O2 SATURATION (test code = SATA) 99 % 90-100 N FIO2 (test code = FIO2A) 50 % e 21-100 N ABG VENT MODE (test code = MODEA) A/C Descript Vent Mode ABG TIDAL VOLUME (test code = TVA) 450 ML ABG PEEP (test code = PEEPA) 5.0 cm H20 0.0-99.9 ABG SITE (test code = SITEA) Right Radial ARTKIT DESCRIPTION MODIFIED REJI'S (test code = MODALL) Yes Circ.CHK POSITIVE TOTAL HGB (test code = THB) 13.4 GRAM/DL 12.0-18.0 N HGB O2 SAT (test code = HBOSAT) 97.7 % (melinda) 95.0-100.0 N CARBOXYHEMOGLOBIN (test code = HOHGBT) 0.6 % 0.5-1.5 N METHEMOGLOBIN (test code = METHGB) 0.8 % 0.0-0.0 H [id number] 16:46:00* Test Item Value Reference Range Interpretation Comments ARTERIAL BLOOD GAS PH (test code = PHA) 7.35 pH units 7.35-7.45 N ARTERIAL BLOOD GAS PCO2 (test code = PCO2A) 43 mmHg 35-45 N ARTERIAL BLOOD GAS PO2 (test code = PO2A) 99 mmHg 80-100 N BICARBONATE TOTAL HCO3 (test code = HCO3) 23.3 mmol/L 22.0-26.0 BASE EXCESS (test code = YOVANA) -2.4 mmol/L -3.0-3.0 N ABG O2 SATURATION (test code = SATA) 97 % 90-100 N FIO2 (test code = FIO2A) 30 % e 21-100 N ABG VENT MODE (test code = MODEA) PSV Descript Vent Mode ABG PEEP (test code = PEEPA) 5.0 cm H20 0.0-99.9 ABG PRESSURE SUPPORT (test code = PSABG) 5.0 cm H20 >0 ABG SITE (test code = SITEA) Right Radial ARTKIT DESCRIPTION MODIFIED REJI'S (test code = MODALL) Yes Circ.CHK POSITIVE TOTAL HGB (test code = THB) 14.3 GRAM/DL 12.0-18.0 N HGB O2 SAT (test code = HBOSAT) 95.2 % (melinda) 95.0-100.0 N CARBOXYHEMOGLOBIN (test code = HOHGBT) 0.9 % 0.5-1.5 N METHEMOGLOBIN (test code = METHGB) 0.7 % 0.0-0.0 H BASIC METABOLIC [id number] 09:10:00* Test Item Value Reference Range Interpretation Comments SODIUM (test code = NA) 146 mmol/L 134-147 N POTASSIUM (test code = K) 3.8 mmol/L 3.4-5.0 N CHLORIDE (test code = CL) 114 mmol/L 100-108 H CARBON DIOXIDE (test code = CO2) 23 mmol/L 21-32 N ANION GAP (test code = GAP) 9.0 GAP calc 4.0-15.0 N GLUCOSE (test code = GLU) 94 MG/DL 70-110 N BLOOD UREA NITROGEN (test code = BUN) 6 MG/DL 7-18 L GLOMERULAR FILTRATION RATE (test code = GFR) >=60 max estimate estG FR >60 CREATININE (test code = CREAT) 0.7 MG/DL 0.8-1.3 L CALCIUM (test code = CA) 7.8 MG/DL 8.5-10.1 L Comment: daily while in ICU IF MAGNESSIUM IS LESS THAN 2 GIVE IGM OF MAG NESSIUM SULPHATECOMPREHENSIVE METABOLIC [id number] 09:10:00* Test Item Value Reference Range Interpretation Comments TOTAL PROTEIN (test code = PROT) 5.6 G/DL 6.4-8.2 L ALBUMIN (test code = ALB) 2.9 G/DL 3.4-5.0 L GLOBULIN (test code = GLOB) 2.7 GM/dL ALBUMIN/GLOBULIN RATIO (test code = A/G) 1.1 RATIO 1.2-2.2 L BILIRUBIN TOTAL (test code = BILT) 0.60 MG/DL 0.2-1.2 N SGOT/AST (test code = AST) 37 Unit/L 15-37 N SGPT/ALT (test code = ALT) 21 Unit/L 12-78 N ALKALINE PHOSPHATASE TOTAL (test code = ALKP) 80 Unit/L 50-136 N Comment: daily while in ICU IF MAGNESSIUM IS LESS THAN 2 GIVE IGM OF MAG NESSIUM SULPHATELIPID PROFILE (CORONARY RISK)2018-06-15 09:10:00* Test Item Value Reference Range Interpretation Comments TRIGLYCERIDES (test code = TRIG) 75 MG/DL 0-150 N CHOLESTEROL (test code = CHOL) 102 MG/DL 133-200 L CHOLESTEROL/HDL RATIO (test code = CHOLHDL) 2.68 RATIO >0 HDL CHOLESTEROL (test code = HDL) 38 MG/DL 40-59 L NON-HDL CHOLESTEROL (test code = NHDL) 64 mg/dL <130 LIPOPROTEIN LDL (test code = LDL) 54 MG/DL 0-129 N LDL/HDL (test code = LDL/HDL) 1.42 Ratio 1.48-3.22 Avg L Comment: daily while in ICU IF MAGNESSIUM IS LESS THAN 2 GIVE IGM OF MAG NESSIUM [id number] 09:10:00* Test Item Value Reference Range Interpretation Comments MAGNESIUM (test code = MAG) 1.8 MG/DL 1.8-2.4 Comment: daily while in ICU IF MAGNESSIUM IS LESS THAN 2 GIVE IGM OF MAG NESSIUM SULPHATENT PRO-BRAIN NATRIURETIC [id number] 09:10:00* Test Item Value Reference Range Interpretation Comments NT PRO-BRAIN NATRIURETIC PEPTI (test code = PROBNP) 6652 PG/ML 0- 100 H Comment: daily while in ICU IF MAGNESSIUM IS LESS THAN 2 GIVE IGM OF MAG NESSIUM SULPHATECPK-MB [id number] 09:10:00* Test Item Value Reference Range Interpretation Comments CREATINE KINASE (CK) (test code = CK) 226 Unit/L 26-192 H CKMB (test code = CKMBT) 8.7 NG/ML 0.0-4.9 H RELATIVE % INDEX (test code = REL%) 3.8 % 0.0-2.5 HH Comment: daily while in ICU IF MAGNESSIUM IS LESS THAN 2 GIVE IGM OF MAG NESSIUM [id number] 09:10:00* Test Item Value Reference Range Interpretation Comments TROPONIN-I (test code = TROPI) 0.777 NG/ML 0.000-0.045 HH Negative: </= 0.045 Positive: >/= 0.046 Correlation with serial results, other cardiac markers, and clinical findings is necessary to determine the clinical significance of this result. Quantitative results using different methodologies should not be compared to one another as numerical results may varyby method. Comment: daily while in ICU IF MAGNESSIUM IS LESS THAN 2 GIVE IGM OF MAG NESSIUM SULPHATEBASIC METABOLIC [id number] 08:36:00* Test Item Value Reference Range Interpretation Comments SODIUM (test code = NA) 146 mmol/L 134-147 N POTASSIUM (test code = K) 3.8 mmol/L 3.4-5.0 N CHLORIDE (test code = CL) 114 mmol/L 100-108 H CARBON DIOXIDE (test code = CO2) 23 mmol/L 21-32 N ANION GAP (test code = GAP) 9.0 GAP calc 4.0-15.0 N GLUCOSE (test code = GLU) 94 MG/DL 70-110 N BLOOD UREA NITROGEN (test code = BUN) 6 MG/DL 7-18 L GLOMERULAR FILTRATION RATE (test code = GFR) estGFR >60 CREATININE (test code = CREAT) MG/DL 0.8-1.3 CALCIUM (test code = CA) 7.8 MG/DL 8.5-10.1 L Comment: daily while in ICU IF MAGNESSIUM IS LESS THAN 2 GIVE IGM OF MAG NESSIUM SULPHATECOMPREHENSIVE METABOLIC [id number] 08:36:00* Test Item Value Reference Range Interpretation Comments TOTAL PROTEIN (test code = PROT) G/DL 6.4-8.2 ALBUMIN (test code = ALB) G/DL 3.4-5.0 GLOBULIN (test code = GLOB) GM/dL ALBUMIN/GLOBULIN RATIO (test code = A/G) RATIO 1.2-2.2 BILIRUBIN TOTAL (test code = BILT) MG/DL 0.2-1.2 SGOT/AST (test code = AST) Unit/L 15-37 SGPT/ALT (test code = ALT) Unit/L 12-78 ALKALINE PHOSPHATASE TOTAL (test code = ALKP) Unit/L 50-136 Comment: daily while in ICU IF MAGNESSIUM IS LESS THAN 2 GIVE IGM OF MAG NESSIUM SULPHATELIPID PROFILE (CORONARY RISK)2018-06-15 08:36:00* Test Item Value Reference Range Interpretation Comments TRIGLYCERIDES (test code = TRIG) MG/DL 0-150 CHOLESTEROL (test code = CHOL) MG/DL 133-200 CHOLESTEROL/HDL RATIO (test code = CHOLHDL) RATIO >0 HDL CHOLESTEROL (test code = HDL) MG/DL 40-59 NON-HDL CHOLESTEROL (test code = NHDL) mg/dL <130 LIPOPROTEIN LDL (test code = LDL) MG/DL 0-129 LDL/HDL (test code = LDL/HDL) Ratio 1.48-3.22 Avg Comment: daily while in ICU IF MAGNESSIUM IS LESS THAN 2 GIVE IGM OF MAG NESSIUM [id number] 08:36:00* Test Item Value Reference Range Interpretation Comments MAGNESIUM (test code = MAG) MG/DL 1.8-2.4 Comment: daily while in ICU IF MAGNESSIUM IS LESS THAN 2 GIVE IGM OF MAG NESSIUM SULPHATENT PRO-BRAIN NATRIURETIC [id number] 08:36:00* Test Item Value Reference Range Interpretation Comments NT PRO-BRAIN NATRIURETIC PEPTI (test code = PROBNP) PG/ML 0- 100 Comment: daily while in ICU IF MAGNESSIUM IS LESS THAN 2 GIVE IGM OF MAG NESSIUM SULPHATECPK-MB [id number] 08:36:00* Test Item Value Reference Range Interpretation Comments CREATINE KINASE (CK) (test code = CK) Unit/L 26-192 CKMB (test code = CKMBT) NG/ML 0.0-4.9 RELATIVE % INDEX (test code = REL%) % 0.0-2.5 Comment: daily while in ICU IF MAGNESSIUM IS LESS THAN 2 GIVE IGM OF MAG NESSIUM [id number] 08:36:00* Test Item Value Reference Range Interpretation Comments TROPONIN-I (test code = TROPI) NG/ML 0.000-0.045 Comment: daily while in ICU IF MAGNESSIUM IS LESS THAN 2 GIVE IGM OF MAG NESSIUM SULPHATE- XR CHEST 1 [id number] 06:45:00 Name: MIRA WALKER [facility] : 1955 Age/S: 63 / M [id number] [address] [place] [address] [place] Unit #: [id number] Loc: [place] [address] Phys: Salbador Gardiner MD Acct: [id number] Dis Date: Status: ADM IN PHONE #: [phone] Exam Date: 06/15/2018 0544 FAX #: Reason: Daily while patient on ventilator EXAMS: CPT: [id number] XR CHEST 1 V [id number] Fluoro Time: DAP (Gy m2): Air Kerma (mGy): HISTORY: Follow-up Location: C3 COMPARISON:06/14/2018 FINDINGS: Endotracheal tube is again noted unchanged. Nasogastric tube has been placed with distal aspect overlying the stomach. Lung volumes are increased. No pneumothorax. No other changes compared to prior exam. IMPR ESSION: 1. Interval placement of nasogastric tube with tip ove rlying the stomach. No other changes. Electronica lly Signed by Veronica Carranza on 06/15/2018 at 0645 Reported and signed by: Cristian Carranza M.D. CC: Ruddy Sam MD; Salbador Gardiner MD PAGE 1 Signed Report Name: MIRA WALKER [facility] : 1955 Age/S: 63 / M [id number] [address] [place] [address] [place] Unit #: [id number] Loc: [place] [address] Phys: Salbador Alcala MD Acct: [id number] Dis Date: Status: ADM IN MICHAEL NE #: [phone] Exam Date: 06/15/2018 0544 FAX #: Reason: Daily while patient on ventilator EXAMS: CPT: [id number] XR CHEST 1 V 52314 Fluoro Time: DAP (Gy m2): Air Kerma (mGy): <Continued> Technologist: Patricia Farooq, RT(R)(CT); ... Trnscb Date/Time: 06/15/2018 (45) [email or web address] Orig Print D/T: S: 06/15/2018 (647) PAGE 2 Signed Report [id number] 05:36:00* Test Item Value Reference Range Interpretation Comments ARTERIAL BLOOD GAS PH (test code = PHA) 7.38 pH units 7.35-7.45 N ARTERIAL BLOOD GAS PCO2 (test code = PCO2A) 37 mmHg 35-45 N ARTERIAL BLOOD GAS PO2 (test code = PO2A) 102 mmHg 80-100 H BICARBONATE TOTAL HCO3 (test code = HCO3) 21.5 mmol/L 22.0-26.0 L BASE EXCESS (test code = YOVANA) -3.0 mmol/L -3.0-3.0 N ABG O2 SATURATION (test code = SATA) 98 % 90-100 N FIO2 (test code = FIO2A) 30 % e 21-100 N ABG VENT MODE (test code = MODEA) A/C Descript Vent Mode ABG TIDAL VOLUME (test code = TVA) 450 ML ABG PEEP (test code = PEEPA) 5.0 cm H20 0.0-99.9 ABG SITE (test code = SITEA) Right Radial ARTKIT DESCRIPTION MODIFIED REJI'S (test code = MODALL) Yes Circ.CHK POSITIVE TOTAL HGB (test code = THB) 14.2 GRAM/DL 12.0-18.0 N HGB O2 SAT (test code = HBOSAT) 95.8 % (melinda) 95.0-100.0 N CARBOXYHEMOGLOBIN (test code = HOHGBT) 1.0 % 0.5-1.5 N METHEMOGLOBIN (test code = METHGB) 0.7 % 0.0-0.0 H PROTHROMBIN [id number] 03:22:00* Test Item Value Reference Range Interpretation Comments PT PATIENT (test code = PTP) 21.2 SECONDS 9.3-12.9 H INTERNATIONAL NORMAL RATIO (test code = INR) 1.82 INR Unit 0.8-1.2 H THROMBOPLASTIN TIME [id number] 03:22:00* Test Item Value Reference Range Interpretation Comments THROMBOPLASTIN TIME PARTIAL (test code = PTT) >400 SECONDS 26-35 HH [id number] 03:15:00* Test Item Value Reference Range Interpretation Comments MAGNESIUM (test code = MAG) 1.0 MG/DL 1.8-2.4 L Completed by Nursing: NOComment: If CKMB is greater than 5, then do total CK and CK Index on same blood specimen.CPK-MB [id number] 03:15:00* Test Item Value Reference Range Interpretation Comments CREATINE KINASE (CK) (test code = CK) 120 Unit/L 26-192 N CKMB (test code = CKMBT) 6.0 NG/ML 0.0-4.9 H RELATIVE % INDEX (test code = REL%) 5.0 % 0.0-2.5 HH Completed by Nursing: NOComment: If CKMB is greater than 5, then do total CK and CK Index on same blood specimen.[id number] 03:15:00* Test Item Value Reference Range Interpretation Comments TROPONIN-I (test code = TROPI) 0.743 NG/ML 0.000-0.045 HH Negative: </= 0.045 Positive: >/= 0.046 Correlation with serial results, other cardiac markers, and clinical findings is necessary to determine the clinical significance of this result. Quantitative results using different methodologies should not be compared to one another as numerical results may varyby method. Completed by Nursing: NOComment: If CKMB is greater than 5, then do total CK and CK Index on same blood specimen.BASIC METABOLIC [id number] 03:04:00* Test Item Value Reference Range Interpretation Comments SODIUM (test code = NA) 148 mmol/L 134-147 H POTASSIUM (test code = K) 2.9 mmol/L 3.4-5.0 LL CHLORIDE (test code = CL) 113 mmol/L 100-108 H CARBON DIOXIDE (test code = CO2) 25 mmol/L 21-32 ANION GAP (test code = GAP) 10.0 GAP calc 4.0-15.0 GLUCOSE (test code = GLU) 93 MG/DL 70-110 N BLOOD UREA NITROGEN (test code = BUN) 11 MG/DL 7-18 N GLOMERULAR FILTRATION RATE (test code = GFR) >=60 max estimate estG FR >60 CREATININE (test code = CREAT) 1.0 MG/DL 0.8-1.3 N CALCIUM (test code = CA) 8.0 MG/DL 8.5-10.1 L Completed by Nursing: NOComment: If CKMB is greater than 5, then do total CK and CK Index on same blood specimen.LACTIC DEHYDROGENASE(LDH)2018-06-15 03:04:00* Test Item Value Reference Range Interpretation Comments LACTIC DEHYDROGENASE(LDH) (test code = LDH) 257 Unit/L 87-241 H Completed by Nursing: NOComment: If CKMB is greater than 5, then do total CK and CK Index on same blood specimen.OSMOLALITY [id number] 03:04:00 * Test Item Value Reference Range Interpretation Comments OSMOLALITY SERUM (test code = OSMO) 298 MOS/KG 285-295 H Completed by Nursing: NOComment: If CKMB is greater than 5, then do total CK and CK Index on same blood specimen.CPK-MB [id number] 03:04:00* Test Item Value Reference Range Interpretation Comments CREATINE KINASE (CK) (test code = CK) 218 Unit/L 26-192 H CKMB (test code = CKMBT) 12.6 NG/ML 0.0-4.9 H RELATIVE % INDEX (test code = REL%) 5.7 % 0.0-2.5 HH Completed by Nursing: NOComment: If CKMB is greater than 5, then do total CK and CK Index on same blood specimen.[id number] 03:04:00* Test Item Value Reference Range Interpretation Comments TROPONIN-I (test code = TROPI) 2.000 NG/ML 0.000-0.045 HH Negative: </= 0.045 Positive: >/= 0.046 Correlation with serial results, other cardiac markers, and clinical findings is necessary to determine the clinical significance of this result. Quantitative results using different methodologies should not be compared to one another as numerical results may varyby method. Completed by Nursing: NOComment: If CKMB is greater than 5, then do total CK and CK Index on same blood specimen.OSMOLALITY [id number] 03:03:00 * Test Item Value Reference Range Interpretation Comments OSMOLALITY SERUM (test code = OSMO) 298 MOS/KG 285-295 H Completed by Nursing: NOComment: If CKMB is greater than 5, then do total CK and CK Index on same blood specimen.URINALYSIS [id number] 23:51:00* Test Item Value Reference Range Interpretation Comments UA COLOR (test code = COLU) YELLOW discript YEL/STRAW UA APPEARANCE (test code = APPU) TURBID discript CLEAR A UA GLUCOSE DIPSTICK (test code = DGLUU) NEGATIVE mg/dL NEG UA BILIRUBIN DIPSTICK (test code = BILU) NEGATIVE mg/dL NEG UA KETONE DIPSTICK (test code = KETU) 2+ mg/dL NEG A UA SPECIFIC GRAVITY (test code = SGU) >=1.030 SG 1.005-1.030 A UA BLOOD DIPSTICK (test code = JOANNA) 3+ mg/DL NEG A UA PH DIPSTICK (test code = BELKYS) 6.0 pH UNITS 5.0-7.0 UA PROTEIN DIPSTICK (test code = PROU) 1+ mg/dL NEG A UA UROBILINIOGEN DIPSTICK (test code = URO) 0.2 mg/dL <2.0 UA NITRITE DIPSTICK (test code = KVNG) NEGATIVE SCREEN NEG UA LEUKOCYTE ESTERASE DIPSTICK (test code = LEUU) NEGATIVE Leuk/mcL NEGATIVE UA WBC (test code = WBCU) 1-3 #WBC/HPF 0-3 UA RBC (test code = RBCU) 20-30 #RBC/HPF 0-3 A UA BACTERIA (test code = BACU) 4+ /HPF NONE-TRACE A UA SQUAMOUS CELLS (test code = SQU) TRACE /HPF NONE URINALYSIS [id number] 23:36:00* Test Item Value Reference Range Interpretation Comments UA COLOR (test code = COLU) YELLOW discript YEL/STRAW UA APPEARANCE (test code = APPU) TURBID discript CLEAR A UA GLUCOSE DIPSTICK (test code = DGLUU) NEGATIVE mg/dL NEG UA BILIRUBIN DIPSTICK (test code = BILU) NEGATIVE mg/dL NEG UA KETONE DIPSTICK (test code = KETU) 2+ mg/dL NEG A UA SPECIFIC GRAVITY (test code = SGU) >=1.030 SG 1.005-1.030 A UA BLOOD DIPSTICK (test code = JOANNA) 3+ mg/DL NEG A UA PH DIPSTICK (test code = BELKYS) 6.0 pH UNITS 5.0-7.0 UA PROTEIN DIPSTICK (test code = PROU) 1+ mg/dL NEG A UA UROBILINIOGEN DIPSTICK (test code = URO) 0.2 mg/dL <2.0 UA NITRITE DIPSTICK (test code = KVNG) NEGATIVE SCREEN NEG UA LEUKOCYTE ESTERASE DIPSTICK (test code = LEUU) NEGATIVE Leuk/mcL NEGATIVE [id number] 21:51:00* Test Item Value Reference Range Interpretation Comments MAGNESIUM (test code = MAG) 1.9 MG/DL 1.8-2.4 N CREATINE KINASE (CK)2018-06-14 21:29:00* Test Item Value Reference Range Interpretation Comments CREATINE KINASE (CK) (test code = CK) 220 Unit/L 26-192 H RELATIVE % [id number] 21:29:00* Test Item Value Reference Range Interpretation Comments RELATIVE % INDEX (test code = REL%) % 0.0-2.5 DILANTIN (PHENYTOIN)2018-06-14 21:29:00* Test Item Value Reference Range Interpretation Comments DILANTIN (PHENYTOIN) (test code = DIL) < 0.4 mcG/ML 10.0-20.0 L BASIC METABOLIC [id number] 20:54:00* Test Item Value Reference Range Interpretation Comments SODIUM (test code = NA) 148 mmol/L 134-147 H POTASSIUM (test code = K) 2.9 mmol/L 3.4-5.0 LL CHLORIDE (test code = CL) 113 mmol/L 100-108 H CARBON DIOXIDE (test code = CO2) 25 mmol/L 21-32 ANION GAP (test code = GAP) 10.0 GAP calc 4.0-15.0 GLUCOSE (test code = GLU) 93 MG/DL 70-110 N BLOOD UREA NITROGEN (test code = BUN) 11 MG/DL 7-18 N GLOMERULAR FILTRATION RATE (test code = GFR) >=60 max estimate estG FR >60 CREATININE (test code = CREAT) 1.0 MG/DL 0.8-1.3 N CALCIUM (test code = CA) 8.0 MG/DL 8.5-10.1 L Completed by Nursing: NOComment: If CKMB is greater than 5, then do total CK and CK Index on same blood specimen.LACTIC DEHYDROGENASE(LDH)2018-06-14 20:54:00* Test Item Value Reference Range Interpretation Comments LACTIC DEHYDROGENASE(LDH) (test code = LDH) 257 Unit/L 87-241 H Completed by Nursing: NOComment: If CKMB is greater than 5, then do total CK and CK Index on same blood specimen.OSMOLALITY [id number] 20:54:00 * Test Item Value Reference Range Interpretation Comments OSMOLALITY SERUM (test code = OSMO) MOSM/KG 280-295 Completed by Nursing: NOComment: If CKMB is greater than 5, then do total CK and CK Index on same blood specimen.CPK-MB [id number] 20:54:00* Test Item Value Reference Range Interpretation Comments CREATINE KINASE (CK) (test code = CK) 218 Unit/L 26-192 H CKMB (test code = CKMBT) 12.6 NG/ML 0.0-4.9 H RELATIVE % INDEX (test code = REL%) 5.7 % 0.0-2.5 HH Completed by Nursing: NOComment: If CKMB is greater than 5, then do total CK and CK Index on same blood specimen.[id number] 20:54:00* Test Item Value Reference Range Interpretation Comments TROPONIN-I (test code = TROPI) 2.000 NG/ML 0.000-0.045 HH Negative: </= 0.045 Positive: >/= 0.046 Correlation with serial results, other cardiac markers, and clinical findings is necessary to determine the clinical significance of this result. Quantitative results using different methodologies should not be compared to one another as numerical results may varyby method. Completed by Nursing: NOComment: If CKMB is greater than 5, then do total CK and CK Index on same blood specimen.LACTIC [id number] 20:46:00* Test Item Value Reference Range Interpretation Comments LACTIC ACID (test code = LACT) 1.7 mmol/L 0.4-2.0 N [id number] 18:54:00* Test Item Value Reference Range Interpretation Comments ARTERIAL BLOOD GAS PH (test code = PHA) 7.39 pH units 7.35-7.45 N ARTERIAL BLOOD GAS PCO2 (test code = PCO2A) 38 mmHg 35-45 N ARTERIAL BLOOD GAS PO2 (test code = PO2A) 173 mmHg 80-100 H BICARBONATE TOTAL HCO3 (test code = HCO3) 22.7 mmol/L 22.0-26.0 BASE EXCESS (test code = YOVANA) -1.8 mmol/L -3.0-3.0 N ABG O2 SATURATION (test code = SATA) 99 % 90-100 N FIO2 (test code = FIO2A) 40 % e 21-100 N ABG VENT MODE (test code = MODEA) A/C Descript Vent Mode ABG TIDAL VOLUME (test code = TVA) 450 ML ABG PEEP (test code = PEEPA) 5.0 cm H20 0.0-99.9 ABG SITE (test code = SITEA) Right Radial ARTKIT DESCRIPTION MODIFIED REJI'S (test code = MODALL) Yes Circ.CHK POSITIVE TOTAL HGB (test code = THB) 15.4 GRAM/DL 12.0-18.0 N HGB O2 SAT (test code = HBOSAT) 97.2 % (melinad) 95.0-100.0 N CARBOXYHEMOGLOBIN (test code = HOHGBT) 1.1 % 0.5-1.5 N METHEMOGLOBIN (test code = METHGB) 0.7 % 0.0-0.0 H CPK-MB [id number] 16:53:00* Test Item Value Reference Range Interpretation Comments CREATINE KINASE (CK) (test code = CK) 185 Unit/L 26-192 N CKMB (test code = CKMBT) 11.3 NG/ML 0.0-4.9 H RELATIVE % INDEX (test code = REL%) 6.1 % 0.0-2.5 HH Completed by Nursing: [id number] 16:53:00* Test Item Value Reference Range Interpretation Comments TROPONIN-I (test code = TROPI) 1.490 NG/ML 0.000-0.045 HH Negative: </= 0.045 Positive: >/= 0.046 Correlation with serial results, other cardiac markers, and clinical findings is necessary to determine the clinical significance of this result. Quantitative results using different methodologies should not be compared to one another as numerical results may varyby method. Completed by Nursing: NOTHYROID STIMULATING [id number] 16:48:00* Test Item Value Reference Range Interpretation Comments THYROID STIMULATING HORMONE (test code = TSH) 0.418 mcIU/ML 0.340-4 .820 N NT PRO-BRAIN NATRIURETIC [id number] 16:48:00* Test Item Value Reference Range Interpretation Comments NT PRO-BRAIN NATRIURETIC PEPTI (test code = PROBNP) 1627 PG/ML 0- 100 H [id number] 16:37:00* Test Item Value Reference Range Interpretation Comments GLYCOSYLATED HEMOGLOBIN (HA1C) (test code = GLYHGB) 5.1 % A1C 4. 2-6.3 N ESTIMATED AVERAGE GLUCOSE (test code = EAG) 100 MG/DLest PROTHROMBIN [id number] 16:31:00* Test Item Value Reference Range Interpretation Comments PT PATIENT (test code = PTP) 13.4 SECONDS 9.3-12.9 H INTERNATIONAL NORMAL RATIO (test code = INR) 1.16 INR Unit 0.8-1.2 N THROMBOPLASTIN TIME [id number] 16:31:00* Test Item Value Reference Range Interpretation Comments THROMBOPLASTIN TIME PARTIAL (test code = PTT) 29.0 SECONDS 26-35 N CBC W/AUTO [id number] 16:09:00* Test Item Value Reference Range Interpretation Comments WHITE BLOOD CELL (test code = WBC) 11.9 K/mm3 3.5-11.0 H RED BLOOD CELL (test code = RBC) 5.55 M/mm3 4.70-6.10 N HEMOGLOBIN (test code = HGB) 15.9 G/DL 12.3-15.9 N HEMATOCRIT (test code = HCT) 50.5 % 35.8-46.7 H MEAN CELL VOLUME (test code = MCV) 91.0 Fl 86.3-98.9 N MEAN CELL HGB (test code = MCH) 28.6 pg 28.9-34.4 L MEAN CELL HGB CONCETRATION (test code = MCHC) 31.5 G/DL 32.1-34. 5 L RED CELL DISTRIBUTION WIDTH (test code = RDW) 14.4 SD 11.5-14. 5 N PLATELET COUNT (test code = PLT) 80.0 K/mm3 150-450 L MEAN PLATELET VOLUME (test code = MPV) 12.10 fL 7.0-9.6 H NEUTROPHIL % (test code = NT%) 21.6 % 40-76 L LYMPHOCYTE % (test code = LY%) 68.1 % 20.5-51.1 H MONOCYTE % (test code = MO%) 7.6 % 1.7-9.3 N EOSINOPHIL % (test code = EO%) 2.6 % 0.0-6.0 N BASOPHIL % (test code = BA%) 0.1 % 0.0-2.0 N NEUTROPHIL # (test code = NT#) 2.58 K/mm3 1.8-7.6 N LYMPHOCYTE # (test code = LY#) 8.1 K/mm3 0.6-3.0 H MONOCYTE # (test code = MO#) 0.9 K/mm3 0.2-1.5 N EOSINOPHIL # (test code = EO#) 0.3 K/mm3 0.0-0.4 N BASOPHIL # (test code = BA#) 0.0 K/mm3 0.0-0.2 N MANUAL DIFF REQUIRED (test code = MDIFF) NO DIFF/SCN CRITERIA SLIDE REVIEW CONSISTANT WITH AUTO DIFFERENTIAL. ARTERIAL BLOOD [id number] 15:00:00* Test Item Value Reference Range Interpretation Comments ARTERIAL BLOOD GAS PH (test code = PHA) 7.18 pH units 7.35-7.45 LL ARTERIAL BLOOD GAS PCO2 (test code = PCO2A) 57 mmHg 35-45 H ARTERIAL BLOOD GAS PO2 (test code = PO2A) 106 mmHg 80-100 H BICARBONATE TOTAL HCO3 (test code = HCO3) 20.5 mmol/L 22.0-26.0 L BASE EXCESS (test code = YOVANA) -8.6 mmol/L -3.0-3.0 L ABG O2 SATURATION (test code = SATA) 96 % 90-100 N FIO2 (test code = FIO2A) 40 % e 21-100 N ABG VENT MODE (test code = MODEA) A/C Descript Vent Mode ABG TIDAL VOLUME (test code = TVA) 350 ML ABG PEEP (test code = PEEPA) 5.0 cm H20 0.0-99.9 ABG SITE (test code = SITEA) Right Radial ARTKIT DESCRIPTION MODIFIED REJI'S (test code = MODALL) Yes Circ.CHK POSITIVE CPK-MB [id number] 13:36:00* Test Item Value Reference Range Interpretation Comments CREATINE KINASE (CK) (test code = CK) 127 Unit/L 26-192 N CKMB (test code = CKMBT) 6.6 NG/ML 0.0-4.9 H RELATIVE % INDEX (test code = REL%) 5.1 % 0.0-2.5 HH Completed by Nursing: [id number] 13:36:00* Test Item Value Reference Range Interpretation Comments TROPONIN-I (test code = TROPI) 0.400 NG/ML 0.000-0.045 HH Negative: </= 0.045 Positive: >/= 0.046 Correlation with serial results, other cardiac markers, and clinical findings is necessary to determine the clinical significance of this result. Quantitative results using different methodologies should not be compared to one another as numerical results may varyby method. Completed by Nursing: NOARTERIAL BLOOD [id number] 11:21:00* Test Item Value Reference Range Interpretation Comments ARTERIAL BLOOD GAS PH (test code = PHA) 6.85 pH units 7.35-7.45 LL ARTERIAL BLOOD GAS PCO2 (test code = PCO2A) 75 mmHg 35-45 HH ARTERIAL BLOOD GAS PO2 (test code = PO2A) 573 mmHg 80-100 H BICARBONATE TOTAL HCO3 (test code = HCO3) 13.0 mmol/L 22.0-26.0 L BASE EXCESS (test code = YOVANA) -21.9 mmol/L -3.0-3.0 L ABG O2 SATURATION (test code = SATA) 100 % 90-100 N FIO2 (test code = FIO2A) 100 % e 21-100 N ABG VENT MODE (test code = MODEA) A/C Descript Vent Mode ABG TIDAL VOLUME (test code = TVA) 350 ML ABG PEEP (test code = PEEPA) 5.0 cm H20 0.0-99.9 ABG SITE (test code = SITEA) Right Radial ARTKIT DESCRIPTION MODIFIED REJI'S (test code = MODALL) Yes Circ.CHK POSITIVE BASIC METABOLIC [id number] 11:20:00* Test Item Value Reference Range Interpretation Comments SODIUM (test code = NA) 146 mmol/L 134-147 N POTASSIUM (test code = K) 3.0 mmol/L 3.4-5.0 L CHLORIDE (test code = CL) 109 mmol/L 100-108 H CARBON DIOXIDE (test code = CO2) 13 mmol/L 21-32 L ANION GAP (test code = GAP) 24.0 GAP calc 4.0-15.0 H GLUCOSE (test code = GLU) 213 MG/DL 70-110 H BLOOD UREA NITROGEN (test code = BUN) 11 MG/DL 7-18 N GLOMERULAR FILTRATION RATE (test code = GFR) 43 estGFR >60 L CREATININE (test code = CREAT) 1.7 MG/DL 0.8-1.3 H CALCIUM (test code = CA) 8.7 MG/DL 8.5-10.1 N Completed by Nursing: NOHEPATIC FUNCTION [id number] 11:20:00* Test Item Value Reference Range Interpretation Comments TOTAL PROTEIN (test code = PROT) 7.5 G/DL 6.4-8.2 N ALBUMIN (test code = ALB) 4.0 G/DL 3.4-5.0 N BILIRUBIN TOTAL (test code = BILT) 0.50 MG/DL 0.2-1.2 N BILIRUBIN DIRECT (test code = BILD) 0.10 MG/DL 0.00-0.30 N BILIRUBIN INDIRECT (test code = BILIND) 0.40 MG/DL 0.2-1.2 N SGOT/AST (test code = AST) 34 Unit/L 15-37 N SGPT/ALT (test code = ALT) 26 Unit/L 12-78 N ALKALINE PHOSPHATASE TOTAL (test code = ALKP) 125 Unit/L 50-136 N Completed by Nursing: [id number] 11:20:00* Test Item Value Reference Range Interpretation Comments LIPASE (test code = LIP) 296 Unit/L 114-286 H Completed by Nursing: [id number] 11:20:00* Test Item Value Reference Range Interpretation Comments TROPONIN-I (test code = TROPI) 0.057 NG/ML 0.000-0.045 HH Negative: </= 0.045 Positive: >/= 0.046 Correlation with serial results, other cardiac markers, and clinical findings is necessary to determine the clinical significance of this result. Quantitative results using different methodologies should not be compared to one another as numerical results may varyby method. Completed by Nursing: NOURINALYSIS [id number] 11:15:00* Test Item Value Reference Range Interpretation Comments UA COLOR (test code = COLU) YELLOW discript YEL/STRAW UA APPEARANCE (test code = APPU) SL CLOUDY discript CLEAR A UA GLUCOSE DIPSTICK (test code = DGLUU) NEGATIVE mg/dL NEG UA BILIRUBIN DIPSTICK (test code = BILU) 1+ mg/dL NEG A UA KETONE DIPSTICK (test code = KETU) 1+ mg/dL NEG UA SPECIFIC GRAVITY (test code = SGU) >=1.030 SG 1.005-1.030 A UA BLOOD DIPSTICK (test code = JOANNA) 1+ mg/DL NEG A UA PH DIPSTICK (test code = BELKYS) 6.0 pH UNITS 5.0-7.0 UA PROTEIN DIPSTICK (test code = PROU) 2+ mg/dL NEG A UA UROBILINIOGEN DIPSTICK (test code = URO) 1.0 mg/dL <2.0 UA NITRITE DIPSTICK (test code = KVNG) NEGATIVE SCREEN NEG UA LEUKOCYTE ESTERASE DIPSTICK (test code = LEUU) NEGATIVE Leuk/mcL NEGATIVE UA WBC (test code = WBCU) 1-3 #WBC/HPF 0-3 UA RBC (test code = RBCU) 3-5 #RBC/HPF 0-3 A UA BACTERIA (test code = BACU) 4+ /HPF NONE-TRACE A UA SQUAMOUS CELLS (test code = SQU) TRACE /HPF NONE DRUGS OF ABUSE SCREEN [id number] 11:15:00* Test Item Value Reference Range Interpretation Comments URN COCAINE (test code = COCAURN) NEGATIVE SCcutoff <300 NG/ML URN CANNABINOIDS (test code = CANNABURN) POSITIVE SCcutoff <50 NG/M L A URN AMPHETAMINE (test code = AMPHETURN) NEGATIVE SCcutoff <1000 NG/ ML URN BARBITURATE (test code = BARBITURN) NEGATIVE SCcutoff <200 NG/M L URN BENZODIAZEPINE (test code = BENZOURN) NEGATIVE SCcutoff <200 NG /ML URN OPIATES (test code = OPIATURN) NEGATIVE SCcutoff <2000 NG/ML URN PHENCYCLIDINE (PCP) (test code = PHENCURN) NEGATIVE SCcutoff <2 5 NG/ML URN METHADONE (test code = METHAURN) NEGATIVE SCcutoff <300 NG/ML URINALYSIS [id number] 11:04:00* Test Item Value Reference Range Interpretation Comments UA COLOR (test code = COLU) YELLOW discript YEL/STRAW UA APPEARANCE (test code = APPU) SL CLOUDY discript CLEAR A UA GLUCOSE DIPSTICK (test code = DGLUU) NEGATIVE mg/dL NEG UA BILIRUBIN DIPSTICK (test code = BILU) 1+ mg/dL NEG A UA KETONE DIPSTICK (test code = KETU) 1+ mg/dL NEG UA SPECIFIC GRAVITY (test code = SGU) >=1.030 SG 1.005-1.030 A UA BLOOD DIPSTICK (test code = JOANNA) 1+ mg/DL NEG A UA PH DIPSTICK (test code = BELKYS) 6.0 pH UNITS 5.0-7.0 UA PROTEIN DIPSTICK (test code = PROU) 2+ mg/dL NEG A UA UROBILINIOGEN DIPSTICK (test code = URO) 1.0 mg/dL <2.0 UA NITRITE DIPSTICK (test code = KVNG) NEGATIVE SCREEN NEG UA LEUKOCYTE ESTERASE DIPSTICK (test code = LEUU) NEGATIVE Leuk/mcL NEGATIVE UA WBC (test code = WBCU) 1-3 #WBC/HPF 0-3 UA RBC (test code = RBCU) 3-5 #RBC/HPF 0-3 A UA BACTERIA (test code = BACU) 4+ /HPF NONE-TRACE A UA SQUAMOUS CELLS (test code = SQU) TRACE /HPF NONE DRUGS OF ABUSE SCREEN [id number] 11:04:00* Test Item Value Reference Range Interpretation Comments URN COCAINE (test code = COCAURN) SCcutoff <300 NG/ML URN CANNABINOIDS (test code = CANNABURN) SCcutoff <50 NG/ML URN AMPHETAMINE (test code = AMPHETURN) SCcutoff <1000 NG/ML URN BARBITURATE (test code = BARBITURN) SCcutoff <200 NG/ML URN BENZODIAZEPINE (test code = BENZOURN) SCcutoff <200 NG/ML URN OPIATES (test code = OPIATURN) SCcutoff <2000 NG/ML URN PHENCYCLIDINE (PCP) (test code = PHENCURN) SCcutoff <25 NG/ ML URN METHADONE (test code = METHAURN) SCcutoff <300 NG/ML URINALYSIS [id number] 10:56:00* Test Item Value Reference Range Interpretation Comments UA COLOR (test code = COLU) YELLOW discript YEL/STRAW UA APPEARANCE (test code = APPU) SL CLOUDY discript CLEAR A UA GLUCOSE DIPSTICK (test code = DGLUU) NEGATIVE mg/dL NEG UA BILIRUBIN DIPSTICK (test code = BILU) 1+ mg/dL NEG A UA KETONE DIPSTICK (test code = KETU) 1+ mg/dL NEG UA SPECIFIC GRAVITY (test code = SGU) >=1.030 SG 1.005-1.030 A UA BLOOD DIPSTICK (test code = JOANNA) 1+ mg/DL NEG A UA PH DIPSTICK (test code = BELKYS) 6.0 pH UNITS 5.0-7.0 UA PROTEIN DIPSTICK (test code = PROU) 2+ mg/dL NEG A UA UROBILINIOGEN DIPSTICK (test code = URO) 1.0 mg/dL <2.0 UA NITRITE DIPSTICK (test code = KVNG) NEGATIVE SCREEN NEG UA LEUKOCYTE ESTERASE DIPSTICK (test code = LEUU) NEGATIVE Leuk/mcL NEGATIVE DRUGS OF ABUSE SCREEN [id number] 10:56:00* Test Item Value Reference Range Interpretation Comments URN COCAINE (test code = COCAURN) SCcutoff <300 NG/ML URN CANNABINOIDS (test code = CANNABURN) SCcutoff <50 NG/ML URN AMPHETAMINE (test code = AMPHETURN) SCcutoff <1000 NG/ML URN BARBITURATE (test code = BARBITURN) SCcutoff <200 NG/ML URN BENZODIAZEPINE (test code = BENZOURN) SCcutoff <200 NG/ML URN OPIATES (test code = OPIATURN) SCcutoff <2000 NG/ML URN PHENCYCLIDINE (PCP) (test code = PHENCURN) SCcutoff <25 NG/ ML URN METHADONE (test code = METHAURN) SCcutoff <300 NG/ML - CT HEAD/BRAIN W/O [id number] 10:53:00 Name: MIRA WALKER : 1955 Age/S: 63 / M [id number] [address] [place] Unit #: [id number] Loc: [place] [address] Phys: Ada Lynch MD Acct: [id number] Dis Date: Status: PRE ER PHONE #: [phone] Exam Date: 06/14/2018 1046 FAX #: Reason: Seizure EXAMS: CPT: [id number] CT HEAD/BRAIN W/O CONT [id number] EXAM: CT Head without contrast Location code:J9 HISTORY: Seizure COMPARISON: None available. TECHNIQUE: Multiple transaxial images of the brain were obtained without intravenous contrast using 5mm slices. FINDINGS: There is no acute intracranial hemorrhage. There is no mass, mass effect, midline shift or extra-axial fluid collection.The ventricles and sulci are enlarged. Low-attenuation is noted throughout the periventricular and deep white matter of the supratentorium. 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 Paranasal sinuses, mastoid air cells and visualized orbital contents are within normal limits. Osseous structures are within normal limits. IMPRESSION:No acute in tracranial abnormality. at 1053 Reported and signed by: Aleks Patel CC: Ada Munoz echnologist:AN MAJANO, RT(R)(CT)(MR) CTDI: DLP: Trnscb Date /Time: 06/14/2018 (1053) [email or web address] Orig Print D/T: S: (3456) CTDI: DLP: PAGE 1 S igned Report CBC W/AUTO [id number] 10:52:00* Test Item Value Reference Range Interpretation Comments WHITE BLOOD CELL (test code = WBC) 11.9 K/mm3 3.5-11.0 H RED BLOOD CELL (test code = RBC) 5.55 M/mm3 4.70-6.10 N HEMOGLOBIN (test code = HGB) 15.9 G/DL 12.3-15.9 N HEMATOCRIT (test code = HCT) 50.5 % 35.8-46.7 H MEAN CELL VOLUME (test code = MCV) 91.0 Fl 86.3-98.9 N MEAN CELL HGB (test code = MCH) 28.6 pg 28.9-34.4 L MEAN CELL HGB CONCETRATION (test code = MCHC) 31.5 G/DL 32.1-34. 5 L RED CELL DISTRIBUTION WIDTH (test code = RDW) 14.4 SD 11.5-14. 5 N PLATELET COUNT (test code = PLT) 80.0 K/mm3 150-450 L MEAN PLATELET VOLUME (test code = MPV) 12.10 fL 7.0-9.6 H NEUTROPHIL % (test code = NT%) % 40-76 L LYMPHOCYTE % (test code = LY%) % 20.5-51.1 H MONOCYTE % (test code = MO%) % 1.7-9.3 N EOSINOPHIL % (test code = EO%) % 0.0-6.0 N BASOPHIL % (test code = BA%) % 0.0-2.0 N NEUTROPHIL # (test code = NT#) K/mm3 1.8-7.6 N LYMPHOCYTE # (test code = LY#) K/mm3 0.6-3.0 H MONOCYTE # (test code = MO#) K/mm3 0.2-1.5 N EOSINOPHIL # (test code = EO#) K/mm3 0.0-0.4 N BASOPHIL # (test code = BA#) K/mm3 0.0-0.2 N MANUAL DIFF REQUIRED (test code = MDIFF) DIFF/SCN CRITERIA - XR CHEST 1 [id number] 10:42:00 Name: MIRA WALKER [facility] : 1955 Age/S: 63 / M [id number] [address] [place] Unit #: [id number] Loc: [place] [address] Phys: Ada Lynch MD Acct: [id number] Dis Date: Status: PRE ER PHONE #: [phone] Exam Date: 06/14/2018 1028 FAX #: Reason: Seizure EXAMS: CPT: [id number] XR CHEST 1 V 46925 Fluoro Time: DAP (Gy m2): Air Kerma (mGy): EXAM: Portable chest one view. Location code:J9 HISTORY: Dyspnea COMPARISON: None available. COMMENT: An ET tube is noted 1.6 cm above the charlene. . The lungs and pleural spaces are clear. Lungs are normally expanded. The aorta, pulmonary vasculature and mediastinum are within normal limits. Cardiac silhouette is normal in size and contour. Visualized skeletal structures are unremarkable. IMPRESSION: No active disease in the chest. ET tube in place at 1042 Reported and signed by: Reji Fairchild M.D. CC: Ada Lynch MD PAGE 1 Signed Report Name: MIRA WALKER [facility] [place] : 1955 Age/S: 63 / M [id number] [address] [place] Unit #: [id number] Loc: [place] [address] Phys: Ada Lynch MD Acct: [id number] Dis Date: Status: PRE ER PHONE #: [phone] Exam Date: 06/14/2018 1028 FAX #: Reason: Seizure EXAMS: CPT: [id number] XR CHEST 1 V 80219 Fluoro Time: DAP (Gy m2): Air Kerma (mGy): <Continued> Technologist: AN MAJANO, RT(R)(CT)(MR); ... Trnscb Date/Time: 06/14/2018 (7242) [email or web address] Orig Print D/T: S: 06/14/2018 (6822) PAGE 2 Signed Report
[2019-09-06] MEDS ORDERED: VANCOMYCIN 1GM/NS 250 ML 250 ML IV ONE (15:30)
[2019-09-06] MEDS ORDERED: PIPER-TAZ 3.375 GM 50 ML IV ONE (15:30)
[2019-09-06] MEDS ORDERED: PANTOPRAZOLE 40 MG 10ML VIAL IV NR (15:30)
[2019-09-06 16:12] LABS: BASOPHILS % 0.3 % (0.0-1.0); EOSINOPHILS % 0.2 % (0.0-6.0); HEMATOCRIT 35.2 % (38.2-49.6); HEMOGLOBIN 10.4 g/dL (14.0-18.0); LYMPHOCYTES # (AUTO) 0.9 (1.0-3.2); LYMPHOCYTES % 14.8 % (18.0-39.1); MEAN CORPUSCULAR HEMOGLOBIN 25.5 pg (28-32); MEAN CORPUSCULAR HGB CONC 29.5 g/dL (31-35); MEAN CORPUSCULAR VOLUME 86.3 fL (81-99); MONOCYTES # (AUTO) 0.4 (0.2-0.8); MONOCYTES % 6.3 % (4.4-11.3); NEUTROPHILS # (AUTO) 4.6 (2.1-6.9); NEUTROPHILS % 78.1 % (38.7-80.0); PLATELET COUNT 425 x10e3/uL (140-360); RED BLOOD COUNT 4.08 x10e6/uL (4.3-5.7); RED CELL DISTRIBUTION WIDTH 17.2 % (11.7-14.4)
[2019-09-06] MEDS ORDERED: ONDANSETRON HCL INJ 2MG/ML 2ML 2 MG/ML VIAL IV PRN (16:15)
[2019-09-06] MEDS ORDERED: ACETAMINOPHEN 650 MG SUPP PR ONE (16:15)
[2019-09-06] MEDS ORDERED: SODIUM CHLORIDE 0.9% 1000ML 1,000 ML IV SCH (16:15)
[2019-09-06] MEDS ORDERED: ALBUTEROL SULFATE HFA 8GM INHALATION AEROSOL INH PRN (16:15)
[2019-09-06 16:23] LABS: INR 1.1; PROTHROMBIN TIME 14.9 seconds (11.9-14.5)
[2019-09-06 16:24] LABS: PARTIAL THROMBOPLASTIN TIME 38.8 seconds (23.8-35.5)
[2019-09-06 16:26] LABS: STREPTOCOCCUS GRP A ANTIGEN NEGATIVE (NEGATIVE)
[2019-09-06 16:31] LABS: BILIRUBIN,URINE SMALL (NEGATIVE); CLARITY,URINE CLOUDY (CLEAR); COLOR,URINE YELLOW (YELLOW); KETONES,URINE TRACE (NEGATIVE); LEUKOCYTE ESTERASE ,URINE SMALL (NEGATIVE); NITRITE,URINE NEGATIVE (NEGATIVE); PROTEIN,URINE DIPSTICK 2+ (NEGATIVE); URINE UROBILINOGEN 1 mg/dL (0.2 - 1)
[2019-09-06 16:35] LABS: ALANINE AMINOTRANSFERASE 8 IU/L (0-55); ALBUMIN 2.1 g/dL (3.5-5.0); ALBUMIN/GLOBULIN RATIO 0.4 (0.8-2.0); ALKALINE PHOSPHATASE 93 IU/L (40-150); ANION GAP 17.4 mmol/L (8-16); BLOOD UREA NITROGEN 10 mg/dL (7-26); BUN/CREATININE RATIO 18 (6-25); CALCIUM 9.5 mg/dL (8.4-10.2); CARBON DIOXIDE 26 mmol/L (22-29); CHLORIDE 108 mmol/L (98-107); CREATINE KINASE 86 IU/L (30-200); CREATININE, SERUM 0.57 mg/dL (0.72-1.25); EST GLOMERULAR FILTRATION RATE > 60 ML/MIN (60-); GLUCOSE 109 mg/dL (74-118); MAGNESIUM 1.8 MG/DL (1.3-2.1); POTASSIUM 3.4 mmol/L (3.5-5.1); SODIUM 148 mmol/L (136-145)
[2019-09-06 16:41] LABS: INFLUENZAE A&B ANTIGEN (RAPID) NEGATIVE (NEGATIVE)
[2019-09-06 16:44] LABS: B-TYPE NATRIURETIC PEPTIDE2 142.2 pg/mL (0-100)
[2019-09-06 16:47] LABS: WBC,URINE (MAN) 21-50 /HPF (0-5)
[2019-09-06 16:48] LABS: BACTERIA,URINE MODERATE /HPF; EPITHELIAL CELLS,URINE FEW /LPF
--- NOTE | 2019-09-06 16:48 | Diagnostic Imaging Report ---
EXAMINATION: CHEST SINGLE (PORTABLE) INDICATION: Shortness of breath, respiratory distress. COMPARISON: None FINDINGS: TUBES and LINES: Right arm PICC terminates at the cavoatrial junction. LUNGS: Lungs are mildly hyperinflated. There are airspace opacities in the left mid and bilateral lower lung zones. Mild interstitial opacities. PLEURA: Small left pleural effusion. No pneumothorax. HEART AND MEDIASTINUM: The cardiomediastinal silhouette is unremarkable. BONES AND SOFT TISSUES: No acute osseous lesion. Soft tissues are unremarkable. UPPER ABDOMEN: No free air under the diaphragm. IMPRESSION: Multifocal opacities, compatible with multifocal pneumonia, possibly with superimposed pulmonary edema. Recommend follow-up chest radiograph to assess for resolution. Signed by: Dr. Zahne Owusu MD on 09/06/2019 4:45 PM
--- NOTE | 2019-09-06 16:55 | NUR ---
SPOKE WITH SHADI CANTORS AT [facility] REGARDING PT'S STATUS. WHEN ASKED IN REGARDS TO PT'S LT SIDED FACIAL DROOP, PER AOS, PT ARRIVED TO THEIR FACILITY ON 08/31/19 WITH FACIAL DROOP.
--- NOTE | 2019-09-06 17:30 | Emergency Department Note ---
History of Present Illnes History of Present Illness Chief Complaint: COVID PUI History of Present Illness This is a 64 year old male HERE FROM [facility] FOR RESPIRATORY DISTRESS, CLIENT BROUGHT IN WITH NRP AT 8 LPM. CLIENT ABLE TO TOLERATE NC AT 6 LPM AND SATURATING OXYGEN AT 100%. 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 Any updates have been documented here. Past Medical History Recent Fever: Yes Clinical Suspicion of Infectio: Yes New/Unexplained Change in Ment: No Past Medical History: Seizure Disorder Other Medical History: RIGHT FEMUR FRACTURE ASPIRATION PNEUMONIA HERPES VIRAL ENCEPHALITIS ANEMIA HYPERKALEMIA Past Surgical History: Orthopedic Implants Social History Unable to obtain PSH: altered mental status, critical patient Smoking Cessation: Unknown if ever smoked Counseling Performed: No Alcohol Use: None Any Illegal Drug Use: No Other Any Pre-Existing Lines (PICC,: Yes Review of Systems ROS Narrative Unable to obtain ROS: Unable to obtain due to, altered mental status, critical patient Review of Systems Review of other systems All other systems reviewed and negative. Physical Exam Related Data Allergies: Coded Allergies: No Known Allergies (Unverified , 09/06/19) Triage Vital Signs Vital Signs Date Time Temp Pulse Resp B/P (MAP) Pulse Ox O2 Delivery O2 Flow Rate FiO2 09/06/19 15:22 99.2 133 24 120/89 94 09/06/19 16:00 6.0 Physical Exam CONSTITUTIONAL Constitutional: distressed, other (RESP DISTRESS/TACHYPNIC) HENT HENT: normocephalic, atraumatic, nose normal HENT L/R: left ext ear normal, right ext ear normal EYES Eyes: PERRL, conjunctivae normal NECK Neck: ROM normal PULMONARY Pulmonary: respiratory distress (TACHYPNEIC WITH RESP RATE 26) CARDIOVASCULAR Cardiovascular: regular rhythm, heart sounds normal, capillary refill normal, tachycardia GASTROINTESTINAL Abdominal: soft, nontender, bowel sounds normal GENITOURINARY Genitourinary: exam deferred SKIN Skin: warm, other (DEEP STAGE 4 SACRAL DECUBITUS, BILATERAL UNSTAGEABLE ULCERS TO GREAT TOES) MUSCULOSKELETAL Musculoskeletal: ROM normal NEUROLOGICAL Neurological: alert, no gross motor or sensory deficits, cranial nerve deficit (LEFT FACIAL DROOP (CHRONIC PER MEDICAL RESORT RN) PSYCHOLOGICAL Results Laboratory Result Diagram: 09/06/19 1540 09/06/19 1540 Laboratory Laboratory Tests Test 09/06/19 15:40 White Blood Count 5.83 x10e3/uL (4.8-10.8) Red Blood Count 4.08 x10e6/uL (4.3-5.7) Hemoglobin 10.4 g/dL (14.0-18.0) Hematocrit 35.2 % (38.2-49.6) Mean Corpuscular Volume 86.3 fL (81-99) Mean Corpuscular Hemoglobin 25.5 pg (28-32) Mean Corpuscular Hemoglobin Concent 29.5 g/dL (31-35) Red Cell Distribution Width 17.2 % (11.7-14.4) Platelet Count 425 x10e3/uL (140-360) Neutrophils (%) (Auto) 78.1 % (38.7-80.0) Lymphocytes (%) (Auto) 14.8 % (18.0-39.1) Monocytes (%) (Auto) 6.3 % (4.4-11.3) Eosinophils (%) (Auto) 0.2 % (0.0-6.0) Basophils (%) (Auto) 0.3 % (0.0-1.0) Neutrophils # (Auto) 4.6 (2.1-6.9) Lymphocytes # (Auto) 0.9 (1.0-3.2) Monocytes # (Auto) 0.4 (0.2-0.8) Eosinophils # (Auto) 0.0 (0.0-0.4) Basophils # (Auto) 0.0 (0.0-0.1) Absolute Immature Granulocyte (auto 0.02 x10e3/uL (0-0.1) Prothrombin Time 14.9 seconds (11.9-14.5) Prothromb Time International Ratio 1.10 Activated Partial Thromboplast Time 38.8 seconds (23.8-35.5) Urine Color Yellow (YELLOW) Urine Clarity Cloudy (CLEAR) Urine pH 6 (5 - 7) Urine Specific Cameron 1.025 (1.010-1.025) Urine Protein 2+ (NEGATIVE) Urine Glucose (UA) Negative (NEGATIVE) Urine Ketones Trace (NEGATIVE) Urine Blood Moderate (NEGATIVE) Urine Nitrite Negative (NEGATIVE) Urine Bilirubin Small (NEGATIVE) Urine Urobilinogen 1 mg/dL (0.2 - 1) Urine Leukocyte Esterase Small (NEGATIVE) Urine RBC 11-20 /HPF (0-5) Urine WBC 21-50 /HPF (0-5) Urine Epithelial Cells Few /LPF (NONE) Urine Bacteria Moderate /HPF (NONE) Sodium Level 148 mmol/L (136-145) Potassium Level 3.4 mmol/L (3.5-5.1) Chloride Level 108 mmol/L (98-107) Carbon Dioxide Level 26 mmol/L (22-29) Anion Gap 17.4 mmol/L (8-16) Blood Urea Nitrogen 10 mg/dL (7-26) Creatinine 0.57 mg/dL (0.72-1.25) Estimat Glomerular Filtration Rate > 60 ML/MIN (60-) BUN/Creatinine Ratio 18 (6-25) Glucose Level 109 mg/dL (74-118) Lactic Acid Level 1.4 mmol/L (0.5-2.0) Calcium Level 9.5 mg/dL (8.4-10.2) Magnesium Level 1.8 MG/DL (1.3-2.1) Total Bilirubin 0.3 mg/dL (0.2-1.2) Aspartate Amino Transf (AST/SGOT) 25 IU/L (5-34) Alanine Aminotransferase (ALT/SGPT) 8 IU/L (0-55) Alkaline Phosphatase 93 IU/L (40-150) Creatine Kinase 86 IU/L (30-200) Creatine Kinase MB 1.40 ng/mL (0-5.0) Troponin I 0.076 ng/mL (0-0.300) B-Type Natriuretic Peptide 142.2 pg/mL (0-100) Total Protein 6.9 g/dL (6.5-8.1) Albumin 2.1 g/dL (3.5-5.0) Globulin 4.8 g/dL (2.3-3.5) Albumin/Globulin Ratio 0.4 (0.8-2.0) Influenza Virus Types A,B Antigen Negative (NEGATIVE) Group A Streptococcus Screen Negative (NEGATIVE) Lab results reviewed: Yes Imaging Imaging results reviewed: Yes Impressions EXAMINATION: CHEST SINGLE (PORTABLE) INDICATION: Shortness of breath, respiratory distress. COMPARISON: None FINDINGS: TUBES and LINES: Right arm PICC terminates at the cavoatrial junction. LUNGS: Lungs are mildly hyperinflated. There are airspace opacities in the left mid and bilateral lower lung zones. Mild interstitial opacities. PLEURA: Small left pleural effusion. No pneumothorax. HEART AND MEDIASTINUM: The cardiomediastinal silhouette is unremarkable. BONES AND SOFT TISSUES: No acute osseous lesion. Soft tissues are unremarkable. UPPER ABDOMEN: No free air under the diaphragm. IMPRESSION: Multifocal opacities, compatible with multifocal pneumonia, possibly with superimposed pulmonary edema. Recommend follow-up chest radiograph to assess for resolution. Signed by: Dr. Zhane Owusu MD on 09/06/2019 4:45 PM Imaging Comments EXAMINATION: CHEST SINGLE (PORTABLE) INDICATION: Shortness of breath, respiratory distress. COMPARISON: None FINDINGS: TUBES and LINES: Right arm PICC terminates at the cavoatrial junction. LUNGS: Lungs are mildly hyperinflated. There are airspace opacities in the left mid and bilateral lower lung zones. Mild interstitial opacities. PLEURA: Small left pleural effusion. No pneumothorax. HEART AND MEDIASTINUM: The cardiomediastinal silhouette is unremarkable. BONES AND SOFT TISSUES: No acute osseous lesion. Soft tissues are unremarkable. UPPER ABDOMEN: No free air under the diaphragm. IMPRESSION: Multifocal opacities, compatible with multifocal pneumonia, possibly with superimposed pulmonary edema. Recommend follow-up chest radiograph to assess for resolution. Signed by: Dr. Zhane Owusu MD on 09/06/2019 4:45 PM Procedures 12 Lead ECG Interpretation Erp Technical Lead: Interpreted by ED physician Date: September 06, 2019 Time: 15:34 Prior PROJECT INSPECTOR tracings: reviewed Rhythm: sinus tachycardia Rate: tachycardia (134) QRS axis: left Conduction: right bundle branch block ST segments depression: V1, V2, V3 T wave depression: V1, V2, V3, V4 Other findings: LVH, LVH with strain Clinical Impression: abnormal ECG Critical Care Time Total Critical Care Time (min): 35 Time ED Physician saw patient: 15:19 Critcal care necessary due to: sepsis Critcal care time spent by me: discussion w consultants, discussion w primary provider, evaluation patient response to tx, order/perform tx or interventions, order/review laboratory studies, order/review radiographic studies, pulse oximetry, re-evaluation of patient condition Subsequent provider I assumed direction of critical care for this patient from another provider of my specialty. Assessment & Plan Assessment & Plan Problems: (1) Sepsis (2) Respiratory distress (3) Pneumonia (4) Sacral decubitus ulcer, stage IV (5) UTI (urinary tract infection) Assessment & Plan RESP DISTRESS - LIKELY PNEUMONIA SOURSE OF SEPSIS, POSSIBLY COVID19 (IDENTIFIED ON ARRIVAL 1519), SIRS CRITERIA OF TEMP>100.9, HR>90, RESPIRATIONS>20 ORGAN DYSFUNCTION OF AMS, BLOOD CX'S DRAWN ON ARRIVAL AND ZOSYN/VANCO ORDERED. PT DOES NOT MEET CRITERIA FOR SEPTIC SHOCK I SPOKE WITH ADMITTING MD DR FOWLER (COVERING FOR DR RODRIGUEZ), AND DR ELKINS, DR GARRETT Reassessment Reassessment time: 16:20 Reassessment HR IMPROVED WITH IVF'S, O2 SAT REMAINS 100% ON 5L NC Depart Disposition: ADMITTED Last Vital Signs Date Time Temp Pulse Resp B/P (MAP) Pulse Ox O2 Delivery O2 Flow Rate FiO2 09/06/19 16:00 122 22 100 6.0 09/06/19 15:59 103.0 127/88 Medications in the ED Pantoprazole Sodium 40 mg ONCE IV Last administered on 09/06/19at 16:20; Admin Dose 40 MG; Start 09/06/19 at 15:30; Stop 09/06/19 at 16:59 Sodium Chloride 1,000 ml @ 0 mls/hr Q0M STAT IV Last administered on 09/06/19at 16:20; Admin Dose 999 MLS/HR; Start 09/06/19 at 15:22; Stop 09/06/19 at 15:23 Piperacillin Sod/ Tazobactam Sod 50 ml @ 50 mls/hr NOW ONCE IV Last administered on 09/06/19at 16:20; Admin Dose 50 MLS/HR; Start 09/06/19 at 15:30; Stop 09/06/19 at 16:29 Vancomycin HCl 250 ml @ 200 mls/hr NOW ONCE IV ; Start 09/06/19 at 15:30; Stop 09/06/19 at 16:44 Acetaminophen 1,300 mg ONCE ONCE MA Last administered on 09/06/19at 16:20; Admin Dose 1,300 MG; Start 09/06/19 at 16:15; Stop 09/06/19 at 16:16 Famotidine 20 mg Q12H IV ; Start 09/06/19 at 21:00; Stop 10/06/19 at 20:59 Ondansetron HCl 4 mg Q4H PRN IV NAUSEA AND VOMITING; Start 09/06/19 at 16:15; Stop 10/06/19 at 16:14 Sodium Chloride 1,000 ml @ 100 mls/hr Q10H IV ; Start 09/06/19 at 16:15; Stop 09/07/19 at 02:14 Albuterol 2 PUFFS RQ4H PRN INH SHORTNESS OF BREATH; Start 09/06/19 at 16:15; Stop 10/06/19 at 16:14 CUATE ROMO MD September 06, 2019 17:29
--- NOTE | 2019-09-06 17:50 | NUR ---
DECREASED PT'S O2 TO 4LPM NC. SPO2 REMAINS AT 100%. PT TOLERATING WELL.
[2019-09-06] MEDS: FAMOTIDINE 20 MG/2 ML VIAL IV SCH (22:01)
[2019-09-07] VITALS (16 sets, daily range): BP systolic 115–158; BP diastolic 64–99
--- NOTE | 2019-09-07 01:24 | Consultation ---
DATE OF CONSULTATION: 09/06/2019 Pulmonary Critical Care Medicine Consult REASON FOR REFERRAL: Pneumonia. HISTORY OF PRESENT ILLNESS: Mr. Starkey is a pleasant 64-year-old gentleman with pneumonia. [facility]. The patient was noted at nursing facility to be on IV vancomycin q.8 hours and fluconazole. The patient is on some medicines additionally including gabapentin, lacosamide, Keppra, Claritin, and Risperdal. Reportedly, he is not very conversational at baseline. The patient was found with oxygen saturations in 80th percentile range, on 8 L/minute at nursing facility. Due to the difficulty with the patient's respiratory status and fever, he was sent to [facility] Emergency Room, where he had temperature 102 degrees Fahrenheit. He was able to tolerate nasal cannula at 6 L/minute to saturate 100% oxygen. Chest x-ray demonstrating multiple infiltrates, scoliosis, rib fractures, probably old. He is hospitalized and I am consulted. PAST MEDICAL HISTORY: Right femur fracture, seizure disorder, herpes viral encephalitis, anemia, and orthopedic implants. MEDICATIONS: Medication list reviewed per the chart record. ALLERGIES: NO KNOWN DRUG ALLERGIES. FAMILY HISTORY: Noncontributory. SOCIAL HISTORY: Unable to get, the patient critical. Unknown smoking. Unknown drinking. Unknown alcohol in the past. REVIEW OF SYSTEMS: Cannot get as he is altered. He will try the mumble phrases, but mostly unintelligible. PHYSICAL EXAMINATION: VITAL SIGNS: Now afebrile, vital signs noted and reviewed per the chart record. Heart rate was 133, it has come down to 110. Blood pressure sustained 120/89 earlier. The patient remains on nasal cannula oxygen, wean down from non-rebreather. GENERAL: Awake and is alert, responds to mild noxious stimuli, but he is frail. HEENT: Normocephalic and atraumatic. NECK: Supple. Throat midline. LUNGS: Bilateral air entry, limited, rare rhonchi. CARDIOVASCULAR: S1, S2. No murmurs, rubs, or gallops. ABDOMEN: Soft, nontender. EXTREMITIES: No clubbing, no cyanosis, no edema. He is spastic more so on the right side with hypertonicity. He does move all four extremities. INTEGUMENT: No superficial rashes, no superficial purpura, although limited exam. LABORATORY DATA/IMAGING: The patient with white blood count 6, 35 hematocrit, 425 platelets. 3.4 potassium, 26 bicarbonate, 10 BUN and 0.57 creatinine. LFTs mostly unremarkable. Transaminases with normal alkaline phosphatase and T-bilirubin. Coagulation times mostly unremarkable as well. IMPRESSION AND PLAN: 1. Febrile syndrome, sepsis. 2. Multifocal pneumonia. 3. Possible aspiration. 4. Acute respiratory failure, hypoxemic on non-rebreather, improving. 5. Scoliosis. 6. Noted fractures, probably old. 7. Hypokalemia. 8. Seizure disorder, on multiple medications. 9. Probable dementia. 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 11. History of urinary tract infection. At this time, continue to follow up closely. Serial airway examinations to make sure he improves. Aspiration precautions. The patient will have antibiotics to cover for hospital-acquired pneumonia. Oxygen by protocol. Continue some initial IV fluid loading. The patient remains in very guarded condition. We will follow him closely. Thank you very much, Dr. Costa and Dr. Marte for this consult. Please call for questions. MD BOSSMAN Chi/MODL /[phone]
[2019-09-07 05:56] LABS: ALANINE AMINOTRANSFERASE 9 IU/L (0-55); ALBUMIN/GLOBULIN RATIO 0.5 (0.8-2.0); ALKALINE PHOSPHATASE 87 IU/L (40-150); BLOOD UREA NITROGEN 9 mg/dL (7-26); BUN/CREATININE RATIO 18 (6-25); CALCIUM 9.3 mg/dL (8.4-10.2); CARBON DIOXIDE 25 mmol/L (22-29); CHLORIDE 111 mmol/L (98-107); CHOL/HDL RATIO 4.4 (3.9-4.7); CHOLESTEROL 144 MD/DL (0-199); CREATININE, SERUM 0.51 mg/dL (0.72-1.25); EST GLOMERULAR FILTRATION RATE > 60 ML/MIN (60-); GLUCOSE 83 mg/dL (74-118); HDL CHOLESTEROL 33 MG/DL (40-60); LDL CHOLESTEROL 95 MG/DL (60-130); SODIUM 148 mmol/L (136-145); TRIGLYCERIDES 80 MG/DL (0-149)
[2019-09-07 06:20] LABS: CREATINE KINASE MB 3.5 ng/mL (0-5.0)
[2019-09-07] MEDS ORDERED: POTASSIUM CHLORIDE 20MEQ/100ML 200 ML IV ONE (07:15)
[2019-09-07 07:58] LABS: BASOPHILS % 0.5 % (0.0-1.0); EOSINOPHILS # (AUTO) 0.2 (0.0-0.4); HEMATOCRIT 32.8 % (38.2-49.6); HEMOGLOBIN 9.7 g/dL (14.0-18.0); LYMPHOCYTES # (AUTO) 2.2 (1.0-3.2); LYMPHOCYTES % 28.4 % (18.0-39.1); MEAN CORPUSCULAR HEMOGLOBIN 25.8 pg (28-32); MEAN CORPUSCULAR HGB CONC 29.6 g/dL (31-35); MEAN CORPUSCULAR VOLUME 87.2 fL (81-99); MONOCYTES # (AUTO) 0.7 (0.2-0.8); MONOCYTES % 9.3 % (4.4-11.3); NEUTROPHILS # (AUTO) 4.1 (2.1-6.9); NEUTROPHILS % 54.1 % (38.7-80.0); PLATELET COUNT 336 x10e3/uL (140-360); RED BLOOD COUNT 3.76 x10e6/uL (4.3-5.7); RED CELL DISTRIBUTION WIDTH 17.2 % (11.7-14.4)
[2019-09-07 08:35] LABS: EOSINOPHILS % (MANUAL) 4 % (0-7); LYMPHOCYTES % (MANUAL) 23 % (19-48); MONOCYTES % (MANUAL) 13 % (3.4-9.0); NEUTROPHILS % (MANUAL) 59 % (40-74)
[2019-09-07 08:36] LABS: HYPOCHROMASIA SLIGHT; POIKILOCYTOSIS SLIGHT
[2019-09-07 08:37] LABS: SCHISTOCYTES RARE
[2019-09-07 08:38] LABS: ANISOCYTOSIS MODERATE; PLATELET ESTIMATE ADEQUATE; PLATELET MORPHOLOGY COMMENT NORMAL; RBC MORPHOLOGY COMMENT NORMAL
[2019-09-07] MEDS: FAMOTIDINE 20 MG/2 ML VIAL IV SCH ×3 (09:45→20:59)
--- NOTE | 2019-09-07 11:36 | NUR ---
consult [id number]
[2019-09-07] MEDS: VANCOMYCIN 1GM/NS 250 ML 250 ML IV SCH (12:00)
--- NOTE | 2019-09-07 12:27 | NUR ---
Pulmonary Critical Care Medicine DATE: 09/07/2019 SUBJECTIVE PATIENT more talkative today. States phrases, altered. 97% saturation alberts in place. no worsening noted d/w ID, there was concern for mastoiditis REVIEW OF SYSTEMS: Cannot get as he is altered. PHYSICAL EXAMINATION: VITAL SIGNS: vital signs noted and reviewed per the chart GENERAL: Awake & alert, in bed HEENT: Normocephalic,atraumatic. NECK: Supple. Throat midline. LUNGS: Bilateral air entry, limited CARDIOVASCULAR: S1, S2. No murmurs, rubs, or gallops. ABDOMEN: Soft, nontender. EXTREMITIES: No clubbing, no cyanosis, no edema. He is spastic more so on the right side with hypertonicity. He moves the left side easily LABORATORY DATA/IMAGING: k 3.0. co2 25, cr 0.51. wbc 7.6. hct 33, plt 336. IMPRESSION AND PLAN: 1. Febrile syndrome, sepsis. 2. Multifocal pneumonia. Acquired prior to admit 3. Hx mastoiditis 3. Possible aspiration. 4. Acute respiratory failure, resolving 5. Scoliosis. 6. Noted rib fractures, probably old. 7. Hypokalemia. 8. Seizure disorder, on multiple medications. 9. Probable dementia. 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 11. fungal urinary tract infection. acquired prior to admit Speech therapy, dysphagia evaluation Interim IVF ok Rx k, give more Dc alberts soon if not chronic continue abx per ID head CT reported to be ordered by ID Thank you very much, Dr. Costa and Dr. Marte for this consult. Please call for questions.
[2019-09-07] MEDS ORDERED: POTASSIUM CHLORIDE 20MEQ/100ML 100 ML IV ONE (13:00)
[2019-09-07] MEDS: MEROPENEM 500MG/ NS 50ML 50 ML IV SCH ×2 (13:20→21:30)
[2019-09-07] MEDS: D5.45%NS/KCL 20MEQ 1,000 ML IV SCH (13:26)
[2019-09-07] MEDS ORDERED: MEROPENEM 500MG 500 MG in SODIUM CHLORIDE 0.9% 50ML 50 ML IV SCH (14:00)
--- NOTE | 2019-09-07 14:21 | Consultation ---
DATE OF CONSULTATION: HISTORY OF PRESENT ILLNESS: Mr. Starkey is a 64-year-old gentleman, who comes into the hospital from a nursing care facility. The patient, who apparently has been on vancomycin and fluconazole, Claritin, Risperdal. He is really not good source of information. He does have underlying history of seizure disorder, encephalitis before, and right femur fracture. The patient comes in with shortness of breath. The patient is admitted. Discussed with the ER physician. This is a 64-year-old male from the [facility] with respiratory distress. Discussed with ER physician. Please refer to my notes in chart and orders. Currently in intensive care unit. LABORATORY DATA: Reviewed. His COVID-19 was negative. Influenza A and B were negative. White count 7.6 and hemoglobin 9.7. Chest x-ray showed multifocal opacities. PHYSICAL EXAMINATION: GENERAL: He is alert, noncommunicative. VITAL SIGNS: Stable, afebrile. Temperature 98, when he first came it was 103. HEENT: He is not icteric. NECK: Supple. CHEST: Few crackles bilateral. COR: S1 and S2. No S3, S4, or murmurs. ABDOMEN: Soft. Bowel sounds present. No tenderness. EXTREMITIES: No edema. IMPRESSION: Respiratory failure, pneumonia. We will put the patient on meropenem and vancomycin. Obtain sputum for culture and sensitivity. Recheck CBC. Recheck chem panel. Continue with supportive care as ordered. Further recommendations to follow. Other medical problems as above. Clinically, seems to be stable. MD JACINDA Calvin/POLO /[id number]
[2019-09-07] MEDS: ENOXAPARIN SOD INJ 40 MG/0.4 ML SYR SC SCH (17:22)
--- NOTE | 2019-09-07 17:30 | Diagnostic Imaging Report ---
History:Altered mental status and left facial droop Comparison studies: None Technique: Axial images were obtained from the skull base to the vertex. Coronal and sagittal images reconstructed from the axial data. Dose modulation, iterative reconstruction, and/or weight based adjustment of the mA/kV was utilized to reduce the radiation dose to as low as reasonably achievable. Intravenous contrast: None Findings: Scalp/skull: No abnormalities. Extra-axial spaces: No masses. No fluid collections. Brain sulci: Moderately prominent. Ventricles: Moderate compensatory dilatation. No hydrocephalus. Parenchyma: There are multiple chronic appearing cortical infarcts throughout the infratentorial and supratentorial compartments, including the inferior left cerebellar hemisphere, left occipital lobe, right frontal lobe, and bilateral parietal lobes. Confluent hypodensities in the supratentorial white matter are small vessel ischemic changes. No masses or hemorrhage. Sellar/suprasellar region: No abnormalities. Craniocervical junction: Patent foramen magnum. No Chiari one malformation. Incidental findings: Atherosclerotic calcifications in the carotid siphons . Impression: 1. Multiple chronic appearing cortical infarcts throughout the supratentorial and infratentorial parenchyma. Evaluation for acute ainsley-infarct ischemia is limited on CT, and if there is further clinical concern for acute ischemia recommend MRI without contrast. 2. Severe chronic microvascular ischemic changes. 3. Moderate global parenchymal volume loss. Agree with preliminary dictation. Signed by: DR Micheal Mayer M.D. on 09/08/2019 7:17 AM
--- NOTE | 2019-09-07 19:47 | NUR ---
Report received. Assumed care. Assessment done. See interventions. IV D5 1/2NS with 20KCL started @ 82ml/hr. Agitated with tactile stimulation.
[2019-09-07 21:50] LABS: CREATINE KINASE MB 2.4 ng/mL (0-5.0)
[2019-09-08] VITALS (29 sets, daily range): BP systolic 127–172; BP diastolic 78–108
[2019-09-08] MEDS: VANCOMYCIN 1GM/NS 250 ML 250 ML IV SCH ×2 (00:24→11:57)
[2019-09-08] MEDS: D5.45%NS/KCL 20MEQ 1,000 ML IV SCH ×2 (01:27→08:07)
--- NOTE | 2019-09-08 04:20 | NUR ---
Seizures 2x. Call to Dr. Fallon. Orders.
[2019-09-08] MEDS ORDERED: ACETAMINOPHEN 1000 MG/100 ML IV STA (04:23)
[2019-09-08] MEDS ORDERED: LORAZEPAM INJ 2 MG/ML VIAL ONE (04:29)
[2019-09-08] MEDS ORDERED: LORAZEPAM INJ 2 MG/ML VIAL IV ONE (04:30)
--- NOTE | 2019-09-08 04:30 | NUR ---
Ativan 1mg IV and Acetaminophen 1000mg IV given.
--- NOTE | 2019-09-08 04:45 | NUR ---
Cont to have another seizure. Additional 1mg Ativan IV given.
[2019-09-08] MEDS ORDERED: GABAPENTIN300 MG PO (05:29)
[2019-09-08] MEDS ORDERED: IBUPROFEN200 MG PO (05:29)
[2019-09-08] MEDS ORDERED: LEVETIRACETAM 500MG/5ML VIAL 750 MG in SODIUM CHLORIDE 0.9% 100 ML 100 ML IV SCH ×2 (05:30→05:31)
[2019-09-08] MEDS ORDERED: VIMPAT150 MG PO (05:37)
[2019-09-08] MEDS ORDERED: LORATADINE10 MG PO (05:37)
[2019-09-08] MEDS ORDERED: LANSOPRAZOLE30 MG PO (05:37)
[2019-09-08] MEDS ORDERED: LEVETIRACETAM500 MG PO (05:37)
[2019-09-08] MEDS ORDERED: METOPROLOL TART25 MG PO (05:45)
[2019-09-08] MEDS ORDERED: LOVENOX40 MG/0.4 SC (05:45)
[2019-09-08] MEDS ORDERED: TYLENOL325 M2 PO (05:45)
[2019-09-08] MEDS ORDERED: OFLOXACIN5 M1 LEFT EAR (05:45)
[2019-09-08] MEDS ORDERED: VANCOMYCIN HCL500 MG IV (05:45)
[2019-09-08] MEDS ORDERED: ZINC SULFATE220 M1 PO (05:45)
[2019-09-08] MEDS ORDERED: RISPERDAL0.5 MG PO (05:45)
[2019-09-08] MEDS ORDERED: NAMENDA10 MG PO (05:45)
[2019-09-08] MEDS: MEROPENEM 500MG/ NS 50ML 50 ML IV SCH ×3 (05:58→21:39)
--- NOTE | 2019-09-08 06:15 | Diagnostic Imaging Report ---
EXAMINATION: CHEST SINGLE (PORTABLE) INDICATION: Pneumonia. COMPARISON: Chest radiograph 09-06-2019. FINDINGS: TUBES and LINES: Right arm PICC terminates at the cavoatrial junction. LUNGS: Lungs are mildly hyperinflated. There are airspace opacities in the left mid and bilateral lower lung zones, slightly increased from the prior study. Mild interstitial opacities. PLEURA: Moderate left pleural effusion. No pneumothorax. HEART AND MEDIASTINUM: The cardiomediastinal silhouette is unremarkable. BONES AND SOFT TISSUES: No acute osseous lesion. Soft tissues are unremarkable. UPPER ABDOMEN: No free air under the diaphragm. IMPRESSION: Slightly increased multifocal opacities, compatible with multifocal pneumonia, possibly with superimposed pulmonary edema. Moderate left pleural effusion. Signed by: Dr. Zhane Owusu MD on 09/08/2019 6:12 AM
[2019-09-08 06:51] LABS: ALANINE AMINOTRANSFERASE 10 IU/L (0-55); ALBUMIN/GLOBULIN RATIO 0.5 (0.8-2.0); ALKALINE PHOSPHATASE 94 IU/L (40-150); ANION GAP 17.1 mmol/L (8-16); BLOOD UREA NITROGEN < 5 mg/dL (7-26); CALCIUM 8.6 mg/dL (8.4-10.2); CARBON DIOXIDE 24 mmol/L (22-29); CHLORIDE 109 mmol/L (98-107); CREATININE, SERUM 0.49 mg/dL (0.72-1.25); EST GLOMERULAR FILTRATION RATE > 60 ML/MIN (60-); GLUCOSE 116 mg/dL (74-118); MAGNESIUM 1.5 MG/DL (1.3-2.1); PHOSPHORUS 2.5 MG/DL (2.3-4.7); POTASSIUM 3.1 mmol/L (3.5-5.1); SODIUM 147 mmol/L (136-145)
[2019-09-08 06:52] LABS: BUN/CREATININE RATIO 10 (6-25)
--- NOTE | 2019-09-08 07:30 | NUR ---
RECEIVED PATIENT FROM [facility] NURSE, KHARI RN. PATIENT IN BED RIGHT LEFT LATERAL HE IS LETHARGIC, NON-VERBAL, PATIENT HAS RENDON IN PLACE DRAINING TO GRAVITY CLEAR TO CLOUDY YELLOW URINE. HE HAS HEEL PROTECTORS IN PLACE. IVF INFUSING @ 82CC/HR VIA PICC LINE, PER DOCTOR'S NOTE PATIENT WAS ON VANCOMYCIN IV OVER REPORT. PATIENT HAD WITH PICC LINE PRIOR TO ARRIVAL TO HOSPITAL.
[2019-09-08] MEDS ORDERED: LEVETIRACETAM 500 MG TAB PO SCH (09:00)
[2019-09-08] MEDS: GABAPENTIN 300 MG CAP PO SCH ×3 (09:00→21:26)
[2019-09-08] MEDS ORDERED: POTASSIUM CHLORIDE 20MEQ/100ML 100 ML IV STA (10:29)
--- NOTE | 2019-09-08 10:39 | NUR ---
ST Note: Events overnight noted. Discussed case with MICHAEL Bunn. Consider temporary means of nutrition/hydration since pt judged to be at risk of aspiration and is currently not alert enough for any po intake.
[2019-09-08] MEDS: FAMOTIDINE 20 MG/2 ML VIAL IV SCH ×2 (10:43→21:26)
[2019-09-08] MEDS ORDERED: POTASSIUM CHLORIDE 10MEQ EA PO ONE (10:55)
--- NOTE | 2019-09-08 11:00 | NUR ---
AIR MATTRESS PLACED.
[2019-09-08 11:06] LABS: MAGNESIUM 1.5 MG/DL (1.3-2.1)
--- NOTE | 2019-09-08 11:27 | NUR ---
progress note [id number]
[2019-09-08] MEDS ORDERED: LEVETIRACETAM 500MG/5ML VIAL 750 MG in SODIUM CHLORIDE 0.9% 100 ML 100 ML IV ONE (12:00)
[2019-09-08] MEDS ORDERED: POTASSIUM CHLORIDE 20MEQ/100ML 100 ML IV ONE ×2 (12:30→15:30)
--- NOTE | 2019-09-08 13:06 | NUR ---
Pulmonary Critical Care Medicine DATE: 09/08/2019 SUBJECTIVE patient with 2 seizure events overnight ivf 82/hr patient sleepy, not eating yet after ativan 2 doses CXR increased pneumonia noted alberts UCX yeast 10-50 k REVIEW OF SYSTEMS: Cannot get as he is altered. PHYSICAL EXAMINATION: VITAL SIGNS: vital signs noted and reviewed per the chart GENERAL: Awake & alert, in bed HEENT: Normocephalic,atraumatic. NECK: Supple. Throat midline. LUNGS: Bilateral air entry, limited CARDIOVASCULAR: S1, S2. No murmurs, rubs, or gallops. ABDOMEN: Soft, nontender. EXTREMITIES: No clubbing, no cyanosis LABORATORY DATA/IMAGING: , 3.1 k, cr .49, wbc 7.6, hct 33, plt 336 mg 1.5 IMPRESSION AND PLAN: 1. Febrile syndrome, sepsis. 2. Multifocal pneumonia. Acquired prior to admit 3. Hx mastoiditis 3. Possible aspiration. 4. Acute respiratory failure, resolving 5. Scoliosis. 6. Noted rib fractures, probably old. 7. Hypokalemia. 8. Seizure disorder, on multiple medications. 9. Probable dementia. 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 11. fungal urinary tract infection. acquired prior to admit Speech therapy, dysphagia evaluation Interim IVF ok Rx k, rx mg, give more Dc alberts soon if not chronic continue abx per ID head CT reported to be ordered by ID check US chest Thank you very much, Dr. Costa and Dr. Marte for this consult. Please call for questions.
[2019-09-08] MEDS ORDERED: MAGNESIUM SULF 1GRAM/DEXTROSE 100 ML IV ONE (13:15)
[2019-09-08] MEDS ORDERED: SODIUM CHLORIDE 0.45% 1,000 ML IV ONE (13:15)
[2019-09-08] MEDS: LABETALOL HCL 5 MG/ML 20ML VIAL IV PRN (13:21)
[2019-09-08] MEDS: COLLAGENASE 5 GM TUBE TP SCH (13:54)
[2019-09-08] MEDS: BALSAM PERU/CASTOR OIL 60 GM OINT...G. TP SCH (13:54)
[2019-09-08] MEDS: METOPROLOL TARTRATE INJ 1 MG/ML VIAL IV SCH ×3 (14:04→21:39)
--- NOTE | 2019-09-08 16:35 | NUR ---
Called Dr. Shipman's office to make aware of wound care consult, requested by Dr. Sue, spoke with the medical office coordinator she will page Dr. Shipman to inform him of consult.
[2019-09-08] MEDS ORDERED: ACETAMINOPHEN 1000 MG/100 ML IV PRN (16:45)
--- NOTE | 2019-09-08 17:15 | NUR ---
Paged Dr. Mckenna Costa answering service approximately [phone], wating for call back.
--- NOTE | 2019-09-08 17:16 | NUR ---
Called Dr. Mckenna Costa [phone], left a message DR. Sue consulted Dr. Shipman for wound care, for Russel Starkey. and I also made Dr. Costa aware Speech unable to do MBS, due to patient's sedation, as well as speech recommendation to place an NGT for nutrition once sedation wears off, wting for call back.
--- NOTE | 2019-09-08 17:30 | Progress Note ---
DATE: SUBJECTIVE: Mr. Starkey remains in intensive care unit, intubated. The more history obtained of the patient who is a 64-year-old, who has been in [facility] shortness of breath and fever, so far he is in the Intensive Care Unit. His COVID-19 was negative. His cultures there is no growth. His urine showed yeast. Blood culture is negative. White count is otherwise 7.6, hemoglobin 9.7. The patient who is currently on vancomycin and meropenem. REVIEW OF SYSTEMS: Could not be obtained. He had a brain CT, which we do not have the results yet. PHYSICAL EXAMINATION: GENERAL: He is currently alert. VITAL SIGNS: Stable, afebrile. HEENT: He is not icteric. NECK: Supple. CHEST: Few crackles bilateral. COR: S1, S2. No S3, S4. No murmurs. ABDOMEN: Soft. IMAGING DATA: His CT of the brain showed multiple chronic appearing cortical infarct throughout the . IMPRESSION: 1. Aspiration pneumonia. 2. History of cerebrovascular accident before. . Continue with the current choice of antibiotic as ordered. I would like to obtain an MRI once clinically stable. Recheck CBC. Recheck Chem panel. Follow vancomycin trough. MD JACINDA Calvin/POLO /[id number]
[2019-09-08] MEDS: ENOXAPARIN SOD INJ 40 MG/0.4 ML SYR SC SCH (17:55)
--- NOTE | 2019-09-08 19:00 | NUR ---
Report received. Assumed care. Assessment done. See interventions. IV D5 /2 NS with 20KCL @ 82ml/hr. Doesn't respond to verbal or painful stimulus.
[2019-09-08] MEDS ORDERED: ALTEPLASE RECOMBINANT 2 MG/2 ML VIAL ONE (19:17)
[2019-09-08] MEDS ORDERED: ALTEPLASE RECOMBINANT 2 MG/2 ML VIAL IV ONE (19:30)
--- NOTE | 2019-09-08 20:34 | NUR ---
NGT inserted without difficulty. Placement checked by RNs x2.
[2019-09-08] MEDS: LEVETIRACETAM 500MG/5ML VIAL 1,500 MG in SODIUM CHLORIDE 0.9% 100 ML 100 ML IV SCH (21:12)
[2019-09-09] VITALS (25 sets, daily range): BP systolic 107–149; BP diastolic 64–100
[2019-09-09] MEDS: VANCOMYCIN 1GM/NS 250 ML 250 ML IV SCH (00:15)
[2019-09-09] MEDS: METOPROLOL TARTRATE INJ 1 MG/ML VIAL IV SCH ×6 (02:07→22:00)
[2019-09-09] MEDS: D5.45%NS/KCL 20MEQ 1,000 ML IV SCH ×2 (03:36→16:11)
--- NOTE | 2019-09-09 03:52 | Consultation ---
DATE OF CONSULTATION: 09/08/2019 Cardiology Consult Note REASON FOR CONSULT: Tachycardia, right bundle branch block. CHIEF COMPLAINT: Could not be obtained due to altered mental status. HISTORY OF PRESENT ILLNESS: The patient is a 64-year-old man, admitted from custodial with UTI and multifocal pneumonia. Had seizures earlier today. We are consulted due to concern for CHF, tachycardia, and right bundle branch block. The patient is currently altered and he is not answering questions. OBJECTIVE: VITAL SIGNS: Temperature afebrile, pulse 89, respiratory rate 14, blood pressure 151/95, and saturating 99% on 3 L nasal cannula. GENERAL: Thin male, in no acute distress. CARDIOVASCULAR: Tachycardic, irregular. No murmurs, rubs, or gallops. LUNGS: Coarse breath sounds bilaterally. ABDOMEN: Soft, nontender, and nondistended. NEURO AND PSYCH: Altered. INPATIENT MEDICATIONS: Reviewed. LABORATORY DATA: Reviewed. TELEMETRY DATA: Reviewed, shows sinus tachycardia with right bundle branch block. IMAGING DATA: Reviewed. Chest x-ray shows multifocal pneumonia with superimposed pulmonary edema, left lower effusion. ASSESSMENT AND PLAN: 1. Tachycardia. 2. Right bundle-branch block. 3. Acute systolic heart failure. PLAN: We will start low-dose beta dolores, given [id number] reduced ejection fraction on echocardiogram. Continue treatment of sepsis and seizures per primary team. He has been ruled out for acute PA, by serial troponins once acute issues resolve. If ejection fraction remains low, we will need ischemic workup, this can be done as an outpatient. Thank you for this consult. We will continue to follow. MD GRAYSON Galaviz/CRISTIANAL /[id number]
--- NOTE | 2019-09-09 03:53 | NUR ---
Pulmonary Critical Care Medicine DATE: 09/09/2019 SUBJECTIVE still asleep, didnt awaken after ativan ngt placed ivf 82/hr ongoing alberts in REVIEW OF SYSTEMS: Cannot get as he is altered. PHYSICAL EXAMINATION: VITAL SIGNS: vital signs noted and reviewed per the chart GENERAL: Awake & alert, in bed HEENT: Normocephalic,atraumatic. NECK: Supple. Throat midline. LUNGS: Bilateral air entry, limited CARDIOVASCULAR: S1, S2. No murmurs, rubs, or gallops. ABDOMEN: Soft, nontender. EXTREMITIES: No clubbing, no cyanosis LABORATORY DATA/IMAGING: no new updates IMPRESSION AND PLAN: 1. Febrile syndrome, sepsis. 2. Multifocal pneumonia. Acquired prior to admit 3. Hx mastoiditis 3. Possible aspiration. 4. Acute respiratory failure, resolving 5. Scoliosis. 6. Noted rib fractures, probably old. 7. Hypokalemia. 8. Seizure disorder, on multiple medications. 9. Probable dementia. 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 11. fungal urinary tract infection. acquired prior to admit Speech therapy, dysphagia evaluation Interim IVF confirm NGT, start feeds after confirmed Rx k if required Dc alberts soon if not chronic continue abx per ID check US chest Thank you very much, Dr. Costa and Dr. Marte for this consult. Please call for questions.
[2019-09-09 05:03] LABS: BASOPHILS % 0.4 % (0.0-1.0); EOSINOPHILS # (AUTO) 0.1 (0.0-0.4); HEMATOCRIT 30.5 % (38.2-49.6); LYMPHOCYTES # (AUTO) 1.8 (1.0-3.2); LYMPHOCYTES % 35.7 % (18.0-39.1); MEAN CORPUSCULAR HEMOGLOBIN 25.8 pg (28-32); MEAN CORPUSCULAR HGB CONC 29.5 g/dL (31-35); MEAN CORPUSCULAR VOLUME 87.4 fL (81-99); MONOCYTES # (AUTO) 0.4 (0.2-0.8); MONOCYTES % 8.8 % (4.4-11.3); NEUTROPHILS # (AUTO) 2.7 (2.1-6.9); NEUTROPHILS % 52.7 % (38.7-80.0); PLATELET COUNT 405 x10e3/uL (140-360); RED BLOOD COUNT 3.49 x10e6/uL (4.3-5.7); RED CELL DISTRIBUTION WIDTH 17.2 % (11.7-14.4)
[2019-09-09] MEDS: MEROPENEM 500MG/ NS 50ML 50 ML IV SCH ×3 (05:55→22:13)
[2019-09-09 06:47] LABS: ANION GAP 12.3 mmol/L (8-16); BLOOD UREA NITROGEN < 5 mg/dL (7-26); CALCIUM 8.5 mg/dL (8.4-10.2); CARBON DIOXIDE 27 mmol/L (22-29); CHLORIDE 107 mmol/L (98-107); CREATININE, SERUM 0.49 mg/dL (0.72-1.25); EST GLOMERULAR FILTRATION RATE > 60 ML/MIN (60-); GLUCOSE 107 mg/dL (74-118); POTASSIUM 3.3 mmol/L (3.5-5.1); SODIUM 143 mmol/L (136-145)
[2019-09-09 06:48] LABS: BUN/CREATININE RATIO 10 (6-25)
[2019-09-09 07:53] LABS: ANISOCYTOSIS SLIGHT; HYPOCHROMASIA SLIGHT
[2019-09-09 07:54] LABS: PLATELET ESTIMATE SLIGHTLY INCREASED; PLATELET MORPHOLOGY COMMENT NORMAL; RBC MORPHOLOGY COMMENT NORMAL
[2019-09-09] MEDS: GABAPENTIN 300 MG CAP PO SCH ×3 (08:40→21:40)
[2019-09-09] MEDS: LEVETIRACETAM 500MG/5ML VIAL 1,500 MG in SODIUM CHLORIDE 0.9% 100 ML 100 ML IV SCH ×2 (08:40→21:40)
[2019-09-09] MEDS: FAMOTIDINE 20 MG/2 ML VIAL IV SCH ×2 (08:40→21:40)
[2019-09-09] MEDS: COLLAGENASE 5 GM TUBE TP SCH (08:41)
[2019-09-09] MEDS: BALSAM PERU/CASTOR OIL 60 GM OINT...G. TP SCH (08:41)
--- NOTE | 2019-09-09 09:46 | Diagnostic Imaging Report ---
X-ray chest/abdomen Indication: NG tube placement Comparison: None Findings: A nasogastric tube is seen coursing down the expected path of the chest than vertically down to the pelvis. This is an unexpected course in the abdomen. The tube needs to be pulled back and repositioned. Additional findings on this overpenetrated film include a possible left lower lobe consolidation. A right IJ route central venous catheter with the tip overlying SVC. Kyphoscoliosis of the thoracolumbar spine. Impression: The nasogastric tube takes an unexpected course. It needs to be withdrawn and repositioned. Dr. Russo conveyed the message to the ICU nurse Beba. Signed by: Jay Russo MD on 09/09/2019 9:42 AM
--- NOTE | 2019-09-09 10:28 | Diagnostic Imaging Report ---
Ultrasound chest. Indication: Pleural effusion Comparison: None Findings: Ultrasound examination of the left and right chest performed with a curvilinear transducer. On the grayscale examination was performed. 3 images were submitted for interpretation. There is presence of a moderate left pleural effusion with compressive atelectasis of the lung in the facility. There is presence of internal echoes in the fluid. There is presence of a few septations. There is absence of a pleural effusion on the right side on this exam. There is residence of a small amount of ascites. The liver contour seems to be finely nodular suggestive of underlying cirrhosis. This requires further evaluation. Impression: Moderate left pleural effusion. No right pleural effusion seen on this exam. Signed by: Jay Russo MD on 09/09/2019 10:24 AM
--- NOTE | 2019-09-09 12:27 | Diagnostic Imaging Report ---
X-ray abdomen pelvis Indication: Nasogastric tube reposition Findings: A nasogastric tube is seen coursing on the expected path with the tip overlying the left upper quadrant of abdomen. The tube should be advanced approximately 3-4 cm. Other findings remain unchanged. Right femoral orthopedic hardware noted. Impression: See above. Signed by: Jay Russo MD on 09/09/2019 12:23 PM
[2019-09-09] MEDS: VANCOMYCIN 300 ML IV SCH (12:30)
[2019-09-09] MEDS ORDERED: LORAZEPAM INJ 2 MG/ML VIAL IV SCH (14:30)
--- NOTE | 2019-09-09 14:52 | NUR ---
ST Note: Discussed case with MICHAEL Espinoza. Per report, pt had another seizure and was given ativan. Not appropriate for dysphagia intervention at this time. Will f/u as indicated.
[2019-09-09] MEDS ORDERED: LORAZEPAM INJ 2 MG/ML VIAL IV ONE (15:00)
[2019-09-09 15:35] LABS: CHOL/HDL RATIO 5.4 (3.9-4.7)
[2019-09-09] MEDS: ENOXAPARIN SOD INJ 40 MG/0.4 ML SYR SC SCH (16:13)
[2019-09-09] MEDS: CLONAZEPAM 0.5 MG TAB PO SCH ×2 (16:13→21:40)
--- NOTE | 2019-09-09 18:25 | Progress Note ---
DATE: SUBJECTIVE: Mr. Starkey remains in intensive care unit, comfortable. He had tachycardia. The patient is seen by Cardiology. He had right bundle branch. PHYSICAL EXAMINATION: GENERAL: He is alert, noncommunicative. VITAL SIGNS: Stable, afebrile. HEENT: He is not icteric. NECK: Supple. CHEST: Few crackles bilateral. COR: S1 and S2. No S3, S4, or murmur. ABDOMEN: Soft. Bowel sounds present. No tenderness. EXTREMITIES: No edema. SKIN: No rash. IMPRESSION: 1. Pneumonia aspiration, getting better; history of mastoiditis. 2. Concern about aspiration pneumonia. 3. Respiratory failure, [id number]. 4. History of scoliosis. 5. History of seizure disorder, history of herpes viral encephalitis. Stable from Infectious Disease point of view to finish 8 days of antibiotic as ordered. His blood cultures negative. His urine culture showing yeast. We will follow. MD JACINDA Calvin/POLO /[id number]
--- NOTE | 2019-09-09 20:10 | Consultation ---
DATE OF CONSULTATION: Wound Consultation Thank you, Dr. Costa, for asking me to see this patient. HISTORY OF PRESENT ILLNESS: A 64-year-old male patient, admitted with low-grade fever, shortness of breath, and respiratory failure. The patient is admitted to ICU. He was placed on 8 L oxygen nasal cannula. 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 Also, has seizure disorder. He has large sacral pressure ulcer, measures 6 x 6 x 0.3 cm with exposed fascia and bone, stage IV pressure ulcer with undermining for 1 cm between 12 and 2 o'clock position, currently getting Santyl. Wound is clean, granulated 100%. Recommend Silvasorb, 4x4 and tape. The patient cannot communicate. PAST MEDICAL HISTORY: Viral encephalitis, anemia, seizure disorder, and history of right femur fracture. REVIEW OF SYSTEMS: Limited. The patient cannot communicate. MEDICATIONS: Vimpat 150 mg daily, Keppra 500 mg q.12, Namenda, metoprolol 25 mg daily, Lovenox, and vancomycin IV. Home medications also include gabapentin, clonazepam, and famotidine. ALLERGIES: NONE. PHYSICAL EXAMINATION: VITAL SIGNS: Height is 68 inches, weight 114 pounds. HEENT: The patient is lethargic, slowly arousable. NECK: Normal. LUNGS: Diminished air entry to the base. CVS: Normal, ABDOMEN: Soft. The patient has nasogastric tube. EXTREMITIES: Lower extremities contracted. SKIN: Sacral area, the patient has stage IV pressure ulcer 6 x 6 x 2 cm with fascia exposed. Scant serous drainage present. Heel normal. ASSESSMENT: Stage IV pressure ulcer with exposed bone, suspect osteomyelitis, multifocal pneumonia, and seizure disorder. PLAN: Apply Silvasorb, 4x4, ABD, and tape. Change of position. Thank you for consultation. We will follow up. MD TIMOTEO Gallego/POLO /[id number]
--- NOTE | 2019-09-09 22:41 | Consultation ---
DATE OF CONSULTATION: Neurology Consultation Consultation is being called for history of seizures and vascular dementia. HISTORY OF PRESENT ILLNESS: Mr. Starkey is a 64-year-old gentleman, who presented with pneumonia from long-term facility as well as UTI. The patient at this time provide much history to his clinical status. He has history of seizures. He is currently minimally to unresponsive to noxious stimuli. He has known history of seizures, has a history of viral encephalitis. He is on Keppra, Vimpat, and gabapentin as an outpatient. He comes in to my attention with left gaze preference and left hand "fist" and then twitching in the face and the hand. At baseline, he reportedly very conversational. He is not able to elucidate on this. On admission he had a fever of 102 degrees as well as rib fracture and pneumonia. PAST MEDICAL HISTORY: Includes; fracture, seizure disorder, encephalitis, multiple strokes, and orthopedic implants as well as anemia. MEDICATIONS: Listed in the chart and reviewed. FAMILY HISTORY: Noncontributory. REVIEW OF SYSTEMS: Not able to be obtained due to clinical status. SOCIAL HISTORY: Not able to be obtained due to clinical status. PHYSICAL EXAMINATION: VITAL SIGNS: The patient is currently afebrile. Blood pressure 120/89. He is tachycardic. GENERAL: He is not really responsive eyes open, but does not follow any commands. He has strong left gaze preference. Able to cross the midline with doll's eyes, but quickly returns to the left hemisphere. There is right hemineglect or left gaze preference, so it is difficult to evaluate. Left hand is in a "fist" had diffuse muscular atrophy throughout. Arms and legs are affected as well as temporalis muscle. Has twitching in his right face. Pupils however, are reactive and there is no nystagmus. HEAD: Normocephalic and atraumatic. NECK: Supple. CARDIOVASCULAR: Regular rate and rhythm. PULMONARY: Rhonchus. ABDOMEN: Soft. There is no guarding. EXTREMITIES: Poor care of fingernails and toenails. No clubbing. No edema. No cyanosis. NEUROLOGICAL: There is some tremors and some increased tone in the arms and the legs. Left hand is in a "fist." He has a strong left gaze preference with possible hemineglect to the right. Reflexes are brisk. Toes are upgoing bilaterally. Does not follow any commands. ASSESSMENT AND PLAN: I am seeing the patient for vascular dementia as possible subclinical status epilepticus. We are going to load him with benzodiazepines and now make sure he is on aspirin for stroke prevention. For the possible subclinical status epilepticus, we will give him a dose of benzodiazepines and I will get an EEG stat and keep him on antiepileptic therapies and I reviewed his CT scan, shows multiple infarcts in multiple territories, nothing that is asynchronous or different from the exam that we are seeing clinically. MD CHERISE STOCKTON/MODL /[id number]
[2019-09-10] VITALS (24 sets, daily range): BP systolic 99–185; BP diastolic 65–163
[2019-09-10] MEDS: VANCOMYCIN 300 ML IV SCH (00:07)
[2019-09-10] MEDS: METOPROLOL TARTRATE INJ 1 MG/ML VIAL IV SCH ×3 (02:00→10:25)
[2019-09-10] MEDS: D5.45%NS/KCL 20MEQ 1,000 ML IV SCH ×2 (06:24→17:05)
[2019-09-10] MEDS: MEROPENEM 500MG/ NS 50ML 50 ML IV SCH ×3 (06:25→22:18)
--- NOTE | 2019-09-10 08:04 | NUR ---
no significant neuro events overnight, his underlying twitch/tremor seems improved EEG is scheduled for today 102 98.4 162/97 GENERAL: He is not really responsive eyes partially open, but does not follow any commands. . left gaze preference resovled, now midline and dolls over-rides right hemispheric neglect is improved Left hand is in a "fist" had diffuse muscular atrophy throughout. Arms and legs are affected as well as temporalis muscle. Has twitching in his right face. Pupils however, are reactive and there is no nystagmus. HEAD: Normocephalic and atraumatic. NECK: Supple. CARDIOVASCULAR: Regular rate and rhythm. PULMONARY: Rhonchus. ABDOMEN: Soft. There is no guarding. EXTREMITIES: Poor care of fingernails and toenails. No clubbing. No edema. No cyanosis. NEUROLOGICAL: There is some tremors and some increased tone in the arms and the legs. Left hand is in a "fist." He has a strong left gaze preference with possible hemineglect to the right. Reflexes are brisk. Toes are upgoing bilaterally. Does not follow any commands. ASSESSMENT AND PLAN: vascular dementia -chronic w/ recent decompensation, on asa and statin, continue statin subclinical status epilepticus. on benzo's nad keppra eeg pending I reviewed his CT scan, shows multiple infarcts in multiple territories, nothing that is asynchronous or different from the exam that we are seeing clinically supportive care and continued management for medical and nutritional support
[2019-09-10] MEDS: THIAMINE HCL INJ 100 MG in SODIUM CHLORIDE 0.9% 50ML 50 ML IV SCH (10:24)
[2019-09-10] MEDS: ASPIRIN 325 MG TAB PO SCH (10:24)
[2019-09-10] MEDS: GABAPENTIN 300 MG CAP PO SCH ×3 (10:24→20:32)
[2019-09-10] MEDS: BALSAM PERU/CASTOR OIL 60 GM OINT...G. TP SCH (10:24)
[2019-09-10] MEDS: CLONAZEPAM 0.5 MG TAB PO SCH ×3 (10:24→20:32)
[2019-09-10] MEDS: FAMOTIDINE 20 MG/2 ML VIAL IV SCH ×2 (10:24→20:32)
[2019-09-10] MEDS: LEVETIRACETAM 500MG/5ML VIAL 1,500 MG in SODIUM CHLORIDE 0.9% 100 ML 100 ML IV SCH ×2 (10:25→20:32)
[2019-09-10] MEDS ORDERED: SODIUM CHLORIDE 0.9% 250ML 250 ML ONE (10:26)
--- NOTE | 2019-09-10 11:59 | NUR ---
Pulmonary Critical Care Medicine DATE: 09/10/2019 SUBJECT[address] in place had one neuro event c/w seizure. received ativan more awake lungs with more crackles, some oral secretions fevers 101.4 today REVIEW OF SYSTEMS: Cannot get as he is altered. PHYSICAL EXAMINATION: VITAL SIGNS: vital signs noted and reviewed per the chart GENERAL: Awake & alert, in bed HEENT: Normocephalic,atraumatic. NECK: Supple. Throat midline. LUNGS: Bilateral air entry, limited CARDIOVASCULAR: S1, S2. No murmurs, rubs, or gallops. ABDOMEN: Soft, nontender. EXTREMITIES: No clubbing, no cyanosis LABORATORY DATA/IMAGING: no new updates IMPRESSION AND PLAN: 1. Febrile syndrome, sepsis. 2. Multifocal pneumonia. Acquired prior to admit 3. Hx mastoiditis 3. Possible aspiration. 4. Acute respiratory failure, resolving 5. Scoliosis. 6. Noted rib fractures, probably old. 7. Hypokalemia. 8. Seizure disorder, on multiple medications. 9. Probable dementia. 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 11. fungal urinary tract infection. acquired prior to admit Speech therapy, dysphagia evaluation continue start tube feeds Rx k if required repeat AM CXR due to increased upper airway secretions. check am cbc Dc alberts soon if not chronic continue abx per ID fever w/u, treatment Thank you very much, Dr. Costa and Dr. Marte for this consult. Please call for questions.
--- NOTE | 2019-09-10 12:03 | Progress Note ---
DATE: SUBJECTIVE: Mr. Lalito Shankar remains in intensive care unit. The patient was seen with Neurology. The patient who has underlying history of dementia, seizure, comes in with sepsis and UTI and pneumonia seems to be stable. His blood cultures are negative. Urine showed yeast. White count is 5.02, hemoglobin 9. PHYSICAL EXAMINATION: GENERAL: He is currently alert, confused. VITAL SIGNS: Stable, afebrile. HEENT: Not icteric. NECK: Supple. CHEST: Clear. COR: S1, S2. ABDOMEN: Soft. IMPRESSION: Aspiration pneumonia. To continue five days of antibiotic. The patient came here on September 05. His T-max has been 103 on . He had low fever yesterday, but clinically seems to be better. He is currently on meropenem and vancomycin. We will stop them both tomorrow. We will add Diflucan. Reassess in the morning. We will follow. MD JACINDA Calvin/POLO /[id number]
--- NOTE | 2019-09-10 12:41 | NUR ---
ST Note: Attempted to continue assessment of swallow safety. Pt still lethargic, about to have EEG. Discussed case with MICHAEL Espinoza. Will f/u as indicated.
--- NOTE | 2019-09-10 16:27 | NUR ---
Nutrition Intervention Note RD Recommendation(s) for Physician: -Recommend Jevity 1.2 @ goal rate of 60 mL/hr (provides 1728 kcal, 80 g protein) -Fluid management per MD -Recommend Nirav BID as well as zinc and vitamin C to promote wound healing Plan of Care: RD following, monitoring for tolerance and adequacy Nutrition reason for involvement: tube feeding initiation RD Assessment (09/10/19) Pt is a 64 year old male admitted with pneumonia, respiratory distress, stage 4 sacral decubitus ulcer, and sepsis. Unable to speak to pt due to pt having altered mental status. Per speech therapy note, pt is not alert for PO intake and recommend alternative means of nutrition. There are no previous weights in chart; therefore, unable to assess weight status at this time. Tube feedings are going to be started today per RN. Recommendations provided. Will continue to monitor Principal Problems/Diagnoses: pneumonia, respiratory distress, stage 4 sacral decubitus ulcer, sepsis PMH: fracture, seizure disorder, encephalitis, multiple strokes, and orthopedic implants, anemia I/O: 2668/3650 GI: last recorded BM 09/09 Skin: stage 4 sacral pressure ulcer Labs: (09/09) Na 143, K 3.3, BUN <5, Cr 0.49, Glu 107 Meds: meropenem, thiamine, pepcid, KCl, lovenox, metoprolol, zofran Ht: 68 inches Wt: 114 lbs BMI: 17.3 kg/m2 IBW: 154 lbs Malnutrition Evaluation (09/10/19) Unable to assess. Will re-evaluate at follow-up as appropriate. Energy intake: Unable to assess Weight loss: Unable to assess Fat loss: unable to evaluate Muscle loss: unable to evaluate Supporting Evidence: Fluid accumulation: unable to evaluate Functional Status: unable to evaluate Nutrition Prescription (Diet Order): Jevity 1.2 @ 50 mL/hr (provides 1440 kcal, 67 protein) Estimated Nutritional Needs: 2196-4556 calories/day (30-35 kcal/kg CBW) 78-104 g protein/day (1.5-2 g pro/kg CBW) Diet Adequacy: Not meeting calorie needs, Not meeting protein needs Tolerance: Tolerance pending Diet Education Needs Assessment: Diet education not indicated, patient on temporary/transition diet. Nutrition Care Level: high Nutrition Diagnosis: Inadequate energy intake related to decreased ability to consume sufficient energy as evidenced by need for enteral nutrition. Goal: Patient will meet 75-100% of estimated needs by follow up Progress: N/A Interventions: Tube feeding - Composition, Rate, Route, Multivitamin/mineral supplement therapy Monitoring/Evaluation: -Total energy intake, Total protein intake, Formula/Solution, Weight change Signed: Ambika Villatoro RD, LD
[2019-09-10] MEDS: ENOXAPARIN SOD INJ 40 MG/0.4 ML SYR SC SCH (17:05)
[2019-09-10] MEDS: FLUCONAZOLE 200 MG/100 ML 100 ML IV SCH (17:05)
[2019-09-10] MEDS: METOPROLOL TARTRATE 25 MG TAB PO SCH (17:06)
[2019-09-10] MEDS: LABETALOL HCL 5 MG/ML 20ML VIAL IV PRN (20:30)
[2019-09-11] VITALS (26 sets, daily range): BP systolic 90–139; BP diastolic 65–112
--- NOTE | 2019-09-11 05:10 | Progress Note ---
DATE: 09/10/2019 Cardiology Progress Note. SUBJECTIVE: No major events overnight. Had an NG tube placed. OBJECTIVE: VITAL SIGNS: Temperature afebrile, pulse 93, respiratory rate 16, blood pressure 117/87, saturating 100% on 4 L nasal cannula. GENERAL: man, in no acute distress. CARDIOVASCULAR: Regular rate and rhythm. No murmurs, rubs, or gallops. LUNGS: Coarse breath sounds bilaterally. ABDOMEN: Soft, nontender, and nondistended. NEURO AND PSYCH: Disoriented. Does not respond very much. INPATIENT MEDICATIONS: Reviewed. LABORATORY DATA: Reviewed. TELEMETRY DATA: Reviewed, shows sinus rhythm with occasional sinus tachycardia. ASSESSMENT/PLAN: 1. Acute on chronic systolic heart failure. 2. Sinus tachycardia. 3. Right bundle branch block. 4. Pneumonia. PLAN: The patient has NG tube in place now. Can start oral metoprolol 25 mg twice a day. We will consolidate to long-acting metoprolol once we reach a stable dose. Otherwise stable from cardiovascular standpoint. Continue supportive care for his infection issues and seizures. Thank you for this consult. We will continue to follow. MD GRAYSON Galaviz/POLO /[id number]
[2019-09-11 05:32] LABS: BASOPHILS % 0.4 % (0.0-1.0); EOSINOPHILS # (AUTO) 0.2 (0.0-0.4); EOSINOPHILS % 4.6 % (0.0-6.0); HEMATOCRIT 32.1 % (38.2-49.6); HEMOGLOBIN 9.4 g/dL (14.0-18.0); LYMPHOCYTES # (AUTO) 1.9 (1.0-3.2); MEAN CORPUSCULAR HEMOGLOBIN 25.6 pg (28-32); MEAN CORPUSCULAR HGB CONC 29.3 g/dL (31-35); MEAN CORPUSCULAR VOLUME 87.5 fL (81-99); MONOCYTES # (AUTO) 0.4 (0.2-0.8); MONOCYTES % 8.7 % (4.4-11.3); NEUTROPHILS # (AUTO) 2.3 (2.1-6.9); NEUTROPHILS % 46.9 % (38.7-80.0); PLATELET COUNT 415 x10e3/uL (140-360); RED BLOOD COUNT 3.67 x10e6/uL (4.3-5.7); RED CELL DISTRIBUTION WIDTH 17.5 % (11.7-14.4)
[2019-09-11] MEDS: MEROPENEM 500MG/ NS 50ML 50 ML IV SCH ×3 (06:00→22:34)
[2019-09-11 06:04] LABS: ALANINE AMINOTRANSFERASE 7 IU/L (0-55); ALBUMIN 1.7 g/dL (3.5-5.0); ALBUMIN/GLOBULIN RATIO 0.4 (0.8-2.0); ALKALINE PHOSPHATASE 84 IU/L (40-150); ANION GAP 8.7 mmol/L (8-16); BLOOD UREA NITROGEN < 5 mg/dL (7-26); BUN/CREATININE RATIO 10 (6-25); CALCIUM 8.4 mg/dL (8.4-10.2); CARBON DIOXIDE 28 mmol/L (22-29); CHLORIDE 110 mmol/L (98-107); CREATININE, SERUM 0.49 mg/dL (0.72-1.25); EST GLOMERULAR FILTRATION RATE > 60 ML/MIN (60-); GLUCOSE 113 mg/dL (74-118); MAGNESIUM 1.6 MG/DL (1.3-2.1); POTASSIUM 3.7 mmol/L (3.5-5.1); SODIUM 143 mmol/L (136-145)
[2019-09-11 06:29] LABS: PHOSPHORUS 2.6 MG/DL (2.3-4.7)
[2019-09-11] MEDS: D5.45%NS/KCL 20MEQ 1,000 ML IV SCH ×2 (07:14→18:01)
[2019-09-11] MEDS: ASPIRIN 325 MG TAB PO SCH (08:22)
[2019-09-11] MEDS: BALSAM PERU/CASTOR OIL 60 GM OINT...G. TP SCH (08:22)
[2019-09-11] MEDS: FAMOTIDINE 20 MG/2 ML VIAL IV SCH ×2 (08:22→21:14)
[2019-09-11] MEDS: GABAPENTIN 300 MG CAP PO SCH ×3 (08:22→21:15)
[2019-09-11] MEDS: THIAMINE HCL INJ 100 MG in SODIUM CHLORIDE 0.9% 50ML 50 ML IV SCH (08:22)
[2019-09-11] MEDS: CLONAZEPAM 0.5 MG TAB PO SCH ×3 (08:22→21:15)
[2019-09-11] MEDS ORDERED: THIAMINE HCL 100 MG TAB GT SCH (09:00)
--- NOTE | 2019-09-11 09:01 | Diagnostic Imaging Report ---
Exam: Chest one view Comparison: September 09, 2019 Clinical history: Pneumonia Findings: The nasogastric tube and the right arm PICC is unchanged in position. The cardiac size is within normal limits. Bilateral mid and lower lung pulmonary opacities are again noted which appear worsened compared to the prior study. There is no evidence of pneumothorax. The regional osseous structures are unremarkable. Signed by: Dr. Edward Lorenzana MD on 09/11/2019 8:57 AM
[2019-09-11] MEDS: METOPROLOL TARTRATE 25 MG TAB PO SCH ×2 (09:21→16:31)
[2019-09-11] MEDS: FLUCONAZOLE 200 MG/100 ML 100 ML IV SCH (09:21)
[2019-09-11] MEDS: LEVETIRACETAM 500MG/5ML VIAL 1,500 MG in SODIUM CHLORIDE 0.9% 100 ML 100 ML IV SCH ×2 (09:32→21:14)
--- NOTE | 2019-09-11 11:26 | NUR ---
Pulmonary Critical Care Medicine DATE: 09/11/[address] tube feeds now at 20/hr ivf 82/hr alberts 3 L/min oxygen REVIEW OF SYSTEMS: Cannot get as he is altered. PHYSICAL EXAMINATION: VITAL SIGNS: vital signs noted and reviewed per the chart GENERAL: Awake & alert, in bed HEENT: Normocephalic,atraumatic. NECK: Supple. Throat midline. LUNGS: Bilateral air entry, limited CARDIOVASCULAR: S1, S2. No murmurs, rubs, or gallops. ABDOMEN: Soft, nontender. EXTREMITIES: No clubbing, no cyanosis LABORATORY DATA/IMAGING: k 3.7, bun <5, cr4 0.49. wbc 5, hct 32, plt 415 IMPRESSION AND PLAN: 1. Febrile syndrome, sepsis. 2. Multifocal pneumonia. Acquired prior to admit 3. Hx mastoiditis 3. Possible aspiration. 4. Acute respiratory failure, resolving 5. Scoliosis. 6. Noted rib fractures, probably old. 7. Hypokalemia. 8. Seizure disorder, on multiple medications. 9. Probable dementia. 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 11. fungal urinary tract infection. acquired prior to admit Speech therapy, dysphagia evaluation continue start tube escalate to goal Rx k repeat intermittent CXR due to increased upper airway secretions. --work to US thoracentesis likely as todays CXR is worsening Intermittent WBC until resolved Dc alberts soon if not chronic continue abx per ID fever w/u, treatment seizure rx per neurology Thank you very much, Dr. Costa and Dr. Marte for this consult. Please call for questions.
[2019-09-11] MEDS ORDERED: SPIRONOLACTONE 25 MG TAB PO SCH (11:50)
[2019-09-11] MEDS ORDERED: POTASSIUM CHLORIDE 20MEQ/15ML UDC NG SCH (11:50)
[2019-09-11] MEDS ORDERED: FUROSEMIDE INJ 10 MG/ML 2 ML VIAL IV SCH (11:50)
[2019-09-11] MEDS ORDERED: FOSPHENYTOIN 50 MG/ML VIAL IV STA (13:01)
--- NOTE | 2019-09-11 13:16 | NUR ---
ST Note: Discussed with MICHAEL Sullivan. Pt not appropriate for dysphagia intervention. Will f/u as indicated.
[2019-09-11] MEDS ORDERED: FOSPHENYTOIN 500 MG in SODIUM CHLORIDE 0.9% 50ML 50 ML IV ONE (14:00)
--- NOTE | 2019-09-11 14:04 | Progress Note ---
DATE: 09/11/2019 SUBJECTIVE: Mr. Starkey overnight, no significant neurological changes other than an EEG, which suggests subclinical status epilepticus. OBJECTIVE: VITAL SIGNS: Showed temperature 98.3, heart rate of 101, and blood pressure of 132/92. GENERAL: Exam is largely unchanged, where we see a patient who is minimally responsive, normocephalic, atraumatic head. He no longer has right hemispheric neglect. NECK: Supple. CARDIOVASCULAR: Regular rate and rhythm. Mildly tachycardic. PULMONARY: Rhonchus. ABDOMEN: Soft. EXTREMITIES: He has left upper extremity cortical fisting. NEUROLOGIC: No tremors at this time. Gaze preference is resolved. He does have extraocular muscles intact. Pupils are reactive, nonresponsive to verbal command and stimulation. Overall, he seems to be in a comatose state in terms of responsive environment. ASSESSMENT AND PLAN: 1. Vascular dementia is chronic with recent decompensation. He is currently on primary and secondary prevention for stroke. 2. Subclinical status epilepticus. He is on benzos and Keppra. EEG was positive for subclinical status epilepticus. We are going to adjust the medications. We will repeat EEG today STAT. CAMILO JAMES MD RR/MODL /[id number]
--- NOTE | 2019-09-11 14:54 | Electroencephalogram ---
DATE OF STUDY: REQUESTING PHYSICIAN: rhythm, which was in the theta frequency. This lasted throughout the entirety with a 1-hour study. Overall, this EEG is abnormal level subclinical status epilepticus. MD CHERISE STOCKTON/POLO /[id number]
--- NOTE | 2019-09-11 16:19 | Diagnostic Imaging Report ---
Exam: Ultrasound guided thoracentesis Clinical History: Pleural effusion Consent: Benefits and risks were explained to the patient's family who gave consent to the procedure. Complication: None immediate Procedure: The patient was placed in right decubitusposition. The left posterior chest was prepped and draped in usual sterile fashion. 1% lidocaine was used as local anesthetic. Under ultrasound guidance, a thoracentesis catheter was inserted into the pleural cavity. Approximately 400 cc of clear yellow fluid was aspirated. The catheter was removed. The specimen was sent to the laboratory for further analysis. The patient tolerated the procedure well without any adverse reaction. A STAT chest x-ray was ordered. The patient left the department in stable condition. Impression: Ultrasound guided left thoracentesis. Signed by: Dr. Edward Lorenzana MD on 09/11/2019 4:16 PM
--- NOTE | 2019-09-11 16:26 | Diagnostic Imaging Report ---
Exam: Chest one view Comparison: September 11, 2019 Clinical history: Pleural effusion Findings: There is interval improvement in the left pleural effusion. There is no evidence of pneumothorax. The cardiac size remains enlarged. Right basilar pulmonary opacity is still noted which may represent small effusion. The nasogastric tube and the right arm PICC appear unchanged in position. The regional osseous structures are stable in appearance. Signed by: Dr. Edward Lorenzana MD on 09/11/2019 4:23 PM
[2019-09-11] MEDS: ENOXAPARIN SOD INJ 40 MG/0.4 ML SYR SC SCH (16:32)
--- NOTE | 2019-09-11 16:46 | NUR ---
WOUND CARE SCREENING CONSTULT FOR 64 YO MALE ADMITTED TO [facility] WITH A PRESENT HX OF PNEUMONIA, RESP DISTRESS AND SACRAL DECUBITUS ULCER. PAST MEDICAL HX OF VIRAL ENCEPHALITIS, ANEMIA, SEIZEURE DISORDER, AND HX OF RIGHT FEMUR FX. KEYANA 10 ON STRICT PUP STATUS AND INTERVENTIONS SURFACE: ALTERNATING PRESSURE MATTRESS. LABS: WBC-4.97 HGB- 9.4 GLUCOSE- 113 ALBUMIN: 1.7 MICRO: 09/10 BLOOD CULTURE PENDING. 09/05 URINE CULTURE-RAEANN ALBICANS. MEDS: VANCOMYCIN. SEE eMAR for dose. SKIN ASSESSMENT COMPLETE; PT PRESENT WITH STAGE IV PRESSURE ULCER MEASURING 9 CM X 12 CM X 2. 1 CM EXPOSED BONE. UNDERMINING MEASURING 1 CM FROM 12 TO 6 OCLOCK. 80% GRANULATION, 20% YELLOW SLOUGH. PT IS UNDER CARE OF WOUND CARE DOCTOR-TREVOR WISEMAN. CONTINUE WITH CURRENT WOUND CARE ORDERS. NOTIFIED BEDSIDE NURSE. DTI TO LEFT MEDIAL FOOT MEASURING 1.5 CMX 1.5CM. NON BLANCHABLE DARK BROWN/PURPLE AREA. NO DRAINAGE. CONTINUE WITH CURRENT WOUND CARE ORDERS. NOTIFIED BEDSIDE NURSE. RECOMMENDATIONS: NURSING TO CONTINUE WITH CURRENT WOUND CARE ORDERS FOR SACRAL PRESSURE ULCER STAGE IV AND THE LEFT FIRST MET HEAD AREA BY DR. MURRAY. NURSING TO CONTINUE TO MONITOR PATIENT AND KEEP SKIN CLEAN AND FREE FROM STOOL OR IRRITATING MOISTURE AND CONTINUE TO FOLLOW MODERATE PUP INTERVENTIONS DAILY. NURSING TO CONTINUE REPOSITION PT SIDE TO SIDE EVERY TWO HOURS AND TO ENCOURAGE PT TO SELF REPOSITION IN BED NEEDED. NURSING TO MAINTAIN ALTERNATING PRESSURE MATTRESS. NURSING TO CONTINUE TO OFFLOAD FEET AND HEELS AT ALL TIMES WITH PILLOW SUSPENSION WHEN IN BED. NURSING TO APPLY BILATERAL HELL PROTECTORS DAILY. NURSING TO CONTINUE TO ASSIST WITH PT NUTRITIONAL SUPPLEMENTS TO ENSURE PROPER REQUIREMENTS FOR HEALING. NURSING TO CONSULT WOUND CARE NEEDED. Addendum: 09/11/19 at 1647 by Kasia Carcamo RN Amended: Links added.
[2019-09-11 17:33] LABS: BODY FLUID APPEARANCE CLOUDY; BODY FLUID COLOR STRAW
--- NOTE | 2019-09-11 18:09 | Progress Note ---
DATE: SUBJECTIVE: Mr. Starkey remains in intensive care unit. EEG was done. He is being seen by Neurology. The patient is intubated. PHYSICAL EXAMINATION: VITAL SIGNS: Stable, currently afebrile. HEENT: He is not icteric. NECK: Supple. CHEST: Few crackles bilateral. COR: S1 and S2. No murmur. ABDOMEN: Soft. IMPRESSION: 1. Dementia. 2. Seizure disorder. 3. Pneumonia aspiration. 4. Acute on congestive heart failure from right bundle branch block. 5. The patient is currently on meropenem. This is day #5 on fluconazole. He had a temperature of . We will continue antibiotic for now. We will reassess. So far blood cultures are negative. MD JACINDA Calvin/POLO /[id number]
[2019-09-11 19:14] LABS: BODY FLUID TYPE PLEURAL
[2019-09-11 19:15] LABS: RBC,BODY FLUID 391 cells/uL; WBC,BODY FLUID 112 cells/uL
[2019-09-11 20:28] LABS: EOSINOPHILS,BODY FLUID 1 %; LYMPHOCYTES,BODY FLUID 12 %; MONO/MACROPHG,BODY FLUID 25 %; NEUTROPHILS,BODY FLUID 54 %; OTHER CELLS,BODY FLUID 8 %
--- NOTE | 2019-09-11 20:44 | Progress Note ---
DATE: 09/11/2019 Cardiology Progress Note SUBJECTIVE: No major events overnight, undergoing EEG today. OBJECTIVE: VITAL SIGNS: Temperature afebrile, pulse 84, respiratory rate 18, blood pressure 110/73, and saturating 100% on 3 L nasal cannula. GENERAL: -Malaysian man, in no acute distress, altered. CARDIOVASCULAR: Regular rate and rhythm. No murmurs, rubs, or gallops. LUNGS: Coarse breath sounds bilaterally. ABDOMEN: Soft, nontender, nondistended. NEURO AND PSYCH: Disoriented. INPATIENT MEDICATIONS: Reviewed. LABORATORY DATA: Reviewed. IMAGING DATA: Reviewed, chest x-ray plus thoracentesis today with improved pleural effusions. TELEMETRY DATA: Reviewed, shows sinus rhythm. ASSESSMENT: 1. Chronic systolic congestive heart failure. 2. Sinus tachycardia. 3. Hypertension. PLAN: Continue metoprolol 25 mg b.i.d. for now, undergoing evaluation for seizures. We will add a low-dose ITZEL inhibitor once blood pressure allows. Thank you for this consult. We will continue to follow. MD GRAYSON Galaviz/POLO /[id number]
[2019-09-12] VITALS (26 sets, daily range): BP systolic 86–138; BP diastolic 62–93
[2019-09-12] MEDS: D5.45%NS/KCL 20MEQ 1,000 ML IV SCH (04:15)
[2019-09-12] MEDS: MEROPENEM 500MG/ NS 50ML 50 ML IV SCH ×2 (06:02→13:43)
--- NOTE | 2019-09-12 06:41 | Diagnostic Imaging Report ---
EXAMINATION: CHEST SINGLE (PORTABLE) INDICATION: CHF. COMPARISON: Chest radiograph 09-11-2019. FINDINGS: TUBES and LINES: Right arm PICC terminates at the cavoatrial junction. Enteric tube courses into the stomach, the tip is not seen. LUNGS: Lungs are mildly hyperinflated. There are hazy airspace opacities in the bilateral lower lung zones, slightly increased in the prior study. Mild bilateral interstitial opacities. PLEURA: Moderate bilateral pleural effusions, slightly increased from the prior study. HEART AND MEDIASTINUM: The cardiomediastinal silhouette is unremarkable. BONES AND SOFT TISSUES: No acute osseous lesion. Soft tissues are unremarkable. UPPER ABDOMEN: No free air under the diaphragm. IMPRESSION: Slightly increased bilateral moderate pleural effusions with lower lung zone opacities, which may represent atelectasis, pneumonia, or pulmonary edema in the appropriate clinical setting. Signed by: Dr. Zhane Owusu MD on 09/12/2019 6:38 AM
--- NOTE | 2019-09-12 08:06 | NUR ---
intemrittent tremors seems to have improved EEG shows resolution of previously noted subclinical status epilepticus 96 98.2 124/90 GENERAL: Exam is largely unchanged, where we see a patient who is minimally responsive, normocephalic, atraumatic head. He no longer has right hemispheric neglect. NECK: Supple. CARDIOVASCULAR: Regular rate and rhythm. Mildly tachycardic. PULMONARY: Rhonchus. ABDOMEN: Soft. EXTREMITIES: He has left upper extremity cortical fisting. NEUROLOGIC: No tremors at this time. Gaze preference is resolved. He does have extraocular muscles intact. Pupils are reactive, nonresponsive to verbal command and stimulation. Overall, he seems to be in a comatose state in terms of responsive environment. ASSESSMENT AND PLAN: 1. Vascular dementia is chronic with recent decompensation. He is currently on primary and secondary prevention for stroke. 2. Subclinical status epilepticus. He is on benzos and Keppra. EEG was positive for subclinical status epilepticus. We are going to adjust the medications. We will repeat EEG improved- but repeat tomorrow check levels of dilantin maintain therapeutic range, continue keppra
--- NOTE | 2019-09-12 08:08 | NUR ---
corrected dilantin is 8.4 will increase rx, goal >13 <20
[2019-09-12] MEDS: THIAMINE HCL 100 MG TAB GT SCH (09:35)
[2019-09-12] MEDS: BALSAM PERU/CASTOR OIL 60 GM OINT...G. TP SCH (09:35)
[2019-09-12] MEDS: ASPIRIN 325 MG TAB PO SCH (09:35)
[2019-09-12] MEDS: FAMOTIDINE 20 MG/2 ML VIAL IV SCH ×2 (09:35→21:00)
[2019-09-12] MEDS: GABAPENTIN 300 MG CAP PO SCH ×3 (09:35→21:00)
[2019-09-12] MEDS: CLONAZEPAM 0.5 MG TAB PO SCH ×3 (09:35→21:00)
[2019-09-12] MEDS: LISINOPRIL 2.5 MG TAB PO SCH (09:40)
[2019-09-12] MEDS: METOPROLOL TARTRATE 25 MG TAB PO SCH ×2 (09:40→16:31)
--- NOTE | 2019-09-12 10:47 | Electroencephalogram ---
DATE OF STUDY: REQUESTING PHYSICIAN: PROCEDURE: One-hour EEG. EEG is being done to evaluate for subclinical status epilepticus. EEG DATA: Shows diffuse slowing and evidence slow-wave sleep. Periodic sharp discharges arising primarily from left central parietal region. multiple seizures, these seizures occurred multiple times Anterior rhythms are high amplitude delta waves _with periodic attenuation. There seems to be a prominent delta-theta slow pattern, more established on the right than on the left as the majority EEG study. EEG INTERPRETATION: This EEG is abnormal level 3 for sharp wave discharges, left hemispheric dysfunction _with generalized_ periodic discharges with high suspicion of developing to epileptogenic discharges or epileptogenic state. Again, arising from the left central parietal region, it is abnormal level 3 and concerning for subclinical status in the setting of severe diffuse encephalopathy with left hemispheric structural injury. MD CHERISE STOCKTON/POLO /[id number]
[2019-09-12] MEDS: LEVETIRACETAM 500MG/5ML VIAL 1,500 MG in SODIUM CHLORIDE 0.9% 100 ML 100 ML IV SCH ×2 (10:54→20:21)
[2019-09-12] MEDS: FLUCONAZOLE 200 MG/100 ML 100 ML IV SCH (11:26)
--- NOTE | 2019-09-12 12:54 | NUR ---
Pulmonary Critical Care Medicine DATE: 09/12/2019 SUBJECTIVE NGT tube feeds 40/hr left thoracentesis with 400 cc out ivf 42/hr REVIEW OF SYSTEMS: Cannot get as he is altered. PHYSICAL EXAMINATION: VITAL SIGNS: vital signs noted and reviewed per the chart GENERAL: Awake & alert, in bed HEENT: Normocephalic,atraumatic. NECK: Supple. Throat midline. LUNGS: Bilateral air entry, limited CARDIOVASCULAR: S1, S2. No murmurs, rubs, or gallops. ABDOMEN: Soft, nontender. EXTREMITIES: No clubbing, no cyanosis LABORATORY DATA/IMAGING: no new updates IMPRESSION AND PLAN: 1. Febrile syndrome, sepsis. 2. Multifocal pneumonia. Acquired prior to admit 3. Hx mastoiditis 3. Possible aspiration. 4. Acute respiratory failure, resolving 5. Scoliosis. 6. Noted rib fractures, probably old. 7. Hypokalemia. 8. Seizure disorder, on multiple medications. 9. Probable dementia. 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 11. fungal urinary tract infection. acquired prior to admit Speech therapy, dysphagia evaluation continue tube feeds to escalate to goal d/c ivf, ngt water Rx k repeat intermittent CXR due to increased upper airway secretions. Dc alberts soon if not chronic continue abx per ID fever w/u, treatment seizure rx per neurology consider contralateral thoracentesis if indicated. rx gentle diuretics Thank you very much, Dr. Costa and Dr. Marte for this consult. Please call for questions.
[2019-09-12] MEDS ORDERED: SPIRONOLACTONE 25 MG TAB PO ONE (13:30)
[2019-09-12] MEDS: PHENYTOIN SODIUM INJ 50 MG/ML 2 ML VIAL IV SCH ×2 (13:43→22:00)
--- NOTE | 2019-09-12 15:18 | Progress Note ---
DATE: SUBJECTIVE: Mr. Starkey is alert, noncommunicative. OBJECTIVE: VITAL SIGNS: Stable, afebrile. HEENT: He is not icteric. NECK: Supple. CHEST: Clear. COR: S1 and S2. ABDOMEN: Soft. IMPRESSION: 1. Aspiration pneumonia, seems to be stable, status post antibiotic. 2. Dementia. 3. Seizure disorder. His lab data reviewed. His chart reviewed. We will discontinue meropenem. We will discontinue fluconazole. Continue with supportive care. We will follow. MD JACINDA Calvin/[place] /[id number]
[2019-09-12] MEDS ORDERED: VANCOMYCIN 1GM/NS 250 ML 250 ML IV ONE (16:00)
[2019-09-12] MEDS: ENOXAPARIN SOD INJ 40 MG/0.4 ML SYR SC SCH (16:29)
[2019-09-13] VITALS (25 sets, daily range): BP systolic 89–138; BP diastolic 56–100
[2019-09-13] MEDS: PHENYTOIN SODIUM INJ 50 MG/ML 2 ML VIAL IV SCH ×3 (05:54→20:07)
[2019-09-13 06:38] LABS: ALANINE AMINOTRANSFERASE 11 IU/L (0-55); ALBUMIN/GLOBULIN RATIO 0.5 (0.8-2.0); ALKALINE PHOSPHATASE 98 IU/L (40-150); ANION GAP 12.5 mmol/L (8-16); BLOOD UREA NITROGEN 8 mg/dL (7-26); BUN/CREATININE RATIO 15 (6-25); CALCIUM 8.8 mg/dL (8.4-10.2); CARBON DIOXIDE 26 mmol/L (22-29); CHLORIDE 104 mmol/L (98-107); CREATININE, SERUM 0.55 mg/dL (0.72-1.25); EST GLOMERULAR FILTRATION RATE > 60 ML/MIN (60-); GLUCOSE 112 mg/dL (74-118); MAGNESIUM 1.8 MG/DL (1.3-2.1); POTASSIUM 4.5 mmol/L (3.5-5.1); SODIUM 138 mmol/L (136-145)
[2019-09-13] MEDS: THIAMINE HCL 100 MG TAB GT SCH (08:05)
[2019-09-13] MEDS: FAMOTIDINE 20 MG/2 ML VIAL IV SCH ×2 (08:06→20:03)
[2019-09-13] MEDS: BALSAM PERU/CASTOR OIL 60 GM OINT...G. TP SCH (08:06)
[2019-09-13] MEDS: CLONAZEPAM 0.5 MG TAB PO SCH ×3 (08:06→20:03)
[2019-09-13] MEDS: ASPIRIN 325 MG TAB PO SCH (08:06)
[2019-09-13] MEDS: GABAPENTIN 300 MG CAP PO SCH ×3 (08:06→20:04)
[2019-09-13] MEDS: LEVETIRACETAM 500MG/5ML VIAL 1,500 MG in SODIUM CHLORIDE 0.9% 100 ML 100 ML IV SCH ×2 (08:06→20:03)
[2019-09-13] MEDS: METOPROLOL TARTRATE 25 MG TAB PO SCH ×2 (08:06→17:34)
[2019-09-13] MEDS: LISINOPRIL 2.5 MG TAB PO SCH (08:06)
--- NOTE | 2019-09-13 10:16 | Progress Note ---
DATE: Cardiology Progress Note SUBJECTIVE: The patient is nonverbal and unable to report. OBJECTIVE: VITAL SIGNS: Temperature 98.3, pulse 96, respiratory rate 24, blood pressure 116/87, oxygen saturation 98% on 2 L nasal cannula. GENERAL: Appears to be sleeping. NG tube noted. NECK: Supple with slight JVD noted. LUNGS: Diminished breath sounds throughout. CARDIOVASCULAR: Regular rate and rhythm. No murmurs, no gallops. ABDOMEN: Soft, nontender. EXTREMITIES: Lower extremity, diminished pedal pulses with wound on the left foot covered with dressing. CARDIOVASCULAR MEDICATIONS: Lisinopril 2.5 mg p.o. daily, aspirin 325 mg p.o. daily, Lovenox 40 mg subcu daily. LABORATORY DATA: Sodium 138, potassium 4.5, BUN 8, creatinine 0.55. Chest x-ray with slightly increased bilateral moderate pleural effusion and lower zone opacities. Telemetry normal sinus rhythm. TELEMETRY: Normal sinus rhythm. ASSESSMENT: 1. Chronic systolic heart failure. 2. Sinus tachycardia. 3. Hypertension. 4. Pneumonia. 5. Altered mental status. PLAN: Continue with the above listed cardiac medications. Continue to monitor on telemetry at all times. We will continue to follow this patient very closely. Continue neurological workup and evaluation of mental status changes. Dictated by Lore Johnson NP MD DAVID CarrilloV/CRISTIANAL /[id number]
--- NOTE | 2019-09-13 12:35 | NUR ---
Pulmonary Critical Care Medicine DATE: 09/13/2019 SUBJECTIVE tube feeds 50/hr water 250 q 6 hrs reported fever? not seen in [facility]. 89 F reported BCX GPC from 09/11/19 3 L/.min oxygen neurology still titrating meds. no overt seizures. patient is deeply sleeping? REVIEW OF SYSTEMS: Cannot get as he is altered. PHYSICAL EXAMINATION: VITAL SIGNS: vital signs noted and reviewed per the chart GENERAL: Awake & alert, in bed HEENT: Normocephalic,atraumatic. NECK: Supple. Throat midline. LUNGS: Bilateral air entry, limited CARDIOVASCULAR: S1, S2. No murmurs, rubs, or gallops. ABDOMEN: Soft, nontender. EXTREMITIES: No clubbing, no cyanosis LABORATORY DATA/IMAGING: no new updates IMPRESSION AND PLAN: 1. Febrile syndrome, sepsis. 2. Multifocal pneumonia. Acquired prior to admit 3. Hx mastoiditis 3. Possible aspiration. 4. Acute respiratory failure, resolving 5. Scoliosis. 6. Noted rib fractures, probably old. 7. Hypokalemia. 8. Seizure disorder, on multiple medications. 9. Probable dementia. 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 11. fungal urinary tract infection. acquired prior to admit Speech therapy, dysphagia evaluation continue tube feeds, water flushes to escalate to goal repeat intermittent CXR due to increased upper airway secretions. Fercho alberts soon if not chronic continue abx per ID, adjustment performed fever w/u, treatment seizure rx per neurology consider contralateral thoracentesis if indicated. rx gentle diuretics --check AM CXR Thank you very much, Dr. Costa and Dr. Marte for this consult. Please call for questions.
[2019-09-13] MEDS ORDERED: ACETAMINOPHEN 325 MG TAB PO PRN (12:45)
[2019-09-13] MEDS ORDERED: FUROSEMIDE 20 MG TAB PO ONE (13:30)
--- NOTE | 2019-09-13 13:36 | Progress Note ---
DATE: SUBJECTIVE: Mr. Lalito Shankar remains in intensive care unit, noncommunicative. OBJECTIVE: VITAL SIGNS: Stable, had 102 earlier today, heart rate 104, blood pressure 137/100. GENERAL: He is noncommunicative. HEENT: He is not icteric. NECK: Supple. CHEST: Few crackles. COR: S1 and S2. No S3, S4, or murmurs. ABDOMEN: Soft. Bowel sounds present. No tenderness. EXTREMITIES: No edema. MEDICATION LIST: He is on Prinivil, Lopressor, Klonopin, aspirin, and Neurontin. LABORATORY DATA: Blood cultures, no growth 48 hours. One set had coag-negative Staph. Chest x-ray on the , showed bilateral effusion. IMPRESSION: 1. Fever, concerned about recurrent aspiration. We will put him back on cefepime and vancomycin. Obtain procalcitonin level. 2. History of seizure, history of encephalopathy. 3. We will follow. Discussed with Critical Care. Discussed with medical team. MD JACINDA Calvin/MODL /[id number]
[2019-09-13] MEDS: CEFEPIME 2 GM/NS 0.9% 100 ML 100 ML IV SCH (13:43)
[2019-09-13] MEDS: VANCOMYCIN HCL 1.25 GM in SODIUM CHLORIDE 0.9% 250ML 250 ML IV SCH (14:55)
--- NOTE | 2019-09-13 16:39 | Diagnostic Imaging Report ---
EXAMINATION: CT of the abdomen and pelvis with contrast. TECHNIQUE: Spiral CT images of the abdomen and pelvis were performed from the lung bases to the lesser trochanters after the intravenous administration of 100 cc of Isovue 370 and the oral administration of water. Coronal and sagittal reformatted images were obtained. COMPARISON: Portable chest 09/12/2019 CLINICAL HISTORY:Pneumonia DISCUSSION: ABDOMEN/PELVIS: LINES AND TUBES: Enteric tube has distal tip at the stomach body LOWER THORAX:Partially visualized bilateral lower lobe consolidations with likely mucoid impaction. HEPATOBILIARY: No focal hepatic lesions. No intra or extrahepatic biliary ductal dilation. GALLBLADDER: Contracted. No radiopaque stones SPLEEN: No splenomegaly. PANCREAS: No focal masses or ductal dilatation. ADRENALS: No adrenal nodules. KIDNEYS/URETERS: No hydronephrosis, stones, or solid enhancing mass lesions. 1.3 cm hypodense lesion in the left superior pole, with a measured density of 34HU (series 2, image 15). 1.4 cm partially exophytic fluid density lesion in the left inferior pole, consistent with a simple cyst (series 2, image 31). Bilateral subcentimeter hypodense lesions which are too small to characterize. PELVIC ORGANS/BLADDER: Evaluation of the pelvis is limited by beam hardening artifact from right proximal femoral hardware. The bladder is decompressed with a Calle catheter in place. PERITONEUM/RETROPERITONEUM: No ascites. LYMPH NODES: No intra-abdominal, retroperitoneal, pelvic or inguinal lymphadenopathy. VESSELS: The celiac trunk,superior and inferior mesenteric and bilateral renal arteries are patent The portal, superior mesenteric and splenic veins are patent. Atherosclerotic calcification of the distal abdominal aorta. GI TRACT: Mild dilation of the rectum, which measures 6.8 cm in transverse diameter and is filled with stool, with mild circumferential wall thickening. Moderate retained stool in the colon. Rest of the bowel shows no dilation or wall thickening. Postoperative changes in the distal stomach/proximal small bowel, with presence of surgical sutures. BONES AND SOFT TISSUE: No aggressive lytic or suspicious sclerotic lesions. Generalized osteopenia. Marked degenerative disc in the lumbosacral spine, worse at L3-L4 and L5-S1 with intervertebral disc space narrowing and osteophytosis. Intact orthopedic hardware in the right proximal femur. Generalized soft tissue edema/anasarca IMPRESSION: 1. No evidence of intra-abdominal abscess. 2. Findings in the distal rectum may reflect stercoral colitis. Correlate for impaction. 3. Partially visualized bilateral lower lobe consolidations, consistent with pneumonia. 4. Indeterminate 1.3 cm hypodense lesion in the left renal superior pole. A hemorrhagic or proteinaceous cyst is a consideration. This may be further assessed with renal ultrasound. Signed by: Dr. Rocael Reagan M.D. on 09/13/2019 4:35 PM
[2019-09-13] MEDS ORDERED: IOPAMIDOL 370 MG/ML 200 ML INFUS..BTL INJ ONE (17:03)
[2019-09-13] MEDS ORDERED: SODIUM CHLORIDE 0.9% 50ML 50 ML ONE (17:03)
[2019-09-13] MEDS: ENOXAPARIN SOD INJ 40 MG/0.4 ML SYR SC SCH (17:34)
[2019-09-14] VITALS (26 sets, daily range): BP systolic 93–123; BP diastolic 67–88
[2019-09-14] MEDS: CEFEPIME 2 GM/NS 0.9% 100 ML 100 ML IV SCH ×2 (02:29→14:03)
[2019-09-14] MEDS: VANCOMYCIN HCL 1.25 GM in SODIUM CHLORIDE 0.9% 250ML 250 ML IV SCH ×2 (03:22→17:26)
[2019-09-14] MEDS: PHENYTOIN SODIUM INJ 50 MG/ML 2 ML VIAL IV SCH ×3 (05:43→21:15)
--- NOTE | 2019-09-14 07:54 | Diagnostic Imaging Report ---
Examination: Single AP view of the chest. COMPARISON: CT abdomen and pelvis 09/13/2019 INDICATION: Pneumonia IMPRESSION: 1. Lines and Tubes: Right-sided PICC line has distal tip projecting in the region of the cavoatrial junction. Enteric tube is noted below the left hemidiaphragm, however, the tip is not visualized. 2. Lungs are well-inflated. Bilateral lower lobe consolidations with air bronchograms, consistent with bilateral pneumonia in the appropriate clinical setting. 3. Cardiomediastinal silhouette is normal. Mild central venous congestion. 4. No acute bony abnormalities. Signed by: Dr. Rocael Reagan M.D. on 09/14/2019 7:51 AM
[2019-09-14] MEDS: LEVETIRACETAM 500MG/5ML VIAL 1,500 MG in SODIUM CHLORIDE 0.9% 100 ML 100 ML IV SCH ×2 (08:17→20:23)
[2019-09-14] MEDS: ASPIRIN 325 MG TAB PO SCH (08:17)
[2019-09-14] MEDS: THIAMINE HCL 100 MG TAB GT SCH (08:17)
[2019-09-14] MEDS: CLONAZEPAM 0.5 MG TAB PO SCH (08:17)
[2019-09-14] MEDS: FAMOTIDINE 20 MG/2 ML VIAL IV SCH ×2 (08:17→20:23)
[2019-09-14] MEDS: METOPROLOL TARTRATE 25 MG TAB PO SCH ×2 (08:18→16:04)
[2019-09-14] MEDS: GABAPENTIN 300 MG CAP PO SCH ×3 (08:18→20:23)
[2019-09-14] MEDS: FUROSEMIDE 20 MG TAB PO SCH (08:18)
[2019-09-14] MEDS: BALSAM PERU/CASTOR OIL 60 GM OINT...G. TP SCH (08:18)
[2019-09-14] MEDS: LISINOPRIL 2.5 MG TAB PO SCH (08:18)
--- NOTE | 2019-09-14 09:07 | NUR ---
intermittent tremors persist but less overt than before 118 98.9 102/68 GENERAL: Exam is largely unchanged, where we see a patient who is minimally responsive, normocephalic, atraumatic head. He no longer has right hemispheric neglect. NECK: Supple. CARDIOVASCULAR: Regular rate and rhythm. Mildly tachycardic. PULMONARY: Rhonchus. ABDOMEN: Soft. EXTREMITIES: He has left upper extremity cortical fisting. NEUROLOGIC: No tremors at this time. Gaze preference is resolved. He does have extraocular muscles intact. Pupils are reactive, nonresponsive to verbal command and stimulation. Overall, he seems to be in a comatose state in terms of responsive environment. ASSESSMENT AND PLAN: 1. Vascular dementia is chronic with recent decompensation. He is currently on primary and secondary prevention for stroke. 2. Subclinical status epilepticus. He is on benzos and Keppra. EEG was positive for subclinical status epilepticus. We are going to adjust the medications. We will repeat EEG improved cotninue to monitor and adjust aed as needed check levels of dilantin maintain therapeutic range, continue keppra
--- NOTE | 2019-09-14 10:41 | Progress Note ---
DATE: Cardiology Progress Note SUBJECTIVE: Unable to obtain, comatose. OBJECTIVE: VITAL SIGNS: Temperature 98.9, pulse 94, respiratory rate 20, blood pressure 100/70, and oxygen saturation 97% on 3 L nasal cannula. GENERAL: Comatose. NG tube in the nostrils. NECK: Supple. JVD noted. LUNGS: Diminished breath sounds throughout. CARDIOVASCULAR: Regular rate and rhythm. No gallops, no murmurs. ABDOMEN: Soft, nontender. EXTREMITIES: Lower extremity, absent pedal pulses with left foot and also dressing in place. Bilateral feet are cold. CARDIOVASCULAR MEDICATIONS: Metoprolol 25 mg p.o. b.i.d., Lasix 20 mg p.o. daily, aspirin 325 p.o. daily, lisinopril 2.5 mg p.o. daily. LABORATORY DATA: No new labs today. Chest x-ray from this morning with lungs well inflated. Bilateral lower lobe consolidation with air bronchograms consistent with bilateral pneumonia noted. Cardiomediastinal silhouette is normal. Mild central venous congestion. Telemetry, normal sinus rhythm. ASSESSMENT: 1. Chronic systolic heart failure. 2. Sinus tachycardia, improved. 3. Hypertension. 4. Pneumonia. 5. Altered mental status. Continue the above listed cardiac medications. Continue to monitor on telemetry. We will continue to follow this patient very closely. Continue neurological workup. Dictated by Lore Johnson NP MD DAVID CarrilloV/POLO /[id number]
--- NOTE | 2019-09-14 10:46 | NUR ---
ST Note: Pt continues with decreased level of alertness. Per MICHAEL Vallejo, pt to have PEG soon. Will sign off at this time secondary to pt unable to participate X 1 week. Please re-consult if further needs identified.
--- NOTE | 2019-09-14 12:16 | Progress Note ---
DATE: SUBJECTIVE: The patient is seen and evaluated. Available labs and notes reviewed. Discussed with the nurse. No events overnight. REVIEW OF SYSTEMS: Unable to obtain review of systems secondary to the patient's medical condition. MEDICATIONS: Reviewed. As far as Infectious Disease point of view, the patient is on vancomycin IV and cefepime. LABORATORY STUDIES: Vancomycin trough 8.9 on 09/07. White blood cells 4.97, hemoglobin 9.4, and platelet 415. Sodium 138, potassium 4.5, and creatinine 0.55. MICROBIOLOGY: Blood culture negative x4 with the exception of one showing coag-negative staph. Urine culture showed Michelle albicans and body fluid from pleural fluid was negative for 3 days. IMAGING: Chest x-ray from today showed lungs were well inflated, bilateral lower lobe consolidation with air bronchograms consistent with bilateral pneumonia in appropriate clinical setting. No acute bony abnormalities. CT of abdomen and pelvis, no evidence of intraabdominal abscess. Finding in the distal rectum may reflect stercoral colitis correlate with impaction, partially visualized bilateral lower lobe consolidations consistent with pneumonia. Has a 1.3 cm hypodense lesion in the left renal superior pole. PHYSICAL EXAMINATION: VITAL SIGNS: Temperature of 98.9, pulse 97, respirations 20, and blood pressure 111/88. GENERAL: Ill looking, malnourished looking, lethargic with nasogastric tube, barely opens the eyes. CV: S1-S2. CHEST: Equal expansion. Decreased breath sounds. No acute distress. ABDOMEN: Soft. No distention. Positive bowel sounds. HEENT: Moist. No pallor. No JVD. The patient has a nasogastric tube. EXTREMITIES: Arthritic changes of the digits. ASSESSMENT AND PLAN: 1. Fever, improved. 2. Concern aspiration pneumonia. 3. Dysphagia. 4. We will follow with a procalcitonin level which is still pending. 5. History of seizure disorder. 6. Encephalopathy. 7. Severe debility. 8. Dysphagia. The patient apparently finally has consented to the PEG tube placement today. Continue with antibiotics. Monitor the patient clinically and follow with the labs. Overall guarded prognosis. Please refer to chart for more information. Dictated by Jesus Kaur PA-C (Al) Joselyn Sue MD /MODL /[id number]
[2019-09-14] MEDS ORDERED: SODIUM CHLORIDE 0.9% 50ML 50 ML ONE (13:39)
[2019-09-14] MEDS ORDERED: PHENYTOIN SODIUM INJ 50 MG/ML 2 ML VIAL IV STA (14:04)
--- NOTE | 2019-09-14 14:10 | NUR ---
Pulmonary Critical Care Medicine DATE: 09/14/[address] in [address] CXR with bilateral pneumonia tube feeds 50/hr water 250 q6 hrs still deeply sedated REVIEW OF SYSTEMS: Cannot get as he is altered. PHYSICAL EXAMINATION: VITAL SIGNS: vital signs noted and reviewed per the chart GENERAL: Awake & alert, in bed HEENT: Normocephalic,atraumatic. NECK: Supple. Throat midline. LUNGS: Bilateral air entry, limited CARDIOVASCULAR: S1, S2. No murmurs, rubs, or gallops. ABDOMEN: Soft, nontender. EXTREMITIES: No clubbing, no cyanosis LABORATORY DATA/IMAGING: no new updates IMPRESSION AND PLAN: 1. Febrile syndrome, sepsis. 2. Multifocal pneumonia. Acquired prior to admit 3. Hx mastoiditis 3. Possible aspiration. 4. Acute respiratory failure, resolving 5. Scoliosis. 6. Noted rib fractures, probably old. 7. Hypokalemia. 8. Seizure disorder, on multiple medications. 9. Probable dementia. 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 11. fungal urinary tract infection. acquired prior to admit Speech therapy, dysphagia evaluation continue tube feeds, water flushes to escalate to goal repeat intermittent CXR due to increased upper airway secretions. Dc alberts soon if not chronic continue abx per ID, adjustment performed fever w/u, treatment seizure rx per neurology consider contralateral thoracentesis if indicated. rx gentle diuretics --check intermittent CXR Thank you very much, Dr. Costa and Dr. Marte for this consult. Please call for questions.
[2019-09-14] MEDS ORDERED: PHENYTOIN SODIUM IV ONE (14:30)
[2019-09-14] MEDS ORDERED: SODIUM CHLORIDE 0.9% IV ONE (14:30)
--- NOTE | 2019-09-14 14:33 | NUR ---
Nutrition Follow-up Notes RD Recommendation(s) for Physician: -Recommend increasing Jevity 1.2 to goal rate of 60 mL/hr (provides 1728 kcal, 80 g protein, 1162ml water) -Fluid management per MD -Recommend Nirav BID, MVi, vitamin C and zinc sulfate to promote wound healing Plan of Care: RD following, monitoring for tolerance and adequacy, TF recommendation Nutrition reason for involvement: Follow up RD Assessment (09/14/19) Follow up assessment: Pt continued with decreased level of alertness. Per RN, pt to have PEG placement soon. Pt tolerated tube feeding at goal rate well with minimal residual. Will continue to monitor and follow. (09/10/19) Pt is a 64 year old male admitted with pneumonia, respiratory distress, stage 4 sacral decubitus ulcer, and sepsis. Unable to speak to pt due to pt having altered mental status. Per speech therapy note, pt is not alert for PO intake and recommend alternative means of nutrition. There are no previous weights in chart; therefore, unable to assess weight status at this time. Tube feedings are going to be started today per RN. Recommendations provided. Will continue to monitor Principal Problems/Diagnoses: pneumonia, respiratory distress, stage 4 sacral decubitus ulcer, sepsis PMH: fracture, seizure disorder, encephalitis, multiple strokes, and orthopedic implants, anemia I/O: +1715ml/ -1150ml GI: last recorded BM 09/12 Skin: stage 4 sacral pressure ulcer Labs: (09/13) Creatinine 0.5 L (09/09) Na 143, K 3.3, BUN <5, Cr 0.49, Glu 107 Meds: cefepime, dilantin, lasix, thiamine, pepcid, vancomycin Ht: 68 inches Wt: 114 lbs ; 116 lbs 09/13 BMI: 17.3 kg/m2 IBW: 154 lbs Malnutrition Evaluation (09/10/19) Unable to assess. Will re-evaluate at follow-up as appropriate. Nutrition Prescription (Diet Order): Jevity 1.2 @ 50 mL/hr (provides 1440kcal, 67g protein) Estimated Nutritional Needs: 5351-7205 calories/day (30-35 kcal/kg CBW) 78-104 g protein/day (1.5-2 g pro/kg CBW) Diet Adequacy: Meeting 92% of estimated calorie needs and 86% of protein needs Tolerance: Tolerating TF Diet Education Needs Assessment: Diet education not indicated, patient on temporary/transition diet. Nutrition Care Level: moderate Nutrition Diagnosis: Inadequate energy intake related to decreased ability to consume sufficient energy as evidenced by need for enteral nutrition. Goal: Patient will meet 75-100% of estimated needs by follow up Progress: Goal met Interventions: Tube feeding - Composition, Rate, Route, Multivitamin/mineral supplement therapy Monitoring/Evaluation: -Total energy intake, Total protein intake, Formula/Solution, Weight change Signed: Evelyn Louie MS, RD, LD
[2019-09-15] VITALS (26 sets, daily range): BP systolic 93–128; BP diastolic 63–90
[2019-09-15] MEDS: CEFEPIME 2 GM/NS 0.9% 100 ML 100 ML IV SCH ×2 (01:30→14:13)
[2019-09-15] MEDS: VANCOMYCIN HCL 1.25 GM in SODIUM CHLORIDE 0.9% 250ML 250 ML IV SCH ×2 (02:27→15:38)
[2019-09-15] MEDS: PHENYTOIN SODIUM INJ 50 MG/ML 2 ML VIAL IV SCH ×3 (05:30→21:34)
[2019-09-15 07:43] LABS: BASOPHILS % 0.4 % (0.0-1.0); EOSINOPHILS # (AUTO) 0.2 (0.0-0.4); EOSINOPHILS % 2.7 % (0.0-6.0); HEMATOCRIT 31.6 % (38.2-49.6); HEMOGLOBIN 9.5 g/dL (14.0-18.0); LYMPHOCYTES # (AUTO) 1.8 (1.0-3.2); LYMPHOCYTES % 22.3 % (18.0-39.1); MEAN CORPUSCULAR HEMOGLOBIN 25.3 pg (28-32); MEAN CORPUSCULAR HGB CONC 30.1 g/dL (31-35); MEAN CORPUSCULAR VOLUME 84.3 fL (81-99); MONOCYTES # (AUTO) 0.6 (0.2-0.8); MONOCYTES % 7.5 % (4.4-11.3); NEUTROPHILS # (AUTO) 5.3 (2.1-6.9); NEUTROPHILS % 66.8 % (38.7-80.0); PLATELET COUNT 477 x10e3/uL (140-360); RED BLOOD COUNT 3.75 x10e6/uL (4.3-5.7)
[2019-09-15 08:06] LABS: ANION GAP 13.1 mmol/L (8-16); BLOOD UREA NITROGEN 9 mg/dL (7-26); BUN/CREATININE RATIO 19 (6-25); CALCIUM 8.5 mg/dL (8.4-10.2); CARBON DIOXIDE 26 mmol/L (22-29); CHLORIDE 104 mmol/L (98-107); CREATININE, SERUM 0.48 mg/dL (0.72-1.25); EST GLOMERULAR FILTRATION RATE > 60 ML/MIN (60-); GLUCOSE 111 mg/dL (74-118); POTASSIUM 4.1 mmol/L (3.5-5.1); SODIUM 139 mmol/L (136-145)
[2019-09-15] MEDS: METOPROLOL TARTRATE 25 MG TAB PO SCH ×2 (08:49→16:02)
[2019-09-15] MEDS: ASPIRIN 325 MG TAB PO SCH (08:49)
[2019-09-15] MEDS: FUROSEMIDE 20 MG TAB PO SCH (08:49)
[2019-09-15] MEDS: LEVETIRACETAM 500MG/5ML VIAL 1,500 MG in SODIUM CHLORIDE 0.9% 100 ML 100 ML IV SCH ×2 (08:49→21:34)
[2019-09-15] MEDS: FAMOTIDINE 20 MG/2 ML VIAL IV SCH ×2 (08:49→21:34)
[2019-09-15] MEDS: THIAMINE HCL 100 MG TAB GT SCH (08:49)
[2019-09-15] MEDS: GABAPENTIN 300 MG CAP PO SCH ×3 (08:50→21:34)
[2019-09-15] MEDS: BALSAM PERU/CASTOR OIL 60 GM OINT...G. TP SCH (08:50)
[2019-09-15] MEDS: LISINOPRIL 2.5 MG TAB PO SCH (08:50)
--- NOTE | 2019-09-15 11:14 | Progress Note ---
DATE: Cardiology Progress Note SUBJECTIVE: The patient is nonverbal. OBJECTIVE: VITAL SIGNS: Temperature 98.2, pulse 106, respiratory rate 23, blood pressure 115/83, oxygen saturation 97% on 3 L nasal cannula. GENERAL: Appears to be sleeping. NECK: Supple. Mild JVD noted. CARDIOVASCULAR: Regular rate and rhythm. Tachycardic. LUNGS: Diminished breath sounds throughout with scattered rhonchi. ABDOMEN: Soft and nontender. NG tube in the nostrils. EXTREMITIES: 2+ edema bilaterally with a wound on the left lower foot covered with dressing. CARDIOVASCULAR MEDICATIONS: Metoprolol 25 mg p.o. b.i.d., aspirin 325 p.o. daily, labetalol 10 mg q.6 hours p.r.n., Lovenox 40 mg subcu daily, and lisinopril 2.5 mg p.o. daily. LABORATORY DATA: No new labs today. Chest x-ray from today with a slight increased bilateral moderate pleural effusion with lower lung zone opacities. This may represent atelectasis, pneumonia or pulmonary edema. Telemetry, sinus tachycardia. IMPRESSION: 1. Chronic systolic heart failure. 2. Sinus tachycardia. 3. Hypertension. 4. Debility. 5. Seizures. RECOMMENDATIONS: Continue with low-dose beta-dolores for now. Monitor blood pressure closely. Continue care with Neurology and management of seizures. Maintain on telemetry at all times. We will continue to monitor this patient very closely. Dictated by Lore Johnson NP MD DAVID CarrilloV/CRISTIANAL /[id number]
--- NOTE | 2019-09-15 11:20 | NUR ---
Mr. Starkey is a pleasant 64-year-old gentleman with pneumonia. The patient was resend to longterm facility inpatient for UTI. The patient was noted at nursing facility to be on IV vancomycin q.8 hours and fluconazole. The patient is on some medicines additionally including gabapentin, lacosamide, Keppra, Claritin, and Risperdal. Reportedly, he is not very conversational at baseline. The patient was found with oxygen saturations in 80th percentile range, on 8 L/minute at nursing facility. Due to the difficulty with the patient's respiratory status and fever, he was sent to [facility] Emergency Room, where he had temperature 102 degrees Fahrenheit. He was able to tolerate nasal cannula at 6 L/minute to saturate 100% oxygen. Chest x-ray demonstrating multiple infiltrates, scoliosis, rib fractures, probably old. He is hospitalized and I am consulted. PAST MEDICAL HISTORY: Right femur fracture, seizure disorder, herpes viral encephalitis, anemia, and orthopedic implants. MEDICATIONS: Medication list reviewed per the chart record. ALLERGIES: NO KNOWN DRUG ALLERGIES. FAMILY HISTORY: Noncontributory. SOCIAL HISTORY: Unable to get, the patient critical. Unknown smoking. Unknown drinking. Unknown alcohol in the past. consult addenddum
--- NOTE | 2019-09-15 11:50 | Progress Note ---
DATE: SUBJECTIVE: Mr. Starkey remains in intensive care unit. Intubated, comfortable. OBJECTIVE: VITAL SIGNS: Stable, afebrile. GENERAL: Noncommunicative. HEENT: He is not icteric. NECK: Supple. CHEST: Few crackles. COR: S1 and S2. No S3, S4, or murmurs. ABDOMEN: Soft. Bowel sounds present. No tenderness. EXTREMITIES: No edema. SKIN: No rash. The patient is going for a PEG tube placement today. IMPRESSION: 1. Respiratory failure. 2. Aspiration pneumonia. 3. Seizure. 4. Chronic diastolic congestive heart failure. 5. Hypertension. 6. Prognosis remains very guarded. 7. Dysphagia. 8. History of encephalopathy, but seems to be arrhythmia. Prognosis remains very guarded. We will follow. MD JACINDA Calvin/MODL /[id number]
--- NOTE | 2019-09-15 12:13 | NUR ---
Pulmonary Critical Care Medicine DATE: 09/15/[address] in [address] laberts in place 4 L/.min oxygen patient ~comatose on medications REVIEW OF SYSTEMS: Cannot get as he is altered. PHYSICAL EXAMINATION: VITAL SIGNS: vital signs noted and reviewed per the chart GENERAL: Awake & alert, in bed HEENT: Normocephalic,atraumatic. NECK: Supple. Throat midline. LUNGS: Bilateral air entry, limited CARDIOVASCULAR: S1, S2. No murmurs, rubs, or gallops. ABDOMEN: Soft, nontender. EXTREMITIES: No clubbing, no cyanosis LABORATORY DATA/IMAGING: bun 9, cr .48. wbc 7.88. plt 477. hct 32. IMPRESSION AND PLAN: 1. Febrile syndrome, sepsis. 2. Multifocal pneumonia. Acquired prior to admit 3. Hx mastoiditis 3. Possible aspiration. 4. Acute respiratory failure, resolving 5. Scoliosis. 6. Noted rib fractures, probably old. 7. Hypokalemia. 8. Seizure disorder, on multiple medications. 9. Probable dementia. 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 11. fungal urinary tract infection. acquired prior to admit PEG tube today. when cleared by GI, resume tube feeds, water flushes to escalate to goal repeat intermittent CXR due to increased upper airway secretions. Dc alberts soon if not chronic continue abx per ID, adjustment performed fever w/u, treatment seizure rx per neurology consider contralateral thoracentesis if indicated. rx gentle diuretics --check intermittent CXR, repeat in AM Thank you very much, Dr. Costa and Dr. Marte for this consult. Please call for questions.
--- NOTE | 2019-09-15 12:14 | Progress Note ---
DATE: Cardiology Progress Note SUBJECTIVE: The patient is intubated and sedated. OBJECTIVE: VITAL SIGNS: Temperature is 98.1, heart rate is 107, respirations are 19, blood pressure is 99/75, and oxygen saturation 100% on 3 L nasal cannula. GENERAL: Chronically ill-appearing. NECK: JVD noted. LUNGS: Diminished breath sounds at bases. CARDIOVASCULAR: Tachycardia. Regular rhythm. No murmurs. ABDOMEN: Soft, nontender, and nondistended. LABORATORY DATA: Reviewed. Hemoglobin is 9.5. Potassium is 4.1. CARDIOVASCULAR MEDICATIONS: Reviewed. TELEMETRY: Monitoring revealed sinus tachycardia. ASSESSMENT: 1. Chronic systolic congestive heart failure. 2. Sinus tachycardia. 3. Hypertension. 4. Pneumonia. 5. Altered mental status. RECOMMENDATIONS: Continue current cardiovascular medications and monitor on telemetry. Can increase metoprolol as tolerated. If not able to increase due to hypotension, consider digoxin for better heart rate control. DO LIZY Oseguera/MODL /[id number]
[2019-09-15] MEDS ORDERED: SODIUM CHLORIDE 0.9% 50ML 50 ML ONE (12:40)
[2019-09-16] VITALS (12 sets, daily range): BP systolic 101–142; BP diastolic 58–91
[2019-09-16] MEDS: CEFEPIME 2 GM/NS 0.9% 100 ML 100 ML IV SCH ×2 (01:50→13:46)
[2019-09-16] MEDS: VANCOMYCIN HCL 1.25 GM in SODIUM CHLORIDE 0.9% 250ML 250 ML IV SCH ×2 (03:00→16:00)
[2019-09-16] MEDS: PHENYTOIN SODIUM INJ 50 MG/ML 2 ML VIAL IV SCH ×3 (06:40→22:01)
--- NOTE | 2019-09-16 07:06 | NUR ---
tremors are less severe than before, but patient still very minimally responsive 106 98. 136/84 GENERAL: Exam is largely unchanged, where we see a patient who is minimally responsive, normocephalic, atraumatic head. He no longer has right hemispheric neglect. NECK: Supple. CARDIOVASCULAR: Regular rate and rhythm. Mildly tachycardic. PULMONARY: Rhonchus. ABDOMEN: Soft. EXTREMITIES: He has left upper extremity cortical fisting. NEUROLOGIC: No tremors at this time. Gaze preference is resolved. He does have extraocular muscles intact. Pupils are reactive, nonresponsive to verbal command and stimulation. Overall, he seems to be in a comatose state in terms of responsive environment. ASSESSMENT AND PLAN: 1. Vascular dementia is chronic with recent decompensation. He is currently on primary and secondary prevention for stroke. 2. Subclinical status epilepticus. He is on benzos and Keppra. EEG was positive for subclinical status epilepticus. We are going to adjust the medications. We will repeat EEG improved after aed loading, will repeat EEG today continue to monitor and adjust aed as needed check levels of dilantin maintain therapeutic range, continue keppra
[2019-09-16 07:18] LABS: ALBUMIN 1.8 g/dL (3.5-5.0)
[2019-09-16] MEDS: LEVETIRACETAM 500MG/5ML VIAL 1,500 MG in SODIUM CHLORIDE 0.9% 100 ML 100 ML IV SCH ×2 (08:57→22:14)
[2019-09-16] MEDS: FAMOTIDINE 20 MG/2 ML VIAL IV SCH ×2 (08:58→22:00)
[2019-09-16] MEDS: ASPIRIN 325 MG TAB PO SCH (09:00)
[2019-09-16] MEDS: BALSAM PERU/CASTOR OIL 60 GM OINT...G. TP SCH (09:05)
[2019-09-16] MEDS: LISINOPRIL 2.5 MG TAB PO SCH (09:05)
[2019-09-16] MEDS: METOPROLOL TARTRATE 25 MG TAB PO SCH ×2 (09:05→17:00)
[2019-09-16] MEDS: GABAPENTIN 300 MG CAP PO SCH ×3 (09:05→21:00)
[2019-09-16] MEDS: FUROSEMIDE 20 MG TAB PO SCH (09:05)
--- NOTE | 2019-09-16 09:16 | Diagnostic Imaging Report ---
EXAMINATION: CHEST SINGLE (PORTABLE) INDICATION: Pneumonia COMPARISON: Chest radiograph 09/14/2019, CT abdomen and pelvis of 09/13/2019 FINDINGS: LINES/TUBES:Enteric tube projects below the diaphragm with tip not visualized. Right IJ central venous catheter unchanged. EKG leads overlie the chest. LUNGS:Lung volumes appear unchanged. Unchanged mild bibasilar patchy opacities. New focal consolidation. PLEURA:No pleural effusion or pneumothorax. MEDIASTINUM:The cardiomediastinal silhouette appears unchanged in size and shape. BONES/SOFT TISSUES:No acute osseous injury. ABDOMEN:No free air under the diaphragm. IMPRESSION: No significant interval change. Signed by: Pawan Gillette MD on 09/16/2019 9:13 AM
[2019-09-16] MEDS: THIAMINE HCL 100 MG TAB GT SCH (09:40)
--- NOTE | 2019-09-16 10:04 | NUR ---
Morning medications reviewed with Dr Aleks Costa and administered per his directives. Report given to MICHAEL Cruz and patient transferred to [facility].
--- NOTE | 2019-09-16 10:10 | NUR ---
received pt from icu. pt is lying supine in bed, no s/s of distress noted. call light within reach and bed safety in place
[2019-09-16 10:45] LABS: PHENYTOIN (DILANTIN) 5.87 ug/mL (10-20)
[2019-09-16] MEDS ORDERED: SODIUM CHLORIDE 0.9% 250ML 250 ML ONE (13:33)
--- NOTE | 2019-09-16 13:40 | NUR ---
Pulmonary Critical Care Medicine DATE: 09/16/[address] At the last minute, patient not consented for PEG yesterday today pt now with preliminary consent by family 50% venti mask alberts deeply obtunded REVIEW OF SYSTEMS: Cannot get as he is altered. PHYSICAL EXAMINATION: VITAL SIGNS: vital signs noted and reviewed per the chart GENERAL: poor condition, in bed HEENT: Normocephalic,atraumatic. NECK: Supple. Throat midline. LUNGS: Bilateral air entry, limited CARDIOVASCULAR: S1, S2. No murmurs, rubs, or gallops. ABDOMEN: Soft, nontender. EXTREMITIES: No clubbing, no cyanosis LABORATORY DATA/IMAGING: no new updates IMPRESSION AND PLAN: 1. Febrile syndrome, sepsis. 2. Multifocal pneumonia. Acquired prior to admit 3. Hx mastoiditis 3. Possible aspiration. 4. Acute respiratory failure, resolving 5. Scoliosis. 6. Noted rib fractures, probably old. 7. Hypokalemia. 8. Seizure disorder, on multiple medications. 9. Probable dementia. 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 11. fungal urinary tract infection. acquired prior to admit PEG tube tentative to be arranged palliative care consult some IVF if feeds on hold repeat intermittent CXR due to increased upper airway secretions. Dc alberts soon if not chronic continue abx per ID, adjustment performed seizure rx per neurology, downtitrate if feasible due to deep sedation consider contralateral thoracentesis if indicated. rx gentle diuretics --check intermittent CXR Thank you very much, Dr. Costa and Dr. Marte for this consult. Please call for questions.
[2019-09-16] MEDS: DEXTROSE 5% 1,000 ML IV SCH (14:00)
--- NOTE | 2019-09-16 14:45 | Progress Note ---
DATE: Cardiology Progress Note SUBJECTIVE: The patient is confused, undergoing EEG. OBJECTIVE: VITAL SIGNS: Temperature is 98.9, heart rate is 98, respirations are 19, blood pressure is 142/58, oxygen saturation 91% on face mask. Physical examination per primary team. CARDIOVASCULAR MEDICATIONS: Reviewed. LABORATORY DATA: Reviewed. IMPRESSION: 1. Chronic systolic congestive heart failure. 2. Sinus tachycardia. 3. Hypertension. 4. Pneumonia. 5. Altered mental status. RECOMMENDATIONS: Continue current cardiovascular medications for heart rate and blood pressure control. Increase metoprolol for better heart rate control. If needed, can add digoxin for better heart rate controlling medications without affecting blood pressure. Continue altered mental status treatment and infectious treatment per primary team. DO LIZY Oseguera/MODL /[id number]
--- NOTE | 2019-09-16 18:33 | Diagnostic Imaging Report ---
Exam: Abdominal film Clinical History: NG tube placement Comparison: September 16, 2019 DISCUSSION: A tube is present over the midline with the distal tip extending to the region of the midline of the pelvis. The exact location is indeterminate. IMPRESSION: A tube is present over the midline with the distal tip extending to the region of the midline of the pelvis, not in the expected location of the stomach. The exact location is indeterminate. Signed by: Dr. Jovanni Garibay M.D. on 09/16/2019 6:30 PM
[2019-09-16] MEDS ORDERED: DIATRIZOATE MEGL/DIATRIZOA SOD 30 ML BTL PO ONE (19:14)
[2019-09-16] MEDS ORDERED: PROPOFOL IV EMULSION 10 MG/ML 20 ML VIAL ONE (19:52)
--- NOTE | 2019-09-16 19:57 | Diagnostic Imaging Report ---
Exam: Abdominal film Clinical History: Enteric tube Comparison: None. DISCUSSION: Enteric tube is visualized extending down the midline of the abdomen with the distal portion not visualized due to opacified stomach and proximal small bowel. No extraluminal spread of contrast. The stomach is inferiorly projected compared to normal. IMPRESSION: Enteric contrast opacifies the stomach and proximal small bowel. No extraluminal contrast. Signed by: Dr. Jovanni Garibay M.D. on 09/16/2019 7:54 PM
--- NOTE | 2019-09-16 20:16 | NUR ---
XRAY LINE PLACEMENT RESULTS CALLED TO MD Brock RODRIGUEZ. NEW ORDERS RECEIVED.
--- NOTE | 2019-09-16 20:52 | NUR ---
CALL PLACED TO MD GARRETT CONCERNING POSSIBLE VANCOMYCIN TROUGH BEFORE NEXT DOSE. LEFT MESSAGE WAITING FOR CALLBACK.
--- NOTE | 2019-09-16 21:04 | NUR ---
SPOKE WITH MD GARRETT CONCERNING VANCOMYCIN TROUGH. TROUGH BEFORE NEXT DOSE AND HOLD IF GREATER THAN 20
[2019-09-16] MEDS ORDERED: LEVETIRACETAM 500 MG/5 ML VIAL IV ONE (21:39)
[2019-09-17] VITALS (8 sets, daily range): BP systolic 102–130; BP diastolic 65–83
--- NOTE | 2019-09-17 00:12 | Diagnostic Imaging Report ---
EXAM: Abdomen Radiograph 1 View(s) INDICATION: Enteric tube, verify position COMPARISON: Abdominal radiograph 09/16/2019 FINDINGS: Persistent lower lung hazy opacities. Right upper extremity PICC tip terminates in the superior cavoatrial junction. NG tube tip terminates in the mid abdomen. Instilled contrast within small bowel loops. No dilated loops of small bowel. Bowel sutures in the left mid abdomen. No pneumoperitoneum. Degenerative changes in the lumbar spine and pelvis. Partially visualized right proximal femoral fixation hardware appears intact. IMPRESSION: NG tube tip terminates in the mid abdomen. Instilled contrast has passed into small bowel loops. Nonobstructive bowel gas pattern Lower lung hazy opacities consistent with pneumonia and/or atelectasis.. Signed by: Juan Bagley DO on 09/17/2019 12:09 AM
--- NOTE | 2019-09-17 00:26 | NUR ---
XRAY RESULTS CALLED TO MD Brock RODRIGUEZ. OK TO START TUBE FEEDINGS NOW.
--- NOTE | 2019-09-17 01:10 | NUR ---
JEVITY 1.2 STARTED AT 50 ML/HR WITH 250ML FLUSHES Q6 HR.
[2019-09-17] MEDS: VANCOMYCIN HCL 1.25 GM in SODIUM CHLORIDE 0.9% 250ML 250 ML IV SCH (03:00)
--- NOTE | 2019-09-17 03:00 | NUR ---
D/C IV TO L HAND CATHETER TIP INTACT. CDI DRESSING APPLIED. WOUND CARE PROVIDED TO SACRUM AND TOES PER WOUND CARE ORDERS.
[2019-09-17] MEDS: CEFEPIME 2 GM/NS 0.9% 100 ML 100 ML IV SCH ×2 (03:17→16:23)
--- NOTE | 2019-09-17 05:15 | NUR ---
RENDON CARE PROVIDED WITH CASTILE SOAP WIPES.
[2019-09-17 05:26] LABS: ALANINE AMINOTRANSFERASE 16 IU/L (0-55); ALBUMIN 1.7 g/dL (3.5-5.0); ALBUMIN/GLOBULIN RATIO 0.4 (0.8-2.0); ALKALINE PHOSPHATASE 83 IU/L (40-150); ANION GAP 10.8 mmol/L (8-16); BLOOD UREA NITROGEN 9 mg/dL (7-26); BUN/CREATININE RATIO 18 (6-25); CALCIUM 8.7 mg/dL (8.4-10.2); CARBON DIOXIDE 27 mmol/L (22-29); CHLORIDE 104 mmol/L (98-107); CREATININE, SERUM 0.49 mg/dL (0.72-1.25); EST GLOMERULAR FILTRATION RATE > 60 ML/MIN (60-); GLUCOSE 123 mg/dL (74-118); MAGNESIUM 1.9 MG/DL (1.3-2.1); PHOSPHORUS 2.5 MG/DL (2.3-4.7); POTASSIUM 3.8 mmol/L (3.5-5.1); SODIUM 138 mmol/L (136-145)
[2019-09-17] MEDS: PHENYTOIN SODIUM INJ 50 MG/ML 2 ML VIAL IV SCH ×3 (05:35→21:52)
--- NOTE | 2019-09-17 06:15 | NUR ---
tremors are less severe than before, but patient still very minimally responsive 99 112 102/67 GENERAL: Exam is largely unchanged, where we see a patient who is minimally responsive, normocephalic, atraumatic head. He no longer has right hemispheric neglect. NECK: Supple. CARDIOVASCULAR: Regular rate and rhythm. tachycardic. PULMONARY: Rhonchus. ABDOMEN: Soft. EXTREMITIES: He has left upper extremity cortical fisting. NEUROLOGIC: No tremors at this time. Gaze preference is resolved. He does have extraocular muscles intact. Pupils are reactive, nonresponsive to verbal command and stimulation. Overall, he seems to be in a comatose state in terms of responsive environment. ASSESSMENT AND PLAN: 1. Vascular dementia is chronic with recent decompensation. He is currently on primary and secondary prevention for stroke. 2. Subclinical status epilepticus. He is on benzos and Keppra and dilantin continue to monitor and adjust aed as needed check levels of dilantin maintain therapeutic range, continue keppra
--- NOTE | 2019-09-17 07:25 | NUR ---
REPORT GIVEN TO DAYSHIFT NURSE. ALERT JEANETTE RESTING IN BED. NO ADVERSE SIGNS OR SYMPTOMS IN STABLE CONDITION. NO SIGNS OF IV INFILTRATION. BED LOCKED AND IN LOW POSITION. BED ALARM ACTIVATED.
--- NOTE | 2019-09-17 07:26 | NUR ---
BEDSIDE SHIFT REPORT RECEIVED FROM NIGHTSHIFT NURSE. PT IN STABLE CONDITION.
[2019-09-17] MEDS: ASPIRIN 325 MG TAB PO SCH (07:54)
[2019-09-17] MEDS: DEXTROSE 5% 1,000 ML IV SCH (09:45)
--- NOTE | 2019-09-17 10:05 | NUR ---
SPOKE WITH INTERVENTIONAL RADIOLOGY REGARDING PT'S TUBE PLACEMENT. DR. MANZO STATES GIVEN PT'S ANATOMY, HE WANTS DR. CRAWFORD CONSULTED FOR PROCEDURE. WILL PAGED DR. Aleks RODRIGUEZ.
[2019-09-17] MEDS: LEVETIRACETAM 500MG/5ML VIAL 1,500 MG in SODIUM CHLORIDE 0.9% 100 ML 100 ML IV SCH ×2 (11:03→21:52)
[2019-09-17] MEDS: FUROSEMIDE 20 MG TAB PO SCH (11:03)
[2019-09-17] MEDS: THIAMINE HCL 100 MG TAB GT SCH (11:03)
[2019-09-17] MEDS: FAMOTIDINE 20 MG/2 ML VIAL IV SCH ×2 (11:03→21:52)
[2019-09-17] MEDS: LISINOPRIL 2.5 MG TAB PO SCH (11:04)
[2019-09-17] MEDS: METOPROLOL TARTRATE 25 MG TAB PO SCH ×2 (11:04→16:23)
[2019-09-17] MEDS: GABAPENTIN 300 MG CAP PO SCH ×3 (11:04→22:10)
[2019-09-17] MEDS: BALSAM PERU/CASTOR OIL 60 GM OINT...G. TP SCH (11:04)
--- NOTE | 2019-09-17 11:29 | Progress Note ---
DATE: SUBJECTIVE: The patient is seen and evaluated. Available labs and notes reviewed. Discussed with the nurse. No new events overnight. REVIEW OF SYSTEMS: Unable to obtain review of systems secondary to the patient's medical condition. PHYSICAL EXAMINATION: VITAL SIGNS: Temperature 98.9, pulse 107, respirations 20, and blood pressure 115/82. GENERAL: Comfortable in bed, nonverbal with me. Eyes are open. No acute distress. Discussed with the nurse. CV: S1, S2. CHEST: Equal expansion. Decreased breath sounds. No acute distress. ABDOMEN: Soft. Positive bowel sounds. No distention. HEENT: Moist. No pallor. No JVD. EXTREMITIES: Weak. No edema. No acute finding. MEDICATIONS: Medication list reviewed. From Infectious Disease point of view, the patient is on cefepime and vancomycin IV. LABORATORY STUDIES: No new CBC, however, BMP shows sodium 138, potassium 3.8, creatinine 0.49. Toxicology; vancomycin trough was 21.8. MICROBIOLOGY: Recheck blood culture negative on 09/10. Cytology from pleural fluid showed negative for malignancy on 09/14. IMAGING: No new radiology studies available. ASSESSMENT AND PLAN: 1. Respiratory failure-resolved, extubated, and the patient is now out of ICU. 2. Aspiration pneumonia. 3. Seizure disorder. 4. Dysphagia. 5. Chronic diastolic congestive heart failure. 6. Hypertension. 7. Severe debility. 8. Encephalopathy. There is order for palliative care to be initiated. Also, the patient to be receiving EGD and PEG placement today. Remains on IV antibiotics as mentioned above. Continue to monitor the patient clinically, follow with the labs. Overall guarded prognosis. The patient has elevated vancomycin trough. Discussed with staff. We will adjust vancomycin. Please refer to chart for more information. Discussed with Dr. Sue in detail. MD JACINDA Calvin/POLO /[id number]
--- NOTE | 2019-09-17 12:12 | NUR ---
SPOKE WITH DR. TY RODRIGUEZ CONCERNING PEG TUBE; HE STATES DR RODRIGUEZ WAS ALREADY AWARE OF PT'S ANATOMY FROM PRIOR SURGERY AND HE IS UNABLE TO DO PROCEDURE ENDOSCOPICALLY. HE WANTS PT TO HAVE FLUORSCOPY. IF DR. MANZO STILL UNCOMFORTABLE DOING PROCEDURE, HE WANTS SURGEON CONSULTED.
--- NOTE | 2019-09-17 12:18 | NUR ---
Pulmonary Critical Care Medicine DATE: 09/17/2019 SUBJECTIVE tube feeds 50/hr water 250 q6hrs ivf 50/hr patient awake, mumbles and sometimes audible words today low energy, weak alberts, UOP REVIEW OF SYSTEMS: Cannot get as he is altered. PHYSICAL EXAMINATION: VITAL SIGNS: vital signs noted and reviewed per the chart GENERAL: poor condition, in bed HEENT: Normocephalic,atraumatic. NECK: Supple. Throat midline. LUNGS: Bilateral air entry, limited CARDIOVASCULAR: S1, S2. No murmurs, rubs, or gallops. ABDOMEN: Soft, nontender. EXTREMITIES: No clubbing, no cyanosis LABORATORY DATA/IMAGING: no new updates IMPRESSION AND PLAN: 1. Febrile syndrome, sepsis. 2. Multifocal pneumonia. Acquired prior to admit 3. Hx mastoiditis 3. Possible aspiration. 4. Acute respiratory failure, resolving 5. Scoliosis. 6. Noted rib fractures, probably old. 7. Hypokalemia. 8. Seizure disorder, on multiple medications. 9. Probable dementia. 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 11. fungal urinary tract infection. acquired prior to admit PEG tube tentative to be arranged some IVF if feeds on hold repeat intermittent CXR due to increased upper airway secretions. Dc alberts soon if not chronic continue abx per ID, adjustment performed seizure rx per neurology, downtitrate if feasible due to deep sedation consider contralateral thoracentesis if indicated. rx gentle diuretics Thank you very much, Dr. Costa and Dr. Marte for this consult. Please call for questions.
--- NOTE | 2019-09-17 12:54 | NUR ---
Nutrition Follow-up Notes RD Recommendation(s) for Physician: -Recommend increasing Jevity 1.2 to goal rate of 60 mL/hr (provides 1728 kcal, 80 g protein, 1162ml water) to provide adequate protein and kcal -Fluid management per MD -Recommend Nirav BID, MVi, vitamin C and zinc sulfate to promote wound healing Pt meets criteria for severe protein calorie malnutrition Plan of Care: RD following, monitoring for tolerance and adequacy. TF, vit/min, and wound healing supplement rec's. Nutrition reason for involvement: Follow up RD Assessment 09/16: Follow up. Pt discussed during MDR, continues to tolerate TF at 50 ml/hr. PEG placement remains pending, plan for PEG with IR today or tomorrow per RN. Pt noncommunicative during visit, appears malnourished. Current RD recommendations remain appropriate. Will continue to monitor. (09/14/19) Follow up assessment: Pt continued with decreased level of alertness. Per RN, pt to have PEG placement soon. Pt tolerated tube feeding at goal rate well with minimal residual. Will continue to monitor and follow. (09/10/19) Pt is a 64 year old male admitted with pneumonia, respiratory distress, stage 4 sacral decubitus ulcer, and sepsis. Unable to speak to pt due to pt having altered mental status. Per speech therapy note, pt is not alert for PO intake and recommend alternative means of nutrition. There are no previous weights in chart; therefore, unable to assess weight status at this time. Tube feedings are going to be started today per RN. Recommendations provided. Will continue to monitor Principal Problems/Diagnoses: pneumonia, respiratory distress, stage 4 sacral decubitus ulcer, sepsis PMH: fracture, seizure disorder, encephalitis, multiple strokes, and orthopedic implants, anemia GI: last recorded BM 09/16 Skin: stage 4 sacral pressure ulcer- bone exposed Labs: 09/16: Na 138, K 3.8, BUN 9, Cr 0.49, Gluc 123, POC Gluc 95-134, Ca 9.7, Phos 2.5, Mg 1.9 (09/13) Creatinine 0.5 L (09/09) Na 143, K 3.3, BUN <5, Cr 0.49, Glu 107 Meds: gabapentin, lasix, abx, zofran, thiamine, pepcid, IV dilantin Ht: 68 inches Wt: 114 lbs ; 116 lbs 09/13; 108 lb (09/16) BMI: 17.3 kg/m2 IBW: 154 lbs Malnutrition Evaluation (09/17/19) The patient meets criteria for unspecified SEVERE protein-calorie malnutrition. Energy intake: TF meeting >75% of needs Weight loss: severe >2% in 1week (Acute) Fat loss: Severe, eyes hollow Muscle loss: Severe- clavicle protruding, advent hollowing Supporting Evidence: Fluid accumulation: none Functional Status: unable to evaluate Nutrition Prescription (Diet Order): Jevity 1.2 @ 50 mL/hr (provides 1440kcal, 67g protein) Estimated Nutritional Needs: 6782-5918 calories/day (30-35 kcal/kg CBW) 78-104 g protein/day (1.5-2 g pro/kg CBW) Diet Adequacy: Meeting 92% of estimated calorie needs and 86% of protein needs Tolerance: Tolerating TF Diet Education Needs Assessment: Diet education not indicated, patient on temporary/transition diet. Nutrition Care Level: high (meets criteria for severe malnutrition) Nutrition Diagnosis: Inadequate energy intake related to decreased ability to consume sufficient energy as evidenced by need for enteral nutrition. Goal: Patient will meet 75-100% of estimated needs by follow up Progress: progressing Interventions: Tube feeding - Composition, Rate, Route, Multivitamin/mineral supplement therapy, liquid supplement Monitoring/Evaluation: -Total energy intake, Total protein intake, Formula/Solution, Weight change, liquid supplement Signed: Esme Goldman RD, LD, [facility]
--- NOTE | 2019-09-17 13:11 | NUR ---
SPOKE WITH BROTHER ALEK WALKER ABOUT HOSPICE HE IS IN AGREEMENT WITH [facility] BUT [place] [phone], FAXED CLINICALS TO [facility], WILL UPDATE WHEN GET MORE INFORMATION.
--- NOTE | 2019-09-17 14:17 | Diagnostic Imaging Report ---
EXAMINATION: CHEST SINGLE (PORTABLE) INDICATION: Aspiration COMPARISON: Chest radiograph 09/16/2019 FINDINGS: LINES/TUBES:Enteric tube projects below the diaphragm and terminates in the stomach. Right PICC line unchanged. EKG leads overlie the chest. LUNGS:Lung volumes appear unchanged. Unchanged bibasilar patchy opacities. New focal consolidation. PLEURA:No pleural effusion or pneumothorax. MEDIASTINUM:The cardiomediastinal silhouette appears unchanged in size and shape. BONES/SOFT TISSUES:No acute osseous injury. ABDOMEN:No free air under the diaphragm. IMPRESSION: No significant interval change. Signed by: Pawan Gillette MD on 09/17/2019 2:14 PM
--- NOTE | 2019-09-17 18:59 | NUR ---
WALKING ROUNDS PERFORMED, RECEIVED PT LAYING ON LEFT SIDE SEMI FOWLERS IN BED, AAOX0, RR EVEN AND NON-LABORED, O2 BY VM AT 10L. NO S/SX OF DISTRESS NOTED. TUBE FEEDING TO NGT AT 50ML/HR. RENDON TO GRAVITY. BILATERAL HEELS SUSPENDED ON PILLOW WITH HEEL PROTECTORS IN PLACE. LEFT PT LAYING IN BED, BED IN LOW LOCKED POSITION, SIDE RIALS UPX2, CALL LIGHT AND PHONE WITHIN REACH.
--- NOTE | 2019-09-17 19:14 | NUR ---
BEDSIDE SHIFT REPORT GIVEN TO FLAME HARDENING MACHINE SETTER NURSE. PT IN STABLE CONDITION.
--- NOTE | 2019-09-17 22:15 | NUR ---
CHANGED JEVITY 1.2 BOTTLE AND TUBING AND CONTINUED TUBE FEEDING AT 50 ML/HR WITH 250ML FLUSHES Q6 HR. RESIDUAL CHECKED IN BETWEEN TUBE FEEDING CHANGE, NOTED TO HAVE 55ML GASTRIC RESIDUAL.
[2019-09-18] VITALS (8 sets, daily range): BP systolic 101–123; BP diastolic 70–87
[2019-09-18] MEDS: CEFEPIME 2 GM/NS 0.9% 100 ML 100 ML IV SCH ×2 (02:26→18:46)
[2019-09-18] MEDS: PHENYTOIN SODIUM INJ 50 MG/ML 2 ML VIAL IV SCH ×3 (05:40→21:12)
[2019-09-18 06:37] LABS: BASOPHILS % 0.6 % (0.0-1.0); EOSINOPHILS # (AUTO) 0.2 (0.0-0.4); EOSINOPHILS % 2.8 % (0.0-6.0); HEMATOCRIT 27.6 % (38.2-49.6); LYMPHOCYTES # (AUTO) 1.8 (1.0-3.2); MEAN CORPUSCULAR HEMOGLOBIN 24.5 pg (28-32); MEAN CORPUSCULAR VOLUME 84.4 fL (81-99); MONOCYTES # (AUTO) 0.6 (0.2-0.8); MONOCYTES % 10.4 % (4.4-11.3); NEUTROPHILS # (AUTO) 2.8 (2.1-6.9); PLATELET COUNT 494 x10e3/uL (140-360); RED BLOOD COUNT 3.27 x10e6/uL (4.3-5.7); RED CELL DISTRIBUTION WIDTH 17.7 % (11.7-14.4)
--- NOTE | 2019-09-18 06:37 | NUR ---
minimally responsive to external stimulation 97.8 100 108/75 GENERAL: minimally responsive to external stim bitemporal muscle wasting normocephalic, atraumatic head. He no longer has right hemispheric neglect. NECK: Supple. CARDIOVASCULAR: Regular rate and rhythm. tachycardic. PULMONARY: Rhonchus. ABDOMEN: Soft. EXTREMITIES: He has left upper extremity cortical fisting. NEUROLOGIC: No tremors at this time. Gaze preference is resolved. He does have extraocular muscles intact. Pupils are reactive, nonresponsive to verbal command and stimulation. Overall, he seems to be in a comatose state in terms of responsive environment. ASSESSMENT AND PLAN: 1. Vascular dementia is chronic with recent decompensation. He is currently on primary and secondary prevention for stroke. 2. Subclinical status epilepticus. He is on benzos and Keppra and dilantin adjust dilantin to therapeutic range. EEG is showing receovery, albeit slowly.
--- NOTE | 2019-09-18 07:02 | NUR ---
BEDSIDE SHIFT REPORT RECEIVED FROM TELESALES SUPERVISOR NURSE. NO SIGNS OR SYMPTOMS OF DISTRESS NOTED. WILL CONTINUE TO MONITOR.
[2019-09-18 07:09] LABS: ALANINE AMINOTRANSFERASE 19 IU/L (0-55); ALBUMIN 1.7 g/dL (3.5-5.0); ALBUMIN/GLOBULIN RATIO 0.4 (0.8-2.0); ALKALINE PHOSPHATASE 86 IU/L (40-150); ANION GAP 10.1 mmol/L (8-16); BLOOD UREA NITROGEN 9 mg/dL (7-26); BUN/CREATININE RATIO 18 (6-25); CALCIUM 8.6 mg/dL (8.4-10.2); CARBON DIOXIDE 31 mmol/L (22-29); CHLORIDE 104 mmol/L (98-107); EST GLOMERULAR FILTRATION RATE > 60 ML/MIN (60-); GLUCOSE 118 mg/dL (74-118); MAGNESIUM 1.9 MG/DL (1.3-2.1); PHOSPHORUS 2.9 MG/DL (2.3-4.7); POTASSIUM 4.1 mmol/L (3.5-5.1); SODIUM 141 mmol/L (136-145)
[2019-09-18 08:37] LABS: ANISOCYTOSIS SLIGHT; HYPOCHROMASIA SLIGHT
[2019-09-18 08:38] LABS: PLATELET ESTIMATE SLIGHTLY INCREASED; PLATELET MORPHOLOGY COMMENT NORMAL; RBC MORPHOLOGY COMMENT NORMAL
--- NOTE | 2019-09-18 09:34 | Electroencephalogram ---
DATE OF STUDY: REQUESTING PHYSICIAN: STUDY: 30-minute EEG. EEG is being done to evaluate for subclinical status epilepticus. EEG DATA: The patient has periodic epileptiform sharp waves obscuring slow waves attenuation. The generalized diffuse slow rhythms with attenuation throughout. EEG INTERPRETATION: The EEG is abnormal level 3 for periodic epileptiform sharp wave discharge attenuation suggestive of diffuse encephalopathy and diffuse subcortical neurological injury with propensity toward seizures. The subclinical status epilepticus has resolved. However, there is a strong propensity returning towards status epilepticus given the appearance of the EEG. CAMILO JAMES MD RR/MODL /[id number]
[2019-09-18] MEDS: ASPIRIN 325 MG TAB PO SCH (10:12)
[2019-09-18] MEDS: FUROSEMIDE 20 MG TAB PO SCH (10:12)
[2019-09-18] MEDS: THIAMINE HCL 100 MG TAB GT SCH (10:12)
[2019-09-18] MEDS: METOPROLOL TARTRATE 25 MG TAB PO SCH ×2 (10:12→18:40)
[2019-09-18] MEDS: FAMOTIDINE 20 MG/2 ML VIAL IV SCH ×2 (10:12→21:00)
[2019-09-18] MEDS: LISINOPRIL 2.5 MG TAB PO SCH (10:12)
[2019-09-18] MEDS: LEVETIRACETAM 500MG/5ML VIAL 1,500 MG in SODIUM CHLORIDE 0.9% 100 ML 100 ML IV SCH ×2 (10:12→21:00)
--- NOTE | 2019-09-18 11:00 | Progress Note ---
DATE: SUBJECTIVE: The patient is seen and evaluated. Available labs and notes reviewed. REVIEW OF SYSTEMS: Unable to obtain review of systems secondary to the patient's medical condition. No new complaints. Discussed with staff. PHYSICAL EXAMINATION: VITAL SIGNS: Temperature 98.9, pulse 113, respiration 21, blood pressure 116/87. GENERAL: Comfortable in bed. No interaction with me verbally. Remains weak on O2 supplement. CV: S1-S2. CHEST: Equal expansion. Decreased breath sounds. No acute distress. ABDOMEN: Soft. Bowel sounds positive. No distention. HEENT: Moist. No pallor. No JVD. EXTREMITIES: Weak. No significant edema. MEDICATIONS: Medications/antibiotic reviewed. From Infectious Disease point of view, the patient is on cefepime, and vancomycin was stopped yesterday secondary to elevated level. Vancomycin random today is 3.3. LABORATORY STUDIES: Vancomycin trough 3.3. Sodium 141, potassium 4.1, creatinine 0.5. White blood cells 5.3, hemoglobin 8, platelet 494. Chest x-ray from yesterday showed no significant interval change and bibasilar patchy opacities. Microbiology; no new microbiology studies. ASSESSMENT AND PLAN: 1. Respiratory failure resolved, extubated. 2. Aspiration pneumonia-status post feeding tube. 3. Seizure disorder. 4. Dysphagia. 5. Severe debility. 6. Encephalopathy. 7. Hypertension. Available labs and notes reviewed. Did not receive the feeding tube by GI, pending Interventional Radiology evaluation and insertion of a PEG tube hopefully today. The patient was evaluated by the hospice and per my discussion with staff, the patient accepted in the hospice. The plan is to get the PEG tube placed on today and possibly discharge under the care of hospice. Discussed with Dr. Sue in detail. Discussed with the nurse. Please refer to the chart for more information. Dictated by Jesus Kaur PA-C (Al) Joselyn Sue MD /MODL /[id number]
--- NOTE | 2019-09-18 12:38 | NUR ---
Pulmonary Critical Care Medicine DATE: 09/18/2019 SUBJECTIVE tube feeds 50/hr water 250 q 6 hrs UOP, alberts in place 50% venturi mask REVIEW OF SYSTEMS: Cannot get as he is altered. PHYSICAL EXAMINATION: VITAL SIGNS: vital signs noted and reviewed per the chart GENERAL: poor condition, in bed HEENT: Normocephalic,atraumatic. NECK: Supple. Throat midline. LUNGS: Bilateral air entry, limited CARDIOVASCULAR: S1, S2. No murmurs, rubs, or gallops. ABDOMEN: Soft, nontender. EXTREMITIES: No clubbing, no cyanosis LABORATORY DATA/IMAGING: k 4.1, hco3 31, bun 9, cr 0.50. wbc 5.3, hct 28, plt 494 IMPRESSION AND PLAN: 1. Febrile syndrome, sepsis. 2. Multifocal pneumonia. Acquired prior to admit 3. Hx mastoiditis 3. Possible aspiration. 4. Acute respiratory failure, resolving 5. Scoliosis. 6. Noted rib fractures, probably old. 7. Hypokalemia. 8. Seizure disorder, on multiple medications. 9. Probable dementia. 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 11. fungal urinary tract infection. acquired prior to admit G tube planned to be arranged by either IR or surgery. GI not able to place, known anatomy. tube feeds repeat intermittent CXR due to increased upper airway secretions. DC alberts soon if not chronic continue abx per ID, adjustment performed seizure rx per neurology, downtitrate if feasible due to deep sedation rx gentle diuretics Thank you very much, Dr. Costa and Dr. Marte for this consult. Please call for questions.
--- NOTE | 2019-09-18 13:50 | NUR ---
paging Dr. Cisneros regarding consult. awaiting callback.
[2019-09-18] MEDS: BALSAM PERU/CASTOR OIL 60 GM OINT...G. TP SCH (14:33)
--- NOTE | 2019-09-18 15:02 | NUR ---
spoke with pt's brother, Michael Starkey, ([phone]) who states he wants pt transferred to [facility]. spoke with Tumbler Machine Operator who states this decision needs to be discussed with Dr. Costa and pt's son. will page Dr. Costa.
--- NOTE | 2019-09-18 15:30 | NUR ---
SPOKE WITH [facility] TO GET UPDATE, FAMILY REFUSED [facility] WHICH HAD ACCEPTED HIM, FAMILY WANTS HIM CLOSER TO THEM IN THE [facility]. BROTHER MENTIONED A POSSIBLE TRANSFER TO SEE IF THERE WAS A DIFFERENT PROGNOSIS. I NOTIFIED HIM THE INSURANCE WILL NOT ACCEPT A LATERAL TRANSFER. ALERTED MD, HE WILL HAVE A CONVERSATION WITH THE BROTHER.
--- NOTE | 2019-09-18 16:22 | NUR ---
Dr Costa had extensive conversation with pt's family, who states they want pt to go to [facility] at [place], [place]. they state this facility accepts Medicaid. will inform case management.
--- NOTE | 2019-09-18 19:15 | NUR ---
patient received lying quietly in bed. hob elevated 40 degrees. ngt feeding continues to infuse without difficulty. pm assessment complete. patient turned and repositioned for comfort. no distress noted.
[2019-09-19] VITALS (8 sets, daily range): BP systolic 99–127; BP diastolic 64–80
--- NOTE | 2019-09-19 | NUR ---
Tube feeding stopped at this time. patient npo for peg tube placement this am.
--- NOTE | 2019-09-19 00:57 | Consultation ---
DATE OF CONSULTATION: 09/18/2019 CHIEF COMPLAINT: PEG tube placement. HISTORY OF PRESENT ILLNESS: The patient is a 64-year-old male with a history of encephalopathy secondary to viral encephalitis, admitted for pneumonia. The patient required nutritional support via NG tube, and therefore PEG tube placement indicated prior to being transferred back to the intermediate. PAST MEDICAL HISTORY: Positive for viral encephalitis, seizure disorder, and sacral ulcers. PAST SURGICAL HISTORY: Positive for right femur fracture. ALLERGIES: THE PATIENT HAS NO DRUG ALLERGIES. SOCIAL HABITS: Not known. PHYSICAL EXAMINATION: VITAL SIGNS: Stable, afebrile. GENERAL: The patient is an awake, but noncommunicative. HEENT: He is cachectic looking. Sclerae are nonicteric. NECK: Supple. LUNGS: Clear. HEART: Regular rate and rhythm. ABDOMEN: Scaphoid, flat, and nontender. EXTREMITIES: No cyanosis or edema. ASSESSMENT: Malnourished patient with multiple medical conditions requiring nutritional support. PLAN: PEG tube placement. Possible gastrostomy placed openly. Bob Cisneros MD DNOdessa/MODL /[id number]
[2019-09-19] MEDS: CEFEPIME 2 GM/NS 0.9% 100 ML 100 ML IV SCH ×2 (01:11→13:11)
--- NOTE | 2019-09-19 02:30 | NUR ---
bath, skin care and complete bed change provided at this time.
[2019-09-19] MEDS: PHENYTOIN SODIUM INJ 50 MG/ML 2 ML VIAL IV SCH ×3 (05:46→21:31)
--- NOTE | 2019-09-19 06:34 | NUR ---
minimally responsive to external stimulation 98.1 119 101/70 GENERAL: minimally responsive to external stim bitemporal muscle wasting normocephalic, atraumatic head. He no longer has right hemispheric neglect. NECK: Supple. CARDIOVASCULAR: Regular rate and rhythm. tachycardic. PULMONARY: Rhonchus. ABDOMEN: Soft. EXTREMITIES: He has left upper extremity cortical fisting. NEUROLOGIC: No tremors at this time. Gaze preference is resolved. He does have extraocular muscles intact. Pupils are reactive, nonresponsive to verbal command and stimulation. Overall, he seems to be in a comatose state in terms of responsive environment. ASSESSMENT AND PLAN: 1. Vascular dementia is chronic with recent decompensation. He is currently on primary and secondary prevention for stroke. 2. Subclinical status epilepticus. He is on benzos and Keppra and dilantin adjust dilantin to therapeutic range. EEG is showing receovery, albeit slowly repeat EEG ordered .
--- NOTE | 2019-09-19 06:54 | NUR ---
RECEIVED BEDSIDE SHIFT REPORT FROM OFF GOING NURSE. PATIENT IS RESTING IN BED. NO ACUTE DISTRESS NOTED. CALL LIGHT WITHIN REACH. BED IN THE LOWEST POSITION. BED ALARM ON.
[2019-09-19 07:03] LABS: BASOPHILS % 0.5 % (0.0-1.0); EOSINOPHILS # (AUTO) 0.1 (0.0-0.4); EOSINOPHILS % 1.6 % (0.0-6.0); HEMATOCRIT 34.1 % (38.2-49.6); HEMOGLOBIN 10.2 g/dL (14.0-18.0); LYMPHOCYTES # (AUTO) 2.1 (1.0-3.2); LYMPHOCYTES % 26.3 % (18.0-39.1); MEAN CORPUSCULAR HEMOGLOBIN 24.7 pg (28-32); MEAN CORPUSCULAR HGB CONC 29.9 g/dL (31-35); MEAN CORPUSCULAR VOLUME 82.6 fL (81-99); MONOCYTES # (AUTO) 0.6 (0.2-0.8); MONOCYTES % 7.5 % (4.4-11.3); NEUTROPHILS # (AUTO) 5.2 (2.1-6.9); NEUTROPHILS % 63.7 % (38.7-80.0); PLATELET COUNT 616 x10e3/uL (140-360); RED BLOOD COUNT 4.13 x10e6/uL (4.3-5.7); RED CELL DISTRIBUTION WIDTH 18.1 % (11.7-14.4)
[2019-09-19 07:20] LABS: ALANINE AMINOTRANSFERASE 29 IU/L (0-55); ALBUMIN 1.9 g/dL (3.5-5.0); ALBUMIN/GLOBULIN RATIO 0.4 (0.8-2.0); ALKALINE PHOSPHATASE 101 IU/L (40-150); ANION GAP 11.2 mmol/L (8-16); BLOOD UREA NITROGEN 10 mg/dL (7-26); BUN/CREATININE RATIO 20 (6-25); CALCIUM 9.2 mg/dL (8.4-10.2); CARBON DIOXIDE 28 mmol/L (22-29); CHLORIDE 103 mmol/L (98-107); EST GLOMERULAR FILTRATION RATE > 60 ML/MIN (60-); GLUCOSE 105 mg/dL (74-118); POTASSIUM 4.2 mmol/L (3.5-5.1); SODIUM 138 mmol/L (136-145)
[2019-09-19] MEDS: FAMOTIDINE 20 MG/2 ML VIAL IV SCH ×2 (09:06→21:00)
[2019-09-19] MEDS: THIAMINE HCL 100 MG TAB GT SCH (09:06)
[2019-09-19] MEDS: FUROSEMIDE 20 MG TAB PO SCH (09:06)
[2019-09-19] MEDS: ASPIRIN 325 MG TAB PO SCH (09:06)
[2019-09-19] MEDS: METOPROLOL TARTRATE 25 MG TAB PO SCH ×2 (09:07→16:34)
[2019-09-19] MEDS: LISINOPRIL 2.5 MG TAB PO SCH (09:07)
[2019-09-19] MEDS: LEVETIRACETAM 500MG/5ML VIAL 1,500 MG in SODIUM CHLORIDE 0.9% 100 ML 100 ML IV SCH ×2 (09:11→21:00)
[2019-09-19 09:14] LABS: PLATELET ESTIMATE MODERATELY INCREASED; PLATELET MORPHOLOGY COMMENT NORMAL
[2019-09-19 09:15] LABS: HYPOCHROMASIA SLIGHT; RBC MORPHOLOGY COMMENT NORMAL
[2019-09-19] MEDS: BALSAM PERU/CASTOR OIL 60 GM OINT...G. TP SCH (10:52)
--- NOTE | 2019-09-19 12:00 | NUR ---
ASSESSED NG TUBE RESIDUAL, NONE NOTED AT THIS TIME.
--- NOTE | 2019-09-19 12:09 | Progress Note ---
DATE: 09/19/2019 CHIEF COMPLAINT/HISTORY OF PRESENT ILLNESS: This is a 64-year-old man, whose primary treating diagnosis bilateral gram-negative beony pneumonia. He also diagnosed with adult failure to thrive. The patient will undergo tentative G- tube placement on Saturday September 21, 2019. According to the nursing staff, the patient then enrolled in hosp[facility] care at a local [facility]. The patient also has stage IV sacral decubitus ulcer. Today's, labs reveal BUN and creatinine of 10 and 0.5 respectively. Albumin was 1.9. The patient white blood cell count 8100 with 63% segmented neutrophils. Hemoglobin is 10.2 g/dL. The patient underwent chest x-ray on September 17, 2019, which revealed unchanged bibasilar patchy opacities. On admission, the patient was checked for COVID virus by PCR and it was negative. REVIEW OF SYSTEMS: As per HPI. PHYSICAL EXAMINATION: GENERAL: He is a nonverbal, bed bound, contracted, looks chronically ill. He is emaciated, has obvious cachexia. VITAL SIGNS: Height 5 feet 8 inches, weight 108 pounds, BMI 16. Blood pressure is 108/78, pulse is 120, respiratory rate is 18, temperature 98.2, and oxygen saturation 94% on non-rebreather. INTEGUMENT: Skin is warm and dry. Obvious pallor. No jaundice or diaphoresis. The patient has stage IV sacral decubitus ulcer. HEENT: Anterior sclerae, moist mucous membranes. NECK: Supple. CARDIOVASCULAR: Distant heart sounds. Tachycardic rate, regular rhythm. LUNGS: The patient has crackles and rhonchi bilaterally. ABDOMEN: Soft. EXTREMITIES: The patient has muscle wasting and cachexia. NEUROLOGIC: He is bedbound. He follow commands. DIAGNOSES: 1. Bilateral gram-negative ebony pneumonia. 2. Underweight BMI 16. 3. Severe protein-calorie malnutrition. 4. Adult failure thrive. 5. Chronic respiratory failure. 6. Stage IV sacral decubitus ulcer. 7. Anemia, secondary to chronic disease. PLAN: 1. Agree with palliative treatment from hospice care. 2. We will proceed with G-tube placement tentatively on Saturday September 21, 2019. 3. We will address code status with the patient's medical power assistant district attorney, since at this time, he is a full code status. 4. Continue wound care of the sacral decubitus ulcer. 5. Continue intravenous antibiotics for the patient's pneumonia. 6. Follow hemoglobin and hematocrit. 7. We will attempt to optimize the patient's nutritional status. I spent 25 minutes in the care of your patient. MD LONDON Alfaro/POLO /[id number] MTDD
--- NOTE | 2019-09-19 16:30 | NUR ---
ASSESSED NG TUBE RESIDUAL AT THIS TIME, NONE NOTED. PATIENT TOLERATING FEEDING WELL.
--- NOTE | 2019-09-19 17:32 | NUR ---
Pulmonary Critical Care Medicine DATE: 09/19/2019 SUBJECTIVE jevity 1.2, 50/hr water 250 q6hrs very weak not making efforts to mumble or speak that i could see REVIEW OF SYSTEMS: Cannot get as he is altered. PHYSICAL EXAMINATION: VITAL SIGNS: vital signs noted and reviewed per the chart GENERAL: poor condition, in bed HEENT: Normocephalic,atraumatic. NECK: Supple. Throat midline. LUNGS: Bilateral air entry, limited CARDIOVASCULAR: S1, S2. No murmurs, rubs, or gallops. ABDOMEN: Soft, nontender. EXTREMITIES: No clubbing, no cyanosis LABORATORY DATA/IMAGING: cr .50 wbc 8, hct 24, plt 616 IMPRESSION AND PLAN: 1. Febrile syndrome, sepsis. 2. Multifocal pneumonia. Acquired prior to admit 3. Hx mastoiditis 3. Possible aspiration. 4. Acute respiratory failure, resolving 5. Scoliosis. 6. Noted rib fractures, probably old. 7. Hypokalemia. 8. Seizure disorder, on multiple medications. 9. Probable dementia. 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 11. fungal urinary tract infection. acquired prior to admit G tube planned . Tentative Dr Cisneros to perform -- GI not able to place PEG easily. tube feeds repeat intermittent CXR due to increased upper airway secretions. DC alberts soon if not chronic continue abx per ID, adjustment performed seizure rx per neurology, down titrate if feasible due to deep sedation rx gentle diuretics Thank you very much, Dr. Costa and Dr. Marte for this consult. Please call for questions.
--- NOTE | 2019-09-19 19:12 | NUR ---
BEDSIDE SHIFT REPORT GIVEN TO ONCOMING NURSE. PATIENT IS RESTING IN BED. NO ACUTE DISTRESS NOTED. CALL LIGHT WITHIN REACH. BED IN THE LOWEST POSITION. BED ALARM ON.
--- NOTE | 2019-09-19 19:30 | NUR ---
patient received lying quietly in bed. no signs of pain/discomfort noted. hob elevated 40 degrees. ngt feeding continues to infuse without difficulty. no residual noted at this time. pm assessment complete.
[2019-09-20] VITALS (7 sets, daily range): BP systolic 91–117; BP diastolic 70–80
[2019-09-20] MEDS: CEFEPIME 2 GM/NS 0.9% 100 ML 100 ML IV SCH ×2 (02:00→13:00)
[2019-09-20] MEDS ORDERED: SODIUM CHLORIDE 0.9% 250ML 250 ML ONE ×2 (02:12→19:48)
[2019-09-20] MEDS: PHENYTOIN SODIUM INJ 50 MG/ML 2 ML VIAL IV SCH ×3 (05:13→22:16)
--- NOTE | 2019-09-20 06:44 | NUR ---
RECEIVED BEDSIDE SHIFT REPORT FROM OFF GOING NURSE. PATIENT IS RESTING IN BED, NO ACUTE DISTRESS NOTED. CALL LIGHT WITHIN REACH. BED IN THE LOWEST POSITION. BED ALARM ON.
[2019-09-20 07:02] LABS: BASOPHILS % 0.6 % (0.0-1.0); EOSINOPHILS # (AUTO) 0.1 (0.0-0.4); EOSINOPHILS % 1.7 % (0.0-6.0); HEMATOCRIT 32.3 % (38.2-49.6); HEMOGLOBIN 9.2 g/dL (14.0-18.0); LYMPHOCYTES # (AUTO) 2.3 (1.0-3.2); LYMPHOCYTES % 32.6 % (18.0-39.1); MEAN CORPUSCULAR HEMOGLOBIN 24.2 pg (28-32); MEAN CORPUSCULAR HGB CONC 28.5 g/dL (31-35); MONOCYTES # (AUTO) 0.6 (0.2-0.8); MONOCYTES % 8.5 % (4.4-11.3); NEUTROPHILS % 56.3 % (38.7-80.0); PLATELET COUNT 537 x10e3/uL (140-360); RED CELL DISTRIBUTION WIDTH 18.3 % (11.7-14.4)
[2019-09-20 07:30] LABS: ALANINE AMINOTRANSFERASE 26 IU/L (0-55); ALBUMIN/GLOBULIN RATIO 0.5 (0.8-2.0); ALKALINE PHOSPHATASE 93 IU/L (40-150); ANION GAP 11.2 mmol/L (8-16); BLOOD UREA NITROGEN 12 mg/dL (7-26); BUN/CREATININE RATIO 22 (6-25); CARBON DIOXIDE 27 mmol/L (22-29); CHLORIDE 103 mmol/L (98-107); CREATININE, SERUM 0.55 mg/dL (0.72-1.25); EST GLOMERULAR FILTRATION RATE > 60 ML/MIN (60-); GLUCOSE 110 mg/dL (74-118); POTASSIUM 4.2 mmol/L (3.5-5.1); SODIUM 137 mmol/L (136-145)
--- NOTE | 2019-09-20 07:37 | Diagnostic Imaging Report ---
EXAMINATION: CHEST SINGLE (PORTABLE) INDICATION: Effusion. COMPARISON: Chest radiograph 09/17/2019 FINDINGS: LINES/TUBES:Enteric tube projects below the diaphragm and terminates in the stomach. Right PICC line unchanged. EKG leads overlie the chest. LUNGS/PLEURA: There is increasing volume loss in the right lower lung. Consolidative opacities in the lower lungs. Possible trace right and small left pleural effusions. No pneumothorax. Mild interstitial opacities. MEDIASTINUM:The cardiomediastinal silhouette appears unremarkable. Atherosclerotic calcifications of the aortic arch. BONES/SOFT TISSUES:No acute osseous abnormality. ABDOMEN:No free air under the diaphragm. IMPRESSION: Increasing volume loss in the right lower lung with suspected right lower lobe collapse, recommend correlation for mucous plugging. Bilateral lower lung zone opacities, compatible with aspiration or pneumonia. Possible trace right and small left pleural effusions. Signed by: Dr. Zhane Owusu MD on 09/20/2019 7:34 AM
[2019-09-20 08:48] LABS: ANISOCYTOSIS SLIGHT; HYPOCHROMASIA SLIGHT; PLATELET ESTIMATE MODERATELY INCREASED; PLATELET MORPHOLOGY COMMENT NORMAL; RBC MORPHOLOGY COMMENT NORMAL
[2019-09-20] MEDS: FUROSEMIDE 20 MG TAB PO SCH (09:13)
[2019-09-20] MEDS: LISINOPRIL 2.5 MG TAB PO SCH (09:13)
[2019-09-20] MEDS: METOPROLOL TARTRATE 25 MG TAB PO SCH ×2 (09:13→17:18)
[2019-09-20] MEDS: LEVETIRACETAM 500MG/5ML VIAL 1,500 MG in SODIUM CHLORIDE 0.9% 100 ML 100 ML IV SCH ×2 (09:13→20:01)
[2019-09-20] MEDS: THIAMINE HCL 100 MG TAB GT SCH (09:13)
[2019-09-20] MEDS: ASPIRIN 325 MG TAB PO SCH (09:13)
[2019-09-20] MEDS: FAMOTIDINE 20 MG/2 ML VIAL IV SCH ×2 (09:13→20:01)
[2019-09-20] MEDS: BALSAM PERU/CASTOR OIL 60 GM OINT...G. TP SCH (09:13)
--- NOTE | 2019-09-20 09:15 | NUR ---
TUBE FEEDING GOING ORDERED, ASSESSED PATIENT'S RESIDUAL AT THIS TIME, 10CC NOTED.
--- NOTE | 2019-09-20 11:50 | NUR ---
CALLED PATIENT'S BROTHER, JOEL WALKER, TO FIND OUT WHO IS PATIENT'S POWER OF RESIDENT CARE ASSISTANT. PER BROTHER, PATIENT DOES NOT HAVE A POWER OF RESIDENT CARE ASSISTANT BUT HE MAKES DECISIONS FOR HIM SINCE HE IS PATIENT'S NEXT OF KIN.
--- NOTE | 2019-09-20 11:50 | NUR ---
Attempted to obtain telephone consent from patient's brother Michael Starkey for PEG tube placement, possible gastrostomy as ordered by 2 RNs. Brother and had many questions for surgeon and refused to consent. Notified Dr. Cisneros of situation, MD will call brother to answer questions.
--- NOTE | 2019-09-20 12:13 | Progress Note ---
DATE: 09/20/2019 CHIEF COMPLAINT/HISTORY OF PRESENT ILLNESS: This is a 64-year-old man, whose primary treating diagnosis is acute on chronic respiratory failure secondary to bilateral gram-negative ebony pneumonia. The patient also is being treated for acute on chronic systolic congestive heart failure. On admission, the patient underwent echocardiogram, which revealed left ventricular ejection fraction of 35-40%. The patient will undergo tentative G-tube placement on Saturday September 21, 2019. Also, according to nursing staff, the patient will be enrolled in hospice care at a local [facility] after G-tube is placed. Moreover, the patient has stage IV sacral decubitus ulcer. The patient had blood work today and was found to have white blood cell count of 7100 with 56% segmented neutrophils. Hemoglobin is 9.2 g/dL. Platelet count is 537,000. The patient's BUN and creatinine today are 11 and 0.5 respectively, potassium 4.2. Albumin level is 2.0. On admission, the patient had COVID test by PCR and it was negative. Today, the patient underwent chest film on September 20, 2019, which revealed a bilateral lower zone opacities as well as possible bilateral small pleural effusions. REVIEW OF SYSTEMS: As per HPI. PHYSICAL EXAMINATION: GENERAL: He is nonverbal, bedbound, contracted, looks chronically ill. He is emaciated, has obvious cachexia with temporal lobe wasting. VITAL SIGNS: Height 5 feet 8 inches, weight 108 pounds, BMI 16. Blood pressure is 99/70, heart rate 102, respiratory rate 22, ox saturation 98% on 15 L oxygen via Ventimask, and temperature 98.9. INTEGUMENT: Skin is warm and dry. Obvious pallor. No jaundice or diaphoresis appreciated. The patient is stage IV sacral decubitus ulcer. HEENT: Anicteric sclerae. Moist mucous membranes. NECK: Supple. CARDIOVASCULAR: Distant heart sounds. Tachycardic rate with regular rhythm. The patient has S3 gallop. LUNGS: The patient has crackles and rhonchi bilaterally. ABDOMEN: Soft with normal bowel sounds. EXTREMITIES: The patient has muscle wasting and cachexia. NEUROLOGIC: He is bed-bound and he follows simple commands according to nursing staff. DIAGNOSES: 1. Bilateral gram-negative ebony pneumonia. 2. Acute on chronic respiratory failure. 3. Underweight, BMI 16. 4. Severe protein-calorie malnutrition. 5. Adult failure thrive. 6. Stage IV sacral decubitus ulcer. 7. Anemia secondary to chronic disease. 8. Acute on chronic diastolic congestive heart failure. PLAN: 1. Agree with palliative treatment in the form of hospice care. 2. We will proceed with G-tube placement tentatively on Saturday September 21, 2019. 3. Once again, we will address code status to the patient's medical power of washer carcass since at this time he is a full code status. 4. Continue wound care to the sacral decubitus ulcer. 5. Continue intravenous antibiotics for his pneumonia. 6. We will attempt to optimize the patient's nutritional status with a G-tube. I spent 25 minutes in the care of this patient. MD LONDON Alfaro/POLO /[id number] ANANYA
--- NOTE | 2019-09-20 12:36 | NUR ---
ASKED JOEL WALKER (PATIENT'S BROTHER) ABOUT MAKING PATIENT A DNR REQUESTED BY DR. SHAFER. PER BROTHER HE WANTS PATIENT TO REMAIN FULL CODE.
--- NOTE | 2019-09-20 19:09 | NUR ---
BEDSIDE SHIFT REPORT GIVEN TO ONCOMING NURSE. PATIENT IS RESTING IN BED. NO ACUTE DISTRESS NOTED AT THIS TIME. PATIENT'S NG TUBE WAS OUT A LITTLE BIT, DAY/NIGH SHIFT NURSE REPOSITION TO ORIGINAL PLACEMENT. NOTIFIED DR. SHAFER, WAITING TESTER WASTE DISPOSAL LEAKAGE BACK. CALL LIGHT WITHIN REACH. BED IN THE LOWEST POSITION. BED ALARM ON.
--- NOTE | 2019-09-20 19:13 | NUR ---
SPOKE TO DR. SHAFER, NEW ORDER FOR STAT KUB TO CHECK PLACEMENT. ORDER PUT IN.
--- NOTE | 2019-09-20 19:54 | Diagnostic Imaging Report ---
EXAM: Abdomen Radiograph 1 View INDICATION: ^NG TUBE PLACEMENT, verify position COMPARISON: Chest x-ray 09/20/2019 FINDINGS: Partially visualized pulmonary airspace opacities. Enteric tube tip projects in the left midabdomen. Normal volume of stool in the colon. No dilated loops of small bowel. No abnormal abdominal calcifications.. No abnormal soft tissue masses. No pneumoperitoneum. No acute osseous abnormality. Scoliosis. Degenerative changes. IMPRESSION: Enteric tube tip projects in the left midabdomen. Partially visualized pulmonary airspace disease. Signed by: Juan Bagley DO on 09/20/2019 7:50 PM
--- NOTE | 2019-09-20 20:51 | NUR ---
Pulmonary Critical Care Medicine DATE: 09/20/2019 SUBJECTIVE jevity 1.2, 50/hr water 250 q6hrs very weak not making efforts to mumble or speak that i could see REVIEW OF SYSTEMS: Cannot get as he is altered. PHYSICAL EXAMINATION: VITAL SIGNS: vital signs noted and reviewed per the chart GENERAL: poor condition, in bed HEENT: Normocephalic,atraumatic. NECK: Supple. Throat midline. LUNGS: Bilateral air entry, limited CARDIOVASCULAR: S1, S2. No murmurs, rubs, or gallops. ABDOMEN: Soft, nontender. EXTREMITIES: No clubbing, no cyanosis LABORATORY DATA/IMAGING: cr 4.2, ct 0.55. wbc 7.14. plt 537 IMPRESSION AND PLAN: 1. Febrile syndrome, sepsis. 2. Multifocal pneumonia. Acquired prior to admit 3. Hx mastoiditis 3. Possible aspiration. 4. Acute respiratory failure, resolving 5. Scoliosis. 6. Noted rib fractures, probably old. 7. Hypokalemia. 8. Seizure disorder, on multiple medications. 9. Probable dementia. 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 11. fungal urinary tract infection. acquired prior to admit G tube planned . Tentative Dr Cisneros to perform -- GI not able to place PEG easily. tube feeds repeat intermittent CXR due to increased upper airway secretions. DC alberts soon if not chronic continue abx per ID, adjustment performed seizure rx per neurology, down titrate if feasible due to deep sedation rx gentle diuretics Thank you very much, Dr. Costa and Dr. Marte for this consult. Please call for questions.
[2019-09-21] VITALS (7 sets, daily range): BP systolic 96–137; BP diastolic 63–85
[2019-09-21] MEDS: CEFEPIME 2 GM/NS 0.9% 100 ML 100 ML IV SCH ×2 (01:47→14:00)
[2019-09-21] MEDS: PHENYTOIN SODIUM INJ 50 MG/ML 2 ML VIAL IV SCH ×3 (05:36→21:54)
--- NOTE | 2019-09-21 06:51 | NUR ---
Bedside report and walking rounds completed with on coming nurse. Patient in bed with call light within reach. No issues or concerns noted.
--- NOTE | 2019-09-21 07:07 | NUR ---
minimally responsive to external stimulation 98.2 88 91/70 GENERAL: minimally responsive to external stim bitemporal muscle wasting normocephalic, atraumatic head. He no longer has right hemispheric neglect. NECK: Supple. CARDIOVASCULAR: Regular rate and rhythm. tachycardic. PULMONARY: Rhonchus. ABDOMEN: Soft. EXTREMITIES: He has left upper extremity cortical fisting. NEUROLOGIC: No tremors at this time. Gaze preference is resolved. He does have extraocular muscles intact. Pupils are reactive, nonresponsive to verbal command and stimulation. Overall, he seems to be in a comatose state in terms of responsive environment. ASSESSMENT AND PLAN: 1. Vascular dementia is chronic with recent decompensation. He is currently on primary and secondary prevention for stroke. 2. Subclinical status epilepticus. He is on benzos and Keppra and dilantin adjust dilantin to therapeutic range. EEG is showing receovery, albeit slowly repeat EEG ordered - pending repeat dilantin level
[2019-09-21] MEDS: FUROSEMIDE 20 MG TAB PO SCH (07:46)
[2019-09-21] MEDS: METOPROLOL TARTRATE 25 MG TAB PO SCH ×2 (07:46→16:31)
[2019-09-21] MEDS: LISINOPRIL 2.5 MG TAB PO SCH (07:46)
[2019-09-21] MEDS: FAMOTIDINE 20 MG/2 ML VIAL IV SCH ×2 (07:47→20:26)
--- NOTE | 2019-09-21 08:24 | NUR ---
CAME INTO GET A COMMUNICATION THAT PT FAMILY REQUESTING [facility] AT [facility]. WAS NOTIFIED BY FACILITY ON SATURDAY THEY DO NOT HAVE ANY AVAILABLE BEDS. WILL CONTINUE TO PROCESS [facility] [place] PER REQUEST FROM THE HOSPICE COMPANY ON SATURDAY.
--- NOTE | 2019-09-21 08:39 | NUR ---
SENT COVID FORM AND PASRR MADE OUT TO [facility] AND FAXED TO THEM FOR THE FACILITY THEY CAN GET TO TAKE THE MEDICAID PT UNDER HOSPICE. WITH [facility]ICAL [facility] OR [facility] AT [facility].
[2019-09-21] MEDS: THIAMINE HCL 100 MG TAB GT SCH (09:00)
[2019-09-21] MEDS: LEVETIRACETAM 500MG/5ML VIAL 1,500 MG in SODIUM CHLORIDE 0.9% 100 ML 100 ML IV SCH ×2 (09:00→21:54)
[2019-09-21] MEDS: ASPIRIN 325 MG TAB PO SCH (09:00)
[2019-09-21] MEDS: BALSAM PERU/CASTOR OIL 60 GM OINT...G. TP SCH (10:10)
--- NOTE | 2019-09-21 10:16 | NUR ---
WAS INFORMED PT IS GETTING PEG TUBE PLACEMENT TODAY, WILL HAVE TO WAIT FOR 24 POST PROCEDURE TO BE ABLE TO SEND PT NOW. NOTIFIED [facility] AND [facility].
--- NOTE | 2019-09-21 11:33 | NUR ---
PT ACCEPTED TO [facility]. PENDING PEG PLACEMENT AND POST 24 HR, WILL LET [facility] KNOW WHEN TO SET UP TRANSPORT TO TAKE TO FACILITY.
--- NOTE | 2019-09-21 12:00 | NUR ---
PT TRANSPORTED TO OR VIA BED
--- NOTE | 2019-09-21 12:30 | NUR ---
PT RETURNED TO ROOM ,FAMILY REFUSED PEG
--- NOTE | 2019-09-21 12:42 | Progress Note ---
DATE: SUBJECTIVE: The patient is seen and evaluated. Available labs and notes reviewed. Discussed with the nurse. REVIEW OF SYSTEMS: Unable to obtain review of systems secondary to the patient's medical condition. PHYSICAL EXAMINATION: VITAL SIGNS: Temperature is 98.5, pulse 131, respirations 21, blood pressure 137/85. GENERAL: Comfortable in bed, no acute distress. No interaction with me, ill looking. CV: S1-S2. CHEST: Equal expansion. Decreased breath sounds. No acute distress. ABDOMEN: Soft. No distention. Hypoactive. HEENT: Moist. No pallor. No JVD. EXTREMITIES: Very weak and no edema. MEDICATIONS: Reviewed. From Infectious Disease point of view, the patient remains on cefepime. LABORATORY STUDIES: No near CBC or BMP from today. MICROBIOLOGY: No new microbiology studies available. PATHOLOGY: No new pathology available. RADIOLOGY: Known new radiology studies available. Had a KUB yesterday, showing enteric tube, projection to the left mid abdomen. ASSESSMENT AND PLAN: 1. Respiratory failure-resolved, extubated, on O2 supplementation. 2. Aspiration pneumonia, on cefepime. 3. Dysphagia, pending PEG tube placement by General surgery hopefully today. 4. Encephalopathy. 5. Debility, the patient is bed-bound. 6. Continue with cefepime, await PEG tube placement. PLAN: Plan is to go hospice to alf facility per my discussion with staff and available notes in the chart. I spoke with the attending's cover yesterday. Continue to monitor patient clinically and follow with the labs. Overall, very ill with guarded prognosis. Please refer to chart for more information. Dictated by Jesus Kaur PA-C (Al) Joselyn Sue MD /MODL /[id number]
--- NOTE | 2019-09-21 13:00 | NUR ---
INFORMED BY SCHOOL COMMUNITY RELATIONS COORDINATORSIDE SEAM ENVELOPE MACHINE OPERATOR MIUNDERSTOOD AND CHANGED THEIR MIND WANTS OT TO HAVE PEG,OR AWARE
--- NOTE | 2019-09-21 15:00 | NUR ---
feeding resumed as ordered.pt unresponsive,o2 ventimask in [address],no distress noted.
--- NOTE | 2019-09-21 15:54 | NUR ---
Pulmonary Critical Care Medicine DATE: 09/21/2019 SUBJECTIVE feeds on hold family now agrees to g tube patient with stable condition very weak still REVIEW OF SYSTEMS: Cannot get as he is altered. PHYSICAL EXAMINATION: VITAL SIGNS: vital signs noted and reviewed per the chart GENERAL: poor condition, in bed HEENT: Normocephalic,atraumatic. NECK: Supple. Throat midline. LUNGS: Bilateral air entry, limited CARDIOVASCULAR: S1, S2. No murmurs, rubs, or gallops. ABDOMEN: Soft, nontender. EXTREMITIES: No clubbing, no cyanosis LABORATORY DATA/IMAGING: labs reviewed per emr cr .56 IMPRESSION AND PLAN: 1. Febrile syndrome, sepsis. 2. Multifocal pneumonia. Acquired prior to admit 3. Hx mastoiditis 3. Possible aspiration. 4. Acute respiratory failure, resolving 5. Scoliosis. 6. Noted rib fractures, probably old. 7. Hypokalemia. 8. Seizure disorder, on multiple medications. 9. Probable dementia. 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 11. fungal urinary tract infection. acquired prior to admit G tube planned . Tentative Dr Cisneros to perform -- GI not able to place PEG easily. tube feeds repeat intermittent CXR due to increased upper airway secretions. DC alberts soon if not chronic continue abx per ID, adjustment performed seizure rx per neurology, down titrate if feasible due to deep sedation rx gentle diuretics possible for hospice at facility, too sick for home Thank you very much, Dr. Costa and Dr. Marte for this consult. Please call for questions.
--- NOTE | 2019-09-21 17:30 | NUR ---
PT UP IN BED ,NO S/S DISCOMFORT,FEEDING INFUSING,
[2019-09-22] VITALS: BP 114/80
[2019-09-22] MEDS: CEFEPIME 2 GM/NS 0.9% 100 ML 100 ML IV SCH ×2 (02:23→14:00)
[2019-09-22 04:00] VITALS: BP 116/88
--- NOTE | 2019-09-22 04:24 | NUR ---
Pulmonary Critical Care Medicine DATE: 09/22/2019 SUBJECTIVE patient with continued poor state NGT in place No G tube yesterday later the family consented for G tube REVIEW OF SYSTEMS: Cannot get as he is altered. PHYSICAL EXAMINATION: VITAL SIGNS: vital signs noted and reviewed per the chart GENERAL: poor condition, in bed HEENT: Normocephalic,atraumatic. NECK: Supple. Throat midline. LUNGS: Bilateral air entry, limited CARDIOVASCULAR: S1, S2. No murmurs, rubs, or gallops. ABDOMEN: Soft, nontender. EXTREMITIES: No clubbing, no cyanosis LABORATORY DATA/IMAGING: labs per EMR, no new updates IMPRESSION AND PLAN: 1. Febrile syndrome, sepsis. 2. Multifocal pneumonia. Acquired prior to admit 3. Hx mastoiditis 3. Possible aspiration. 4. Acute respiratory failure, resolving 5. Scoliosis. 6. Noted rib fractures, probably old. 7. Hypokalemia. 8. Seizure disorder, on multiple medications. 9. Probable dementia. 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 11. fungal urinary tract infection. acquired prior to admit G tube planned. Tentative Dr Cisneros to perform today -- GI not able to place PEG easily. tube feeds repeat intermittent CXR due to increased upper airway secretions. DC alberts soon if not chronic continue abx per ID, adjustment performed seizure rx per neurology, down titrate if feasible due to deep sedation rx gentle diuretics possible for hospice at facility, too sick for home Thank you very much, Dr. Costa and Dr. Marte for this consult. Please call for questions.
[2019-09-22] MEDS: PHENYTOIN SODIUM INJ 50 MG/ML 2 ML VIAL IV SCH ×2 (06:00→14:00)
--- NOTE | 2019-09-22 07:05 | NUR ---
Bedside report and walking rounds completed with oncoming nurse. Patient in bed with call light within reach. No issues or concerns noted.
--- NOTE | 2019-09-22 07:30 | NUR ---
PT IN BED RESTIN COMFORTABLY NGT IN PLACE,O2 VENTIMASK 15 % IN PLACE,NO DISTRESS NTPOED.
[2019-09-22 07:35] VITALS: BP 106/76
--- NOTE | 2019-09-22 08:08 | Diagnostic Imaging Report ---
EXAMINATION: CHEST SINGLE (PORTABLE) COMPARISON: Chest x-ray 09/20/2019 INDICATION: ^chf ^[id number] ^[id number] DISCUSSION: Frontal view of the chest obtained at 0638 hours. HEART AND MEDIASTINUM: The cardiomediastinal silhouette is stable. LINES: Enteric tube extends past the diaphragm. Right PICC line terminates in the SVC LUNGS/PLEURA: Diffuse pulmonary hyperinflation is redemonstrated. Infiltrates in the lower lobes are redemonstrated with improved aeration of the right lower lobe. There are no large effusions. Pulmonary vascular markings are normal. No interstitial edema. No pneumothorax. BONES AND SOFT TISSUES: Stable. IMPRESSION: 1. Improved aeration of the right lower lobe. Persistent bilateral lower lobe airspace opacities, either atelectasis or pneumonia. 2. Support devices as described above. Signed by: Dr. Risa Norman MD on 09/22/2019 8:05 AM
--- NOTE | 2019-09-22 08:21 | NUR ---
I SPOKE WITH MIGUEL ÁNGEL WALKER (BROTHER + MEDICAL POA) ON 09-21-2019 @ AROUND 1600. MIGUEL ÁNGEL STATED THAT HE DOES APPROVE PEG TUBE PLACEMENT ON 09-22-2019, THEN TRANSFER TO HOSPICE.
[2019-09-22] MEDS: FUROSEMIDE 20 MG TAB PO SCH (08:32)
[2019-09-22] MEDS: FAMOTIDINE 20 MG/2 ML VIAL IV SCH (08:32)
[2019-09-22] MEDS: METOPROLOL TARTRATE 25 MG TAB PO SCH ×2 (08:33→17:40)
[2019-09-22] MEDS: LISINOPRIL 2.5 MG TAB PO SCH (08:33)
--- NOTE | 2019-09-22 08:42 | NUR ---
CM SPOKE WITH DR Marlena RODRIGUEZ WHO STATES PT MAY BE DISCHARGED TODAY AFTER PEG PLACED TO [facility]
[2019-09-22] MEDS: THIAMINE HCL 100 MG TAB GT SCH (09:00)
[2019-09-22] MEDS: ASPIRIN 325 MG TAB PO SCH (09:00)
[2019-09-22] MEDS: LEVETIRACETAM 500MG/5ML VIAL 1,500 MG in SODIUM CHLORIDE 0.9% 100 ML 100 ML IV SCH (09:45)
--- NOTE | 2019-09-22 10:48 | NUR ---
SPOKE WITH FACILITY AND HOSPICE, [facility] PROCEDURE AT 1230. OBTAINED ALL INFORMATION. COMPLETED PACKET AND RTF. HE IS MEDICAID SO HOSPICE CANNOT TRANSPORT WE WILL HAVE TO. LET NURSE KNOW.
--- NOTE | 2019-09-22 10:49 | NUR ---
LONG-TERM FACILITY DISCHARGE INFORMATION PATIENT HAS BEEN ACCEPTED TO: NAME: HARI MARSHALL ADDRESS: [id number] MD: SHITAL ROOM: 208 NURSE CALL REPORT TO: [phone] IMM SIGNED AND OBTAINED (if applicable): MEDICAID THE FOLLOWING DOCUMENTS MUST ACCOMPANY PATIENT FOR TRANSFER: COPIED CHART: PACKET AT STATION
[2019-09-22] MEDS: BALSAM PERU/CASTOR OIL 60 GM OINT...G. TP SCH (10:51)
[2019-09-22 11:28] VITALS: BP 99/74
--- NOTE | 2019-09-22 11:45 | NUR ---
PT TRANSPORTED TO OR VIA BED,
--- NOTE | 2019-09-22 11:54 | Progress Note ---
DATE: SUBJECTIVE: The patient is seen and evaluated. Available labs and notes reviewed. REVIEW OF SYSTEMS: Unable to obtain review of systems secondary to the patient's medical condition. PHYSICAL EXAMINATION: VITAL SIGNS: Temperature 98.8, pulse 114, respirations 17, and blood pressure 106/76. GENERAL: Comfortable in bed, in no acute distress. Ill-looking, no interaction. CV: S1 and S2. CHEST: Equal expansion. Decreased breath sounds. No acute distress. The patient is on O2 supplement. HEENT: Moist. No pallor. No JVD. EXTREMITIES: Weak, thin. MEDICATIONS: Medication list reviewed and from Infectious Disease point of view, the patient is on cefepime 1 g q.12 hours IV piggyback. LABORATORY STUDIES: No new CBC or BMP from today. Serology; coronavirus PCR not detected on 09/05 and 09/20. Chest x-ray from today showed improved aeration of the right lower lobe, persistent bilateral lower lobe airspace opacities, either atelectasis or pneumonia. Also, showed support devices as evident on x-ray. ASSESSMENT AND PLAN: 1. Respiratory failure, resolved, extubated, remains on O2 supplement. 2. Aspiration pneumonia. 3. Dysphagia. 4. Encephalopathy. 5. Debility. 6. Continue with IV antibiotics. At this point, the patient is scheduled for PEG tube placement and most likely will be discharged under the care of hospice to snf facility. Discussed with the nurse. No new events overnight. Discussed with Dr. Sue. Please refer to chart for more information. Dictated by Jesus Kaur PA-C (Al) Joselyn Sue MD /MODL /[id number]
--- NOTE | 2019-09-22 12:05 | NUR ---
seizures gone on EEG 98.2 88 91/70 GENERAL: minimally responsive to external stim bitemporal muscle wasting normocephalic, atraumatic head. He no longer has right hemispheric neglect. NECK: Supple. CARDIOVASCULAR: Regular rate and rhythm. tachycardic. PULMONARY: Rhonchus. ABDOMEN: Soft. EXTREMITIES: He has left upper extremity cortical fisting. NEUROLOGIC: No tremors at this time. Gaze preference is resolved. He does have extraocular muscles intact. Pupils are reactive, nonresponsive to verbal command and stimulation. Overall, he seems to be in a comatose state in terms of responsive environment. ASSESSMENT AND PLAN: 1. Vascular dementia is chronic with recent decompensation. He is currently on primary and secondary prevention for stroke. 2. Subclinical status epilepticus. He is on benzos and Keppra and dilantin eeg shows absense of seizure continue current meds at current doses no changes monitor clinically [facility] transfer, appropraite.
[2019-09-22] MEDS ORDERED: SODIUM CHLORIDE 0.9% 250ML IRRIG IR SCH (14:00)
--- NOTE | 2019-09-22 14:27 | NUR ---
PT BACK FROM PROCEDURE, CALLED [facility] TO GET PT TO FACILITY, ETA IS 4PM, MAJO LOPEZ AT [phone]
--- NOTE | 2019-09-22 14:34 | Electroencephalogram ---
DATE OF STUDY: 09/19/2019 REQUESTING PHYSICIAN: STUDY: INDICATION: EEG shows resolution of generalized to slow iron levels with slow waves, delta theta frequency throughout the entirety of the study. No seizures captured, but epileptogenic discharges are noted. EEG INTERPRETATION: This EEG is abnormal level 3 for severe encephalopathy with seizures. Seizures are now broken, however, there is high likelihood of return of seizure activity and has severe diffuse encephalopathy. CAMILO JAMES MD RR/MODL /[id number]
--- NOTE | 2019-09-22 15:00 | NUR ---
PT RETURNED TO ROOM ,VIA BED STABLE CONDITION,VS-112/81,115,98.9,16,PEG TUBE IN PLACE CONNECTED TO LIS,RENDON TO BSD ROSETTE URINE
[2019-09-22] MEDS ORDERED: LACTATED RINGER'S 1,000 ML INJ SCH (15:30)
[2019-09-22 15:55] VITALS: BP 109/78
--- NOTE | 2019-09-22 17:48 | NUR ---
PT DICHARGED TO [facility]IA [facility] ,O2 VENTI MASK IN PLACE,
--- NOTE | 2019-09-22 18:51 | Operative Report ---
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 OPERATIVE PROCEDURE: PEG tube placement. ANESTHESIA: Monitored sedation. INDICATIONS: A 64-year-old male with history of encephalitis with subsequent dysphagia. The patient's family consent for placement of PEG tube for nutritional support. Attendant risks discussed. DESCRIPTION OF PROCEDURE: The patient was brought to the endoscopy suite and placed in supine position. He was given IV conscious sedation. A mouth piece was inserted and endoscope was passed through the mouth and entered the esophageal introitus under direct vision. Scope was advanced into the stomach without difficulty. Transabdominal illumination was detected in the left upper quadrant at which point, a skin marking was done. We then anesthetized the skin with 1% lidocaine. The Angiocath needle was then inserted under endoscopic confirmation into the stomach, followed by the guidewire, which was then grasped with snare and pulled in a retrograde fashion out of the patient's mouth. The guidewire was then loaded onto the 20-Angolan PEG tube, which was then pulled back in a reverse direction until the mushroom of the PEG tube was gently abutting the gastric wall with easy rotation. Skin marking on the tube was at 1.5. We then deflated the stomach, as we withdraw the scope. The patient tolerated the procedure well. BLOOD LOSS: Minimal. Bob Cisneros MD DNL/MODL /[id number]
== END 2019-09-22 18:00 | disposition hospice, inpatient (51) | DRG 871 ==
LOC: ER 15:19 → ERHOLD 15:29 → ICU 18:06 → MED/SURG3 09-16 10:04
PROC: 0W9B3ZZ Drainage of Left Pleural Cavity, Percutaneous Approach (ICD-10-PCS; principal; 2019-09-11)
PROC: 0DJ08ZZ Inspection of Upper Intestinal Tract, Via Natural or Artificial Opening Endoscopic (ICD-10-PCS; 2019-09-16)
PROC: 0DH63UZ Insertion of Feeding Device into Stomach, Percutaneous Approach (ICD-10-PCS; 2019-09-22)
DX: A41.9 Sepsis, unspecified organism (principal); L89.154 Pressure ulcer of sacral region, stage 4; J69.0 Pneumonitis due to inhalation of food and vomit; J96.01 Acute respiratory failure with hypoxia; I50.21 Acute systolic (congestive) heart failure; B00.4 Herpesviral encephalitis; E43 Unspecified severe protein-calorie malnutrition; J96.21 Acute and chronic respiratory failure with hypoxia; I50.23 Acute on chronic systolic (congestive) heart failure; N39.0 Urinary tract infection, site not specified; M84.48XA Pathological fracture, other site, initial encounter for fracture; M84.451A Pathological fracture, right femur, initial encounter for fracture; Z68.1 Body mass index [BMI] 19.9 or less, adult; B37.49 Other urogenital candidiasis; D64.9 Anemia, unspecified; L89.890 Pressure ulcer of other site, unstageable; R29.810 Facial weakness; Z11.59 Encounter for screening for other viral diseases; Z77.9 Other contact with and (suspected) exposures hazardous to health; E87.6 Hypokalemia; M41.9 Scoliosis, unspecified; F03.90 Unspecified dementia, unspecified severity, without behavioral disturbance, psychotic disturbance, mood disturbance, and anxiety; Z87.440 Personal history of urinary (tract) infections; Z87.898 Personal history of other specified conditions; I45.10 Unspecified right bundle-branch block; R00.0 Tachycardia, unspecified; Z74.01 Bed confinement status; F01.50 Vascular dementia, unspecified severity, without behavioral disturbance, psychotic disturbance, mood disturbance, and anxiety; G40.901 Epilepsy, unspecified, not intractable, with status epilepticus; K20.9 Esophagitis, unspecified; R13.10 Dysphagia, unspecified; R62.7 Adult failure to thrive; Q07.01 Arnold-Chiari syndrome with spina bifida
CPT/HCPCS: 32555; 36415; 43235; 70450; 71045; 74018; 74019; 74177; 74470; 76604; 80048; 80053; 80061; 80185; 80202; 81001; 82040; 82150; 82542; 82550; 82553; 82607; 82945; 82948; 83090; 83518; 83605; 83615; 83735; 83880; 84100; 84145; 84146; 84157; 84425; 84484; 85025; 85610; 85730; 87040; 87070; 87071; 87086; 87205; 87400; 87635; 88112; 88305; 89051; 93005; 93306; 95812; 99251; 99285; J1165; J1450; J1650; J1940; J2060; J2543; J2997; J3370; J3411; J3475; J3480; J7030; J7050; J7070; Q2009; Q9967